=== PATIENT | male | born 1965 | race Caucasian/White ===

== ENCOUNTER 2020-08-09 15:18 | Emergency (ER) | payer MEDICAID, SELFPAY ==
[2020-08-09 15:40] VITALS: BP 134/74; PULSE 91; RESP 18; TEMP 37; O2SAT 98; BMI 30.7
--- NOTE | 2020-08-09 16:13 | XR_ITS ---
EXAMINATION: XR CHEST CLINICAL INFORMATION: Cough. COMPARISON: 02/14/2020 chest radiograph. TECHNIQUE: Frontal view of the chest was obtained. FINDINGS: The lungs are clear. The heart and mediastinal structures are unremarkable. XR/XR chest 1V IMPRESSION: No acute cardiopulmonary process. The appearance is improved compared to the previous study.
--- NOTE | 2020-08-09 17:21 | ED.URI ---
HPI - URI/Sore Throat General Chief Complaint: Upper Respiratory Symptoms Stated Complaint: Cough Time Seen by Provider: 08/09/20 16:13 History of Present Illness HPI Narrative: patient complains of cough which is productive of sputum for 1 week without improvement, no fever no chills no shortness of breath, he was tested for COVID yesterday but results are not back Related Data Previous Rx's Medication Instructions Recorded dulaglutide 0.75 mg/0.5 mL 0.75 mg SUBCUT QWEEK 28 Days #2 ml 07/26/20 subcutaneous pen injector doxycycline hyclate 100 mg PO BID 7 Days #14 cap 08/09/20 Allergies Allergy/AdvReac Type Severity Reaction Status Date / Time Penicillins [PENICILLINS] Allergy Intermediate RASH Verified 08/09/20 15:40 morphine Allergy Unknown Unknown Verified 08/09/20 15:40 penicillin V Allergy Unknown Unknown Verified 08/09/20 15:40 Review of Systems Review of Systems: positive for cough, and body aches Negative for fever chills, shortness of breath, chest pain, abdominal pain, nausea vomiting diarrhea, calf pain or leg swelling, skin rash, weakness or dizziness Yes all other systems are reviewed and are negative PMFSH Past Medical History Source: nursing notes reviewed Medical History (Updated 08/09/20 @ 17:23 by MARY Hook) Carpal tunnel syndrome Depression Essential hypertension Hyperlipidemia LDL goal <100 Kidney stones Type 2 diabetes mellitus with hyperglycemia, with long-term current use of insulin Social History Social History Advance Directives: No Advance Directives Information Provided: No Physical Exam Vital Signs: Vital Signs: Last Vital Signs Temp 98.6 F 08/09/20 15:40 Pulse 91 08/09/20 15:40 Resp 18 08/09/20 15:40 BP 134/74 08/09/20 15:40 Pulse Ox 98 08/09/20 15:40 Body Mass Index 30.7 patient is A&O x3, no acute distress, speaking full sentences comfortable appearing The pharynx is clear, the voice is normal The neck is supple, no lymphadenopathy The chest is clear to auscultation bilaterally with full symmetrical equal breath sounds The heart rate and rhythm regular no murmur The abdomen soft nontender The extremities no edema no calf swelling or tenderness Neuro no focal deficit Skin no rash Course Course Course Narrative: chest x-ray was negative for any acute findings, no infiltrates and patient was discharged Discharge Plan Discharge Clinical Impression: Bronchitis Patient Disposition: Home, Self-Care Additional Instructions: no pneumonia was seen on the x-ray but as cough has been going on for a week we are treating with antibiotic Return to ER any time any shortness of breath, any worse condition, any concerns A negative COVID test can miss some cases so if your coughing a lot, assume you have COVID even if the test is negative and be careful to wear a mask and keep a distance from other people Prescriptions: New doxycycline hyclate 100 mg capsule 100 mg PO BID 7 Days Qty: 14 RF: 0 No Action Trulicity 0.75 mg/0.5 mL pen injector 0.75 mg subcut QWEEK 28 Days Qty: 2 RF: 0
== END 2020-08-09 17:43 | disposition home or self-care (01) ==
PROVIDERS: Emergency Provider Emergency Medicine Emergency Medical Services; PCP Internal Medicine
DX: J40 Bronchitis, not specified as acute or chronic (principal); I10 Essential (primary) hypertension; E11.9 Type 2 diabetes mellitus without complications; Z79.4 Long term (current) use of insulin; Z86.19 Personal history of other infectious and parasitic diseases
CPT/HCPCS: 71045; 99283

== ENCOUNTER 2020-08-23 18:26 | Emergency (ER) | payer MEDICAID, SELFPAY ==
[2020-08-23 18:47] VITALS: BP 136/76; PULSE 83; RESP 20; TEMP 37.4; O2SAT 98; BMI 30.7
--- NOTE | 2020-08-23 18:53 | XR_ITS ---
EXAMINATION: CHEST 2 VIEWS CLINICAL INFORMATION: continuos coughing with wheezing. Pneumonia . COMPARISON: 08/09/2020. TECHNIQUE: PA and lateral views of the chest obtained. FINDINGS: The lungs are well expanded. No focal infiltrate, effusion, edema, or pneumothorax. Cardiac and mediastinal silhouettes are within normal limits for technique. No acute bony abnormality seen XR/XR chest 2V IMPRESSION: No evidence of acute disease compared to 08/09/2020
--- NOTE | 2020-08-23 18:54 | ED.URI ---
HPI - URI/Sore Throat General Chief Complaint: General Medical Stated Complaint: Cough/SOB -COVID 08/15 Time Seen by Provider: 08/23/20 18:38 Source: patient Mode of arrival: ambulatory Limitations: no limitations History of Present Illness HPI Narrative: Patient presents to ED for continuous cough for the past 2 weeks. Patient denies any chest pain or shortness of breath. Patient diagnosed with bronchitis. Patient states antibiotic did not resolve coughing. Patient states no swelling of lower extremities, calf pain, redness, coughing up blood, fever, or chills. Patient denies any chest pain or inspiration. Patient denies any recent long travel or recent surgery. Patient was recently tested this past Tuesday for COVID-19 a was negative as per patient. Patient's main complaint is a continuous cough. Related Data Previous Rx's Medication Instructions Recorded doxycycline hyclate 100 mg PO BID 7 Days #14 cap 08/09/20 insulin glargine 100 unit/mL (3 34 unit SUBCUT DAILY 30 Days #15 ml 08/17/20 mL) subcutaneous pen dulaglutide 0.75 mg/0.5 mL 0.75 mg SUBCUT QWEEK 28 Days #2 ml 08/20/20 subcutaneous pen injector benzonatate [Tessalon Perles] 100 mg PO TID PRN #15 cap 08/23/20 Allergies Allergy/AdvReac Type Severity Reaction Status Date / Time Penicillins [PENICILLINS] Allergy Intermediate RASH Verified 08/09/20 15:40 morphine Allergy Unknown Unknown Verified 08/09/20 15:40 penicillin V Allergy Unknown Unknown Verified 08/09/20 15:40 Review of Systems Review of Systems: Yes all other systems are reviewed and are negative Constitutional: Constitutional: Reports as per HPI and Reports no additional constitutional complaints Eyes: Eyes: Reports as per HPI and Reports no additional eye complaints ENT: Reports system reviewed and no additional complaints, except as documented and Reports as per HPI Cardiovascular: Cardiovascular: Reports as per HPI and Reports no additional cardiovascular complaints Respiratory: Respiratory: Reports as per HPI, Reports no additional respiratory complaints and Reports cough Gastrointestinal: Gastrointestinal: Reports as per HPI and Reports no additional gastrointestinal complaints Musculoskeletal: Musculoskeletal: Reports no additional musculoskeletal complaints and Reports as per HPI Neurologic: Reports system reviewed and no additional complaints, except as documented and Reports as per HPI Psychiatric: Psychiatric: Reports no additional psychiatric complaints and Reports as per HPI [facility] Past Medical History Medical History Carpal tunnel syndrome Depression Essential hypertension Hyperlipidemia LDL goal <100 Kidney stones Type 2 diabetes mellitus with hyperglycemia, with long-term current use of insulin Surgical History (Updated 08/21/20 @ 11:20 by Myriam Mccall LPN) Hx of colonoscopy Family History Family History (Updated 08/21/20 @ 11:21 by Myriam Mccall LPN) Mother Diabetes Social History Social History (Updated 08/21/20 @ 11:21 by Myriam Mccall LPN) Smoking Status: Former smoker Advance Directives: No Advance Directives Information Provided: No Physical Exam Vital Signs: Vital Signs: Last Vital Signs Temp 99.3 F 08/23/20 18:47 Pulse 83 08/23/20 18:47 Resp 20 08/23/20 18:47 BP 136/76 08/23/20 18:47 Pulse Ox 98 08/23/20 18:47 Body Mass Index 30.7 Const: General: cooperative, healthy appearing, comfortable, no acute distress, well developed, alert, awake, Physically active and acute distress Orientation/consciousness: patient oriented x3 HENMT: Head: Yes normal to inspection and Yes No palpable skull fracture present Eyes: General: appearance normal, both eyes and all related structures Neck: Neck: Yes normal visual inspection, Yes full ROM, Yes no lymphadenopathy, Yes no meningeal signs, Yes trachea midline, Yes supple and No tender Chest: Chest palpation & inspection: normal inspection of the chest and normal palpation of entire chest wall Resp: Effort & Inspection: normal respiratory effort and able to speak in complete sentences Auscultation: wheezes (Diffuse) expiratory wheezes Cardio: Jugular venous distension: no JVD Heart sounds: S1 normal heart sound present and S2 normal heart sound present GI: Inspection: Yes normal to inspection Palpation (GI): Soft to palpation, not firm, nontender, no guarding and not rigid : General: No CVA tenderness and Yes no CVA tenderness Back/Spine/Pelvis: Back: no CVA tenderness, No CVA tenderness and No back tenderness Skin: General skin exam: no rashes or lesions noted Neuro: General: patient oriented x3, gait normal, no meningeal signs and CN's II-XI intact bilaterally Cranial nerves: Yes CN's II-XII intact bilaterally Extrem: Other: Lower extremities negative for any swelling, pitting edema, or calf pain. General: Yes normal to inspection and Yes full ROM Psych: Appearance: grossly normal, well kempt and not disheveled Course Course Course Narrative: History and physical exam indicate bronchitis exacerbation. Wheezing with no history of asthma. Lower extremity negative for any swelling, pitting edema, or calf pain. not suspecting CHF exacerbation or PE. Will do repeat x-ray repeat& COVID. Reevaluation(s) Reevaluation #1: Chest x-ray negative for pneumonia. Will discharge patient with Tessalon Perles. Patient encourage to continue taking and using his albuterol pump. Diagnosis bronchitis. Time: 19:33 MDM - URI/Sore Throat MDM Narrative Medical decision making narrative: Bronchitis Discharge Plan Discharge Clinical Impression: Bronchitis, Upper respiratory infection Patient Disposition: Home, Self-Care Instructions: Upper Respiratory Infection (ED), Acute Bronchitis (ED) Additional Instructions: Return to ED immediately for any chest pain, shortness of breath, weakness, dizziness, calf pain, swelling of lower extremities, coughing up blood, fever, chills, or any other concerning symptoms. Please continue taking you albuterol inhaler at home as needed Prescriptions: New benzonatate [Tessalon Perles] 100 mg capsule 100 mg PO TID PRN (Reason: cough) Qty: 15 RF: 0 No Action insulin glargine [Lantus Solostar U-100 Insulin] 100 unit/mL (3 mL) insulin pen 34 unit subcut DAILY 30 Days Qty: 15 RF: 0 Trulicity 0.75 mg/0.5 mL pen injector 0.75 mg subcut QWEEK 28 Days Qty: 2 RF: 0 doxycycline hyclate 100 mg capsule 100 mg PO BID 7 Days Qty: 14 RF: 0 Referrals: Ramsey Turner MD [Primary Care Provider] - 2 days (Bronchitis. Chronic cough.) Interventions: ED Discharge Assessment Last Done: 08/23/20 19:50 Discharge Date/Time: 08/23/20 20:00 Print Language: Tajik
== END 2020-08-23 20:00 | disposition home or self-care (01) ==
PROVIDERS: Physician Assistant; Emergency Provider Emergency Medicine; PCP Internal Medicine
DX: J20.9 Acute bronchitis, unspecified (principal); Z20.828 Contact with and (suspected) exposure to other viral communicable diseases; E11.9 Type 2 diabetes mellitus without complications; I10 Essential (primary) hypertension; E78.5 Hyperlipidemia, unspecified
CPT/HCPCS: 71046; 99283; U0003

== ENCOUNTER → 2020-09-23 08:20 | Outpatient (BNVA) | payer MEDICAID, SELFPAY | PROVIDERS: PCP Internal Medicine; Visit Provider Nurse Practitioner Gerontology | DX: Z76.89 Persons encountering health services in other specified circumstances (principal) | CPT/HCPCS: 99212 ==

== ENCOUNTER 2020-09-25 11:51 | Emergency (ER) | payer MEDICAID, SELFPAY ==
[2020-09-25 12:21] VITALS: BP 112/66; PULSE 90; RESP 18; TEMP 37.2; O2SAT 96; BMI 31.1
--- NOTE | 2020-09-25 12:37 | ED.ASTHMA ---
HPI - Asthma General Chief Complaint: Asthma Stated Complaint: asthma Time Seen by Provider: 09/25/20 13:19 Source: patient Mode of arrival: ambulatory Limitations: no limitations History of Present Illness HPI Narrative: This is a 55-year-old primarily Yi-speaking male with past medical history that is significant for diabetes, hypertension, hyperlipidemia who presents feet via triage ambulatory with complaint of cough and body aches with wheezing for the past several days start see started with upper respiratory symptoms of nasal congestion that progressed to cough and now is having wheezing associated with a cough. States he has had several of these episodes in the past he has been here for this. States he was tested for COVID-23 August last year and was negative prior to that he was positive in January of last year. He denies any recent travel or sick contacts. He does report to me that he had a 10 year history of 2 pack a day but quit smoking about 20 years ago. He states he does not have any formal diagnosis of reactive airway disease. MD complaint: wheezing Severity: moderate Related Data Current Asthma Therapy: none Home Medications Medication Instructions Recorded Confirmed aspirin 81 mg tablet,delayed 81 mg PO DAILY 09/23/20 09/23/20 release atorvastatin 10 mg tablet 10 mg PO DAILY 09/23/20 09/23/20 lisinopril 10 mg tablet 10 mg PO DAILY 09/23/20 09/23/20 metformin 500 mg tablet 1,000 mg PO BID tab 09/23/20 09/23/20 Previous Rx's Medication Instructions Recorded doxycycline hyclate 100 mg PO BID 7 Days #14 cap 08/09/20 insulin glargine 100 unit/mL (3 34 unit SUBCUT DAILY 30 Days #15 ml 08/17/20 mL) subcutaneous pen benzonatate [Tessalon Perles] 100 mg PO TID PRN #15 cap 08/23/20 dulaglutide 1.5 mg/0.5 mL 1.5 mg SUBCUT QWEEK 28 Days #2 ml 09/23/20 subcutaneous pen injector albuterol sulfate 2 puff INHALATION Q4-6H PRN #8.5 g 09/25/20 azithromycin [Zithromax Z-Chano] 250 mg PO DAILY 5 Days #6 tab 09/25/20 prednisone 40 mg PO DAILY 5 Days #10 tab 09/25/20 Allergies Allergy/AdvReac Type Severity Reaction Status Date / Time Penicillins [PENICILLINS] Allergy Intermediate RASH Verified 09/23/20 08:38 penicillin V Allergy Unknown Unknown Verified 09/23/20 08:38 morphine AdvReac Unknown Unknown Verified 09/23/20 08:38 Review of Systems Review of Systems: Constitutional: No Weight loss, No Fever, No Chills, No Night Sweats, No Fatigue, No Malaise ENT/Mouth: No Hearing loss, No Ear Pain, No Nasal Congestion, No Sinus Pain, No Hoarseness, No sore throat, No Rhinorrhea, No Swallowing Difficulty Eyes: No Eye Pain, No Swelling, No Redness, No Foreign Body, No Discharge, No Vision Changes Cardiovascular: No Chest Pain, No SOB, No Dyspnea on Exertion, No Orthopnea, No Edema, No Palpitations Respiratory: + Cough, No Sputum, + Wheezing, No Smoke Exposure, No Dyspnea Gastrointestinal: No Nausea, No Vomiting, No Diarrhea, No Constipation, No abdominal Pain, No Hematochezia, No Melena Genitourinary: no irregular bleeding, No Dysuria, No Urinary Frequency, No Hematuria, No Urinary Incontinence, No Urgency Musculoskeletal: No joint pain, No Myalgias, No Joint Swelling Skin: No Skin Lesions, No rash Neuro: No Weakness, No Numbness, No Paresthesias, No Loss of Consciousness, No Dizziness, No Headache Psych: Negative Heme/Lymph: No Bruising, No Bleeding,No Lymphadenopathy Endocrine: No Polyuria, No Polydipsia, No Temperature Intolerance Yes all other systems are reviewed and are negative [facility] Past Medical History Medical History Carpal tunnel syndrome Depression Essential hypertension Hyperlipidemia LDL goal <100 Kidney stones Type 2 diabetes mellitus with hyperglycemia, with long-term current use of insulin Surgical History Hx of colonoscopy Family History Family History Mother Diabetes Social History Social History (Updated 09/23/20 @ 08:21 by José Miguel Marshall) Household Members: None Smoking Status: Former smoker Advance Directives: No Advance Directives Information Provided: No Physical Exam Vital Signs: Vital Signs: Last Vital Signs Temp 98.9 F 09/25/20 12:21 Pulse 100 09/25/20 14:29 Resp 18 09/25/20 14:29 BP 120/70 09/25/20 14:29 Pulse Ox 96 09/25/20 14:29 Body Mass Index 31.1 Reviewed Const: General: cooperative and healthy appearing; No acute distress or intoxicated appearing Nutritional Appearance: average body habitus Orientation/consciousness: patient oriented x3 HENMT: Head: Yes normal to inspection Ears: hearing grossly normal bilaterally Eyes: General: appearance normal, both eyes and all related structures Visual Henderson: normal visual henderson by confrontation Neck: Neck: Yes normal visual inspection, No positive Brudzinski's sign, No positive Kernig's sign and No tender Thyroid: Thyroid normal Chest: Chest palpation & inspection: normal inspection of the chest Resp: Effort & Inspection: normal respiratory effort Auscultation: wheezes (Audible wheezing diffuse) Cardio: Jugular venous distension: no JVD Rhythm: regular rhythm Heart sounds: S1 normal heart sound present and S2 normal heart sound present GI: Inspection: Yes normal to inspection Palpation (GI): Soft to palpation Percussion: Yes normal to percussion Auscultation: normal bowel sounds : General: Yes no CVA tenderness Back/Spine/Pelvis: Back: no CVA tenderness Skin: General skin exam: no rashes or lesions noted Neuro: General: patient oriented x3 Extrem: General: Yes normal to inspection Course Course Course Narrative: In review 55-year-old male with history of diabetes, hypertension, hyperlipidemia former smoker presenting with cough and wheezing in the setting of recent URI does have history of recurrent bronchitis no formal diagnosis of asthma/COPD though my suspicions are high. He feels much better after our long neb with 7.5 mg albuterol. Lungs clear to auscultation. Hemodynamically stable. Ambulatory steady straight gait without changes in his vitals. Will discharge home with short course inhaler, prednisone and azithromycin and advised for GP follow-up with possible referral to pulmonology for pulmonary function tests and further evaluation for underlying disease. He verbalized understanding. Feels comfortable plan. Stable for discharge. MDM - Asthma Lab Data Result diagrams: 09/25/20 12:59 09/25/20 12:59 Labs: Lab Results 09/25/20 09/25/20 09/25/20 Range/Units 12:59 12:59 12:59 WBC 10.2 (4.8-10.8) X10*3/uL RBC 5.39 (4.60-5.80) X10*6/uL Hgb 15.7 (14.0-18.0) g/dl Hct 46.5 (42-52) % MCV 86.3 (80-98) fL MCH 29.1 (27.0-33.0) pg MCHC 33.8 (31.0-36.0) g/dl RDW 12.7 (11.0-16.0) % Plt Count 220 (160-400) X10*3/uL MPV 11.1 (9.4-12.4) fL Immature Gran % (Auto) 0.5 H (0.0-0.4) % Neut % (Auto) 62.1 (45-73) % Lymph % (Auto) 23.6 (20-40) % Wheeler % (Auto) 4.6 (2-11) % Eos % (Auto) 8.6 H (0-4) % Baso % (Auto) 0.6 (0-2) % Lymph # (Auto) 2.4 (1.2-4.9) X10*3/uL Wheeler # (Auto) 0.5 (0.1-1.2) X10*3/uL Eos # (Auto) 0.9 H (0.0-0.4) X10*3/uL Baso # (Auto) 0.1 (0.0-0.2) X10*3/uL Abs Immat Gran (auto) 0.05 H (0.00-0.03) X10*3/uL Absolute Neuts (auto) 6.4 (2.0-8.3) X10*3/uL Absolute Nucleated RBC 0.000 (0.0-0.012) X10*3/uL Nucleated RBC % (auto) 0.0 (0.0-0.2) /100WBC Hold Blue Top SEE NOTE Sodium 139 (135-145) mmol/L Potassium 4.6 (3.3-5.1) mmol/l Chloride 105 (96-108) mmol/L Carbon Dioxide 24 (22-29) mmol/L Anion Gap 15 (12-20) BUN 22 H (9-16) mg/dL Creatinine 1.33 (0.5-1.4) mg/dL Estim Creat Clear Calc 62.9 Estimated GFR 56 Random Glucose 239 H (60-115) mg/dL Calcium 9.3 (8.4-10.2) mg/dL Total Bilirubin 0.9 (0.0-1.0) mg/dL AST 22 (5-37) U/L ALT 32 (0-40) U/L Alkaline Phosphatase 126 H (39-117) U/L Troponin I High Sens (<3.5-35.0) ng/L Total Protein 7.4 (6.5-8.0) g/dL Albumin 4.1 (3.5-5.0) g/dL Coronavirus (PCR) (Negative) Influenza Type A (PCR) (Negative) Influenza Type B (PCR) (Negative) RSV RNA Qual (PCR) (Negative) 09/25/20 09/25/20 Range/Units 12:59 13:01 WBC (4.8-10.8) X10*3/uL RBC (4.60-5.80) X10*6/uL Hgb (14.0-18.0) g/dl Hct (42-52) % MCV (80-98) fL MCH (27.0-33.0) pg MCHC (31.0-36.0) g/dl RDW (11.0-16.0) % Plt Count (160-400) X10*3/uL MPV (9.4-12.4) fL Immature Gran % (Auto) (0.0-0.4) % Neut % (Auto) (45-73) % Lymph % (Auto) (20-40) % Wheeler % (Auto) (2-11) % Eos % (Auto) (0-4) % Baso % (Auto) (0-2) % Lymph # (Auto) (1.2-4.9) X10*3/uL Wheeler # (Auto) (0.1-1.2) X10*3/uL Eos # (Auto) (0.0-0.4) X10*3/uL Baso # (Auto) (0.0-0.2) X10*3/uL Abs Immat Gran (auto) (0.00-0.03) X10*3/uL Absolute Neuts (auto) (2.0-8.3) X10*3/uL Absolute Nucleated RBC (0.0-0.012) X10*3/uL Nucleated RBC % (auto) (0.0-0.2) /100WBC Hold Blue Top Sodium (135-145) mmol/L Potassium (3.3-5.1) mmol/l Chloride (96-108) mmol/L Carbon Dioxide (22-29) mmol/L Anion Gap (12-20) BUN (9-16) mg/dL Creatinine (0.5-1.4) mg/dL Estim Creat Clear Calc Estimated GFR Random Glucose (60-115) mg/dL Calcium (8.4-10.2) mg/dL Total Bilirubin (0.0-1.0) mg/dL AST (5-37) U/L ALT (0-40) U/L Alkaline Phosphatase (39-117) U/L Troponin I High Sens < 3.5 (<3.5-35.0) ng/L Total Protein (6.5-8.0) g/dL Albumin (3.5-5.0) g/dL Coronavirus (PCR) NEGATIVE (Negative) Influenza Type A (PCR) NEGATIVE (Negative) Influenza Type B (PCR) NEGATIVE (Negative) RSV RNA Qual (PCR) NEGATIVE (Negative) Imaging Data Chest x-ray: Radiologist's impression: Armand Warren 55 M [address] [id number] ReportSigned Patient: Armand WarrenMR#: [id number]: [id number]:[id number]/Sex: 55 / MADM Date: 09/25/20Loc: EDAttending Dr: Ordering Physician: Feliciano Perry NP Date of Service: 09/25/20 Procedure(s): XR chest 1V Accession Number(s): [id number] cc: Feliciano Perry NP~ EXAMINATION: XR CHEST CLINICAL INFORMATION: Shortness of breath COMPARISON: Chest radiographs 08/23/2020, 08/09/2020 TECHNIQUE: Portable upright AP view of the chest was obtained. FINDINGS: There is no lobar or segmental airspace consolidation or definite groundglass opacities. The costophrenic sulci are clear. The heart is normal in size. The hilar and mediastinal contours and visualized bony structures are unremarkable. XR/XR chest 1V IMPRESSION: Unremarkable examination. 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 Drink plenty fluids Self-isolation/social distancing Take medication as prescribed Return if any concerns or worsening symptoms Thank you Prescriptions: New azithromycin [Zithromax Z-Chano] 250 mg tablet 250 mg PO DAILY 5 Days Qty: 6 RF: 0 albuterol sulfate 90 mcg/actuation HFA aerosol inhaler 2 puff inhalation Q4-6H PRN (Reason: shortness of breath or wheezing) Qty: 8.5 RF: 0 prednisone 20 mg tablet 40 mg PO DAILY 5 Days Qty: 10 RF: 0 No Action insulin glargine [Lantus Solostar U-100 Insulin] 100 unit/mL (3 mL) insulin pen 34 unit subcut DAILY 30 Days Qty: 15 RF: 0 doxycycline hyclate 100 mg capsule 100 mg PO BID 7 Days Qty: 14 RF: 0 benzonatate [Tessalon Perles] 100 mg capsule 100 mg PO TID PRN (Reason: cough) Qty: 15 RF: 0 aspirin [Adult Low Dose Aspirin] 81 mg tablet,delayed release (DR/EC) 81 mg PO DAILY RF: 0 atorvastatin 10 mg tablet 10 mg PO DAILY RF: 0 lisinopril 10 mg tablet 10 mg PO DAILY RF: 0 metformin 500 mg tablet 1,000 mg PO BID RF: 0 Trulicity 1.5 mg/0.5 mL pen injector 1.5 mg subcut QWEEK 28 Days Qty: 2 RF: 3 Referrals: Ramsey Turner MD [Primary Care Provider] - 1 week Interventions: ED Discharge Assessment Last Done: 09/25/20 15:16 Discharge Date/Time: 09/25/20 15:17
--- NOTE | 2020-09-25 12:43 | XR_ITS ---
EXAMINATION: XR CHEST CLINICAL INFORMATION: Shortness of breath COMPARISON: Chest radiographs 08/23/2020, 08/09/2020 TECHNIQUE: Portable upright AP view of the chest was obtained. FINDINGS: There is no lobar or segmental airspace consolidation or definite groundglass opacities. The costophrenic sulci are clear. The heart is normal in size. The hilar and mediastinal contours and visualized bony structures are unremarkable. XR/XR chest 1V IMPRESSION: Unremarkable examination.
--- NOTE | 2020-09-25 12:44 | PC.NURSE ---
SEEN BY PROVIDER AT THIS TIME
[2020-09-25 13:06] LABS: MANUAL DIFF FLAG NO
[2020-09-25 13:08] VITALS: PULSE 85; O2SAT 96
[2020-09-25] MEDS: Albuterol Sulfate (0.083%) 2.5 MG/3 ML VIAL.NEB 7.5 MG INHALE (13:08)
[2020-09-25 13:10] LABS: Basophils Absolute Auto 0.1 X10*3/uL (0.0-0.2); Basophils Percent Auto 0.6 % (0-2); Eosinophils Absolute Auto 0.9 X10*3/uL (0.0-0.4); Eosinophils Percent Auto 8.6 % (0-4); Hematocrit 46.5 % (42-52); Hemoglobin 15.7 g/dl (14.0-18.0); Imm Gran Abs Auto 0.05 X10*3/uL (0.00-0.03); Imm Gran Pct Auto 0.5 % (0.0-0.4); Lymphocytes Absolute Auto 2.4 X10*3/uL (1.2-4.9); Lymphocytes Percent Auto 23.6 % (20-40); Mean Corpuscular HGB Conc 33.8 g/dl (31.0-36.0); Mean Corpuscular Hemoglobin 29.1 pg (27.0-33.0); Mean Corpuscular Volume 86.3 fL (80-98); Mean Platelet Volume 11.1 fL (9.4-12.4); Monocytes Absolute Auto 0.5 X10*3/uL (0.1-1.2); Monocytes Percent Auto 4.6 % (2-11); Neutrophils Absolute Auto 6.4 X10*3/uL (2.0-8.3); Neutrophils Percent Auto 62.1 % (45-73); Platelet Count 220 X10*3/uL (160-400); Red Blood Count 5.39 X10*6/uL (4.60-5.80); Red Cell Distribution Width 12.7 % (11.0-16.0); White Blood Count 10.2 X10*3/uL (4.8-10.8)
[2020-09-25] MEDS: 0.9 % Sodium Chloride 500 ML IV (13:12)
[2020-09-25] MEDS: methylPREDNISolone Sod Succ/PF 125 MG/2 ML VIAL IVPUSH (13:12)
--- NOTE | 2020-09-25 13:16 | PC.NURSE ---
SEEN BY PROVIDER. LABS DRAWN. IV EST. MEDICATED PER ORDERS.
[2020-09-25 13:33] LABS: Alanine Aminotransferase 32 U/L (0-40); Albumin Level 4.1 g/dL (3.5-5.0); Alkaline Phosphatase 126 U/L (39-117); Anion Gap 15 (12-20); Aspartate Amino Transferase 22 U/L (5-37); Bilirubin Total 0.9 mg/dL (0.0-1.0); Blood Urea Nitrogen 22 mg/dL (9-16); Calcium 9.3 mg/dL (8.4-10.2); Carbon Dioxide 24 mmol/L (22-29); Chloride 105 mmol/L (96-108); Creatinine Clr Calc Pharmacy 62.9; Estimated Glomerular Filt Rate 56; Glucose Random 239 mg/dL (60-115); Potassium 4.6 mmol/l (3.3-5.1); Sodium 139 mmol/L (135-145); Total Protein 7.4 g/dL (6.5-8.0)
[2020-09-25 13:39] LABS: Troponin-I High Sensitivity < 3.5 ng/L (<3.5-35.0)
[2020-09-25 13:49] LABS: Influenza A PCR NEGATIVE (Negative); Influenza B PCR NEGATIVE (Negative); Resp Syncy Virus RNA Qual PCR NEGATIVE (Negative); SARS COV2 PCR INHOUSE NEGATIVE (Negative)
[2020-09-25 14:29] VITALS: BP 120/70; PULSE 100; RESP 18; O2SAT 96
--- NOTE | 2020-09-25 14:29 | PC.NURSE ---
HOUR LONG UD COMPLETE, CXR DONE. AWAITINIG REEVAL. COVID -
== END 2020-09-25 15:17 | disposition home or self-care (01) ==
PROVIDERS: Nurse Practitioner Primary Care; Emergency Provider Emergency Medicine Emergency Medical Services; PCP Internal Medicine
DX: J06.9 Acute upper respiratory infection, unspecified (principal); R05 Cough; M79.10 Myalgia, unspecified site; Z20.822 Contact with and (suspected) exposure to COVID-19; Z87.891 Personal history of nicotine dependence
CPT/HCPCS: 0241U; 36415; 71045; 80053; 84484; 85025; 96361; 96374; 99283; J2930

== ENCOUNTER → 2020-11-05 08:55 | Outpatient (BNVA) | payer MEDICAID, SELFPAY | PROVIDERS: PCP Internal Medicine; Visit Provider Nurse Practitioner Gerontology ==

== ENCOUNTER 2020-11-14 07:39 | Outpatient (REF) | payer MEDICAID, SELFPAY ==
[2020-11-14 09:29] LABS: Estimated Average Glucose 252 mg/dL; Hemoglobin A1c % 10.4 %
[2020-11-14 09:37] LABS: Alanine Aminotransferase 31 U/L (0-40); Albumin Level 4.1 g/dL (3.5-5.0); Alkaline Phosphatase 123 U/L (39-117); Anion Gap 14 (12-20); Aspartate Amino Transferase 23 U/L (5-37); Bilirubin Total 1.1 mg/dL (0.0-1.0); Blood Urea Nitrogen 22 mg/dL (9-16); Calcium 9.3 mg/dL (8.4-10.2); Carbon Dioxide 25 mmol/L (22-29); Chloride 105 mmol/L (96-108); Cholesterol 117 mg/dL; Estimated Glomerular Filt Rate > 60; Glucose Fasting 211 mg/dL (60-99); HDL Cholesterol 28 mg/dL; LDL Cholesterol Calculated 68 mg/dl; Potassium 5.4 mmol/L (3.3-5.1); Sodium 139 mmol/L (135-145); Total Protein 7.4 g/dL (6.5-8.0); Triglycerides 109 mg/dL
[2020-11-14 09:39] LABS: Creatinine Urine 118.94 mg/dL; Microalbum/Creatinine Ratio Ur 15.9 ug/mg cr
[2020-11-16 12:31] LABS: LDL Cholesterol Direct 75 mg/dL (<100)
== END 2020-11-14 07:40 | disposition home or self-care (01) ==
LOC: HO.LAB 07:39
PROVIDERS: PCP Internal Medicine; Visit Provider Nurse Practitioner Gerontology
DX: E11.65 Type 2 diabetes mellitus with hyperglycemia (principal); Z79.4 Long term (current) use of insulin
CPT/HCPCS: 36415; 80053; 80061; 82043; 83036; 83721

== ENCOUNTER 2020-11-19 09:57 | Outpatient (REF) | payer MEDICAID, SELFPAY ==
[2020-11-19 12:10] LABS: Alanine Aminotransferase 27 U/L (0-40); Albumin Level 4.2 g/dL (3.5-5.0); Alkaline Phosphatase 123 U/L (39-117); Anion Gap 14 (12-20); Aspartate Amino Transferase 21 U/L (5-37); Bilirubin Total 1.2 mg/dL (0.0-1.0); Blood Urea Nitrogen 18 mg/dL (9-16); Calcium 9.4 mg/dL (8.4-10.2); Carbon Dioxide 30 mmol/L (22-29); Chloride 100 mmol/L (96-108); Estimated Glomerular Filt Rate 53; Glucose Random 375 mg/dL (60-115); Potassium 4.7 mmol/L (3.3-5.1); Sodium 139 mmol/L (135-145); Total Protein 7.3 g/dL (6.5-8.0)
== END 2020-11-19 09:58 | disposition home or self-care (01) ==
LOC: HO.LAB 09:57
PROVIDERS: Nurse Practitioner Gerontology; PCP Internal Medicine; Visit Provider Internal Medicine Pulmonary Disease
DX: B94.8 Sequelae of other specified infectious and parasitic diseases (principal); J84.9 Interstitial pulmonary disease, unspecified; J44.9 Chronic obstructive pulmonary disease, unspecified; R06.00 Dyspnea, unspecified; E11.65 Type 2 diabetes mellitus with hyperglycemia; Z79.4 Long term (current) use of insulin
CPT/HCPCS: 36415; 80053; 99202

== ENCOUNTER 2020-12-02 08:52 | Outpatient (REF) | payer MEDICAID, SELFPAY ==
--- NOTE | ~2020-12-02 | CT_ITS ---
EXAMINATION: CT CHEST WITHOUT CONTRAST CLINICAL INFORMATION: Interstitial pulmonary disease. COMPARISON: None TECHNIQUE: Multidetector volumetric CT imaging of the chest was done. Axial MIP volume rendering provided. Sagittal and coronal reformatted images were obtained. This CT examination was performed using dose optimization techniques as appropriate, variously including the following: *Automated exposure control *Adjustment of mA and/or kV according to patient size (this includes techniques or standardized protocols for targeted exams where dose is matched to indication/reason for exam; i.e. extremities or head) *Use of iterative reconstruction technique DLP: 180 mGy-cm FINDINGS: WEATHER STRIP INSTALLER: Well-expanded lungs. LUNGS: The lungs are well-expanded and clear of acute pneumonic process. No pulmonary nodule, mass or ground-glass density seen. Thin section evaluation of lungs reveals no interstitial thickening, nodularity or bronchiectasis. MEDIASTINUM: The heart size and the great vessels are normal caliber. The thyroid lobes are symmetrical. The central trachea and bronchi are widely patent. No abnormal sized mediastinal lymph nodes or mass seen. There is no pericardial effusion. PLEURA: There is no pleural effusion. No pleural mass or thickening. AXILLA: No lymphadenopathy. UPPER ABDOMEN: Visualized liver, spleen, pancreas, and bilateral adrenal glands are unremarkable. OSSEOUS STRUCTURES: No lytic or sclerotic process seen. There is inferior endplate Schmorl's node T9 vertebra. CT/CT chest wo con IMPRESSION: Unremarkable CT chest exam.
== END 2020-12-02 08:53 | disposition home or self-care (01) ==
LOC: HO.CT 08:52
PROVIDERS: Visit Provider Internal Medicine Pulmonary Disease
DX: J84.9 Interstitial pulmonary disease, unspecified (principal)
CPT/HCPCS: 71250

== ENCOUNTER 2020-12-31 08:36 | Outpatient (REF) | payer MEDICAID, SELFPAY ==
--- NOTE | 2020-12-31 10:36 | PFT_ITS ---
Forced vital capacity is slightly decreased. FEV1, JEV70-79, and MVV are normal. Postbronchodilator therapy, there is no significant change. Total lung capacity and residual volume slightly decreased. Diffusion capacity normal. CONCLUSION: A very mild degree of restrictive pulmonary disorder. No obstructive airway disorder. Mike Braun MD MSB/MODL / [id number]
== END 2020-12-31 08:37 | disposition home or self-care (01) ==
LOC: HO.RESP 08:36
PROVIDERS: PCP Internal Medicine; Visit Provider Internal Medicine Pulmonary Disease
DX: J44.9 Chronic obstructive pulmonary disease, unspecified (principal)
CPT/HCPCS: 94060; 94727; 94729; 99212

== ENCOUNTER → 2021-02-06 12:20 | Outpatient (BNVA) | payer MEDICAID, SELFPAY | PROVIDERS: PCP Internal Medicine; Visit Provider Nurse Practitioner Gerontology | DX: E11.65 Type 2 diabetes mellitus with hyperglycemia (principal); E78.5 Hyperlipidemia, unspecified; B35.3 Tinea pedis; R74.8 Abnormal levels of other serum enzymes; I10 Essential (primary) hypertension; Z79.4 Long term (current) use of insulin | CPT/HCPCS: 82947; 99212 ==

== ENCOUNTER → 2021-06-24 10:55 | Outpatient (BNVA) | payer MEDICAID, SELFPAY | PROVIDERS: PCP Internal Medicine; Visit Provider Internal Medicine Pulmonary Disease | DX: J44.9 Chronic obstructive pulmonary disease, unspecified (principal); R91.8 Other nonspecific abnormal finding of lung field | CPT/HCPCS: 99212 ==

== ENCOUNTER → 2021-07-16 11:27 | Outpatient (BNVA) | payer MEDICAID, SELFPAY | PROVIDERS: PCP Internal Medicine; Visit Provider Nurse Practitioner Gerontology | DX: E11.65 Type 2 diabetes mellitus with hyperglycemia (principal); E78.5 Hyperlipidemia, unspecified; E66.09 Other obesity due to excess calories; I10 Essential (primary) hypertension; Z79.4 Long term (current) use of insulin; Z68.30 Body mass index [BMI] 30.0-30.9, adult | CPT/HCPCS: 82947; 83036; 99212 ==

== ENCOUNTER 2021-10-16 07:51 | Outpatient (REF) | payer MEDICAID, SELFPAY ==
--- NOTE | ~2021-10-16 | CT_ITS ---
EXAMINATION: CT CHEST WITHOUT CONTRAST CLINICAL INFORMATION: Follow-up pulmonary nodule COMPARISON: Previous chest CT November 2020 TECHNIQUE: Multidetector volumetric CT imaging of the chest was done. Axial MIP volume rendering provided. Sagittal and coronal reformatted images were obtained. This CT examination was performed using dose optimization techniques as appropriate, variously including the following: *Automated exposure control *Adjustment of mA and/or kV according to patient size (this includes techniques or standardized protocols for targeted exams where dose is matched to indication/reason for exam; i.e. extremities or head) *Use of iterative reconstruction technique DLP: 183 mGy-cm FINDINGS: SAP FUNCTIONAL ANALYST: LUNGS: There are small pulmonary nodules that are stable. Largest is a 4 mm peripheral or subpleural left upper lobe nodule axial image 92 series 7. There are several new pulmonary nodules. There is a new 2 mm anterior segment right upper lobe nodule axial image 187 series 7 and surrounding groundglass attenuation measuring 1 cm axial image 188 series 7. There is a similar-appearing areas seen in the medial right lower lobe for example axial image 3 40-3 90 medially near the spine, apical posterior segment of the left upper lobe near the fissure for example axial image 200 and 206 series 7, central left lower lobe for example axial image 327 series 7 and in the right middle lobe adjacent to the minor fissure for example axial image 380 series 7. These areas probably represent airways disease. There is a new 4 mm peripheral or subpleural right lower lobe nodule axial image 284 series 7 and 3 mm right lower lobe nodule axial image 370 series 7. There is a new 2 mm peripheral left lower lobe nodule axial image 414 series 7 and question axial image 436 series 7. MEDIASTINUM: The mediastinum is normal. PLEURA: There is no pleural effusion. No pleural mass or thickening. AXILLA: No lymphadenopathy. UPPER ABDOMEN: There is a partially visualized right renal cyst. Is a small calcification in the spleen. OSSEOUS STRUCTURES: There are mild degenerative changes of the spine. CT/CT chest wo con IMPRESSION: Several new small pulmonary nodules and areas of groundglass attenuation, the majority of which appear related to airways disease. Largest discrete nodule is a 4 mm peripheral or subpleural nodule in the right lower lobe. According to the UPDATED 2017 Fleischner Society recommendations, the advised follow-up imaging for less than 6 mm nodule: Low risk, no chest CT follow-up and high risk, optional chest CT follow-up in one year Fleischner guidelines were followed.
== END 2021-10-16 07:52 | disposition home or self-care (01) ==
LOC: HO.CT 07:51
PROVIDERS: PCP Internal Medicine; Visit Provider Internal Medicine Pulmonary Disease
DX: R91.8 Other nonspecific abnormal finding of lung field (principal)
CPT/HCPCS: 71250

== ENCOUNTER → 2021-10-19 07:35 | Outpatient (BNVA) | payer MEDICAID, SELFPAY | PROVIDERS: PCP Internal Medicine; Visit Provider Nurse Practitioner Gerontology | DX: E11.65 Type 2 diabetes mellitus with hyperglycemia (principal); E66.09 Other obesity due to excess calories; E78.5 Hyperlipidemia, unspecified; I10 Essential (primary) hypertension; Z79.4 Long term (current) use of insulin; Z68.31 Body mass index [BMI] 31.0-31.9, adult | CPT/HCPCS: 82947 ==

== ENCOUNTER → 2021-10-21 08:04 | Outpatient (BNVA) | payer MEDICAID, SELFPAY | PROVIDERS: PCP Internal Medicine; Visit Provider Internal Medicine Pulmonary Disease | DX: J44.9 Chronic obstructive pulmonary disease, unspecified (principal); R91.8 Other nonspecific abnormal finding of lung field | CPT/HCPCS: 99212 ==

== ENCOUNTER → 2022-02-10 08:33 | Outpatient (BNVA) | payer MEDICAID, SELFPAY | PROVIDERS: PCP Internal Medicine; Visit Provider Internal Medicine Pulmonary Disease | DX: J44.9 Chronic obstructive pulmonary disease, unspecified (principal); R91.8 Other nonspecific abnormal finding of lung field; Z79.899 Other long term (current) drug therapy; Z87.891 Personal history of nicotine dependence | CPT/HCPCS: 99212 ==

== ENCOUNTER 2022-10-14 07:39 | Outpatient (REF) | payer MEDICAID, SELFPAY ==
--- NOTE | ~2022-10-14 | CT_ITS ---
EXAMINATION: CT CHEST WITHOUT CONTRAST CLINICAL INFORMATION: Follow-up pulmonary nodules COMPARISON: 10/16/2021 TECHNIQUE: Multidetector volumetric CT imaging of the chest was done. Axial MIP volume rendering provided. Sagittal and coronal reformatted images were obtained. This CT examination was performed using dose optimization techniques as appropriate, variously including the following: *Automated exposure control *Adjustment of mA and/or kV according to patient size (this includes techniques or standardized protocols for targeted exams where dose is matched to indication/reason for exam; i.e. extremities or head) *Use of iterative reconstruction technique DLP: 179 FINDINGS: LUNGS: Redemonstration of small bilateral pulmonary nodules. Reference left upper lobe subpleural 3 mm nodule is unchanged (5:104). Right upper lobe 2 mm nodule and surrounding groundglass opacity has resolved from prior study. Left upper lobe 2 mm nodule is unchanged (5:150). No new or enlarging pulmonary nodule. MEDIASTINUM: No mediastinal adenopathy. No significant coronary artery atherosclerotic calcifications. PLEURA: There is no pleural effusion. No pleural mass or thickening. AXILLA: No lymphadenopathy. UPPER ABDOMEN: Benign-appearing right renal cyst is again noted. OSSEOUS STRUCTURES/SOFT TISSUES: Degenerative changes of the thoracic spine. CT/CT chest wo IV con IMPRESSION: Bilateral pulmonary nodules measuring up to 3 mm are unchanged. No new or enlarging pulmonary nodule. Fleischner guidelines were followed. According to Fleischner Society guidelines, these nodules are favored to be benign.
== END 2022-10-14 07:40 | disposition home or self-care (01) ==
LOC: HO.CT 07:39
PROVIDERS: Visit Provider Internal Medicine Pulmonary Disease
DX: R91.8 Other nonspecific abnormal finding of lung field (principal)
CPT/HCPCS: 71250

== ENCOUNTER → 2022-11-10 09:32 | Outpatient (BNVA) | payer MEDICAID, SELFPAY | PROVIDERS: PCP Internal Medicine; Visit Provider Internal Medicine Pulmonary Disease | DX: J44.9 Chronic obstructive pulmonary disease, unspecified (principal); R91.8 Other nonspecific abnormal finding of lung field | CPT/HCPCS: 99212 ==

== ENCOUNTER 2023-03-31 09:59 | Outpatient (REF) | payer MEDICAID, SELFPAY ==
[2023-03-31 12:12] LABS: Anion Gap 15 (12-20); Blood Urea Nitrogen 19 mg/dL (9-16); Calcium 9.3 mg/dL (8.4-10.2); Carbon Dioxide 22 mmol/L (22-29); Chloride 106 mmol/L (96-108); Estimated Glomerular Filt Rate 50; Glucose Random 227 mg/dL (60-115); Potassium 4.7 mmol/L (3.3-5.1); Sodium 138 mmol/L (135-145)
== END 2023-03-31 10:00 | disposition home or self-care (01) ==
LOC: HO.HHCL 09:59
PROVIDERS: Visit Provider Internal Medicine
DX: E11.9 Type 2 diabetes mellitus without complications (principal); Z79.4 Long term (current) use of insulin
CPT/HCPCS: 36415; 80048

== ENCOUNTER 2023-04-22 09:26 | Outpatient (AMB) | payer MEDICAID, SELFPAY ==
[2023-04-22 09:29] VITALS: BP 110/68; PULSE 77; BMI 31.2
--- NOTE | 2023-04-22 09:29 | MHC.OFFVIS ---
Intake Vital Signs 04/22/23 09:29 Height 5 ft 5 in Weight 187 lb 9.814 oz BMI 31.2 BP 110/68 Blood Pressure Location Lt brachial Position Sitting Pulse 77 Intake Visit Reasons: DM2 Intake Note: New patient present today for Type [address] Frost patient. Patient receives DME supplies through: Pharmacy Last Diabetic Eye exam: 01/2023 Last Podiatry Visit: Doesn't have one Random Glucose: 220 mg/dl HgA1C: 7.9% Envelope Sealing Machine Operator Required: Yes Envelope Sealing Machine Operator Language: Credit Advisor Name: [place] [id number] Information Interpreted: non-clinical & clinical Accompanied by: Self / Same As Patient Allergies Penicillins [PENICILLINS] Allergy (Intermediate, Verified 04/22/23 09:35) RASH penicillin V Allergy (Unknown, Verified 04/22/23 09:35) Unknown morphine Adverse Reaction (Unknown, Verified 04/22/23 09:35) Unknown Medication List - Last Reconciled 04/22/23 by Armando Busby MD albuterol sulfate 90 mcg/actuation 2 puffs inhalation Q4-6H PRN aspirin (Adult Low Dose Aspirin) 81 mg PO DAILY atorvastatin 10 mg PO DAILY blood sugar diagnostic (FreeStyle Lite Strips) As directed three times daily lancets (TRUEplus Lancets) As directed lisinopril 10 mg PO DAILY metformin 1,000 mg PO BID sertraline 50 mg PO QAM umeclidinium-vilanterol 62.5-25 mcg/actuation (Anoro Ellipta) 1 ea inhalation DAILY HPI HPI Comments History of Present Illness Details Patient is a 58 yo male with DM type 2 diagnosed over 10 years ago who presents for continue management of diabetes. Patient was last seen 10/19/21 by Marita Rogers NP Past medical history: Diabetes type 2, hypertension, depression, hyperlipidemia, Micro and macrovascular complications: None known Blood glucose monitoring: He also has a Lola download which he is using 37% of the time. Average glucose 202 variability 29% 40% range with 42% hyperglycemia and 18% very hyperglycemic and no hypoglycemia. The pattern shows declining blood sugars overnight with increases at breakfast Diabetes medications: Lantus 28 units once daily, metformin 1000 mg with meals twice daily, Trulicilty 0.75 mg/week (not using). Intolerant of Jardiance due to abdominal pain. Intolerant of Trulicity due diarrhea . Taking Jardiance 25 mg QD Took Ozempic and developed diarrhea Symptoms reported: Denies numbness, tingling, cramping in lower extremities (only in right hand) Hypoglycemia: no Hyperglycemia: no urinary frequency, denies nocturia r Exercise - Walks throughout the day, goes up and down stairs in the winter. Eye exam - 3 mos ago no retinopathy Laboratory Tests 02/06/21 07/16/21 12:42 11:46 Hgb A1c (Clinic) 9.4 H 8.4 H 11/14/20 11/14/20 11/14/20 08:15 08:15 08:15 Creatinine Estimated GFR Hemoglobin A1c % 10.4 Triglycerides 109 Cholesterol 117 LDL Cholesterol Di rect 75 LDL Cholesterol, C alc 68 HDL Cholesterol 28 Microalb/Creat Rat io 11/14/20 11/19/20 08:20 10:39 Creatinine 1.38 Estimated GFR 53 Hemoglobin A1c % Triglycerides Cholesterol LDL Cholesterol Di rect LDL Cholesterol, C alc HDL Cholesterol Microalb/Creat Rat io 15.9 PFSH Medical History Carpal tunnel syndrome Depression Essential hypertension Hyperlipidemia LDL goal <100 Kidney stones Obesity due to excess calories Type 2 diabetes mellitus with hyperglycemia, with long-term current use of insulin Surgical History Hx of colonoscopy Family History Mother Diabetes Arthritis Stroke Father Unknown family medical history Social History Household Members: None Alcohol intake: never Patient Tobacco Use Status: Former Tobacco user Quit Date: Over 15 years ago Physical Exam Vital Signs: Last Vital Signs Pulse 77 04/22/23 09:29 BP 110/68 04/22/23 09:29 BMI result Body Mass Index 31.2 Absence of Cushingoid features. Absence of acromegalic features. Neck exam reveals nl size thyroid about 15 gms. No thyroid nodules palpable. No carotid bruits present. Lungs CTA. Heart S1 S2, Reg R/R. No M/R/ G. Skin exam reveals absence of vitiligo or acanthosis nigricans. Abdominal exam reveals Soft NT/ND with NA BS. No organomegaly present. Neck Other: . Extrem Other: Visual exam of foot performed. No ulcerations or open lesions. No onchomycosis, no callouses.Pulses 2 + distally Sensation intact to monofilament exam. Vibratory sensation sensed is intact with 128 Hz tuning fork Results AMB Hemoglobin A1c AMB Hemoglobin A1c 7.9 % Last Edit by Leslie Cline on 04/22/23 09:57 Results Reviewed Results Reviewed: 04/22/23 09:42 Glucose, Whole Blood Routine Laboratory Last Values Glucose (Clinic) 220 mg/dL (60-115) H 04/22/23 09:42 Hgb A1c (Clinic) 7.9 % (4.0-6.0) H 04/22/23 09:56 Assessment & Plan Assessment & Plan (1) Type 2 diabetes mellitus with hyperglycemia, with long-term current use of insulin: Code(s): E11.65 - Type 2 diabetes mellitus with hyperglycemia; Z79.4 - emt intermediate (current) use of insulin Plan: This is a 58-year-old male with a history of type 2 diabetes being treated metformin and basal-bolus insulin with fair glycemic control and no known microvascular or macrovascular complication The plan is to have the patient scan more frequently with the Lola his point cares pre and post meals . We will start Mounjaro 2.5 mg and titrate as tolerated. Went over side effects of Mounjaro including but not limited to nausea, vomiting and rare risk of pancreatitis. Will send patient to italian teacher and parts sales representative. Will check lipid profile and microalbumin to creatinine ratio Mounjaro 2.5 mg samples given the patient lot number [id number] C expiration date 10/07/2024 Orders: Orders Lipid Panel Today E11.65 - Type 2 diabetes mellitus with hyperglycemia, Z79.4 - emt intermediate (current) use of insulin Microalbumin, Random (w Creat) Today E11.65 - Type 2 diabetes mellitus with hyperglycemia, Z79.4 - emt intermediate (current) use of insulin AMB Hemoglobin A1c Today E11.65 - Type 2 diabetes mellitus with hyperglycemia, Z79.4 - emt intermediate (current) use of insulin Referrals Diabetes Education Referral E11.65 - Type 2 diabetes mellitus with hyperglycemia, Z79.4 - correction (current) use of insulin Nutrition/Dietitian Referral E11.65 - Type 2 diabetes mellitus with hyperglycemia, Z79.4 - correction (current) use of insulin Medications: New tirzepatide (Mounjaro) 2.5 mg (0.5 mL) subcut QWEEK 4 weeks 2 mL 0RF Coding Level of Care Code Est Pt Level 4 (60903) Diagnoses Type 2 diabetes mellitus with hyperglycemia, with long-term current use of insulin E11.65; Z79.4
[2023-04-22 09:47] LABS: Glucose, Whole Blood 220 mg/dL (60-115)
== END 2023-04-22 10:23 | disposition home or self-care (01) ==
PROVIDERS: PCP Internal Medicine; Visit Provider Internal Medicine Endocrinology, Diabetes & Metabolism
DX: E11.65 Type 2 diabetes mellitus with hyperglycemia (principal); Z79.4 Long term (current) use of insulin
CPT/HCPCS: 99214

== ENCOUNTER → 2023-04-22 09:26 | Outpatient (BNVA) | payer MEDICAID, SELFPAY | PROVIDERS: PCP Internal Medicine; Visit Provider Internal Medicine Endocrinology, Diabetes & Metabolism | DX: E11.65 Type 2 diabetes mellitus with hyperglycemia (principal); Z79.4 Long term (current) use of insulin | CPT/HCPCS: 82947; 83036; 99211; 99212 ==

== ENCOUNTER 2023-04-22 10:29 | Outpatient (AMB) | payer MEDICAID, SELFPAY ==
--- NOTE | 2023-04-22 12:41 | A.OFFVIS_ITS ---
Intake Intake Visit Reasons: DM Manager Library Required: Yes Manager Library Language: Industrial Relations Commissioner Name: Tristin [id number] Information Interpreted: non-clinical & clinical Accompanied by: Self / Same As Patient Allergies Penicillins [PENICILLINS] Allergy (Intermediate, Verified 04/22/23 09:35) RASH penicillin V Allergy (Unknown, Verified 04/22/23 09:35) Unknown morphine Adverse Reaction (Unknown, Verified 04/22/23 09:35) Unknown HPI Comprehensive Diabetes Asmnt Most Recent Diabetes Results: Creatinine 1.46 mg/dL (0.5-1.4) H 03/31/23 Blood Urea Nitrogen 19 mg/dL (9-16) H 03/31/23 Sodium 138 mmol/L (135-145) 03/31/23 Potassium 4.7 mmol/L (3.3-5.1) 03/31/23 Chloride 106 mmol/L (96-108) 03/31/23 Carbon Dioxide 22 mmol/L (22-29) 03/31/23 Calcium 9.3 mg/dL (8.4-10.2) 03/31/23 PFSH Medical History Carpal tunnel syndrome Depression Essential hypertension Hyperlipidemia LDL goal <100 Kidney stones Obesity due to excess calories Type 2 diabetes mellitus with hyperglycemia, with long-term current use of insulin Surgical History Hx of colonoscopy Family History Mother Diabetes Arthritis Stroke Father Unknown family medical history Social History Household Members: None Alcohol intake: never Patient Tobacco Use Status: Former Tobacco user Quit Date: Over 15 years ago Assessment & Plan Assessment & Plan (1) Type 2 diabetes mellitus with hyperglycemia, with long-term current use of insulin: Code(s): E11.65 - Type 2 diabetes mellitus with hyperglycemia; Z79.4 - terminal makeup operator (current) use of insulin Plan: Mounjero Education visit Patient Education: Patient was instructed and provided with demonstration of the following: Mounjero action Mounjero storage how to set up Mounjero Handwashing insulin injection site rotation Site rotation recognizing hypertrophy Testing blood glucose Removing and disposing needle from insulin pen Safe disposal of sharps Target blood sugar Signs/ symptoms/treatment of hypoglycemia/hyperglycemia expiration pen Patient verbalized understanding of education provided and was able to demonstrate proper use of inject into injection pillow Reviewed rule of 15s to treat glucose under 70 mg/dL All questions were answered and patient was advised to contact the office with any questions or concerns. Instructed patient to scan Lola 2 sensor more frequently in order to avoid gap in glucose patterns Patient's last A1c was 7.9% Patient's average glucose for the last 2 weeks is 202 mg/dL 60% above target 40% at target 0% below target Patient Instructions: Patient will start Mounjaro 2.5 mg weekly Patient agreed to scan sensor pre and 2 hours post meal Patient will follow-up with telehealth nurse educator in 1 month Coding Level of Care Code Est Pt Level 1 (44619) Diagnoses Type 2 diabetes mellitus with hyperglycemia, with long-term current use of insulin E11.65; Z79.4 Results AMB Hemoglobin A1c AMB Hemoglobin A1c 7.9 % Last Edit by Leslie Cline on 04/22/23 09:57
== END 2023-04-22 11:59 | disposition home or self-care (01) ==
LOC: HO.ENCR 10:29
PROVIDERS: PCP Internal Medicine; Visit Provider Registered Nurse Diabetes Educator
DX: E11.65 Type 2 diabetes mellitus with hyperglycemia (principal); Z79.4 Long term (current) use of insulin

== ENCOUNTER 2023-05-20 08:25 | Outpatient (AMB) | payer MEDICAID, SELFPAY ==
--- NOTE | 2023-05-20 09:22 | MHC.AMDMED ---
Intake Intake Visit Reasons: DM Grants And Contracts Assistant Required: Yes Grants And Contracts Assistant Language: News Department Intern Name: Natalie [facility] Alumni Coordinator: Alumni Coordinator offered & declined Accompanied by: Self / Same As Patient Allergies Penicillins [PENICILLINS] Allergy (Intermediate, Verified 04/22/23 09:35) RASH penicillin V Allergy (Unknown, Verified 04/22/23 09:35) Unknown morphine Adverse Reaction (Unknown, Verified 04/22/23 09:35) Unknown HPI Comprehensive Diabetes Asmnt Most Recent Diabetes Results: Creatinine 1.46 mg/dL (0.5-1.4) H 03/31/23 Blood Urea Nitrogen 19 mg/dL (9-16) H 03/31/23 Sodium 138 mmol/L (135-145) 03/31/23 Potassium 4.7 mmol/L (3.3-5.1) 03/31/23 Chloride 106 mmol/L (96-108) 03/31/23 Carbon Dioxide 22 mmol/L (22-29) 03/31/23 Calcium 9.3 mg/dL (8.4-10.2) 03/31/23 PFSH Medical History Carpal tunnel syndrome Depression Essential hypertension Hyperlipidemia LDL goal <100 Kidney stones Obesity due to excess calories Type 2 diabetes mellitus with hyperglycemia, with long-term current use of insulin Surgical History Hx of colonoscopy Family History Mother Diabetes Arthritis Stroke Father Unknown family medical history Social History Household Members: None Alcohol intake: never Patient Tobacco Use Status: Former Tobacco user Quit Date: Over 15 years ago Assessment & Plan Assessment & Plan (1) Type 2 diabetes mellitus with hyperglycemia, with long-term current use of insulin: Code(s): E11.65 - Type 2 diabetes mellitus with hyperglycemia; Z79.4 - assisted (current) use of insulin Plan: Personal Continuous Glucose Monitor: Patients CGM information reviewed Reviewed patient's sensor data: Hypoglycemia: ? 19% Hyperglycemia:? 1% Time in Range:? 80% Average glucose for the last 2 weeks? 98 mg/dL Patient taking Lantus 28 units daily Metformin 1000 mg b.i.d. Mounjaro 2.5 mg weekly Patient experiencing high percentage of hypoglycemia, mainly overnight. Patient reports the only symptom he experiences is feeling very hungry. Explained to patient is important to confirm hypoglycemia on Lola 2 sensor with fingerstick. If it is a true low reviewed how to treat hypoglycemia with rule of 15s. Rule of 15s handout given in [place] Instructed patient to hold Lantus 28 units, and continue Mounjaro 2.5 mg. Called [facility] pharmacy to confirm that he patient can pick pulling machine tender medication Reviewed how to interpret trend arrows Reminded patient that to check finger sticks if symptoms do not match sensor reading. Discussed lag time between finger stick and sensor data.? Patient able to insert sensor independently at home without issue.? Patient instructed to follow-up with certified adaptive physical educator in 1 month Patient Instructions: Mantenga Lantus 28 unidades debido a alycia hiperglucemia del 20 % en el sensor del paciente. Si el sensor de glucosa indica que el paciente todav?a tiene hipoglucemia, se le indic? que pruebe la glucosa con mitchell gluc?metro para confirmar la hipoglucemia, use la patricia de 15s para tratar la hipoglucemia seg?n las instrucciones. Coding Level of Care Code Est Pt Level 1 (75986) Diagnoses Type 2 diabetes mellitus with hyperglycemia, with long-term current use of insulin E11.65; Z79.4
== END 2023-05-20 09:27 | disposition home or self-care (01) ==
PROVIDERS: PCP Internal Medicine; Visit Provider Registered Nurse Diabetes Educator
DX: E11.65 Type 2 diabetes mellitus with hyperglycemia (principal); Z79.4 Long term (current) use of insulin

== ENCOUNTER → 2023-05-20 08:25 | Outpatient (BNVA) | payer MEDICAID, SELFPAY | PROVIDERS: PCP Internal Medicine; Visit Provider Registered Nurse Diabetes Educator | DX: E11.65 Type 2 diabetes mellitus with hyperglycemia (principal); Z79.4 Long term (current) use of insulin | CPT/HCPCS: 99211 ==

== ENCOUNTER 2023-07-20 08:28 | Outpatient (AMB) | payer MEDICAID, SELFPAY ==
[2023-07-20 08:36] VITALS: BMI 28.3
--- NOTE | 2023-07-20 08:36 | A.OFFVIS_ITS ---
Intake VS Expanded 07/20/23 08:36 Height 5 ft 5 in Weight 170 lb 3.15 oz BMI 28.3 Intake Visit Reasons: DM Allergies Penicillins [PENICILLINS] Allergy (Intermediate, Verified 04/22/23 09:35) RASH penicillin V Allergy (Unknown, Verified 04/22/23 09:35) Unknown morphine Adverse Reaction (Unknown, Verified 04/22/23 09:35) Unknown HPI Nutrition Presentation Details Pt presents for MNT for T2DM. Pt was referred by Dr. Busby Pt brought BG record and 14 d bg averages within 100% target Typical meals consist of B: 2 slices wheat bread and ham/cheese coffee with cream and diet sugar L : rice/beans, chicken /porkchop, crystal light or water D:8 pm: corn check cereal with milk whole milk Fish /wk : once/wk fruits: 0-2/d vegetables: including non starchy veg majority of the time 2-3 serving/d dairy: 3 c/d starches: combination starchy veg and starches physical activity: walks daily + daily life activities alcohol- denies smoking denies HVK-Uturynn-Fx.Jeor Equation Height 5 ft 5 in Weight 170 lb Resting Metabolic Rate 1521.85 Calculated Activity Level Mild Activity Calories Needed to Maintain Weight 2092.54 Diagnosis Nutrition problem #1 food nutri know defi As related to (etiology) #1 diagnosis As evidenced by (sign/symptom) #1 knowledge deficit of diet (and role of fiber rich foods) Monitoring/Goals Nutrition problem monitoring level of knowledge/skill Nutrition goal/outcome list 3 high fiber foods Outcome progress verbalized understanding Learning/Education Readiness to learn good Stages of change action Educational materials provided Yes (fiber rich foods ) Most Recent Diabetes Results: Creatinine 1.46 mg/dL (0.5-1.4) H 03/31/23 Blood Urea Nitrogen 19 mg/dL (9-16) H 03/31/23 Sodium 138 mmol/L (135-145) 03/31/23 Potassium 4.7 mmol/L (3.3-5.1) 03/31/23 Chloride 106 mmol/L (96-108) 03/31/23 Carbon Dioxide 22 mmol/L (22-29) 03/31/23 Calcium 9.3 mg/dL (8.4-10.2) 03/31/23 [facility] Medical History Carpal tunnel syndrome Depression Essential hypertension Hyperlipidemia LDL goal <100 Kidney stones Obesity due to excess calories Type 2 diabetes mellitus with hyperglycemia, with long-term current use of insulin Surgical History Hx of colonoscopy Family History Mother Diabetes Arthritis Stroke Father Unknown family medical history Household Members: None Alcohol intake: never Patient Tobacco Use Status: Former Tobacco user Quit Date: Over 15 years ago Assessment & Plan Assessment & Plan (1) Type 2 diabetes mellitus with hyperglycemia, with long-term current use of insulin: Code(s): E11.65 - Type 2 diabetes mellitus with hyperglycemia; Z79.4 - detention (current) use of insulin Plan: wt: 77 kg Est kcal needs as per MSJ: 8533-2607 (40% carb, 30% protein/fat) Est fluid needs as per 30 ml/d: 2300 Est prot per day as per 1 g/kg bw: 77 Recommend fiber intake : 8-10 g per day and gradually increase to 25-28 g per day for women and 35-38 g for men or as tolerated Recommend sodium intake per day : less than 2000 mg Educated patient on: ( R = reviewed V = verbalizes understanding N/R = needs review N/A = not applicable * Food sources of carbohydrate, adequate serving sizes and its role in various health conditions: R * Differences between complex carbohydrates a simple carbohydrates, role of fiber in diet: R * Differences between types of fats and role in diet (mono on saturated fat fatty acids, saturated fatty acids, trans fats): R * Food sources of sodium in salt and healthy modifications for heart health in kidney health: R * Healthy plate method concept: R V * Physical activity: Benefits a precaution: R V * Hypoglycemia protocol (rule of 15): R * Dietary prevention of Hyperglycemia: R Patient Instructions: Include fish at least twice a week , baked broiled Incluya pescado 2 veces a la semana Choose fiber rich foods ( cheerios/oats, beans, spinach , lentils, brown rice ) Escoja comidas con fibra (cheerios, panchal integral, lenteja, arroz brown/integral, habichuelas, espinaca Coding Level of Care Code Nutr Indiv Intake (26991) Diagnoses Type 2 diabetes mellitus with hyperglycemia, with long-term current use of insulin E11.65; Z79.4 Time Spent (min) 30
[2023-07-26 09:55] VITALS: BMI 28.3
== END 2023-07-20 09:14 | disposition home or self-care (01) ==
PROVIDERS: PCP Internal Medicine; Visit Provider Dietitian, Registered
DX: E11.65 Type 2 diabetes mellitus with hyperglycemia (principal); Z79.4 Long term (current) use of insulin

== ENCOUNTER → 2023-07-20 08:28 | Outpatient (BNVA) | payer MEDICAID, SELFPAY | PROVIDERS: PCP Internal Medicine; Visit Provider Dietitian, Registered | DX: E11.65 Type 2 diabetes mellitus with hyperglycemia (principal); Z79.4 Long term (current) use of insulin; Z71.3 Dietary counseling and surveillance | CPT/HCPCS: 97802 ==

== ENCOUNTER 2023-08-18 08:40 | Outpatient (REF) | payer MEDICAID, SELFPAY ==
[2023-08-18 11:58] LABS: Cholesterol 111 mg/dL (<200); HDL Cholesterol 30 mg/dL (>40); LDL Cholesterol Calculated 62 mg/dL (<100); Triglycerides 95 mg/dL (<150)
[2023-08-18 12:09] LABS: Anion Gap 13 (12-20); Blood Urea Nitrogen 21 mg/dL (9-16); Calcium 10.2 mg/dL (8.4-10.2); Carbon Dioxide 26 mmol/L (22-29); Chloride 104 mmol/L (96-108); Estimated Glomerular Filt Rate 58; Glucose Random 134 mg/dL (60-115); Potassium 5.3 mmol/L (3.3-5.1); Sodium 138 mmol/L (135-145)
[2023-08-18 12:33] LABS: Reflex LDLD? No
== END 2023-08-18 08:41 | disposition home or self-care (01) ==
LOC: HO.HHCL 08:40
PROVIDERS: Visit Provider Internal Medicine
DX: E11.9 Type 2 diabetes mellitus without complications (principal); Z79.4 Long term (current) use of insulin
CPT/HCPCS: 36415; 80048; 80061

== ENCOUNTER 2023-08-27 09:28 | Emergency (ER) | payer MEDICAID, SELFPAY ==
--- NOTE | ~2023-08-27 | XR_ITS ---
EXAMINATION: XR HAND, RIGHT CLINICAL INFORMATION: Injury COMPARISON: None available. TECHNIQUE: PA, lateral, and oblique views of the right hand. FINDINGS: The bones and soft tissues are normal. No fracture. Alignment is anatomic. Joint spaces are maintained. No erosions or soft tissue calcifications. Radiolucency in the scaphoid bone possibly a bone cyst. Mild arthritic changes involving the first metacarpal phalangeal joint. XR/XR hand RT min 3V IMPRESSION: * No radiographic evidence of acute fracture. * Radiolucency in the scaphoid bone possibly a bone cyst.
[2023-08-27 09:30] VITALS: BP 126/69; PULSE 76; RESP 18; TEMP 36; O2SAT 99; BMI 27.7
--- NOTE | 2023-08-27 09:56 | ED.EXTPRO ---
HPI - Extremity Problem General Chief complaint: Extremity Injury, Upper Stated complaint: r hand inj at home Time Seen by Provider: 08/27/23 09:45 Source: patient and family Mode of arrival: ambulatory Limitations: no limitations History of Present Illness HPI Narrative: Patient is a 50-year-old male with history of DM presenting to the emergency department with complaint of right hand pain, redness after accidentally hitting hand on a tire at home yesterday. Denies any numbness or tingling. States that he cleaned area thoroughly after injury but is concerned about infection as he is diabetic. States Tdap is UTD within the past 5 years. MD Complaint: extremity pain Onset (ago): day(s) Pain Consistency: constant Location: right and upper extremity Severity scale (1-10): 4 Quality: aching Radiation: none Associated symptoms: denies other symptoms Related Data Home Medications Medication Instructions Recorded Confirmed aspirin 81 mg tablet,delayed 81 mg PO DAILY 09/23/20 10/19/21 release (Adult Low Dose Aspirin) atorvastatin 10 mg tablet 10 mg PO DAILY 09/23/20 10/19/21 lisinopril 10 mg tablet 10 mg PO DAILY 09/23/20 10/19/21 metformin 500 mg tablet 1,000 mg PO BID 09/23/20 10/19/21 lancets 33 gauge (TRUEplus Lancets) #100 ea 07/16/21 10/19/21 sertraline 50 mg tablet 50 mg PO QAM 07/16/21 10/19/21 Previous Rx's Medication Instructions Recorded albuterol sulfate 90 mcg/actuation 2 puff inhalation Q4-6H PRN 09/25/20 aerosol inhaler shortness of breath or wheezing #8.5 grams blood sugar diagnostic (FreeStyle #100 ea 08/18/22 Lite Strips) insulin glargine 100 unit/mL (3 28 unit (0.28 mL) subcut DAILY #30 04/22/23 mL) subcutaneous pen (Lantus mL Solostar U-100 Insulin) umeclidinium 62.5 mcg-vilanterol 1 ea inhalation DAILY #60 ea 05/02/23 25 mcg/actuation powdr for inhalation (Anoro Ellipta) tirzepatide 2.5 mg/0.5 mL 2.5 mg (0.5 mL) subcut QWEEK #2 mL 08/08/23 subcutaneous pen injector (Franki) doxycycline hyclate 100 mg capsule 100 mg PO BID #14 caps 08/27/23 Allergies Allergy/AdvReac Type Severity Reaction Status Date / Time Penicillins [PENICILLINS] Allergy Intermediate RASH Verified 08/27/23 09:34 penicillin V Allergy Unknown Rash Verified 08/27/23 09:34 morphine AdvReac Unknown Unknown Verified 08/27/23 09:34 Review of Systems Review of Systems: As per HPI Yes all other systems are reviewed and are negative Constitutional: Constitutional: Reports as per HPI [facility] Past Medical History Medical History Carpal tunnel syndrome Depression Essential hypertension Hyperlipidemia LDL goal <100 Kidney stones Obesity due to excess calories Type 2 diabetes mellitus with hyperglycemia, with long-term current use of insulin Surgical History Hx of colonoscopy Family History Family History Mother Diabetes Arthritis Stroke Father Unknown family medical history Social History Social History Household Members: None Alcohol intake: never Patient Tobacco Use Status: Former Tobacco user Quit Date: Over 15 years ago Advance Directives: No Advance Directives Information Provided: No Physical Exam Vital Signs: Vital Signs: Last Vital Signs Temp 96.8 F 08/27/23 09:30 Pulse 76 08/27/23 09:30 Resp 18 08/27/23 09:30 BP 126/69 08/27/23 09:30 Pulse Ox 99 08/27/23 09:30 O2 Del Method Room Air 08/27/23 09:30 BMI result Body Mass Index 27.7 Vital signs have been reviewed and appear to be correct. Blood pressure normal. Heart rate normal. Respiratory rate normal. Temperature normal. Oxygen saturation normal. Const: General: cooperative, healthy appearing and no acute distress Orientation/consciousness: oriented to person, oriented to place, oriented to time and patient oriented x3 Limitations: no limitations HEENT: Head: Yes normocephalic and Yes atraumatic Ears: external ears normal General nose exam: Normal external nose present Face and sinus: Yes face symmetric Mouth: oropharynx normal and moist mucous membranes Throat: Yes uvula midline Eyes: Pupils: Equal, round and reactive pupils present Neck: Neck: Yes normal visual inspection and Yes supple Resp: Effort & Inspection: normal respiratory effort and able to speak in complete sentences Auscultation: clear to auscultation bilaterally Cardio: Rate: regular rate Rhythm: regular rhythm Heart sounds: S1 normal heart sound present and S2 normal heart sound present GI: Palpation (GI): Soft to palpation and nontender Auscultation: normoactive bowel sounds : General: Yes no CVA tenderness Back/Spine/Pelvis: Back: no CVA tenderness Skin: General skin exam: elasticity normal and turgor normal Neuro: General: oriented to person, oriented to place, oriented to time, patient oriented x3, moves all extremities, no focal motor deficits and CN's II-XI intact bilaterally Cranial nerves: Yes Equal, round and reactive pupils present Cognition (Neuro): normal cognition Extrem: General: Yes full ROM, Yes no pedal edema and Yes no calf tenderness Right upper extremity: Extremity exam: right hand (5mm abrasion over 5th metacarpal with surrounding erythema, no dng) Details: normal capillary refill, neuromotor exam normal and neurosensory exam normal Psych: Mental Status: mental status grossly normal Affect: normal affect Thought process: Normal thought process present Medical Decision Making Medical Decision Making MDM Narrative: Patient is a 50-year-old male with history of DM presenting to the emergency department with complaint of right hand pain, redness after accidentally hitting hand on a tire at home yesterday. On exam patient is awake, A+Ox3, VS WNL, afebrile, normal neurological exam without focal deficits, physical exam findings as above. Given reported symptoms and physical exam findings, initial differential includes abrasion, fracture, cellulitis. X-ray notable for no acute fracture. My interpretation is in agreement with the radiologist's interpretation. Given erythema and history of DM, will treat with doxycycline at this time. Tdap is UTD. Advised patient to keep area clean and dry, assess daily for signs of worsening infection and to follow-up with PCP or return if this occurs. All return precautions discussed at bedside. Patient and verbalized understanding of and agreement with plan. Differential Diagnosis Differential Diagnoses: The differential diagnosis associated with the presentation includes As per MDM Independent Interpretation I performed an independent interpretation of an: Plain X-Ray Interpretation: No acute fracture right hand Radiology Impression Discussion of test interpretation with radiology: I have reviewed the radiologist's reading. Radiologist Impression: XR/XR hand RT min 3V IMPRESSION: * No radiographic evidence of acute fracture. * Radiolucency in the scaphoid bone possibly a bone cyst. External Record Review External record reviewed: Inpatient record, Office record and Outpatient record Prescription Management I considered prescription management with: Antibiotic Discharge Plan Discharge Clinical Impression: Cellulitis of hand, right, Abrasion of hand, right Patient Disposition: Home, Self-Care Instructions: Cellulitis (DC), Abrasion (ED) Additional Instructions: You have been evaluated in the emergency department today for skin infection, also known as cellulitis. Please take your prescribed antibiotics as directed for the full course of the medication. You can use Tylenol or ibuprofen per package instructions every 6 hours as needed for pain. If necessary, you can alternate these medications so that you can take one medication every 3 hours. For instance, at noon take ibuprofen, then at 3:00 p.m. take Tylenol, then at 6:00 p.m. take ibuprofen. Please schedule an appointment for follow-up with your primary care physician as soon as possible. Return to the emergency department if you experience recurrent vomiting, fevers greater than 100.4? F, increasing area of redness, warmth around the area, foul-smelling discharge from the area, increased tenderness around the area, or any other concerning symptoms. Prescriptions: New doxycycline hyclate 100 mg capsule 100 mg PO BID Qty: 14 0RF No Action (DME) FreeStyle Lite Strips Strip See Rx Instructions .Route Qty: 100 0RF Rx Instructions: As directed three times daily Anoro Ellipta 62.5-25 mcg/actuation blister with device 1 ea inhalation DAILY Qty: 60 0RF Mounjaro 2.5 mg/0.5 mL pen injector 2.5 mg subcut QWEEK Qty: 2 2RF albuterol sulfate 90 mcg/actuation HFA aerosol inhaler 2 puff inhalation Q4-6H PRN (Reason: shortness of breath or wheezing) Qty: 8.5 0RF aspirin [Adult Low Dose Aspirin] 81 mg tablet,delayed release (DR/EC) 81 mg PO DAILY atorvastatin 10 mg tablet 10 mg PO DAILY lisinopril 10 mg tablet 10 mg PO DAILY metformin 500 mg tablet 1,000 mg PO BID sertraline 50 mg tablet 50 mg PO QAM (DME) lancets [TRUEplus Lancets] 33 gauge misc See Rx Instructions Not Applicable BID Qty: 100 Rx Instructions: As directed insulin glargine [Lantus Solostar U-100 Insulin] 100 unit/mL (3 mL) insulin pen 28 unit subcut DAILY Qty: 30 5RF
== END 2023-08-27 11:05 | disposition home or self-care (01) ==
PROVIDERS: Emergency Provider Student in an Organized Health Care Education/Training Program; PCP Internal Medicine
DX: S60.511A Abrasion of right hand, initial encounter (principal); L03.113 Cellulitis of right upper limb; Y29.XXXA Contact with blunt object, undetermined intent, initial encounter; Y93.9 Activity, unspecified; Y92.9 Unspecified place or not applicable; Y99.9 Unspecified external cause status
CPT/HCPCS: 73130; 99283

== ENCOUNTER 2023-09-19 08:04 | Outpatient (AMB) | payer MEDICAID, SELFPAY ==
[2023-09-19 08:33] VITALS: BMI 27.6
--- NOTE | 2023-09-19 08:33 | A.OFFVIS_ITS ---
Intake VS Expanded 09/19/23 08:33 Height 5 ft 5 in Weight 165 lb 12.602 oz BMI 27.6 Intake Visit Reasons: T2DM/LVM Allergies Penicillins [PENICILLINS] Allergy (Intermediate, Verified 08/27/23 09:34) RASH penicillin V Allergy (Unknown, Verified 08/27/23 09:34) Rash morphine Adverse Reaction (Unknown, Verified 08/27/23 09:34) Unknown HPI Nutrition Presentation Details Pt presents for MNT f/u for T2DM Pt reports doing well, forgot to bring his glucometer to this appt. Pt reports his fasting blood range between 80-140s. Pt reports having good appetite , having 3 meals per day B: oatmeal made with water or 1 % milk L: sandwich (tuna or turkey D: rice /beans or root veg with chicken snack: fruit or crackers with cheese or cereal cheerios or cornflakes physical activity:walks daily ETOH: denies Smoking : denies fluids: water, coffee 2 x/d with milk, water with lemon or diluting juice with water Most Recent Diabetes Results: Cholesterol 111 mg/dL (<200) 08/18/23 HDL Cholesterol 30 mg/dL (>40) L 08/18/23 Triglycerides 95 mg/dL (<150) 08/18/23 Creatinine 1.27 mg/dL (0.5-1.4) 08/18/23 Blood Urea Nitrogen 21 mg/dL (9-16) H 08/18/23 Sodium 138 mmol/L (135-145) 08/18/23 Potassium 5.3 mmol/L (3.3-5.1) H 08/18/23 Chloride 104 mmol/L (96-108) 08/18/23 Carbon Dioxide 26 mmol/L (22-29) 08/18/23 Calcium 10.2 mg/dL (8.4-10.2) 08/18/23 [facility] Medical History Carpal tunnel syndrome Depression Essential hypertension Hyperlipidemia LDL goal <100 Kidney stones Obesity due to excess calories Type 2 diabetes mellitus with hyperglycemia, with long-term current use of insulin Surgical History Hx of colonoscopy Family History Mother Diabetes Arthritis Stroke Father Unknown family medical history Social History Household Members: None Alcohol intake: never Patient Tobacco Use Status: Former Tobacco user Quit Date: Over 15 years ago Assessment & Plan Assessment & Plan (1) Type 2 diabetes mellitus with hyperglycemia, with long-term current use of insulin: Code(s): E11.65 - Type 2 diabetes mellitus with hyperglycemia; Z79.4 - long term (current) use of insulin Plan: wt: 77 kg, 75 kg (09/19/23) Est kcal needs as per MSJ: 0886-1650 (40% carb, 30% protein/fat) Est fluid needs as per 30 ml/d: 2300 Est prot per day as per 1 g/kg bw: 77 Recommend fiber intake : 8-10 g per day and gradually increase to 25-28 g per day for women and 35-38 g for men or as tolerated Recommend sodium intake per day : less than 2000 mg Educated patient on: ( R = reviewed V = verbalizes understanding N/R = needs review N/A = not applicable * Food sources of carbohydrate, adequate serving sizes and its role in various health conditions: R, V * Differences between complex carbohydrates a simple carbohydrates, role of fiber in diet: R * Differences between types of fats and role in diet (mono on saturated fat fatty acids, saturated fatty acids, trans fats): R , V * Food sources of sodium in salt and healthy modifications for heart health in kidney health: R * Healthy plate method concept: R V * Physical activity: Benefits a precaution: R V * Hypoglycemia protocol (rule of 15): R * Dietary prevention of Hyperglycemia: R Patient Instructions: Work on reducing on fried foods, processed foods choose home made chicken baked instead of fried. Drink water with meals and snacks Coding Level of Care Code Nutr Indiv Subseq (22579) Diagnoses Type 2 diabetes mellitus with hyperglycemia, with long-term current use of insulin E11.65; Z79.4 Time Spent (min) 30
== END 2023-09-19 09:15 | disposition home or self-care (01) ==
PROVIDERS: PCP Internal Medicine; Visit Provider Dietitian, Registered
DX: E11.65 Type 2 diabetes mellitus with hyperglycemia (principal); Z79.4 Long term (current) use of insulin

== ENCOUNTER → 2023-09-19 08:04 | Outpatient (BNVA) | payer MEDICAID, SELFPAY | PROVIDERS: PCP Internal Medicine; Visit Provider Dietitian, Registered | DX: E11.65 Type 2 diabetes mellitus with hyperglycemia (principal); Z79.4 Long term (current) use of insulin | CPT/HCPCS: 97803 ==

== ENCOUNTER 2023-11-16 08:08 | Outpatient (REF) | payer MEDICAID, SELFPAY ==
--- NOTE | ~2023-11-16 | CT_ITS ---
EXAMINATION: CT CHEST WITHOUT CONTRAST CLINICAL INFORMATION: Pulmonary nodules COMPARISON: 10/14/2022, 10/16/2021 TECHNIQUE: Multidetector volumetric CT imaging of the chest was done. Axial MIP volume rendering provided. Sagittal and coronal reformatted images were obtained. This CT examination was performed using dose optimization techniques as appropriate, variously including the following: *Automated exposure control *Adjustment of mA and/or kV according to patient size (this includes techniques or standardized protocols for targeted exams where dose is matched to indication/reason for exam; i.e. extremities or head) *Use of iterative reconstruction technique DLP: 166 mGy-cm FINDINGS: LUNGS: Right upper lobe subpleural 3 mm nodule is unchanged (7:106). Right upper lobe 3 mm nodule is unchanged (7:140). No new or enlarging pulmonary nodule. Central airways are patent. PLEURA: No pleural effusion. MEDIASTINUM: No cardiomegaly. Aorta and pulmonary artery are normal in caliber. No mediastinal adenopathy. Lack of IV contrast limits evaluation for hilar adenopathy. CORONARY ARTERY CALCIFICATION: No coronary artery calcification appreciated. CHEST WALL/AXILLA: No axillary or internal mammary lymphadenopathy. UPPER ABDOMEN: Partially visualized benign-appearing right renal cysts. OSSEOUS STRUCTURES: Degenerative changes of the spine. CT/CT chest wo IV con IMPRESSION: Right upper lobe 3 mm nodules are unchanged. No new or enlarging pulmonary nodule. According to Fleischner Society guidelines, these nodules are benign. According to the UPDATED 2017 Fleischner Society recommendations, the advised followup imaging for solid nodules < 6 mm is: LOW RISK PATIENT: No routine follow up. HIGH RISK PATIENT: Optional CT at 12 months.
== END 2023-11-16 08:09 | disposition home or self-care (01) ==
LOC: HO.CT 08:08
PROVIDERS: PCP Internal Medicine; Visit Provider Internal Medicine Pulmonary Disease
DX: R91.8 Other nonspecific abnormal finding of lung field (principal)
CPT/HCPCS: 71250

== ENCOUNTER 2024-01-06 08:47 | Outpatient (REF) | payer MEDICAID, SELFPAY ==
[2024-01-06 12:29] LABS: Alanine Aminotransferase 23 U/L (0-40); Alkaline Phosphatase 107 U/L (39-117); Anion Gap 13 (12-20); Aspartate Amino Transferase 23 U/L (5-37); Bilirubin Total 0.8 mg/dL (0.0-1.0); Blood Urea Nitrogen 25 mg/dL (9-16); Calcium 9.5 mg/dL (8.4-10.2); Carbon Dioxide 21 mmol/L (22-29); Chloride 108 mmol/L (96-108); Cholesterol 107 mg/dL (<200); Estimated Glomerular Filt Rate 52; Glucose Random 123 mg/dL (60-115); HDL Cholesterol 32 mg/dL (>40); LDL Cholesterol Calculated 58 mg/dL (<100); Potassium 4.8 mmol/L (3.3-5.1); Sodium 137 mmol/L (135-145); Total Protein 7.6 g/dL (6.5-8.0); Triglycerides 85 mg/dL (<150)
[2024-01-06 12:33] LABS: Prostate Specific Antigen Scr 0.16 ng/mL (<0.05-4.0)
== END 2024-01-06 08:48 | disposition home or self-care (01) ==
LOC: HO.HHCL 08:47
PROVIDERS: Visit Provider Internal Medicine
DX: Z00.00 Encounter for general adult medical examination without abnormal findings (principal); E11.9 Type 2 diabetes mellitus without complications; Z79.4 Long term (current) use of insulin; N52.9 Male erectile dysfunction, unspecified; Z12.5 Encounter for screening for malignant neoplasm of prostate
CPT/HCPCS: 36415; 80053; 80061; 84153

== ENCOUNTER 2024-01-20 08:23 | Outpatient (REF) | payer MEDICAID, SELFPAY ==
[2024-01-20 10:30] LABS: Creatinine Urine 100.61 mg/dL; Microalbum/Creatinine Ratio Ur 6.9 ug/mg cr (<30)
== END 2024-01-20 08:24 | disposition home or self-care (01) ==
LOC: HO.LAB 08:23
PROVIDERS: PCP Internal Medicine; Visit Provider Internal Medicine Endocrinology, Diabetes & Metabolism
DX: E11.65 Type 2 diabetes mellitus with hyperglycemia (principal); Z79.4 Long term (current) use of insulin
CPT/HCPCS: 82043; 82570

== ENCOUNTER 2024-01-21 07:54 | Outpatient (REF) | payer MEDICAID, SELFPAY ==
[2024-01-21 09:32] LABS: Cholesterol 107 mg/dL (<200); HDL Cholesterol 32 mg/dL (>40); LDL Cholesterol Calculated 59 mg/dL (<100); Triglycerides 81 mg/dL (<150)
== END 2024-01-21 07:55 | disposition home or self-care (01) ==
LOC: HO.LAB 07:54
PROVIDERS: PCP Internal Medicine; Visit Provider Internal Medicine Endocrinology, Diabetes & Metabolism
DX: E11.65 Type 2 diabetes mellitus with hyperglycemia (principal); Z79.4 Long term (current) use of insulin
CPT/HCPCS: 36415; 80061

== ENCOUNTER 2024-01-23 08:07 | Outpatient (AMB) | payer MEDICAID, SELFPAY ==
[2024-01-23 08:08] VITALS: BP 94/60; PULSE 73; BMI 27.8
--- NOTE | 2024-01-23 08:08 | A.OFFVIS_ITS ---
Vital Signs 01/23/24 08:08 Height 5 ft 5 in Weight 167 lb 1.766 oz BMI 27.8 BP 94/60 Blood Pressure Location Lt brachial Position Sitting Pulse 73 Pulse Source Pulse Oximeter Intake Visit Reasons: DM/CONFIRMED Intake Note: Patient present today to follow up on Type 2 Diabetes Mellitus. Last Diabetic Eye exam: 12/2023 Last Podiatry Visit: Doesn't have one Random Glucose: 231 llmg/dl HgA1C: 6.6% Educational Aide Required: Yes Educational Aide Language: Turkmen Information Interpreted: non-clinical & clinical Accompanied by: Self / Same As Patient Allergies Penicillins [PENICILLINS] Allergy (Intermediate, Verified 01/23/24 08:13) RASH penicillin V Allergy (Unknown, Verified 01/23/24 08:13) Rash morphine Adverse Reaction (Unknown, Verified 01/23/24 08:13) Unknown Medication List - Last Reconciled 01/23/24 by Armando Busby MD albuterol sulfate 90 mcg/actuation 2 puffs inhalation Q4-6H PRN aspirin (Adult Low Dose Aspirin) 81 mg PO DAILY atorvastatin 10 mg PO DAILY blood sugar diagnostic (FreeStyle Lite Strips) As directed three times daily doxycycline hyclate 100 mg PO BID insulin glargine (Lantus Solostar U-100 Insulin) 28 units (0.28 mL) subcut DAILY lancets (TRUEplus Lancets) As directed lisinopril 10 mg PO DAILY metformin 1,000 mg PO BID sertraline 50 mg PO QAM tirzepatide (Mounjaro) 2.5 mg (0.5 mL) subcut QWEEK umeclidinium-vilanterol 62.5-25 mcg/actuation (Anoro Ellipta) 1 ea inhalation DAILY HPI Comments Details: Patient is a 59 yo male with DM type 2 diagnosed over 10 years ago who presents for continue management of diabetes. Past medical history: Diabetes type 2, hypertension, depression, hyperlipidemia, Micro and macrovascular complications: None known Blood glucose monitoring: Lola download shows he is using the sensor 28% of the time. Average glucose is 117 with variability 26.1%. 94% in target range with 5% hyperglycemia and 1% hypoglycemia Diabetes medications: Lantus 28 units once daily not taking , metformin 1000 mg with meals twice daily, . Currently on Mounjaro 2.5 mg Qwkly Symptoms reported: Denies numbness, tingling, cramping in lower extremities (only in right hand) Hypoglycemia: no Hyperglycemia: no urinary frequency, denies nocturia r Exercise - Walks throughout the day, goes up and down stairs in the winter. Eye exam last exam last mo - no retinopathy Laboratory Tests 02/06/21 07/16/21 12:42 11:46 Hgb A1c (Clinic) 9.4 H 8.4 H 11/14/20 11/14/20 11/14/20 08:15 08:15 08:15 Creatinine Estimated GFR Hemoglobin A1c % 10.4 Triglycerides 109 Cholesterol 117 LDL Cholesterol Direct 75 LDL Cholesterol, Calc 68 HDL Cholesterol 28 Microalb/Creat Ratio 11/14/20 11/19/20 08:20 10:39 Creatinine 1.38 Estimated GFR 53 Hemoglobin A1c % Triglycerides Cholesterol LDL Cholesterol Direct LDL Cholesterol, Calc HDL Cholesterol Microalb/Creat Ratio 15.9 PFSH Medical History Carpal tunnel syndrome Depression Essential hypertension Hyperlipidemia LDL goal <100 Kidney stones Obesity due to excess calories Type 2 diabetes mellitus with hyperglycemia, with long-term current use of insulin Surgical History Hx of colonoscopy Family History Mother Diabetes Arthritis Stroke Father Unknown family medical history Social History Household Members: None Alcohol intake: never Patient Tobacco Use Status: Former Tobacco user Quit Date: Over 15 years ago Physical Exam Vital Signs: Last Vital Signs Pulse 73 01/23/24 08:08 BP 94/60 01/23/24 08:08 BMI result Body Mass Index 27.8 Absence of Cushingoid features. Absence of acromegalic features. Neck exam reveals nl size thyroid about 15 gms. No thyroid nodules palpable. No carotid bruits present. Lungs CTA. Heart S1 S2, Reg R/R. No M/R/ G. Skin exam reveals absence of vitiligo or acanthosis nigricans. Abdominal exam reveals Soft NT/ND with NA BS. No organomegaly present. Neck Other: . Extrem Other: Visual exam of foot performed. No ulcerations or open lesions. No onchomycosis, no callouses.Pulses 2 + distally Sensation intact to monofilament exam. Vibratory sensation sensed is intact with 128 Hz tuning fork Results AMB Hemoglobin A1c AMB Hemoglobin A1c 6.6 % Last Edit by WHIT Terrell on 01/23/24 08:35 Results Reviewed Results Reviewed: Laboratory Last Values Glucose (Clinic) 231 mg/dL (60-115) H 01/23/24 08:15 Hgb A1c (Clinic) 6.6 % (4.0-6.0) H 01/23/24 08:23 Assessment & Plan Assessment & Plan (1) Type 2 diabetes mellitus with hyperglycemia, with long-term current use of insulin: Code(s): E11.65 - Type 2 diabetes mellitus with hyperglycemia; Z79.4 - custodial (current) use of insulin Category: Medical Plan: This is a 59-year-old male with a history of type 2 diabetes being treated metformin , Mounjaro and metformin with excellent improved glycemic control and no known microvascular or macrovascular complication At this point, patient can follow up with his primary care provider. Should his HbA1c deteriorate, returned back to endocrinology Orders: Orders AMB Hemoglobin A1c Today E11.65 - Type 2 diabetes mellitus with hyperglycemia, Z13.9 - Encounter for screening, unspecified, Z79.4 - intermediate designer (current) use of insulin Coding Level of Care Code Est Pt Level 4 (43965) Diagnoses Type 2 diabetes mellitus with hyperglycemia, with long-term current use of insulin E11.65; Z79.4
[2024-01-23 08:19] LABS: Glucose, Whole Blood 231 mg/dL (60-115)
== END 2024-01-23 08:34 | disposition home or self-care (01) ==
PROVIDERS: PCP Internal Medicine; Referring Provider Internal Medicine; Visit Provider Internal Medicine Endocrinology, Diabetes & Metabolism
DX: Z13.9 Encounter for screening, unspecified (principal); E11.65 Type 2 diabetes mellitus with hyperglycemia; Z79.4 Long term (current) use of insulin
CPT/HCPCS: 99214

== ENCOUNTER → 2024-01-23 08:07 | Outpatient (BNVA) | payer MEDICAID, SELFPAY | PROVIDERS: PCP Internal Medicine; Visit Provider Internal Medicine Endocrinology, Diabetes & Metabolism | DX: E11.65 Type 2 diabetes mellitus with hyperglycemia (principal); Z79.4 Long term (current) use of insulin | CPT/HCPCS: 82947; 83036; 99212 ==

== ENCOUNTER 2024-03-19 07:45 | Outpatient (AMB) | payer MEDICAID, SELFPAY ==
[2024-03-19 08:30] VITALS: BMI 27.0
--- NOTE | 2024-03-19 08:30 | A.OFFVIS_ITS ---
VS Expanded 03/19/24 08:30 Height 5 ft 5 in Weight 162 lb 7.691 oz BMI 27.0 Intake Visit Reasons: T2DM/CONFIRMED Allergies Penicillins [PENICILLINS] Allergy (Intermediate, Verified 01/23/24 08:13) RASH penicillin V Allergy (Unknown, Verified 01/23/24 08:13) Rash morphine Adverse Reaction (Unknown, Verified 01/23/24 08:13) Unknown Nutrition Presentation Details: Pt presents for MNT for Type 2 DM. Pt reports doing well Has 3 meals/day B: sand (ham/cheese on white bread or bagel with cream cheese and coffee with diet sugar) L: chips, cracker with peanut butter, cheese dinner: rice/chicken, beans or root veg and codfish, water or diluted juice iwth water, salad iwth olive oil and vinegar, avocado snack: low sugar cereal with 2 % milk reports higher BG post bedtime snack physical activity : walking ETOH/SMoking - denies BS Monitoring Most Recent Diabetes Results: Microalb/Creat Ratio 6.9 ug/mg cr (<30) 01/20/24 Cholesterol 107 mg/dL (<200) 01/21/24 HDL Cholesterol 32 mg/dL (>40) L 01/21/24 Triglycerides 81 mg/dL (<150) 01/21/24 Creatinine 1.40 mg/dL (0.5-1.4) 01/06/24 Blood Urea Nitrogen 25 mg/dL (9-16) H 01/06/24 Sodium 137 mmol/L (135-145) 01/06/24 Potassium 4.8 mmol/L (3.3-5.1) 01/06/24 Chloride 108 mmol/L (96-108) 01/06/24 Carbon Dioxide 21 mmol/L (22-29) L 01/06/24 Calcium 9.5 mg/dL (8.4-10.2) 01/06/24 AST 23 U/L (5-37) 01/06/24 ALT 23 U/L (0-40) 01/06/24 Total Protein 7.6 g/dL (6.5-8.0) 01/06/24 Albumin 4.0 g/dL (3.5-5.0) 01/06/24 [facility].Jeor Equation Height: 5 ft 5 in Weight: 162 lb Resting Metabolic Rate: 1480.68 Calculated Activity Level: Mild Activity Calories Needed to Maintain Weight: 5.94 PFSH Medical History Carpal tunnel syndrome Depression Essential hypertension Hyperlipidemia LDL goal <100 Kidney stones Obesity due to excess calories Type 2 diabetes mellitus with hyperglycemia, with long-term current use of insulin Surgical History Hx of colonoscopy Family History Mother Diabetes Arthritis Stroke Father Unknown family medical history Social History Household Members: None Alcohol intake: never Patient Tobacco Use Status: Former Tobacco user Assessment & Plan Assessment & Plan (1) Type 2 diabetes mellitus with hyperglycemia, with long-term current use of insulin: Code(s): E11.65 - Type 2 diabetes mellitus with hyperglycemia; Z79.4 - ad terminal makeup operator (current) use of insulin Category: Medical Plan: wt: 77 kg, 75 kg (09/19/23), 74 (03/2024) Est kcal needs as per MSJ: 2899-5411 (40% carb, 30% protein/fat) Est fluid needs as per 30 ml/d: 2300 Est prot per day as per 1 g/kg bw: 77 Recommend fiber intake : 8-10 g per day and gradually increase to 25-28 g per day for women and 35-38 g for men or as tolerated Recommend sodium intake per day : less than 2000 mg Educated patient on: ( R = reviewed V = verbalizes understanding N/R = needs review N/A = not applicable * Food sources of carbohydrate, adequate serving sizes and its role in various health conditions: R, V * Differences between complex carbohydrates a simple carbohydrates, role of fiber in diet: R * Differences between types of fats and role in diet (mono on saturated fat fatty acids, saturated fatty acids, trans fats): R , V * Food sources of sodium in salt and healthy modifications for heart health in kidney health: R , V * Healthy plate method concept: R V * Physical activity: Benefits a precaution: R V * Hypoglycemia protocol (rule of 15): R * Dietary prevention of Hyperglycemia: R Patient Instructions: Aim at including at least 2 serving of dairy per day and 2 fruits per day as lower salt food options See list of low sodium food options Coding Level of Care Code Nutr Indiv Subseq (35919) Diagnoses Type 2 diabetes mellitus with hyperglycemia, with long-term current use of insulin E11.65; Z79.4 Time Spent (min) 25
[2024-03-19 08:58] VITALS: BMI 27.0
== END 2024-03-19 08:52 | disposition home or self-care (01) ==
PROVIDERS: PCP Internal Medicine; Visit Provider Dietitian, Registered
DX: E11.65 Type 2 diabetes mellitus with hyperglycemia (principal); Z79.4 Long term (current) use of insulin

== ENCOUNTER → 2024-03-19 07:45 | Outpatient (BNVA) | payer MEDICAID, SELFPAY | PROVIDERS: PCP Internal Medicine; Visit Provider Dietitian, Registered | DX: E11.65 Type 2 diabetes mellitus with hyperglycemia (principal); Z79.4 Long term (current) use of insulin | CPT/HCPCS: 97803 ==

== ENCOUNTER 2024-04-27 07:18 | Outpatient (AMB) | payer MEDICAID, SELFPAY ==
--- NOTE | 2024-04-27 07:22 | MHC.OFFVIS ---
Vital Signs 04/27/24 07:23 Height 5 ft 5 in Weight 166 lb 7.184 oz BMI 27.7 BP 98/58 L Blood Pressure Location Lt brachial Position Sitting Pulse 62 Pulse Source Pulse Oximeter Intake Visit Reasons: Type 2 DM Intake Note: New patient presents today for D2TX office visit. Last Diabetic Eye exam: Patient thinks it was 2023. Last Podiatry Visit: Doesn't have one. Random Glucose:146 mg/dl HgA1c: 7.3% Kiln Operator Helper Required: Yes Kiln Operator Helper Language: Power Plant Operations Manager Services: Kiln Operator Helper Present Kiln Operator Helper Name: Astrid Information Interpreted: non-clinical & clinical Accompanied by: Self / Same As Patient Allergies Penicillins [PENICILLINS] Allergy (Intermediate, Verified 04/27/24 07:26) RASH penicillin V Allergy (Unknown, Verified 04/27/24 07:26) Rash morphine Adverse Reaction (Unknown, Verified 04/27/24 07:26) Unknown Medication List - Last Reconciled 04/27/24 by Cari Ferguson PA-C albuterol sulfate 90 mcg/actuation 2 puffs inhalation Q4-6H PRN aspirin (Adult Low Dose Aspirin) 81 mg PO DAILY atorvastatin 10 mg PO DAILY blood sugar diagnostic (FreeStyle Lite Strips) As directed three times daily lancets (TRUEplus Lancets) As directed lisinopril 10 mg PO DAILY metformin 1,000 mg PO BID sertraline 50 mg PO QAM tirzepatide (Mounjaro) 2.5 mg (0.5 mL) subcut QWEEK umeclidinium-vilanterol 62.5-25 mcg/actuation (Anoro Ellipta) 1 ea inhalation DAILY HPI HPI Type 2 DM: Details: Patient is a 59-year-old male with a significant past medical history hypertension, hyperlipidemia, type 2 diabetes, COPD and chronic kidney disease Presenting today for a diabetic follow-up. Endo: Last saw Dr. Busby in January with an A1c of 6.6. Today his A1c is 7.3. he is currently on metformin 1000 mg twice a day and Mounjaro 2.5 mg Q weekly. He denies having elevated blood sugars when he checks. He denies any symptoms of hyperglycemia. He does endorse that his diet has been a little worse over the summer. Denies any hypoglycemic events. - He states he has been off of insulin for over 6 months. Scholaroo Lola to download- usage 31%, average glucose 125. Hyperglycemic 6%, in range 94% no hypoglycemia. He does have CKD dating back to 2020. Does not use NSAIDs. Has a history of kidney stones but states that he only had 1 Small 1 and this was years ago.States that he does not take anything of her pain. Does not follow with Nephrology. he is on an JAVIER-inhibitor and statin. CV: Blood pressure today in the office is 98/58. He is asymptomatic. Denies any dizziness, chest pain or palpitations. Did not drink much water this morning. He states he has not really eaten anything either. He is on lisinopril 10 mg. He does follow regularly with his PCP and states his blood pressures have been fine. He is compliant with Lipitor 10 mg. Last LFTs and lipids WNL. [facility] Medical History Carpal tunnel syndrome Depression Essential hypertension Hyperlipidemia LDL goal <100 Kidney stones Obesity due to excess calories Type 2 diabetes mellitus with hyperglycemia, with long-term current use of insulin Surgical History Hx of colonoscopy Family History Mother Diabetes Arthritis Stroke Father Unknown family medical history Social History Household Members: None Alcohol intake: never Patient Tobacco Use Status: Former Tobacco user Physical Exam Vital Signs: Last Vital Signs Pulse 62 04/27/24 07:23 BP 98/58 L 04/27/24 07:23 BMI result Body Mass Index 27.7 Const Orientation/consciousness: patient oriented x3 Neck Neck: Yes no lymphadenopathy Thyroid: Thyroid normal Carotids: no bruits Resp Auscultation: clear to auscultation bilaterally Cardio Rate: regular rate Rhythm: regular rhythm Heart sounds: S1 normal heart sound present and S2 normal heart sound present Peripheral pulses: dorsalis pedis present Neuro General: patient oriented x3, gait normal and no focal motor deficits Extrem Other: Monofilament sensation intact bilaterally. Vibratory sensation intact bilaterally. Skin intact. General: Yes normal to inspection Results AMB Hemoglobin A1c AMB Hemoglobin A1c 7.3 % Last Edit by WHIT Terrell on 04/27/24 07:39 Results Reviewed Results Reviewed: Laboratory Last Values Glucose (Clinic) 146 mg/dL (60-115) H 04/27/24 07:30 Hgb A1c (Clinic) 7.3 % (4.0-6.0) H 04/27/24 07:33 Laboratory Tests 01/06/24 01/21/24 01/23/24 08:51 08:01 08:23 Sodium 137 Potassium 4.8 Chloride 108 Carbon Dioxide 21 L Anion Gap 13 BUN 25 H Creatinine 1.40 Estimated GFR 52 Glucose (Clinic) Hgb A1c (Clinic) 6.6 H AST 23 ALT 23 Triglycerides 81 Cholesterol 107 LDL Cholesterol, Calc 59 HDL Cholesterol 32 L 04/27/24 04/27/24 07:30 07:33 Sodium Potassium Chloride Carbon Dioxide Anion Gap BUN Creatinine Estimated GFR Glucose (Clinic) 146 H Hgb A1c (Clinic) 7.3 H AST ALT Triglycerides Cholesterol LDL Cholesterol, Calc HDL Cholesterol Assessment & Plan Assessment & Plan (1) Type 2 diabetes with nephropathy: Code(s): E11.21 - Type 2 diabetes mellitus with diabetic nephropathy Category: Medical Plan: Increased mounjaro to 5 mg q weekly as A1c is not at goal. continue metformin. will monitor kidney function. labs ordered and urine ordered. complete this prior to next appointment in 3 months. He is following up with a summer sessions director and states that he is going to do better with his diet. (2) CKD stage 3a, GFR 45-59 ml/min: Code(s): N18.31 - Chronic kidney disease, stage 3a Category: Medical Plan: We reviewed this today. Advised to avoid NSAIDs. (3) Hyperlipidemia LDL goal <100: Code(s): E78.5 - Hyperlipidemia, unspecified Category: Medical Plan: Continue Lipitor 10 mg (4) Essential hypertension: Code(s): I10 - Essential (primary) hypertension Category: Medical Plan: BP a little low today. Patient is asymptomatic. Advised to monitor at home and to follow up with PCP to have his blood pressure checked. Patient understands and agrees with the plan. Orders: Orders Hemoglobin A1c Today E11.21 - Type 2 diabetes mellitus with diabetic nephropathy, E78.5 - Hyperlipidemia, unspecified, I10 - Essential (primary) hypertension, N18.31 - Chronic kidney disease, stage 3a Comprehensive [place]. Panel Fast Today E11.21 - Type 2 diabetes mellitus with diabetic nephropathy, E78.5 - Hyperlipidemia, unspecified, I10 - Essential (primary) hypertension, N18.31 - Chronic kidney disease, stage 3a Microalbumin, Random (w Creat) Today E11.21 - Type 2 diabetes mellitus with diabetic nephropathy, E78.5 - Hyperlipidemia, unspecified, I10 - Essential (primary) hypertension, N18.31 - Chronic kidney disease, stage 3a AMB Hemoglobin A1c Today E11.65 - Type 2 diabetes mellitus with hyperglycemia, Z13.9 - Encounter for screening, unspecified, Z79.4 - intermediate designer (current) use of insulin Medications: New tirzepatide (Mounjaro) 5 mg (0.5 mL) subcut QWEEK 2 mL 3RF Discontinued tirzepatide (Mounjaro) Discontinued Reason: Doctor's Order 2.5 mg (0.5 mL) subcut QWEEK 2 mL 2RF Coding Level of Care Code Est Pt Level 4 (41276) Complex EM visit Add On G2211 Diagnoses Type 2 diabetes with nephropathy E11.21 CKD stage 3a, GFR 45-59 ml/min N18.31 Hyperlipidemia LDL goal <100 E78.5 Essential hypertension I10
[2024-04-27 07:23] VITALS: BP 98/58; PULSE 62; BMI 27.7
[2024-04-27 07:34] LABS: Glucose, Whole Blood 146 mg/dL (60-115)
== END 2024-04-27 08:28 | disposition home or self-care (01) ==
PROVIDERS: PCP Internal Medicine; Visit Provider Physician Assistant
DX: E11.21 Type 2 diabetes mellitus with diabetic nephropathy (principal); N18.31 Chronic kidney disease, stage 3a; E78.5 Hyperlipidemia, unspecified; I10 Essential (primary) hypertension; Z13.9 Encounter for screening, unspecified; E11.65 Type 2 diabetes mellitus with hyperglycemia; Z79.4 Long term (current) use of insulin
CPT/HCPCS: 99214

== ENCOUNTER → 2024-04-27 07:18 | Outpatient (BNVA) | payer MEDICAID, SELFPAY | PROVIDERS: PCP Internal Medicine; Visit Provider Physician Assistant | DX: I12.9 Hypertensive chronic kidney disease with stage 1 through stage 4 chronic kidney disease, or unspecified chronic kidney disease (principal); E11.22 Type 2 diabetes mellitus with diabetic chronic kidney disease; N18.31 Chronic kidney disease, stage 3a; E11.21 Type 2 diabetes mellitus with diabetic nephropathy; E78.5 Hyperlipidemia, unspecified | CPT/HCPCS: 82947; 83036; 99212 ==

== ENCOUNTER 2024-05-16 10:55 | Outpatient (AMB) | payer MEDICAID, SELFPAY ==
[2024-05-16 11:12] VITALS: BP 100/62; PULSE 88; O2SAT 98; BMI 26.6
--- NOTE | 2024-05-16 11:12 | MHC.OFFVIS ---
Vital Signs 05/16/24 11:12 Height 5 ft 5 in Weight 159 lb 13.362 oz BMI 26.6 BP 100/62 Blood Pressure Location Rt brachial Position Sitting Pulse 88 Pulse Source Doppler Pulse Oximetry (%) 98 Oxygen Delivery Method Room Air Intake Visit Reasons: pulmonary nodules Allergies Penicillins [PENICILLINS] Allergy (Intermediate, Verified 05/16/24 11:18) RASH penicillin V Allergy (Unknown, Verified 05/16/24 11:18) Rash morphine Adverse Reaction (Unknown, Verified 05/16/24 11:18) Unknown HPI HPI pulmonary nodules: Details: 59-year-old gentleman, recent 40+ pack-year smoker, followed for underlying moderate COPD.? Patient continues to use Anoro and albuterol MDI with good control of his underlying symptoms.? He denies any recent exacerbations.? His follow-up CT chest showed stable pulmonary nodules. [facility] Medical History Carpal tunnel syndrome Depression Essential hypertension Hyperlipidemia LDL goal <100 Kidney stones Obesity due to excess calories Type 2 diabetes mellitus with hyperglycemia, with long-term current use of insulin Surgical History Hx of colonoscopy Family History Mother Diabetes Arthritis Stroke Father Unknown family medical history Social History Household Members: None Alcohol intake: never Patient Tobacco Use Status: Former Tobacco user Review of Systems Const Denies daytime sleepiness, Denies excessive sweating, Denies fatigue, Denies fever(s), Denies lethargy, Denies malaise, Denies night sweats, Denies snoring and Denies weight loss Eyes Denies blurry vision and Denies itchy eyes ENT Denies nasal congestion, Denies post nasal drip, Denies sinus pain, Denies sinus pressure and Denies other ( Thrush) Card Denies chest pain, Denies pedal edema, Denies dyspnea, Denies orthopnea and Denies paroxysmal nocturnal dyspnea Resp Denies cough, Denies hemoptysis, Denies excessive phlegm production, Denies dyspnea, Denies snoring and Denies wheezing GI Denies abdominal pain and Denies heartburn Musc Denies myalgias, Denies arthralgias and Denies joint swelling Skin/Breast Denies rash Neuro Denies memory loss and Denies seizure-like activity Psych Denies abnormal sleep pattern, Denies anxiety and Denies memory loss Endo Denies excessive sweating, Denies fatigue and Denies heat intolerance Ian/Lymph Denies easy bruising Aller/Immun Denies itchy eyes, Denies seasonal rhinorrhea and Denies wheezing Physical Exam Vital Signs: Last Vital Signs Pulse 88 05/16/24 11:12 BP 100/62 05/16/24 11:12 Pulse Ox 98 05/16/24 11:12 Oxygen Delivery Method Room Air 05/16/24 11:12 BMI result Body Mass Index 26.6 Const General: no acute distress and alert Nutritional Appearance: not obese Orientation/consciousness: Other orientation findings ( oriented) HEENT Head: Yes atraumatic Eyes General: appearance normal, both eyes and all related structures Sclerae: sclerae normal EOM: EOMs intact bilaterally Neck Neck: Yes supple Lymphatic: no lymphadenopathy noted Resp Effort & Inspection: normal respiratory effort and no use of accessory muscles Auscultation: clear to auscultation bilaterally Cardio Rate: regular rate Rhythm: regular rhythm Heart sounds: no gallops, no murmurs and no rubs Skin General skin exam: other ( warm) Extrem General: No clubbing, No cyanosis and No edema Assessment & Plan Assessment & Plan (1) COPD (chronic obstructive pulmonary disease): Code(s): J44.9 - Chronic obstructive pulmonary disease, unspecified Category: Medical Plan: Well controlled on current regimen of Anoro and albuterol MDI. Continue current regimen. (2) Personal history of nicotine dependence: Code(s): Z87.891 - Personal history of nicotine dependence Category: Medical Plan: Results of follow-up CT chest from November of 2023 reviewed stable 3 mm and under pulmonary nodules. Continue with yearly screening, next in November of 2024, ordered. Orders: Orders CT lung screening 11/13/24 Z87.891 - Personal history of nicotine dependence Coding Level of Care Code Est Pt Level 4 (19235) Diagnoses COPD (chronic obstructive pulmonary disease) J44.9 Personal history of nicotine dependence Z87.891
== END 2024-05-16 11:28 | disposition home or self-care (01) ==
PROVIDERS: PCP Internal Medicine; Visit Provider Internal Medicine Pulmonary Disease
DX: J44.9 Chronic obstructive pulmonary disease, unspecified (principal); Z87.891 Personal history of nicotine dependence
CPT/HCPCS: 99214

== ENCOUNTER → 2024-05-16 10:55 | Outpatient (BNVA) | payer MEDICAID, SELFPAY | PROVIDERS: PCP Internal Medicine; Visit Provider Internal Medicine Pulmonary Disease | DX: J44.9 Chronic obstructive pulmonary disease, unspecified (principal); Z87.891 Personal history of nicotine dependence | CPT/HCPCS: 99212 ==

== ENCOUNTER 2024-06-07 09:51 | Outpatient (REF) | payer MEDICAID, SELFPAY ==
--- NOTE | ~2024-06-07 | XR_ITS ---
EXAMINATION: XR FOOT, RIGHT CLINICAL INFORMATION: Pain in the right foot COMPARISON: June 20, 2019 TECHNIQUE: AP, lateral, and oblique views of the right foot. FINDINGS: There is avulsion fracture at the tip of the fifth metatarsal bone without displacement of fragments, new since previous study. Soft tissues unremarkable. XR/XR foot RT min 3V IMPRESSION: Fracture of the tip of the fifth metatarsal bone Electronically signed by: Vesta Damian MD 06/07/2024 12:15 PM EDT
== END 2024-06-07 09:52 | disposition home or self-care (01) ==
LOC: HO.HHCX 09:51
PROVIDERS: Visit Provider Internal Medicine
DX: M79.671 Pain in right foot (principal); I10 Essential (primary) hypertension
CPT/HCPCS: 73630

== ENCOUNTER 2024-06-21 09:58 | Outpatient (AMB) | payer MEDICAID, SELFPAY ==
--- NOTE | 2024-06-21 10:34 | MHC.OFFVIS ---
Vital Signs 06/21/24 11:04 Height 5 ft 5 in Weight 159 lb BMI 26.5 Intake Visit Reasons: FC- Right 5th metatarsal fracture Intake Note: Armand a 59 year old male who presents today for an ER follow up of right 5th MT fracture. Patient reports pain located at the lateral aspect of foot for a couple of weeks. He is unaware of any injury. His pain comes with applying any pressure to his foot. No previous tx. Denies numbness or tinging Allergies Penicillins [PENICILLINS] Allergy (Intermediate, Verified 06/21/24 11:35) RASH penicillin V Allergy (Unknown, Verified 06/21/24 11:35) Rash morphine Adverse Reaction (Unknown, Verified 06/21/24 11:35) Unknown Medication List - Last Reconciled 06/21/24 by Azra Nolasco PA-C albuterol sulfate 90 mcg/actuation 2 puffs inhalation Q4-6H PRN aspirin (Adult Low Dose Aspirin) 81 mg PO DAILY atorvastatin 10 mg PO DAILY blood sugar diagnostic (FreeStyle Lite Strips) As directed three times daily lancets (TRUEplus Lancets) As directed lisinopril 10 mg PO DAILY metformin 1,000 mg PO BID sertraline 50 mg PO QAM tirzepatide (Mounjaro) 5 mg (0.5 mL) subcut QWEEK umeclidinium-vilanterol 62.5-25 mcg/actuation (Anoro Ellipta) 1 ea inhalation DAILY HPI HPI FC- Right 5th metatarsal fracture: Details: 59-year-old male who presents to the office today for an ER follow-up of right 5th metatarsal injury about 2 weeks ago. He states he has pain in his small toe that comes with applying pressure. He denies any numbness or tingling. He has not had any treatment in the past. [facility] Medical History Carpal tunnel syndrome Depression Essential hypertension Hyperlipidemia LDL goal <100 Kidney stones Obesity due to excess calories Type 2 diabetes mellitus with hyperglycemia, with long-term current use of insulin Surgical History Hx of colonoscopy Family History Mother Diabetes Arthritis Stroke Father Unknown family medical history Social History Household Members: None Alcohol intake: never Patient Tobacco Use Status: Former Tobacco user Review of Systems Const All systems reviewed & are unremarkable except as noted in HPI and below Physical Exam Vital Signs: BMI result Body Mass Index 26.5 Const General: cooperative, healthy appearing, comfortable, no acute distress, well developed and alert Orientation/consciousness: patient oriented x3 HEENT Head: Yes normal to inspection, Yes normocephalic and Yes atraumatic Eyes General: appearance normal, both eyes and all related structures Resp Effort & Inspection: normal respiratory effort and able to speak in complete sentences Cardio Rate: regular rate Peripheral pulses: Peripheral pulses 2+ throughout GI Palpation (GI): Soft to palpation Skin Lesions: no lesions Rashes: no rashes Neuro General: patient oriented x3 Extrem Other: Right foot: Skin intact.? There is no bruising of the lateral edge of the left foot.? There is tenderness at the base of the 5th metatarsal. Sensation intact.? EHL intact.? No pain along the mediolateral malleolus.? Neurovascularly intact. Office Procedures AMB Fracture Care Fracture Billing Code: Fracture Billing Code Results Reviewed Results Reviewed: XR foot RT min 3V IMPRESSION: Fracture of the tip of the fifth metatarsal bone Assessment & Plan Assessment & Plan (1) Foot fracture, right: Code(s): S92.901A - Unspecified fracture of right foot, initial encounter for closed fracture Qualifiers: Encounter type: initial encounter Fracture type: closed Qualified Code(s): S92.901A - Unspecified fracture of right foot, initial encounter for closed fracture Plan He was fit for a short boot. He can weight bear as tolerated. He will increase activities as tolerated and transition to a regular street shoe as symptoms allow. Patient Instructions: Scribed for Azra Nolasco PA-C, by Fausto Katz medical logistics specialist, on 06/21/2024 at 10:45 AM EST.? I, Azra Nolasco PA-C, have personally reviewed and agree with the information entered by the scribe. Coding Level of Care Code New Pt Level 3 (67986) Complex EM visit Add On G2211 Diagnoses Closed fracture of right foot, initial encounter S92.901A Encounter type: initial encounter Fracture type: closed CPT Codes Fracture Care - Fracture Billing Code: Fracture Billing Code ([id number])
[2024-06-21 11:04] VITALS: BMI 26.5
== END 2024-06-21 12:47 | disposition home or self-care (01) ==
PROVIDERS: PCP Internal Medicine; Visit Provider Physician Assistant
DX: S92.351A Displaced fracture of fifth metatarsal bone, right foot, initial encounter for closed fracture (principal)
CPT/HCPCS: 99203

== ENCOUNTER → 2024-06-21 09:58 | Outpatient (BNVA) | payer MEDICAID, SELFPAY | PROVIDERS: PCP Internal Medicine; Visit Provider Physician Assistant | DX: S92.901A Unspecified fracture of right foot, initial encounter for closed fracture (principal); X58.XXXA Exposure to other specified factors, initial encounter; Y93.9 Activity, unspecified; Y92.9 Unspecified place or not applicable; Y99.9 Unspecified external cause status | CPT/HCPCS: 99212 ==

== ENCOUNTER 2024-07-30 08:09 | Outpatient (AMB) | payer MEDICAID, SELFPAY ==
[2024-07-30 08:26] VITALS: BP 90/58; PULSE 83; BMI 25.8
--- NOTE | 2024-07-30 08:26 | A.OFFVIS_ITS ---
Vital Signs 07/30/24 08:26 Height 5 ft 5 in Weight 154 lb 12.232 oz BMI 25.8 BP 90/58 L Blood Pressure Location Lt brachial Position Sitting Pulse 83 Pulse Source Pulse Oximeter Intake Visit Reasons: T2DM/CONFIRMED Intake Note: Patient presents today for D2FL follow up visit. Last Diabetic Eye exam: Over 1 year ago Last Podiatry Visit: Doesn't have one Random Glucose: 159 mg/dl HgA1c: 5.9% Science Specialist Required: Yes Science Specialist Language: Boning Room Worker Services: Science Specialist Present Science Specialist Name: Rodo [id number] Information Interpreted: non-clinical & clinical Accompanied by: Self / Same As Patient Allergies Penicillins [PENICILLINS] Allergy (Intermediate, Verified 07/30/24 08:31) RASH penicillin V Allergy (Unknown, Verified 07/30/24 08:31) Rash morphine Adverse Reaction (Unknown, Verified 07/30/24 08:31) Unknown Medication List - Last Reconciled 07/30/24 by Cari Ferguson PA-C albuterol sulfate 90 mcg/actuation 2 puffs inhalation Q4-6H PRN aspirin (Adult Low Dose Aspirin) 81 mg PO DAILY atorvastatin 10 mg PO DAILY blood sugar diagnostic (FreeStyle Lite Strips) As directed three times daily lancets (TRUEplus Lancets) As directed sertraline 50 mg PO QAM tirzepatide (Mounjaro) 5 mg (0.5 mL) subcut QWEEK umeclidinium-vilanterol 62.5-25 mcg/actuation (Anoro Ellipta) 1 ea inhalation DAILY HPI HPI T2DM/CONFIRMED: Details: Patient is a 59-year-old male with a significant past medical history hypertension, hyperlipidemia, type 2 diabetes, COPD and chronic kidney disease Presenting today for a diabetic follow-up. Endo: his last A1c was 7.3. His current A1c is 5.9. he is currently on metformin 1000 mg twice a day and Mounjaro 5 mg Q weekly. He denies having elevated blood sugars when he checks. He denies any symptoms of hyperglycemia. He does endorse that his diet has been a little worse over the summer. Denies any hypoglycemic events. - He states he has been off of insulin for over 9 months. Freestyle Lola to download- usage 40%, average glucose 85. Hyperglycemic 0%, in range 73% 27% hypoglycemia.No very hypoglycemic events -he states the week that it was low was when he was not really eating anything but still taking his medications. He states that he had a stomach bug. He has since been eating in the last few days there have been no hypoglycemic events. -He goes low overnight/early hours of the morning and he states he corrects it with juice. Nephro: He does have CKD dating back to 2020. Does not use NSAIDs. Has a history of kidney stones but states that he only had 1 Small 1 and this was years ago.States that he does not take anything of his pain. Does not follow with Nephrology. he is on an JAVIER-inhibitor and statin. CV: Blood pressure today in the office is 90/58. When he was last here was 98/58. He is asymptomatic. Denies any dizziness, chest pain or palpitations. Did not drink much water this morning. He states he has not really eaten anything either. He is on lisinopril 10 mg. He does follow regularly with his PCP and states his blood pressures have been fine. He is compliant with Lipitor 10 mg. Last LFTs and lipids WNL. Since starting Mounjaro however he has lost about 12 lb. He is also eating healthier. [facility] Medical History Carpal tunnel syndrome Depression Essential hypertension Hyperlipidemia LDL goal <100 Kidney stones Obesity due to excess calories Type 2 diabetes mellitus with hyperglycemia, with long-term current use of insulin Surgical History Hx of colonoscopy Family History Mother Diabetes Arthritis Stroke Father Unknown family medical history Social History Household Members: None Alcohol intake: never Patient Tobacco Use Status: Former Tobacco user Physical Exam Vital Signs: Last Vital Signs Pulse 83 07/30/24 08:26 BP 90/58 L 07/30/24 08:26 BMI result Body Mass Index 25.8 Const Orientation/consciousness: patient oriented x3 HEENT Ears: hearing grossly normal bilaterally Neck Thyroid: Thyroid normal Lymphatic: no lymphadenopathy noted Resp Auscultation: clear to auscultation bilaterally Cardio Rate: regular rate Rhythm: regular rhythm Heart sounds: S1 normal heart sound present and S2 normal heart sound present Skin General skin exam: no rashes or lesions noted Neuro General: patient oriented x3, gait normal and no focal motor deficits Results AMB Hemoglobin A1c AMB Hemoglobin A1c 5.9 % Last Edit by WHIT Terrell on 07/30/24 08:43 Results Reviewed Results Reviewed: Laboratory Last Values Glucose (Clinic) 159 mg/dL (60-115) H 07/30/24 08:33 Laboratory Tests 01/06/24 01/21/24 01/23/24 08:51 08:01 08:23 Creatinine 1.40 Estimated GFR 52 Hgb A1c (Clinic) 6.6 H AST 23 ALT 23 Triglycerides 81 Cholesterol 107 LDL Cholesterol, Calc 59 HDL Cholesterol 32 L 04/27/24 07:33 Creatinine Estimated GFR Hgb A1c (Clinic) 7.3 H AST ALT Triglycerides Cholesterol LDL Cholesterol, Calc HDL Cholesterol Assessment & Plan Assessment & Plan (1) Essential hypertension: Code(s): I10 - Essential (primary) hypertension Category: Medical Plan: Blood pressure on the lower side today. We will reduce lisinopril. I will have him follow up in a few weeks to have the blood pressure rechecked. Denies any upcoming appointment with PCP and was last seen he states about 3 or 4 months ago. Advised him to also contact his PCP to let them know. (2) Hyperlipidemia LDL goal <100: Code(s): E78.5 - Hyperlipidemia, unspecified Category: Medical Plan: Continue atorvastatin. We will check labs prior to her next appointment. (3) Type 2 diabetes with nephropathy: Code(s): E11.21 - Type 2 diabetes mellitus with diabetic nephropathy Category: Medical Plan: I will reduce metformin to 500 mg once a day and continue with the Mounjaro 5 mg. Short term follow up arranged. We did discuss referral to nephrology but he wants to wait until his labs return. Orders: Orders AMB Hemoglobin A1c Today E11.21 - Type 2 diabetes mellitus with diabetic nephropathy, Z13.9 - Encounter for screening, unspecified Medications: New metformin ER 500 mg PO DAILY 90 tabs 2RF lisinopril 5 mg PO DAILY 90 tabs 1RF Patient Instructions: reduce metformin to 500 mg ONCE a day reduce lisinopril to 5 mg daily continue mounjaro 5 mg once a week Coding Level of Care Code Est Pt Level 4 (61362) Complex EM visit Add On G2211 Diagnoses Essential hypertension I10 Hyperlipidemia LDL goal <100 E78.5 Type 2 diabetes with nephropathy E11.21
[2024-07-30 08:37] LABS: Glucose, Whole Blood 159 mg/dL (60-115)
== END 2024-07-30 08:57 | disposition home or self-care (01) ==
PROVIDERS: PCP Internal Medicine; Visit Provider Physician Assistant
DX: I10 Essential (primary) hypertension (principal); E78.5 Hyperlipidemia, unspecified; E11.21 Type 2 diabetes mellitus with diabetic nephropathy; Z13.9 Encounter for screening, unspecified

== ENCOUNTER → 2024-07-30 08:09 | Outpatient (BNVA) | payer MEDICAID, SELFPAY | PROVIDERS: PCP Internal Medicine; Visit Provider Physician Assistant | DX: I10 Essential (primary) hypertension (principal); E78.5 Hyperlipidemia, unspecified; E11.21 Type 2 diabetes mellitus with diabetic nephropathy | CPT/HCPCS: 82947; 83036; 99212 ==

== ENCOUNTER 2024-09-10 08:17 | Outpatient (AMB) | payer MEDICAID, SELFPAY ==
--- NOTE | 2024-09-10 08:25 | A.OFFVIS_ITS ---
Vital Signs 09/10/24 08:29 Height 5 ft 5 in Weight 154 lb 5.177 oz BMI 25.7 BP 106/72 Blood Pressure Location Rt brachial Position Sitting Pulse 62 Pulse Source Pulse Oximeter Intake Visit Reasons: bp and dm Intake Note: Patient presents today for D2CO follow up visit. Last Diabetic Eye exam: Over 1 year ago Last Podiatry Visit: Doesn't have one Most Recent HgA1c: 5.9%, 07/30/2024 Random Glucose: 165 mg/dL, Today Credit Support Specialist Required: Yes Credit Support Specialist Language: Medicaid Biller Services: Credit Support Specialist Offered & Declined Information Interpreted: non-clinical & clinical Accompanied by: Self / Same As Patient Allergies Penicillins [PENICILLINS] Allergy (Intermediate, Verified 09/10/24 08:33) RASH penicillin V Allergy (Unknown, Verified 09/10/24 08:33) Rash morphine Adverse Reaction (Unknown, Verified 09/10/24 08:33) Unknown Medication List - Last Reconciled 09/10/24 by Cari Ferguson PA-C albuterol sulfate 90 mcg/actuation 2 puffs inhalation Q4-6H PRN aspirin (Adult Low Dose Aspirin) 81 mg PO DAILY atorvastatin 10 mg PO DAILY blood sugar diagnostic (FreeStyle Lite Strips) As directed three times daily lancets (TRUEplus Lancets) As directed lisinopril 5 mg PO DAILY metformin ER 500 mg PO DAILY sertraline 50 mg PO QAM tirzepatide (Mounjaro) 5 mg (0.5 mL) subcut QWEEK umeclidinium-vilanterol 62.5-25 mcg/actuation (Anoro Ellipta) 1 ea inhalation DAILY HPI HPI bp and dm: Details: Patient is a 59-year-old male with a significant past medical history hypertension, hyperlipidemia, type 2 diabetes, COPD and chronic kidney disease Presenting today for a diabetic follow-up. Credit Support Specialist: Otilio #[id number] I had ordered labs for him to complete prior to our appointment but he forgot. Endo: his previous A1c is 5.9. At our last visit in July I did reduce the metformin to 500 mg once a day and advised him to continue with the Mounjaro 5 mg weekly and jardiance 10 mg (he thinks he was given this by pcp and did not realize he was taking it but brought in his pill packs today). He denies having elevated blood sugars when he checks. He denies any symptoms of hyperglycemia. Denies any hypoglycemic events. -blood sugars are around 120 waking up - He states he has been off of insulin for about a year. 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 Nephro: He does have CKD dating back to 2020. Does not use NSAIDs. Has a history of kidney stones but states that he only had 1 Small 1 and this was years ago.States that he does not take anything of his pain. Does not follow with Nephrology. he is on an JAVIER-inhibitor and statin. CV: His last blood pressure in our office in July was low. He had a couple readings of it being low in the office on different encounters and has lost about 12 lb with the Mounjaro. I reduced his lisinopril to 5 mg and today his blood pressure is 106/72. He is compliant with Lipitor 10 mg. Last LFTs and lipids WNL. [facility] Medical History (Updated 09/10/24 @ 08:42 by Cari Ferguson PA-C) Obesity due to excess calories Carpal tunnel syndrome Kidney stones Depression Type 2 diabetes mellitus with hyperglycemia, with long-term current use of insulin Essential hypertension Hyperlipidemia LDL goal <100 Surgical History Hx of colonoscopy Family History Mother Diabetes Arthritis Stroke Father Unknown family medical history Social History Household Members: None Alcohol intake: never Patient Tobacco Use Status: Former Tobacco user Physical Exam Vital Signs: Last Vital Signs Pulse 62 09/10/24 08:29 BP 106/72 09/10/24 08:29 BMI result Body Mass Index 25.7 Const Orientation/consciousness: patient oriented x3 Neck Neck: Yes no lymphadenopathy Thyroid: Thyroid normal Carotids: no bruits Resp Auscultation: clear to auscultation bilaterally Cardio Rate: regular rate Rhythm: regular rhythm Heart sounds: S1 normal heart sound present and S2 normal heart sound present Peripheral pulses: dorsalis pedis present Neuro General: patient oriented x3, gait normal and no focal motor deficits Extrem Other: Monofilament sensation intact bilaterally. Vibratory sensation intact bilaterally. Skin intact. General: Yes normal to inspection Results Reviewed Results Reviewed: Laboratory Last Values Glucose (Clinic) 165 mg/dL (60-115) H 09/10/24 08:37 Laboratory Tests 01/21/24 07/30/24 08:01 08:37 Hgb A1c (Clinic) 5.9 Triglycerides 81 Cholesterol 107 LDL Cholesterol, Calc 59 HDL Cholesterol 32 L Assessment & Plan Assessment & Plan (1) Type 2 diabetes with nephropathy: Code(s): E11.21 - Type 2 diabetes mellitus with diabetic nephropathy Category: Medical Plan: Continue metformin 500 mg continue mounjaro 5 mg q weekly labs ordered and reminded to get these done return in 3 months or sooner prn (2) CKD stage 3a, GFR 45-59 ml/min: Code(s): N18.31 - Chronic kidney disease, stage 3a Category: Medical Plan: We will monitor. Reminded him to avoid NSAIDs. (3) Essential hypertension: Code(s): I10 - Essential (primary) hypertension Category: Medical Plan: Better today with the reduced dose of lisinopril. Continue current regimen. (4) Hyperlipidemia LDL goal <100: Code(s): E78.5 - Hyperlipidemia, unspecified Category: Medical Plan: Continue with the atorvastatin. Reminded patient that LFTs and lipids are ordered and to be completed prior to our next appointment. Medications: New empagliflozin (Jardiance) 10 mg PO DAILY 90 tabs 1RF empagliflozin (Jardiance) 10 mg PO DAILY 90 tabs 1RF Refilled metformin ER 500 mg PO DAILY 90 tabs 2RF tirzepatide (Mounjaro) 5 mg (0.5 mL) subcut QWEEK 2 mL 11RF Patient Instructions: continue jardiance 10 mg daily continue metformin 500 mg ONCE a day continue mounjaro 5 mg weekly Coding Level of Care Code Est Pt Level 4 (60641) Complex EM visit Add On G2211 Diagnoses Type 2 diabetes with nephropathy E11.21 CKD stage 3a, GFR 45-59 ml/min N18.31 Essential hypertension I10 Hyperlipidemia LDL goal <100 E78.5
[2024-09-10 08:29] VITALS: BP 106/72; PULSE 62; BMI 25.7
[2024-09-10 08:41] LABS: Glucose, Whole Blood 165 mg/dL (60-115)
== END 2024-09-10 09:04 | disposition home or self-care (01) ==
PROVIDERS: PCP Internal Medicine; Visit Provider Physician Assistant
DX: E11.21 Type 2 diabetes mellitus with diabetic nephropathy (principal); N18.31 Chronic kidney disease, stage 3a; I10 Essential (primary) hypertension; E78.5 Hyperlipidemia, unspecified

== ENCOUNTER → 2024-09-10 08:17 | Outpatient (BNVA) | payer MEDICAID, SELFPAY | PROVIDERS: PCP Internal Medicine; Visit Provider Physician Assistant | DX: E11.21 Type 2 diabetes mellitus with diabetic nephropathy (principal); E11.22 Type 2 diabetes mellitus with diabetic chronic kidney disease; I12.9 Hypertensive chronic kidney disease with stage 1 through stage 4 chronic kidney disease, or unspecified chronic kidney disease; N18.31 Chronic kidney disease, stage 3a; E78.5 Hyperlipidemia, unspecified | CPT/HCPCS: 82947; 99212 ==

== ENCOUNTER 2024-10-19 08:11 | Outpatient (REF) | payer MEDICAID, SELFPAY ==
--- OUTSIDE RECORDS SUMMARY | 2024-10-19 08:17 | XMS_ITS | Encounter Summary ---
Author Organization [employer] Address [address] [place] [address] Care Team Providers Care Senior Solutions Architect Name Role Phone Ramsey Gray MD Primary Care Provide r Encounter Details Date Type Department Care Team (Latest Contact Info) Description 06/07/2022 Abstract [facility] CONVERSIONS Dental, Provider, DDS Social History Tobacco Use Types Packs/Day Years Used Date Smoking Tobacco: Never Assessed Sex and Gender Information Value Date Recorded Sex Assigned at Male 07/05/2022 10:15 AM EDT Legal Sex Male 10:15 AM EDT Gender Identity Male 07/05/2022 10:15 AM EDT Sexual Orientation Straight 07/05/2022 10 :15 AM EDT documented as of this encounter Plan of Treatment Not on file documented as of this encounter Visit Diagnoses Not on filedocumented in this encounter Care Teams Senior Solutions Architect Relationship Specialty Start Date End Date Ramsey Gray MD [address] [place] [address] PCP - General Internal Medicine 06/25/14 documented as of this encounter
--- OUTSIDE RECORDS SUMMARY | 2024-10-19 08:17 | XMS_ITS | Encounter Summary ---
Author Organization [employer] Address [address] [place] [address] Care Team Providers Care Repeater Operator Name Role Phone Ramsey Gray MD Primary Care Provide r Encounter Details Date Type Department Care Team (Latest Contact Info) Description 11/13/2020 Abstract [facility] CONVERSIONS Dental, Provider, DDS Social History Tobacco [...] on filedocumented in this encounter Care Teams Repeater Operator Relationship Specialty Start Date End Date Ramsey Gray MD [address] [place] [address] PCP - General Internal Medicine 06/25/14 documented as of this encounter
--- OUTSIDE RECORDS SUMMARY | 2024-10-19 08:18 | XMS_ITS | Clinical Summary ---
Author Organization [employer] Address [address] [place] [address] [address] [place] [address] Care Team Providers Care Evaluator Transfer Students Name Role Phone Ramsey Gray MD Primary Care Provide r Allergies Active Allergy Reactions Criticality Noted Date Comments Penicillin G 12/07/2022 Penicillins Unknown 08/20/2014 Medications Anoro Ellipta 62.5-25 MCG/ACT aerosol powder INHALE 1 PUFF EVERY DAY AT THE SAME TIME 023 Active Lantus SoloStar 100 UNIT/ML pen INJECT 28 UNITS SUBCUTANEOUSLY AT BEDTIME 023 Active Continuous Blood Gluc [facility] Re[facility] (FreeStyle Lola 2 [place]) deviceIndicatio ns:Type 2 diabetes mellitus without complication, with long-term current use of insulin ([facility]) Use daily 1 each 023 Active Continuous Glucose Sensor (FreeStyle Lola 2 Sensor) miscIndications :Type 2 diabetes mellitus without complication, with long-term current use of insulin ([facility]) Use daily 4 each 024 Active glucose blood (FreeStyle Precision [place] Test) test strip Test blood sugar q 8 hours 100 each 12 024 Active Lancet Devices (Lancing Device) misc Use to check blood sugar up to 3 times daily 1 each 024 Active FreeStyle lancets 1 each by Other route 3 times daily. Use bid, dx type 2 diabetes 60 each 11 024 Active insulin pen needle (Easy Touch Pen [place]) 31G X 8 mm misc USE 1 DAILY 100 each 3 024 Active meloxicam (Mobic) 15 MG tabletIndicatio ns:Right foot pain Take 1 tablet (15 mg) by mouth Once per day. 30 tablet 11 024 2024 Active atorvastatin (Lipitor) 10 MG tablet TAKE 1 TABLET BY MOUTH EVERY MORNING 90 tablet 1 024 Active Aspirin Low Dose 81 MG EC tablet TAKE 1 TABLET BY MOUTH EVERY MORNING 90 tablet 1 024 Active sertraline (Zoloft) 50 MG tablet TAKE 1 TABLET BY MOUTH EVERY MORNING 30 tablet 2 025 Active metFORMIN XR (Glucophage-XR) 500 MG 24 hr tabletIndicatio ns:Type 2 diabetes mellitus without complication, without long-term current use of insulin (CMS/HCC) Take 1 tablet (500 mg) by mouth 2 times daily. Do not crush, chew, or split. 360 tablet 1 025 Active lisinopril 5 MG tabletIndicatio ns:Primary hypertension Take 1 tablet (5 mg) by mouth in the morning. 30 tablet 3 025 Active metFORMIN XR (Glucophage-XR) 500 MG 24 hr tabletIndicatio ns:Type 2 diabetes mellitus without complication, without long-term current use of insulin (CMS/HCC) TAKE 2 TABLETS BY MOUTH TWICE DAILY IN THE MORNING AND EVENING WITH MEALS 360 tablet 1 023 2024 Discontinued lisinopril 10 MG tablet TAKE 1 TABLET BY MOUTH EVERY MORNING 90 tablet 3 024 2024 Discontinued Active Problems Problem Noted Date Diagnosed Date Closed fracture of right foot with routine heali ng 06/07/2024 Assessment & Plan (10/18/2024 9:36 AM EST): Patient with c/o right foot pain x 1 week On exam, no redness, no swelling Tenderness to palpation lateral aspect right foot Plain films showed: Fracture of the tip of the fifth metatarsal bone Seen by Ortho back in June given a short boot Assessment & Plan (06/07/2024 9:34 AM EDT): Patient with c/o right foot pain x 1 week On exam, no redness, no swelling Tenderness to palpation lateral aspect right foot Plan: Plain films, NSAIDS prn Overweight (BMI 25.0-29.9) 08/16/2023 Assessment & Plan (10/18/2024 9:45 AM EST): Patient has been counseled and educated about diet and exercise. Personal goal of weight loss discussed Assessment & Plan (08/16/2023 10:06 AM EST): Patient has been counseled and educated about diet and exercise. 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 He recommended CTS release surgery. pt Not convinced Last visit referred to Dr lagos. 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 He recommended CTS release surgery. pt Not convinced Would like a second opinion will refer to Dr lagos. 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 He recommended CTS release surgery. 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 He recommended CTS release surgery. pt is still considering it Hyperlipidemia 07/01/2016 Assessment & Plan (10/18/2024 9:37 AM EST): Patient with elevated lipids. Most recent lipid profile from: Lab Results Component Value Date TRIG 81 01/21/2024 TRIG 85 01/06/2024 CHOL 107 01/21/2024 CHOL 107 01/06/2024 LDLCHOLCAL 59 01/21/2024 LDLCHOLCAL 58 01/06/2024 HDL 32 (L) 01/21/2024 HDL 32 (L) 01/06/2024 Currently on a regimen of Atorvastatin 10 mg po qhs to bring LDL < 100 , repeat Lipid profile advised to try to adhere to a low cholesterol diet, counseled and educated about diet and exercise, Patient encouraged to come up with a personal goal for weight loss. Repeat Lipid profile prior to next visit Assessment & Plan (06/07/2024 9:12 AM EDT): Patient with elevated lipids. Most recent lipid profile from: Lab Results Component Value Date TRIG 81 01/21/2024 TRIG 85 01/06/2024 CHOL 107 01/21/2024 CHOL 107 01/06/2024 LDLCHOLCAL 59 01/21/2024 LDLCHOLCAL 58 01/06/2024 HDL 32 (L) 01/21/2024 HDL 32 (L) 01/06/2024 Currently on a regimen of Atorvastatin 10 mg po qhs to bring LDL < 100 advised to try to adhere to a low cholesterol diet, counseled and educated about diet and exercise, Patient encouraged to come up with a personal goal for weight loss. Repeat Lipid profile prior to next visit Assessment & Plan (03/31/2023 9:24 AM EDT): Patient with elevated lipids. Most recent lipid profile from: 02/01/2023 shows a total cholesterol of: 105 triglycerides of:104 HDL of: 32 and LDL of: 54 Currently on a regimen of Atorvastatin 10 mg po qhs to bring LDL < 100 advised to try to adhere to a low cholesterol diet, counseled and educated about diet and exercise, Patient encouraged to come up with a personal goal for weight loss. Repeat Lipid profile prior to next visit Assessment & Plan (01/27/2023 8:26 AM EDT): Patient with elevated lipids. Most recent lipid profile from: 08/26/2021 shows a total cholesterol of: 129 triglycerides of:100 HDL of: 31 and LDL of: 79 Currently on a regimen of Atorvastatin 10 mg po qhs to bring LDL < 100 advised to try to adhere to a low cholesterol diet, counseled and educated about diet and exercise, Patient encouraged to come up with a personal goal for weight loss. Repeat Lipid profile prior to next visit Kidney stone 12/16/2015 Assessment & Plan (01/27/2023 8:29 AM EDT): Pt previously seen at [facility] with c/o right flank pain, CT of his abdomen showed a 2 mm partially obstructing calculus. Seen by [facility] December 24 2015 Increase fluid intake recommended Depressive disorder 01/24/2013 Assessment & Plan (01/27/2023 8:29 AM EDT): Pt claims he is doing well on Zoloft . Does not think he needs to see a therapist. denies any SI Diabetes mellitus, type II 01/24/2013 Assessment & Plan (10/18/2024 9:36 AM EST): Pt is here for a f/u regarding his DM Today DM is controlled He is on a regimen of: Metformin XR 500 mg dosed lowered to 1 tabs po BID by endo, Jardiance 10 mg po daily, Lantus 28 units sc q pm, (started by Endocrinology). And Mounjaro 5 mg once a week pt reports he is tolerating the medication well.per Endocrinology notes pt intolerant to Tulicity (Diarrhea) , did not tolerate Ozempic due to diarrhea as well. Hgb A1c 10/18/2024: 7.1 Pt Eye exam was last done [facility] 12/22/2022 Microalbumin checked on: 11/14/2020 was: 19 Pt on an JAVIER inhibitor. Foot check risk of zero Pt reports compliance with Asa 81 mg po daily Plan: Continue current regimen Pt advised to: adhere to diabetic diet check your blood sugars regularly check your feet on a daily basis Assessment & Plan (06/07/2024 9:35 AM EDT): Pt is here for a f/u regarding his DM Today DM is controlled He is on a regimen of: Metformin XR 500 mg 2 tabs po BID Jardiance 10 mg po daily, Lantus 28 units sc q pm, (started by Endocrinology). And Mounjaro 5 mg once a week pt reports he is tolerating the medication well.per Endocrinology notes pt intolerant to Tulicity (Diarrhea) , did not tolerate Ozempic due to diarrhea as well. Hgb A1c 06/07/2024 : 6.5 from 6.8 Pt Eye exam was last done by [facility] 12/22/2022 Microalbumin checked on: 11/14/2020 was: 19 Pt on an JAVIER inhibitor. Foot check risk of zero Pt reports compliance with Asa 81 mg po daily Plan: Continue current regimen Pt advised to: adhere to diabetic diet check your blood sugars regularly check your feet on a daily basis Assessment & Plan (01/05/2024 11:29 AM EDT): Pt is here for a f/u regarding his DM Today DM is controlled He is on a regimen of: Metformin XR 500 mg 2 tabs po BID Jardiance 10 mg po daily, Lantus 28 units sc q pm, (started by Endocrinology). per Endocrinology notes pt intolerant to Tulicity (Diarrhea) , did not tolerate Ozempic due to diarrhea as well. Pt was started on Mounjaro 2.5 mg once a week pt reports he is tolerating the medication well. Hgb A1c 01/05/2024 : 6.8 Pt Eye exam was last done by [facility] 12/22/2022 Microalbumin checked on: 11/14/2020 was: 19 Pt on an JAVIER inhibitor. Foot check risk of zero Pt reports compliance with Asa 81 mg po daily Plan: Continue current regimen Pt advised to: adhere to diabetic diet check your blood sugars regularly check your feet on a daily basis Assessment & Plan (08/16/2023 10:06 AM EST): Pt is here for a f/u regarding his DM Today DM is controlled He is on a regimen of: Metformin XR 500 mg 2 tabs po BID Jardiance 10 mg po daily, Lantus 28 units sc q pm, (started by Endocrinology). per Endocrinology notes pt intolerant to Tulicity (Diarrhea) , did not tolerate Ozempic due to diarrhea as well. Pt was started on Mounjaro 2.5 mg once a week pt reports he is tolerating the medication well. Hgb A1c 08/16/2023: 6.3 from8.1 Pt Eye exam was last done by [facility] 12/22/2022 Microalbumin checked on: 11/14/2020 was: 19 Pt on an JAVIER inhibitor. Foot check risk of zero Pt reports compliance with Asa 81 mg po daily Plan: Continue current regimen Pt advised to: adhere to diabetic diet check your blood sugars regularly check your feet on a daily basis Assessment & Plan (03/31/2023 9:33 AM EDT): Pt is here for a f/u regarding his DM He is on a regimen of: Metformin XR 500 mg 2 tabs po BID and Lantus 28 units sc q pm, (started by Endocrinology). per Endocrinology notes pt intolerant to Jardiance or Tulicity (Diarrhea) Last visit we started him on Ozempic once a week. He stopped it due to diarrhea as well Glucometer shows readings with average 99 Hgb A1c 03/31/2023: 8.1 Pt was restarted on Jardiance 10 mg by Endocrinology , pt reports he is tolerating the medication well. Pt Eye exam was last done by [facility] 12/22/2022 Microalbumin checked on: 11/14/2020 was: 19 Pt on an JAVIER inhibitor. Foot check risk of zero Pt reports compliance with Asa 81 mg po daily Plan: Continue current regimen Pt advised to: adhere to diabetic diet check your blood sugars regularly check your feet on a daily basis Assessment & Plan (01/27/2023 9:35 AM EDT): Pt is here for a f/u regarding his DM He is on a regimen of: Metformin XR 500 mg 2 tabs po BID and Lantus 28 units sc q pm, (started by Endocrinology). per Endocrinology notes pt intolerant to Jardiance or Tulicity (Diarrhea) He is no longer following with Endocrinology Last visit we started him on Ozempic once a week. He stopped it due to diarrhea as well Glucometer shows readings with average 155, lowest 65 Hgb A1c 01/27/2023: 9.1 Pt Eye exam was last done by [facility] 12/22/2022 Microalbumin checked on: 11/14/2020 was: 19 Pt on an JAVIER inhibitor. Foot check risk of zero Pt reports compliance with Asa 81 mg po daily Plan: Refer back to Endocrinology, We recommended a Freestyle Lola senso given that his BG fluctuates from 65 to >200 Pt advised to: adhere to diabetic diet check your blood sugars regularly check your feet on a daily basis Erectile dysfunction 01/24/2013 Hypertension 01/24/2013 Assessment & Plan (10/18/2024 9:34 AM EST): Pt here for a f/u He is on a regimen of: Lisinopril lowered to 5 mg po daily I have recommended: to continue current regimen. Pt's most recent electrolytes, Bun and Creatinine done on: Lab Results Component Value Date NA 137 01/06/2024 NA 138 08/18/2023 K 4.8 01/06/2024 K 5.3 (H) 08/18/2023 CL 108 01/06/2024 CL 104 08/18/2023 BUN 25 (H) 01/06/2024 BUN 21 (H) 08/18/2023 CREATININE 1.40 01/06/2024 CREATININE 1.27 08/18/2023 Wnl, will repeat patient has advised to adhere to a low sodium diet, encouraged about medication compliance, counseled about weight loss. Assessment & Plan (06/07/2024 9:10 AM EDT): Pt here for a f/u He is on a regimen of: Lisinopril 10 mg po daily I have recommended: to continue current regimen. Pt's most recent electrolytes, Bun and Creatinine done on: 01/06/2024 wnl patient has advised to adhere to a low sodium diet, encouraged about medication compliance, counseled about weight loss. Assessment & Plan (03/31/2023 9:42 AM EDT): Pt here for a f/u He is on a regimen of: Lisinopril 10 mg po daily I have recommended: to continue current regimen. Pt's most recent electrolytes, Bun and Creatinine done on: 02/01/2023 showed mild elevation of SCr Today will repeat. If elevated will refer to Renal patient has advised to adhere to a low sodium diet, encouraged about medication compliance, counseled about weight loss. Assessment & Plan (01/27/2023 8:26 AM EDT): Pt here for a f/u He is on a regimen of: Lisinopril 10 mg po daily I have recommended: to continue current regimen. Pt's most recent electrolytes, Bun and Creatinine done on: 08/26/2021 were wnl. Today will repeat patient has advised to adhere to a low sodium diet, encouraged about medication compliance, counseled about weight loss. Resolved Problems Problem Noted Date Diagnosed Date Resolved Date COVID-19 virus infection 06/14/2023 Assessment & Plan (06/14/2023 3:16 PM EDT): Drink plenty of fluids, rest Quarantine as per CDC guidelines If worsening dyspnea, confusion, please go to ED for evaluation Medication list reviewed Encounters Date Type Department Care Team Description 10/18/2024 9:15 AM EST Office Visit [facility] [address] [place] [address] Ramsey Gray MD Primary hypertension (Primary Dx); Type 2 diabetes mellitus without complication, with long-term current use of insulin ([facility]); Closed fracture of right foot with routine healing; Mixed hyperlipidemia; Type 2 diabetes mellitus without complication, without long-term current use of insulin ([facility]); Overweight (BMI 25.0-29.9); Dietary counseling; Exercise counseling; Encounter for immunization 10/18/2024 Travel 10/10/2024 Telephone [facility] [address] [place] [address] Ramsey Gray MD Chart Prep 09/13/2024 Refill [facility] [address] [place] [address] Ramsey Gray MD 09/10/2024 Orders Only GENERIC EXTERNAL DATA DEPARTMENT Provider, Generic External Data 08/21/2024 Refill [facility] [address] [place] [address] Rosey Cesar MD 07/30/2024 Orders Only GENERIC EXTERNAL DATA DEPARTMENT Provider, Generic External Data from Last 3 Months Immunizations Name Administration Dates Next Due Hep B, adult 11/02/2016,08/02/2016,07/01/2016 Influenza injectable quadriv alent IIV4 with preservative 07/01/2016 Influenza injectable quadriv alent preservative free 08/08/2018,06/09/2017,06/05/2015 Influenza, IIV3, injectable 08/20/2014, 1 Influenza, Split (incl. alfie fied surface antigen) 05/05/2012 Influenza, seasonal, injecta ble, preservative free 06/07/2024 MMR 06/07/2003 Pfizer Covid-19 Vaccine 12+ 06/07/2024 Pneumococcal Conjugate PCV 20 10/18/2024 Pneumococcal Polysaccharide PPSV23 07/15/2004 TD (adult), 2 Lf tetanus tox oid, preservative free, adsorbed 05/16/2019,06/22/2002 Td (adult), 5 Lf tetanus tox oid, preservative free, adsorbed 01/26/2013 Tdap 08/20/2014 Social History Tobacco Use Types Packs/Day Years Used Date Smoking Tobacco: Former Passive Smoke Exposure: Past Smokeless Tobacco: Never Tobacco Cessation:Counseling Given: Not Answered Alcohol Use Standard Drinks/Week Comments Never 0 (1 standard drink = 0.6 oz pur e alcohol) Depression Answer Date Recorded Patient Health Questionnaire-9 Score 1 10/18/2024 Patient Health Questionnaire-9 Score 1 10/18/2024 Last PHQ-9: Questionnaire Data Not on file 0 10/18/2024 Housing Stability Answer Date Recorded What is your housing situation today? I have lea abdi 06/27/[address] you li ve. Do you have problems with any of the following? None of the above 06/27/2023 Food Insecurity Answer Date Recorded Within the past 12 months, y ou worried that your food would run out before you got money to buy more: Never True 06/27/2023 Within the past 12 months,th e food you bought just didn't last and you didn't have enough money to get more: Never True Transportation Answer Date Recorded In the past 12 months, has l ack of transportation kept you from medical appts, meetings, work or from getting things needed for daily living? No 06/27/2023 Utilities Answer Date Recorded In the past 12 months, has t he electric, gas, oil or water company threatened to shut off services in your home? No 06/27/2023 Depression Answer Date Recorded Patient Health Questionnaire-2 Score 1 10/18/2024 Internet Access Answer Date Recorded Internet Access Q1 No 10/18/2024 Internet Access Q2 I do not want or need it 10/06 Sex and Gender Information Value Date Recorded Sex Assigned at Male 07/05/2022 10:15 AM EDT Legal Sex Male 10:15 AM EDT Gender Identity Male 07/05/2022 10:15 AM EDT Sexual Orientation Straight 07/05/2022 10 :15 AM EDT Last Filed Vital Signs Vital Sign Reading Time Taken Comments Blood Pressure 123/71 06/07/2024 9:27 AM EDT Pulse 75 10/18/2024 9:12 AM EST Temperature 36.1 ??C (96.9 ??F) 10/18/2024 9:12 AM ES T Respiratory Rate 20 10/18/2024 9:12 AM EST Oxygen Saturation 98% 10/18/2024 9:12 AM EST Inhaled Oxygen Concentration - - Weight 72.8 kg (160 lb 9.6 oz) 10/18/2024 9:12 A M EST Height 165.1 cm (5' 5 ) 10/18/2024 9:12 AM EST Body Mass Index 26.73 10/18/2024 9:12 AM EST Plan of Treatment Health Maintenance Due Date Last Done Comments CT Colonography 1965 Dental Oral Exam 1965 Dental X-Ray: Bitewings 1965 Dental X-Ray: Full Mouth 1965 FIT DNA/Cologuard 1965 FIT 1965 FOBT 1965 Sigmoidoscopy 1965 Diabetes: Foot Exam 1975 Eye Exam 1975 Zoster Vaccines (1 of 2) 2015 Dental Prophylaxis 04/13/2023 10/13/2022 Diabetes: Hemoglobin A1C 01/15/2025 025, 06/07/2024, 01/05/2024, Additional history exists Diabetes: Urine Protein Screening 01/19/2025 01/20/2024, 02/01/2023, 06/23/2022, Additional history exists Lipid Panel 01/20/2025 01/21/2024, 05/0 11/2023, 08/18/2023, Additional history exists Colonoscopy 04/30/2025 04/30/2015 Colorectal Cancer Screening 04/30/2025 Alcohol/Substance Use Screening 10/18/2025 10/18/2024 Depression Screening 10/18/2025 10/18/2024, 10/18/19 25 SDOH Screening 10/18/2025 10/18/2024 Tobacco Screening 10/18/2025 10/18/2024 DTaP/Tdap/Td Vaccines (3 - Td or Tdap) 05/16/2029 05/16/2019, 08/20/2014, 01/26/2013, Additional history exists RSV Patients and Patients Aged 60 years or older (1 - 1-dose 75+ series) 01/15/2040 Hepatitis B Vaccines Completed 11/02/2016, 08/02/2016, 07/01/2016 HIV Screening Completed 02/01/2023 Hepatitis C Screening Completed 02/01/2023 COVID-19 Vaccine Completed 06/07/2024, , 11/21/2020 Influenza Vaccine Completed 06/07/2024, , 06/09/2017, Additional history exists Pneumococcal Vaccine: 50+ Years Completed 10/18/2024, 07/15/2004 HIB Vaccines Aged Out No longer eligi ble based on patient's age to complete this topic HPV Vaccines Aged Out No longer eligi ble based on patient's age to complete this topic Hepatitis A Vaccines Aged Out No long er eligible based on patient's age to complete this topic IPV Vaccines Aged Out No longer eligi ble based on patient's age to complete this topic Meningococcal Vaccine Aged Out No tanvir liss eligible based on patient's age to complete this topic RSV under 20 months Aged Out No longe r eligible based on patient's age to complete this topic Rotavirus Vaccines Aged Out No longer eligible based on patient's age to complete this topic Procedures Procedure Name Priority Date/Time Associated Diagnosis Comments POCT GLYCATED HEMOGLOBIN, TOTAL Routine 10/18/2024 9:31 AM EST Type 2 diabetes mellitus without complication, with long-term current use of insulin (CMS/[facility]) POCT GLUCOSE Routine 10/18/2024 9:28 AM EST Type 2 diabetes mellitus without complication, with long-term current use of insulin (CMS/[facility]) GLUCOSE, WHOLE BLOOD Routine 09/10/2024 8:37 AM EST GLUCOSE, WHOLE BLOOD Routine 07/30/2024 8:33 AM EST LIPID PANEL, STANDARD Routine 01/21/2024 8:01 AM EDT ALBUMIN, RANDOM URINE W/CREATININE Routine 01/20/2024 8:33 AM EDT HEPATITIS C AB W/REFL TO HCV RNA, QN, PCR Routine 02/01/2023 8:12 AM EDT Type 2 diabetes mellitus without complication, with long-term current use of insulin (CMS/[facility]) HIV 1/2 ANTIGEN/ANTIBODY, FOURTH GENERATION W/RFL Routine 02/01/2023 8:12 AM EDT Type 2 diabetes mellitus without complication, with long-term current use of insulin (CMS/[facility]) PROPHYLAXIS - ADULT Routine 10/13/2022 9 :00 AM EST HM COLONOSCOPY Routine 04/30/2015 from Last 3 Months or Most Recently Relevant to Health Maintenance Results * (ABNORMAL) POCT HGB A1C (10/18/2024 9:31 AM EST) Hemoglobin A1C 7.1(A) 4.0 - 6.0 % QC Media Lot # [id number] Lot# Expiration Date ,005 Blood 10/18/2024 9:31 AM EST Ramsey Cline MD POINT OF CARE TEST EN TER/EDIT ORDERABLES Final Result * (ABNORMAL) POCT Glucose (10/18/2024 9:28 AM EST) Glucose Blood, POC 262(A) 60 - 200 mg/dL QC Media Lot # [id number] Lot# Expiration Date Blood Capillary blood specimen / Unknown 10/18/2024 9:28 AM EST Ramsey Cline MD POINT OF CARE TEST EN TER/EDIT ORDERABLES Final Result * (ABNORMAL) Glucose, Whole Blood (09/10/2024 8:37 AM EST) Only the most recent of2 resultswithin the time period is included. Glucose, Whole Blood 165(H) 60 - 115 mg/dL [facility] Comment:METER #: [id number] 5Testing performed in the Endocrinology Department [address] , [address], [facility]. 09/10/2024 8:37 AM EST 09/10/2024 8:41 AM EST Generic External Data Provider LAB BLOOD ORDERAB LES Final Result [facility] [address] [place] [address] [phone] * (ABNORMAL) Lipid Panel, Standard (01/21/2024 8:01 AM EDT) Triglycerides 81 <150 mg/dL [facility] Comment:Desirable Triglyceri de: less than 150 mg/dLBorderline High Triglyceride 150-199 mg/dLHigh Triglyceride: 200-499 mg/dLVery High Triglyceride: greater than or equal to 5OO mg/dL Cholesterol 107 <200 mg/dL [facility] Comment:Desirable Cholestero l: less than 200 mg/dLBorderline High Cholesterol: 200-239 mg/dLHigh Cholesterol: greater than 239 mg/dL LDL Cholesterol Calculated 59 <100 mg/dL [facility] Comment:Desirable LDL: less than 100 mg/dLNear Optimal/Above Optimal LDL: 110- 129 mg/dLBorderline High LDL: 130-159 mg/dLHigh LDL: 160-189 mg/dLVery High LDL: greater than or equal to 190 mg/dL HDL Cholesterol 32(L) >40 mg/dL [facility] Comment:Desirable HDL: great er than 40 mg/dL Note: This HDL assay may give artificially low results in patients with liver disease. 01/21/2024 8:01 AM EDT 01/21/2024 8:01 AM EDT us Generic External Data Provider LAB BLOOD ORDERAB LES Final Result [facility] [address] [place] [phone] * Albumin, Random Urine W/Creatinine (01/20/2024 8:33 AM EDT) Creatinine, Urine 100.61 mg/dL [facility] Microalbumin Urine 7.0 mg/L [facility] Microalbum Creatinine Ratio Ur 6.9 <30 ug/mg cr [facility] Comment:Albumin/Creatinine R atio Reference Ranges: Normal: < 30 ug/mg creatinine Microalbuminuria: 30 - 300 ug/mg creatinineClinical Albuminuria: > 300 ug/mg creatinine 01/20/2024 8:33 AM EDT 01/20/2024 9:10 AM EDT us Generic External Data Provider LAB URINE ORDERAB LES Final Result Performing Organization Address City/[facility]/ZIP Co de Phone Number [facility] [address] [place] [phone] * Hepatitis C Antibody with Reflex to HCV, RNA, Quantitative, Real-Time PCR (02/01/2023 8:12 AM EDT) Hepatitis C Antibody NON-REACT KELLI NON-REACT KELLI [facility] [place] [facility] Index 0.25 <1.00 [facility] [place] [facility] Comment: HCV antibody was non-reactive. There is no laboratory evidence of HCV infection. In most cases, no further action is required. However, if recent HCV exposure is suspected, a test for HCV RNA (test code 43738) is suggested. For additional information please refer to http://education.Pose.com/faq/UHN27n7 (This link is being provided for informational/ educational purposes only.) Blood Venous blood specimen / Unknown 02/01/2023 8:12 AM EDT 02/01/2023 8:13 AM EDT Narrative [facility] - 02/01/2023 11:34 PM EDT FASTING:YES FASTING: YES Ramsey Cline MD LAB BLOOD ORDERABLES Final Result Performing Organization Address City/[facility]/ZIP Co de Phone Number [facility] [address], [place] [address] [facility] [place] [facility] [address] [place] [address] * HIV-1/2 Antigen and Antibodies, Fourth Generation, with Reflexes (02/01/2023 8:12 AM EDT) Pathologist [facility] HIV Antigen/Antibody, 4th Generation NON-REAC TIVE NON-REAC TIVE [facility] [place] [facility] Comment: HIV-1 antigen and HIV-1/HIV-2 antibodies were not detected. There is no laboratory evidence of HIV infection. PLEASE NOTE: This information has been disclosed to you from records whose confidentiality may be protected by state law. ??If your state requires such protection, then the state law prohibits you from making any further disclosure of the information without the specific written consent of the person to whom it pertains, or as otherwise permitted by law. A general authorization for the release of medical or other information is NOT sufficient for this purpose. ?? For additional information please refer to http://education.Pose.com/faq/IJY074 (This link is being provided for informational/ educational purposes only.) The performance of this assay has not been clinically validated in patients less than 2 years old. Blood Venous blood specimen / Unknown 02/01/2023 8:12 AM EDT 02/01/2023 8:13 AM EDT Narrative [facility] - 02/01/2023 11:34 PM EDT FASTING:YES FASTING: YES Ramsey Cline MD LAB BLOOD ORDERABLES Final Result [facility] [address], [place] [address] [facility] [address] [place] [address] * Colonoscopy (04/30/2015) Colonoscopy Normal Normal 04/30/2015 Estelle Malone - 04/30/2015 11:58 AM EDT Recommended 10 year follow up Historical Provider HEALTH MAINTENANCE Edited Result - Final from Last 3 Months or Most Recently Relevant to Health Maintenance [facility] Care Teams Evaluator Transfer Students Relationship Specialty Start Date End Date Ramsey Gray MD [address] [place] [phone] PCP - General Internal Medicine 06/25/14
--- OUTSIDE RECORDS SUMMARY | 2024-10-19 08:18 | XMS_ITS | Encounter Summary ---
Author Organization [employer] Address [address] [facility] 7t [place] [address] Care Team Providers Care Backfiller Name Role Phone Ramsey Gray MD Primary Care Provide r Reason for Visit * Reason Onset Date Comments Chart Prep 10/10/2024 Encounter Details Date Type Department Care Team ([facility] Contact Info) Description 10/10/2024 Telephone [facility] [address] [place] [phone] Ramsey Gray MD [address] [place] [address] Chart Prep Social History Tobacco Use Types Packs/Day Years Used Date Smoking Tobacco: Former Passive Smoke Exposure: Past Smokeless Tobacco: Never Alcohol Use Standard Drinks/Week Comments Never 0 (1 standard drink = 0.6 oz pur e alcohol) Depression Answer Date Recorded Patient Health Questionnaire-9 Score 0 01/05/2024 Patient Health Questionnaire-9 Score 0 01/05/2024 Last PHQ-9: Questionnaire Data Not on file 0 01/05/2024 Housing Stability Answer Date Recorded What is [...] Answer Date Recorded Patient Health Questionnaire-2 Score 0 01/05/2024 Sex and Gender Information Value Date Recorded Sex Assigned at Male 07/05/2022 10:15 AM EDT Legal Sex Male 10:15 AM EDT Gender Identity Male 07/05/2022 10:15 AM EDT Sexual Orientation Straight 07/05/2022 10 :15 AM EDT documented as of this encounter Miscellaneous Notes * Telephone Encounter - Priyanka Easley [place] - 10/10/2024 11:18 AM EST Chart Prep Labs: not applicable Images: done Vaccines due: PCV20 Due and Shingles in pharmacy Due Referrals: Orthopedics Completed Screenings: Colonoscopy , Eye Exam, and Foot Exam Overdue care gaps: A1C, Glucose, Sbirt, SDOH, PHQ-9, and Oral Health Chart prep for upcoming appt with Dr.Esparza jackson. LB documented in this encounter Plan of Treatment Not on file documented as of this encounter Visit Diagnoses Not on filedocumented in this encounter Additional Health Concerns Assessment Noted Time PHQ-9 Depression Total Score: 0 01/05/20 24 11:09 AM EDT documented as of this encounter Care Teams Backfiller Relationship Specialty Start Date End Date Ramsey Gray MD [address] [place] [address] PCP - General Internal Medicine 06/25/14 documented as of this encounter
--- OUTSIDE RECORDS SUMMARY | 2024-10-19 08:18 | XMS_ITS | Encounter Summary ---
Author Organization [employer] Address [address] [facility] 7t [place] [address] Care Team Providers Care Body Design Checker Name Role Phone Ramsey Gray MD Primary Care Provide r Encounter Details Date Type Department Care Team (Late st Contact Info) Description 09/08/[address] [facility] [address] [place] [address] Patricia Adamson LPN Social History Tobacco Use Types Packs/Day Years [...] on filedocumented in this encounter Care Teams Body Design Checker Relationship Specialty Start Date End Date Ramsey Gray MD [address] [place] [address] PCP - General Internal Medicine 06/25/14 documented as of this encounter
--- OUTSIDE RECORDS SUMMARY | 2024-10-19 08:19 | XMS_ITS | Encounter Summary ---
Author Organization [employer] Address [address] [facility] 7t [place] [address] Care Team Providers Care Animal Pathologist Name Role Phone Ramsey Gray MD Primary Care Provide r Encounter Details Date Type Department Care Team (Latest Contact Info) Description 10/18/2024 Travel Social History Tobacco Use Types Packs/Day Years [...] Assessment Noted Time PHQ-9 Depression Total Score: 1 10/18/19 25 9:22 AM EST documented as of this encounter Care Teams Animal Pathologist Relationship Specialty Start Date End Date Ramsey Gray MD [address] [place] [address] PCP - General Internal Medicine 06/25/14 documented as of this encounter
--- OUTSIDE RECORDS SUMMARY | 2024-10-19 08:19 | XMS_ITS | Encounter Summary ---
Author Organization [employer] Address [address] [facility] 7t [place] [address] Care Team Providers Care Home Care Assistant Name Role Phone Ramsey Gray MD Primary Care Provide r Reason for Visit * Reason Comments Med Refill Encounter Details Date Type Department Care Team ([facility] st Contact Info) Description 02/23/2024 Refill [facility] [address] [place], [place] [phone] Ramsey Gray MD [address] [place], [place] [phone] Social History Tobacco Use Types Packs/Day Years [...] is your housing situation today? I have leanel abdi 06/27/[address] you [...] documented as of this encounter Care Teams Home Care Assistant Relationship Specialty Start Date End Date Ramsey Gray MD [address] [place] [phone] PCP - General Internal Medicine 06/25/14 documented as of this encounter
--- OUTSIDE RECORDS SUMMARY | 2024-10-19 08:19 | XMS_ITS | Encounter Summary ---
Author Organization [employer] Address [address] [facility] 7t [place] [address] Care Team Providers Care Cycling Instructor Name Role Phone Ramsey Gray MD Primary Care Provide r Reason for Visit * Reason Comments Diabetes Encounter Details Date Type Department Care Team ([facility] st Contact Info) Description 10/18/2024 9:15 AM EST Office Visit [facility] MED[facility]INE [address] [place] [address] Ramsey Gray MD [address] [place] [address] Primary hypertension (Primary Dx); Type 2 diabetes mellitus without complication, with long-term current use of insulin (CMS/HCC); Closed fracture of right foot with routine healing; Mixed hyperlipidemia; Type 2 diabetes mellitus without complication, without long-term current use of insulin (CMS/HCC); Overweight (BMI 25.0-29.9); Dietary counseling; Exercise counseling; Encounter for immunization Social History Tobacco Use Types Packs/Day Years [...] AM EDT documented as of this encounter Last Filed Vital Signs Vital Sign Reading Time Taken Comments Blood Pressure - - Pulse 75 10/18/2024 9:12 AM EST Temperature [...] Mass Index 26.73 10/18/2024 9:12 AM EST documented in this encounter Progress Notes * Ramsey Cline MD - 10/18/2024 9:15 AM EST JOSE ARMANDO Warren is a 59 y.o. male who presents for Diabetes. Diabetes He presents for his follow-up diabetic visit. He has type 2 diabetes mellitus. Pertinent negatives for hypoglycemia include no headaches. Pertinent negatives for diabetes include no chest pain. Review of Systems Constitutional: Negative for fever. HENT: Negative for sore throat. Respiratory: Negative for cough and shortness of breath. Cardiovascular: Negative for chest pain. Gastrointestinal: Negative for abdominal pain. Neurological: Negative for headaches. Allergies Allergen Reactions Penicillin G Penicillins Unknown OBJECTIVE Vitals: 10/18/24 0912 Pulse: 75 Resp: 20 Temp: 96.9 ??F (36.1 ??C) TempSrc: Temporal SpO2: 98% Weight: 160 lb 9.6 oz (72.8 kg) Height: 5' 5 (1.651 m) Physical Exam Vitals reviewed. Constitutional: Appearance: Normal appearance. HENT: Head: Normocephalic and atraumatic. Right Ear: External ear normal. Left Ear: External ear normal. Nose: Nose normal. Mouth/Throat: Mouth: Mucous membranes are moist. Eyes: Conjunctiva/sclera: Conjunctivae normal. Cardiovascular: Rate and Rhythm: Normal rate and regular rhythm. Pulmonary: Effort: Pulmonary effort is normal. Breath sounds: Normal breath sounds. Skin: General: Skin is warm. Neurological: Mental Status: He is alert. Mental status is at baseline. Assessment/Plan Problem List Items Addressed This Visit Diabetes mellitus, type II (CMS/[facility]) Pt is here for a f/u regarding [...] check your feet on a daily basis Relevant Medications metFORMIN XR (Glucophage-XR) 500 MG 24 hr tablet Other Relevant Orders POCT Glucose (Completed) POCT HGB A1C (Completed) Hypertension - Primary Pt here for a f/u He is [...] about medication compliance, counseled about weight loss. Relevant Medications lisinopril 5 MG tablet Other Relevant Orders Basic Metabolic Panel Closed fracture of right foot with routine healing Patient with c/o right foot pain x 1 week On exam, no redness, no swelling Tenderness to palpation lateral aspect right foot Plain films showed: Fracture of the tip of the fifth metatarsal bone Seen by Ortho back in June given a short boot Hyperlipidemia Patient with elevated lipids. Most recent lipid [...] diet, counseled and educated about diet and exercise,Patient encouraged to come up with a personal goal for weight loss. Repeat Lipid profile prior to next visit Relevant Orders Lipid Panel, Standard Overweight (BMI 25.0-29.9) Patient has been counseled and educated about diet and exercise. Personal goal of weight loss discussed Other Visit Diagnoses Dietary counseling Exercise counseling documented in this encounter Miscellaneous Notes * Assessment & Plan Note - Ramsey Cline MD - 10/18/2024 9:45 AM EST Associated Problem(s): Overweight (BMI 25.0-29.9) Patient has been counseled and educated about diet and exercise. Personal goal of weight loss discussed * Assessment & Plan Note - Ramsey Cline MD - 10/18/2024 9:37 AM EST Associated Problem(s): Hyperlipidemia Patient with elevated lipids. Most recent lipid [...] diet, counseled and educated about diet and exercise,Patient encouraged to come up with a personal goal for weight loss. Repeat Lipid profile prior to next visit * Assessment & Plan Note - Ramsey Cline MD - 10/18/2024 9:36 AM EST Associated Problem(s): Diabetes mellitus, type II (CMS/[facility]) Pt is here for a f/u regarding [...] check your feet on a daily basis * Assessment & Plan Note - Ramsey Cline MD - 10/18/2024 9:36 AM EST Associated Problem(s): Closed fracture of right foot with routine healing Patient with c/o right foot pain x 1 week On exam, no redness, no swelling Tenderness to palpation lateral aspect right foot Plain films showed: Fracture of the tip of the fifth metatarsal bone Seen by Ortho back in June given a short boot * Assessment & Plan Note - Ramsey Cline MD - 10/18/2024 9:34 AM EST Associated Problem(s): Hypertension Pt here for a f/u He is [...] about medication compliance, counseled about weight loss. * Addendum Note - Lyn Hernandez RN - 10/18/2024 9:15 AM ESTAddended by: LYN HERNANDEZ on: 10/18/2024 09:55 AM Modules accepted: Orders documented in this encounter Plan of Treatment Scheduled Orders Name Type Priority Associated Diagnoses Orde r Schedule Basic Metabolic Panel Lab Routine Primary hypertension Ordered: 10/18/2024 Lipid Panel, Standard Lab Routine Mixed hyperlipidemia Ordered: 10/18/2024 documented as of this encounter Procedures Procedure Name Priority Date/Time Associated Diagnosis Comments POCT GLYCATED HEMOGLOBIN, TOTAL Routine 10/18/2024 9:31 AM EST Type 2 diabetes mellitus without complication, with long-term current use of insulin ([facility]) POCT GLUCOSE Routine 10/18/2024 9:28 AM EST Type 2 diabetes mellitus without complication, with long-term current use of insulin ([facility]) documented in this encounter Results * (ABNORMAL) POCT HGB A1C (10/18/2024 9:31 AM EST) Pathologist [facility] Hemoglobin A1C 7.1(A) 4.0 - 6.0 % QC Media Lot # [id number] Lot# Expiration Date ,026 Blood 10/18/2024 9:31 AM EST us Ramsey Cline MD POINT OF CARE TEST EN TER/EDIT ORDERABLES Final Result * (ABNORMAL) POCT Glucose (10/18/2024 9:28 AM EST) Pathologist [facility] Glucose Blood, POC 262(A) 60 - 200 mg/dL QC Media Lot # [id number] Lot# Expiration Date ,025 Blood Capillary blood specimen / Unknown 10/18/2024 9:28 AM EST us Ramsey Cline MD POINT OF CARE TEST EN TER/EDIT ORDERABLES Final Result documented in this encounter Visit Diagnoses Diagnosis Primary hypertension- Primary Unspecified essential hypertension Type 2 diabetes mellitus without complication, with long-term current use of insulin (CMS/HCC) Closed fracture of right foot with routine healing Mixed hyperlipidemia Type 2 diabetes mellitus without complication, without long-term current use of insulin (CMS/[facility]) Overweight (BMI 25.0-29.9) Overweight Dietary counseling Dietary surveillance and counseling Exercise counseling Encounter for immunization documented in this encounter Additional Health Concerns Assessment Noted Time PHQ-9 Depression Total Score: 1 10/18/19 25 9:22 AM EST documented as of this encounter Care Teams Cycling Instructor Relationship Specialty Start Date End Date Ramsey Gray MD [address] [place] [phone] PCP - General Internal Medicine 06/25/14 documented as of this encounter
--- OUTSIDE RECORDS SUMMARY | 2024-10-19 08:19 | XMS_ITS | Encounter Summary ---
Author Organization [employer] Address 75 [facility] 7t [place] [address] Care Team Providers Care Cushion Former Name Role Phone Ramsey Gray MD Primary Care Provide r Reason for Visit * Reason Comments Med Refill Encounter Details Date Type Department Care Team ([facility] st Contact Info) Description 02/23/2024 Refill [facility] MED[facility]INE [address] [place], [place] [phone] Ramsey Gray MD [address] [place], [place] [phone] Social History Tobacco Use Types Packs/Day Years [...] documented as of this encounter Care Teams Cushion Former Relationship Specialty Start Date End Date Ramsey Gray MD [address] [place] [phone] PCP - General Internal Medicine 06/25/14 documented as of this encounter
--- OUTSIDE RECORDS SUMMARY | 2024-10-19 08:20 | XMS_ITS | Encounter Summary ---
Author Organization [employer] Address [address] [facility] 7t [place] [address] Care Team Providers Care Electrical Systems Designer Name Role Phone Ramsey Gray MD Primary Care Provide r Reason for Visit * Reason Comments Med Refill Encounter Details Date Type Department Care Team ([facility] st Contact Info) Description 01/19/[address] [facility] MEDICINE [address] [place], [place] [phone] Luciana Edler MD [address] [place] [address] Social History Tobacco Use Types Packs/Day Years [...] documented as of this encounter Care Teams Electrical Systems Designer Relationship Specialty Start Date End Date Ramsey Gray MD [address] [place] [phone] PCP - General Internal Medicine 06/25/14 documented as of this encounter
--- OUTSIDE RECORDS SUMMARY | 2024-10-19 08:20 | XMS_ITS | Encounter Summary ---
Author Organization [employer] Address 75 [facility] 7t [place] [address] Care Team Providers Care Blind Aide Name Role Phone Ramsey Gray MD Primary Care Provide r Encounter Details Date Type Department Care Team ([facility] st Contact Info) Description 01/12/2023 Abstract [facility] MEDICINE [address] [place] [address] Ramsey Gray MD [address] [place] [address] Social History Tobacco Use Types Packs/Day Years Used Date Smoking Tobacco: Former Cigarettes Passive Smoke Exposure: Never Smokeless Tobacco: Never Alcohol Use Standard Drinks/Week Comments Never 0 (1 standard drink = 0.6 oz pur e alcohol) Sex and Gender Information Value Date Recorded Sex Assigned at Male 07/05/2022 10:15 AM EDT Legal Sex Male 10:15 AM EDT Gender Identity Male 07/05/2022 10:15 AM EDT Sexual Orientation Straight 07/05/2022 10 :15 AM EDT COVID-19 Exposure Response Date Recorded In the last 10 days, have yo u been in contact with someone who was confirmed or suspected to have Coronavirus/COVID-19? No / Unsure 01/12/2023 7:51 AM EDT documented as of this encounter Plan of Treatment Not on file documented as of this encounter Procedures Procedure Name Priority Date/Time Associated Diagnosis Comments COLONOSCOPY Routine 04/30/2015 documented in this encounter Results * Colonoscopy (04/30/2015) Colonoscopy Normal Normal 04/30/2015 Estelle Malone - 04/30/2015 11:58 AM EDT Recommended 10 year follow up us Historical Provider HEALTH MAINTENANCE Edited Result - Final documented in this encounter Visit Diagnoses Not on filedocumented in this encounter Care Teams Blind Aide Relationship Specialty Start Date End Date Ramsey Gray MD [address] [place] [phone] PCP - General Internal Medicine 06/25/14 documented as of this encounter
--- OUTSIDE RECORDS SUMMARY | 2024-10-19 08:20 | XMS_ITS | Encounter Summary ---
Author Organization [employer] Address [address] [facility] 7t [place] [address] Care Team Providers Care Manager Surgical Name Role Phone Ramsey Gray MD Primary Care Provide r Encounter Details Date Type Department Care Team (Late st Contact Info) Description 11/24/2022 Orders Only [facility] PEDS [address] [place], [place] [phone] Patricia Adamson LPN Social History Tobacco Use [...] suspected to have Coronavirus/COVID-19? No / Unsure 11/19/2022 8:33 AM EDT documented as of this encounter Plan of Treatment Not on file documented as of this encounter Visit Diagnoses Not on filedocumented in this encounter Care Teams Manager Surgical Relationship Specialty Start Date End Date Ramsey Gray MD [address] [place] [address] PCP - General Internal Medicine 06/25/14 documented as of this encounter
--- OUTSIDE RECORDS SUMMARY | 2024-10-19 08:20 | XMS_ITS | Encounter Summary ---
Author Organization [employer] Address 75 [facility] 7t [place] [address] Care Team Providers Care Assistant Hall Director Name Role Phone Ramsey Gray MD Primary Care Provide r Reason for Visit * Reason Comments Med Refill Encounter Details Date Type Department Care Team ([facility] st Contact Info) Description 01/20/2024 Refill [facility] MEDICINE [address] [place], [place] [phone] Luciana Elder MD [address] [place] [address] Social History Tobacco Use Types Packs/Day Years [...] documented as of this encounter Care Teams Assistant Hall Director Relationship Specialty Start Date End Date Ramsey Gray MD [address] [place] [phone] PCP - General Internal Medicine 06/25/14 documented as of this encounter
[2024-10-19 11:21] LABS: Estimated Average Glucose 134 mg/dL; Hemoglobin A1C 194.2854 umol/L; Hemoglobin A1c % 6.3 % (<6.0); Total Hemoglobin (HGBA1C) 4239.4773 umol/L
[2024-10-19 11:56] LABS: Creatinine Urine 85.25 mg/dL; Microalbumin Urine < 5.0 mg/L
[2024-10-19 11:57] LABS: Alanine Aminotransferase 32 U/L (0-40); Alkaline Phosphatase 117 U/L (39-117); Anion Gap 8 (12-20); Aspartate Amino Transferase 40 U/L (5-37); Blood Urea Nitrogen 22 mg/dL (9-16); Calcium 9.5 mg/dL (8.4-10.2); Carbon Dioxide 26 mmol/L (22-29); Chloride 107 mmol/L (96-108); Cholesterol 114 mg/dL (<200); Estimated Glomerular Filt Rate 59; Glucose Fasting 134 mg/dL (60-99); Glucose Random 134 mg/dL (60-115); HDL Cholesterol 38 mg/dL (>40); LDL Cholesterol Calculated 65 mg/dL (<100); Potassium 4.4 mmol/L (3.3-5.1); Sodium 137 mmol/L (135-145); Total Protein 7.7 g/dL (6.5-8.0); Triglycerides 56 mg/dL (<150)
== END 2024-10-19 08:12 | disposition home or self-care (01) ==
LOC: HO.HHCL 08:11
PROVIDERS: Physician Assistant; Visit Provider Internal Medicine
DX: I12.9 Hypertensive chronic kidney disease with stage 1 through stage 4 chronic kidney disease, or unspecified chronic kidney disease (principal); E11.22 Type 2 diabetes mellitus with diabetic chronic kidney disease; N18.31 Chronic kidney disease, stage 3a; E11.21 Type 2 diabetes mellitus with diabetic nephropathy; E78.5 Hyperlipidemia, unspecified
CPT/HCPCS: 36415; 80048; 80053; 80061; 82570; 83036

== ENCOUNTER 2024-12-17 09:32 | Outpatient (AMB) | payer MEDICAID, SELFPAY ==
[2024-12-17 09:42] VITALS: BP 98/60; PULSE 71; O2SAT 97; BMI 27.5
--- NOTE | 2024-12-17 09:42 | MHC.OFFVIS ---
Vital Signs 12/17/24 09:42 Height 5 ft 5 in Weight 165 lb 5.547 oz BMI 27.5 BP 98/60 Blood Pressure Location Rt brachial Position Sitting Pulse 71 Pulse Source Pulse Oximeter Pulse Oximetry (%) 97 Oxygen Delivery Method Room Air Intake Visit Reasons: DM Intake Note: Patient present today for Type 2 Diabetes Mellitus Last Diabetic eye exam: February 2024 Last Podiatry Visit: Doesn't have one Random Glucose: 308 mg/dl HgA1C: 6.3% 10/19/24 Java Developer Architect Required: Yes Java Developer Architect Language: Thread Winder [employer]: Java Developer Architect Present Java Developer Architect Name: Loli [id number] Information Interpreted: non-clinical & clinical Accompanied by: Self / Same As Patient Allergies Penicillins [PENICILLINS] Allergy (Intermediate, Verified 12/17/24 09:47) RASH penicillin V Allergy (Unknown, Verified 12/17/24 09:47) Rash morphine Adverse Reaction (Unknown, Verified 12/17/24 09:47) Unknown Medication List - Last Reconciled 12/17/24 by Cari Ferguson PA-C albuterol sulfate 90 mcg/actuation 2 puffs inhalation Q4-6H PRN aspirin (Adult Low Dose Aspirin) 81 mg PO DAILY atorvastatin 10 mg PO DAILY blood sugar diagnostic (FreeStyle Lite Strips) As directed three times daily empagliflozin (Jardiance) 10 mg PO DAILY lancets (TRUEplus Lancets) As directed lisinopril 5 mg PO DAILY sertraline 50 mg PO QAM umeclidinium-vilanterol 62.5-25 mcg/actuation (Anoro Ellipta) 1 ea PO DAILY HPI HPI DM: Details: Patient is a 59-year-old male with a significant past medical history hypertension, hyperlipidemia, type 2 diabetes, COPD and chronic kidney disease Presenting today for a diabetic follow-up. Java Developer Architect: Loli #[id number] I had ordered labs for him to complete prior to our appointment but he forgot. Endo: his previous A1c is 6.3. He is currently on Jardiance 10 mg daily, metformin 500 mg daily and Mounjaro 5 mg weekly. - He states he has been off of insulin for about a year. -he has been intolerant of Trulicity due to diarrhea. Ozempic caused similar symptoms with diarrhea. CGM-very hyperglycemic 4%, hyperglycemic 20%, in range 76%. 0% hypoglycemia. Average glucose 158. Usage 31%. He states he will make his own appointment for an eye doc He states he does have a heel slugger in [place] but does not want to go back. Nephro: He does have CKD dating back to 2020. Does not use NSAIDs. Has a history of kidney stones but states that he only had 1 years ago. Does not follow with Nephrology. he is on an JAVIER-inhibitor and statin. CV: His blood pressure today in the office is 98/60. He is on lisinopril 5 mg. He is compliant with Lipitor 10 mg. Last LDL was 65. [facility] Medical History (Updated 12/17/24 @ 10:12 by Cari Ferguson PA-C) Obesity due to excess calories Carpal tunnel syndrome Kidney stones Depression Type 2 diabetes mellitus with hyperglycemia, with long-term current use of insulin Essential hypertension Hyperlipidemia LDL goal <100 Surgical History Hx of colonoscopy Family History Mother Diabetes Arthritis Stroke Father Unknown family medical history Social History Household Members: None Alcohol intake: never Patient Tobacco Use Status: Former Tobacco user Physical Exam Vital Signs: Last Vital Signs Pulse 71 12/17/24 09:42 BP 98/60 12/17/24 09:42 Pulse Ox 97 12/17/24 09:42 Oxygen Delivery Method Room Air 12/17/24 09:42 BMI result Body Mass Index 27.5 Const Orientation/consciousness: patient oriented x3 Neck Neck: Yes no lymphadenopathy Thyroid: Thyroid normal Carotids: no bruits Resp Auscultation: clear to auscultation bilaterally Cardio Rate: regular rate Rhythm: regular rhythm Heart sounds: S1 normal heart sound present and S2 normal heart sound present Peripheral pulses: dorsalis pedis present Neuro General: patient oriented x3, gait normal and no focal motor deficits Extrem Other: Monofilament sensation intact bilaterally. Vibratory sensation intact bilaterally. Skin intact. Toenails thickened and yellow. General: Yes normal to inspection Results Reviewed Results Reviewed: Laboratory Tests 10/19/24 10/19/24 08:14 08:15 Sodium 137 Potassium 4.4 Chloride 107 Carbon Dioxide 26 Anion Gap 8 L BUN 22 H Creatinine 1.26 Estimated GFR 59 Random Glucose 134 H Hemoglobin A1c % 6.3 H AST 40 H ALT 32 Triglycerides 56 Cholesterol 114 LDL Cholesterol, Calc 65 HDL Cholesterol 38 L Urine Creatinine 85.25 Urine Microalbumin < 5.0 Microalb/Creat Ratio TNP Assessment & Plan Assessment & Plan (1) Type 2 diabetes with nephropathy: Code(s): E11.21 - Type 2 diabetes mellitus with diabetic nephropathy Category: Medical Plan: continue jardiance 10 mg increase mounjaro 7.5 mg stop metformin -if bs increase he will call me f/u in 3 months or sooner prn (2) CKD stage 3a, GFR 45-59 ml/min: Code(s): N18.31 - Chronic kidney disease, stage 3a Category: Medical Plan: improved avoids nsaids (3) Essential hypertension: Code(s): I10 - Essential (primary) hypertension Category: Medical Plan: a little low today will recheck in 3 months if still low will dc (4) Hyperlipidemia LDL goal <100: Code(s): E78.5 - Hyperlipidemia, unspecified Category: Medical Plan: continue atorvastatin (5) Onychomycosis: Code(s): B35.1 - Tinea unguium Category: Medical Plan: penlac solution ordered Orders: Orders Liver Panel Today E11.21 - Type 2 diabetes mellitus with diabetic nephropathy, E78.5 - Hyperlipidemia, unspecified, I10 - Essential (primary) hypertension, N18.31 - Chronic kidney disease, stage 3a Hemoglobin A1c Today R73.01 - Impaired fasting glucose B Type Natriuretic Peptide Today E11.21 - Type 2 diabetes mellitus with diabetic nephropathy, E78.5 - Hyperlipidemia, unspecified, I10 - Essential (primary) hypertension, N18.31 - Chronic kidney disease, stage 3a Basic Metabolic Panel Today E11.21 - Type 2 diabetes mellitus with diabetic nephropathy, E78.5 - Hyperlipidemia, unspecified, I10 - Essential (primary) hypertension, N18.31 - Chronic kidney disease, stage 3a Medications: New tirzepatide (Mounjaro) 7.5 mg (0.5 mL) subcut QWEEK 2 mL 5RF ciclopirox 8% 1 appl topical DAILY 4 weeks 6.6 mL 5RF tirzepatide (Mounjaro) 7.5 mg (0.5 mL) subcut QWEEK 2 mL 5RF Patient Instructions: stop metformin increase mounjaro to 7.5 mg continue jardiance 10 mg daily we will monitor bp and if low at home or other office visits, will discontinue lisinopril penlac solution for treatment of your nails labs prior to next appointment Coding Level of Care Code Est Pt Level 4 (76576) Complex EM visit Add On G2211 Diagnoses Type 2 diabetes with nephropathy E11.21 CKD stage 3a, GFR 45-59 ml/min N18.31 Essential hypertension I10 Hyperlipidemia LDL goal <100 E78.5 Onychomycosis B35.1
[2024-12-17 09:56] LABS: Glucose, Whole Blood 308 mg/dL (60-115)
--- OUTSIDE RECORDS SUMMARY | 2024-12-17 10:35 | XMS_ITS | Encounter Summary ---
Author Organization [email or web address] Address [address] [place] [address] Care Team Providers Care Medical Assistant Prn Name Role Phone Ramsey Gray MD Primary Care Provide r Encounter Details Date Type Department Care Team (Late Contact Info) Description 01/12/2023 Abstract [facility] MED[facility]INE [address] [place], [place] [phone] Ramsey Gray MD [address] [place], [place] [phone] Social History Tobacco Use Types Packs/Day Years [...] as of this encounter Plan of Treatment Upcoming Encounters Date Type Department Care Team (Late Contact Info) Description 02/14/2025 10:00 AM EDT Office Visit [facility] [address] [place] [address] Ramsey Gray MD [address] [place] [address] documented as of this encounter Procedures Procedure Name Priority Date/Time Associated Diagnosis Comments COLONOSCOPY Routine 04/30/2015 documented in this encounter Results * Colonoscopy (04/30/2015) Colonoscopy Normal Normal 04/30/2015 Narrative Estelle Alvarado - 04/30/2015 11:58 AM EDT Recommended 10 year follow up us Historical Provider [employer] MAINTENANCE Edited Result - Final documented in this encounter Visit Diagnoses Not on filedocumented in this encounter Care Teams Medical Assistant Prn Relationship Specialty Start Date End Date Ramsey Gray MD [address] [place] [id number] PCP - General Internal Medicine 06/25/14 documented as of this encounter
--- OUTSIDE RECORDS SUMMARY | 2024-12-17 10:35 | XMS_ITS | Encounter Summary ---
Author Organization [employer] Address [address] [facility] [address] [place] [address] Care Team Providers Care Sheep Rancher Name Role Phone Ramsey Gray MD Primary Care Provide r Reason for Visit * Reason Comments Med Refill Encounter Details Date Type Department Care Team ([facility] st Contact Info) Description 01/19/2024 Refill [facility] MEDICINE [address] [place], [place] [phone] Luciana Elder MD [address] [place] [address] Social History Tobacco Use Types Packs/Day Years [...] Encounters Date Type Department Care Team (Late st Contact Info) Description 02/14/2025 10:00 AM EDT Office Visit [facility]INE [address] [place] [address] Ramsey Gray MD [address] [place] [address] documented as of this encounter Visit Diagnoses Not on filedocumented in this encounter Additional Health Concerns Assessment Noted Time PHQ-9 Depression Total Score: 0 01/05/20 24 11:09 AM EDT documented as of this encounter Care Teams Sheep Rancher Relationship Specialty Start Date End Date Ramsey Gray MD [address] [place] [address] PCP - General Internal Medicine 06/25/14 documented as of this encounter
--- OUTSIDE RECORDS SUMMARY | 2024-12-17 10:35 | XMS_ITS | Encounter Summary ---
Author Organization [employer] Address [address] [address] [place] [address] Care Team Providers Care Manager Lean Name Role Phone Ramsey Gray MD Primary Care Provide r Reason for Visit * Reason Comments Med Refill Encounter Details Date Type Department Care Team ([facility] st Contact Info) Description 02/23/2024 Refill [facility] MEDICINE [address] [place], [place] [phone] Ramsey Gray MD [address] [place], [place] [phone] Social History Tobacco Use Types Packs/Day Years [...] your housing situation today? I have leanel adbi 06/27/[address] you li [...] Description 02/14/2025 10:00 AM EDT Office Visit [facility] MED[facility]INE [address] [place] [address] Ramsey Gray MD [address] [place] [address] documented as of this encounter Visit Diagnoses Not on filedocumented in this encounter Additional Health Concerns Assessment Noted Time PHQ-9 Depression Total Score: 0 01/05/20 24 11:09 AM EDT documented as of this encounter Care Teams Manager Lean Relationship Specialty Start Date End Date Ramsey Gray MD [address] [place] [id number] PCP - General Internal Medicine 06/25/14 documented as of this encounter
--- OUTSIDE RECORDS SUMMARY | 2024-12-17 10:35 | XMS_ITS | Encounter Summary ---
Author Organization [email or web address] Address [address] [facility] [address] [place] [address] Care Team Providers Care Electrotype Servicer Name Role Phone Ramsey Gray MD Primary Care Provide r Encounter Details Date Type Department Care Team (Late st Contact Info) Description 09/08/2022 Orders Only [facility] [address] [place] [address] Patricia Adamson LPN Social History Tobacco Use [...] Description 02/14/2025 10:00 AM EDT Office Visit [facility] MEDICINE [address] [place] [address] Ramsey Gray MD [address] [place] [address] documented as of this encounter Visit Diagnoses Not on filedocumented in this encounter Care Teams Electrotype Servicer Relationship Specialty Start Date End Date Ramsey Gray MD [address] [place] [address] PCP - General Internal Medicine 06/25/14 documented as of this encounter
--- OUTSIDE RECORDS SUMMARY | 2024-12-17 10:35 | XMS_ITS | Clinical Summary ---
Author Organization [facility] [employer] Address [address] [place] [address] 7t [place] [address] Care Team Providers Care Donor Services Technician Name Role Phone Ramsey Gray MD Primary Care Provide r Allergies Active Allergy Reactions Criticality Noted Date Comments Penicillin G 12/07/2022 Penicillins Unknown 08/20/2014 Medications Anoro Ellipta 62.5-25 MCG/ACT aerosol powder INHALE 1 PUFF EVERY DAY AT THE SAME TIME 023 Active Lantus SoloStar 100 UNIT/ML pen INJECT 28 UNITS SUBCUTANEOUSLY AT BEDTIME 023 Active Continuous Blood Gluc Eviscerator (FreeStyle Lola 2 [place]) deviceIndicatio ns:Type 2 diabetes mellitus without complication, with long-term current use of insulin ([facility]) Use daily 1 each 023 Active Continuous Glucose Sensor (FreeStyle Lola 2 Sensor) miscIndications :Type 2 diabetes mellitus without complication, with long-term current use of insulin ([facility]) Use daily 4 each 024 Active glucose [...] Active insulin pen needle (Easy Touch Pen Mead) 31G X 8 mm misc USE 1 [...] EVERY MORNING 90 tablet 1 024 Active metFORMIN XR (Glucophage-XR) 500 MG 24 [...] the morning. 30 tablet 3 025 Active sertraline (Zoloft) 50 MG tablet TAKE 1 TABLET BY MOUTH EVERY MORNING 30 tablet 2 025 Active sertraline (Zoloft) 50 MG tablet TAKE 1 TABLET BY MOUTH EVERY MORNING 30 tablet 2 025 2024 Discontinued Active Problems Problem Noted Date [...] 8:29 AM EDT): Pt previously seen at [facility] with c/o right flank pain, CT of his abdomen showed a 2 mm partially obstructing calculus. Seen by [facility] December 24 2015 Increase fluid [...] Encounters Date Type Department Care Team Description 12/17/2024 Orders Only GENERIC EXTERNAL DATA DEPARTMENT Provider, Generic External Data 11/30/2024 Refill [facility] MEDICINE [address] [place] [address] Ramsey Gray MD 11/16/2024 Population Health Risk Score [facility] Department [address] [phone] Provider, Population Health Generic 10/19/2024 Orders Only GENERIC EXTERNAL DATA DEPARTMENT Provider, Generic External Data 10/18/2024 9:15 AM EST Office Visit [facility] MEDICINE [address] [place] [address] Ramsey Gray MD Primary hypertension (Primary Dx); Type 2 diabetes mellitus without complication, with long-term current use of insulin (CMS/HCC); Closed fracture of right foot with routine healing; Mixed hyperlipidemia; Type 2 diabetes mellitus without complication, without long-term current use of insulin (CMS/HCC); Overweight (BMI 25.0-29.9); Dietary counseling; Exercise counseling; Encounter for immunization 10/18/2024 Travel 10/10/2024 Telephone [facility] MEDICINE [address] [place] [address] Ramsey Gray MD Chart Prep from Last 3 Months Immunizations Name Administration [...] your housing situation today? I have lea jin 06/27/[address] you li [...] 10/18/2024 9:12 AM EST Plan of Treatment Upcoming Encounters Date Type Department Care Team (Late st Contact Info) Description 02/14/2025 10:00 AM EDT Office Visit [facility] MEDICINE [address] [place] [address] Ramsey Gray MD [address] [place] [address] Health Maintenance Due Date Last Done Comments CT Colonography 1965 Dental Oral Exam 1965 Dental X-Ray: Bitewings 1965 Dental X-Ray: Full Mouth 1965 FIT DNA/Cologuard 1965 FIT 1965 FOBT 1965 Sigmoidoscopy 1965 Diabetes: Foot Exam 1975 Eye Exam 1975 Zoster Vaccines (1 of 2) 2015 Dental Prophylaxis 04/13/2023 10/13/2022 Diabetes: Hemoglobin A1C 04/18/2025 025, 10/18/2024, 06/07/2024, Additional history exists Colonoscopy 04/30/2025 04/30/2015 Colorectal Cancer Screening 04/30/2025 Alcohol/Substance Use Screening 10/18/2025 10/18/2024 Depression Screening 10/18/2025 10/18/2024, 10/18/19 25 SDOH Screening 10/18/2025 10/18/2024 Tobacco Screening 10/18/2025 10/18/2024 Diabetes: Urine Protein Screening 10/19/2025 10/19/2024, 01/20/2024, 02/01/2023, Additional history exists Lipid Panel 10/19/2025 10/19/2024, 01/03, 01/06/2024, Additional history exists DTaP/Tdap/Td Vaccines (3 - Td or Tdap) [...] Procedure Name Priority Date/Time Associated Diagnosis Comments GLUCOSE, WHOLE BLOOD Routine 12/17/2024 9:50 AM EDT COMPREHENSIVE METABOLIC PANEL, FASTING Routine 10/19/2024 8:15 AM EST HEMOGLOBIN A1C Routine 10/19/2024 8:15 AM EST LIPID PANEL, STANDARD Routine 10/19/2024 8:15 AM EST Mixed hyperlipidemia BASIC METABOLIC PANEL Routine 10/19/2024 8:15 AM EST Primary hypertension ALBUMIN, RANDOM URINE W/CREATININE Routine 10/19/2024 8:14 AM EST POCT GLYCATED HEMOGLOBIN, TOTAL Routine 10/18/2024 9:31 AM EST Type 2 diabetes mellitus without complication, with long-term current use of insulin (CMS/HCC) POCT GLUCOSE Routine 10/18/2024 9:28 AM EST Type 2 diabetes mellitus without complication, with long-term current use of insulin (CMS/HCC) HEPATITIS C AB W/REFL TO HCV RNA, QN, PCR Routine 02/01/2023 8:12 AM EDT Type 2 diabetes mellitus without complication, with long-term current use of insulin ([facility]) HIV 1/2 ANTIGEN/ANTIBODY, FOURTH GENERATION W/RFL Routine 02/01/2023 8:12 AM EDT Type 2 diabetes mellitus without complication, with long-term current use of insulin ([facility]) PROPHYLAXIS - ADULT Routine 10/13/2022 9 :00 AM EST HM COLONOSCOPY Routine 04/30/2015 from Last 3 Months or Most Recently Relevant to Health Maintenance Results * (ABNORMAL) Glucose, Whole Blood (12/17/2024 9:50 AM EDT) Glucose, Whole Blood 308(H) 60 - 115 mg/dL [facility] Comment:METER #: [id number] 5Testing performed in the Endocrinology Department [address] , [address], [facility]. 12/17/2024 9:50 AM EDT 12/17/2024 9:56 AM EDT us Generic External Data Provider LAB BLOOD ORDERAB LES Final Result [facility] [address] [place] [phone] * (ABNORMAL) Comprehensive Metabolic Panel, Fasting (10/19/2024 8:15 AM EST) Sodium 137 135 - 145 mmol/L [facility] Potassium 4.4 3.3 - 5.1 mmol/L [facility] Chloride 107 96 - 108 mmol/L [facility] Carbon Dioxide 26 22 - 29 mmol/L [facility] Anion Gap 8(L) 12 - 20 [facility] Urea Nitrogen (BUN) 22(H) 9 - 16 mg/dL [facility] Creatinine, Serum 1.26 0.5 - 1.4 mg/dL [facility] Estimated Glomerular Filt Rate 59 [facility] Comment:Chronic Kidney Disea se: Estimated GFR < 60 mL/min/1.08c3Sfjpsn Kidney Disease: Estimated GFR < 15 mL/min/1.73m2 Glucose Fasting 134(H) 60 - 99 mg/dL [facility] Comment:A fasting glucose of 126 mg/dl or greater on more than oneoccasion is considered diagnostic of diabetes. Calcium 9.5 8.4 - 10.2 mg/dL [facility] Bilirubin, Total 1.0 0.0 - 1.0 mg/dL [facility] Aspartate Amino Transferase 40(H) 5 - 37 U/L [facility] Alanine Aminotransferase 32 0 - 40 U/L [facility] Total Protein 7.7 6.5 - 8.0 g/dL [facility] Albumin Level 4.0 3.5 - 5.0 g/dL [facility] Alkaline Phosphatase 117 39 - 117 U/L [facility] 10/19/2024 8:15 AM EST 10/19/2024 11:02 AM EST us Generic External Data Provider LAB BLOOD ORDERAB LES Final Result [facility] [address] [place] [address] [phone] * (ABNORMAL) Hemoglobin A1c (10/19/2024 8:15 AM EST) Hemoglobin A1c 6.3(H) <6.0 % [facility] Comment:Hemoglobin A1C Refer ence Range Adults: 4.8 - 6.0 % Non diabetic: < 6.0 % Goal: < 7.0 %Additional Action Suggested: > 8.0 %Note: Hemoglobin A1c results are invalid for patients with abnormal amounts of HbF. Blood transfusions may impact the HbA1c concentration in the patient sample. Estimated Average Glucose 134 mg/dL [facility] Comment:eAG = Estimated ave rage glucose which is %A1C expressed asaverage glucose, using the formula of the [id number] Glucose study (ADAG), Diabetes Care, Vol.31,#8,2007 10/19/2024 8:15 AM EST 10/19/2024 11:02 AM EST us Generic External Data Provider LAB BLOOD ORDERAB LES Final Result Performing Organization Address [facility]/ZIP Co de Phone Number [facility] [address] [place] [phone] * (ABNORMAL) Lipid Panel, Standard (10/19/2024 8:15 AM EST) Triglycerides 56 <150 mg/dL [facility] Comment:Desirable Triglyceri de: less than 150 mg/dLBorderline High Triglyceride 150-199 mg/dLHigh Triglyceride: 200-499 mg/dLVery High Triglyceride: greater than or equal to 5OO mg/dL Cholesterol 114 <200 mg/dL [facility] Comment:Desirable Cholestero l: less than 200 mg/dLBorderline High Cholesterol: 200-239 mg/dLHigh Cholesterol: greater than 239 mg/dL LDL Cholesterol Calculated 65 <100 mg/dL [facility] Comment:Desirable LDL: less than 100 mg/dLNear Optimal/Above Optimal LDL: 110- 129 mg/dLBorderline High LDL: 130-159 mg/dLHigh LDL: 160-189 mg/dLVery High LDL: greater than or equal to 190 mg/dL HDL Cholesterol 38(L) >40 mg/dL [facility] Comment:Desirable HDL: great er than 40 mg/dL Note: This HDL assay may give artificially low results in patients with liver disease. Blood Venous blood specimen / Unknown 10/19/2024 8:15 AM EST 10/19/2024 11:02 AM EST us Ramsey Cline MD LAB BLOOD ORDERABLES Final Result Performing Organization Address City/[facility]/ZIP Co de Phone Number [facility] [address] [place] [phone] * (ABNORMAL) Basic Metabolic Panel (10/19/2024 8:15 AM EST) Glucose 134(H) 60 - 115 mg/dL [facility] Blood Venous blood specimen / Unknown 10/19/2024 8:15 AM EST 10/19/2024 11:02 AM EST Ramsey Cline MD LAB BLOOD ORDERABLES Final Result Performing Organization Address [facility]/State/ZIP Co de Phone Number [facility] [address] [place] [phone] * Albumin, Random Urine W/Creatinine (10/19/2024 8:14 AM EST) Creatinine, Urine 85.25 mg/dL [facility] Microalbumin Urine <5.0 mg/L [facility] Microalbum Creatinine Ratio Ur TNP <30 ug/mg cr [facility] Comment:Unable to calculate albumin/creatinine ratio due to lowmicroalbumin or creatinine result. 10/19/2024 8:14 AM EST 10/19/2024 11:17 AM EST Generic External Data Provider LAB URINE ORDERAB LES Final Result Performing Organization Address [facility]/ZIP Co de Phone Number [facility] [address] [place] [phone] * (ABNORMAL) POCT HGB A1C (10/18/2024 9:31 AM EST) Hemoglobin A1C 7.1(A) 4.0 - 6.0 % QC Media Lot # [id number] Lot# Expiration Date Blood 10/18/2024 9:31 AM EST Ramsey Cline MD POINT OF CARE TEST EN TER/EDIT ORDERABLES Final Result * (ABNORMAL) POCT Glucose (10/18/2024 9:28 AM EST) Glucose Blood, POC 262(A) 60 - 200 mg/dL [employer] Media Lot # [id number] Lot# Expiration Date ,025 Blood Capillary blood specimen / Unknown 10/18/2024 9:28 AM EST Result [facility] Ramsey Cline MD POINT OF CARE TEST EN TER/EDIT ORDERABLES Final Result * Hepatitis C Antibody with Reflex to HCV, RNA, Quantitative, Real-Time PCR (02/01/2023 8:12 AM EDT) Hepatitis C Antibody NON-REACT KELLI NON-REACT KELLI [facility] Index 0.25 <1.00 [facility] Comment: HCV antibody was non-reactive. There is no laboratory evidence of HCV infection. In most cases, no further action is required. However, if recent HCV exposure is suspected, a test for HCV RNA (test code 58782) is suggested. For additional information please refer to http://[employer].Echelon/faq/SXN06h5 (This link is being provided for informational/ educational purposes only.) Blood Venous blood specimen / Unknown 02/01/2023 8:12 AM EDT 02/01/2023 8:13 AM EDT Narrative [facility] - 02/01/2023 11:34 PM EDT FASTING:YES FASTING: YES Result [facility] Ramsey Cline MD LAB BLOOD ORDERABLES Final Result [facility] [address], [place] [address] [facility] [address] [place] [phone] * HIV-1/2 Antigen and Antibodies, Fourth Generation, with Reflexes (02/01/2023 8:12 AM EDT) HIV Antigen/Antibody, 4th Generation NON-REAC TIVE NON-REAC TIVE [facility] Comment: HIV-1 antigen and HIV-1/HIV-2 antibodies were [...] ?? For additional information please refer to http://education.Echelon/faq/BWQ346 (This link is being provided for informational/ educational purposes only.) The performance of this assay has not been clinically validated in patients less than 2 years old. Blood Venous blood specimen / Unknown 02/01/2023 8:12 AM EDT 02/01/2023 8:13 AM EDT Narrative [facility] - 02/01/2023 11:34 PM EDT FASTING:YES FASTING: YES Ramsey Cline MD LAB BLOOD ORDERABLES Final Result [facility] [address], [place] [phone] [facility] [address] [place] [phone] * Colonoscopy (04/30/2015) Colonoscopy Normal Normal 04/30/2015 Yordy Estelle Alvarado - 04/30/2015 11:58 AM EDT Recommended 10 year follow up Historical Provider HEALTH MAINTENANCE Edited Result - Final from Last 3 Months or Most Recently Relevant to Health Maintenance Insurance [employer] Care Teams Donor Services Technician Relationship Specialty Start Date End Date Ramsey Gray MD [address] [place] [phone] PCP - General Internal Medicine 06/25/14
--- OUTSIDE RECORDS SUMMARY | 2024-12-17 10:35 | XMS_ITS | Encounter Summary ---
Author Organization [employer] Address [address] [facility] 7t [place] [address] Care Team Providers Care Manager Performance Improvement Name Role Phone Ramsey Gray MD Primary Care Provide r Encounter Details Date Type Department Care Team (Latest Contact Info) Description 06/07/2022 Abstract [facility] CONVERSIONS Dental, Provider, DDS Social History Tobacco [...] Description 02/14/2025 10:00 AM EDT Office Visit [facility] MEDICINE [address] [place] [address] Ramsey Gray MD [address] [place] [address] documented as of this encounter Visit Diagnoses Not on filedocumented in this encounter Care Teams Manager Performance Improvement Relationship Specialty Start Date End Date Ramsey Gray MD [address] [place] [address] PCP - General Internal Medicine 06/25/14 documented as of this encounter
--- OUTSIDE RECORDS SUMMARY | 2024-12-17 10:35 | XMS_ITS | Encounter Summary ---
Author Organization [employer] Address [address] [facility] 7t [place] [address] Care Team Providers Care Exercise Equipment Specialist Name Role Phone Ramsey Gray MD Primary Care Provide r Encounter Details Date Type Department Care Team ([facility] Contact Info) Description 12/17/2024 Orders Only GENERIC EXTERNAL DATA DEPARTMENT Provider, Generic External Data Social History Tobacco Use Types Packs/Day Years [...] Description 02/14/2025 10:00 AM EDT Office Visit [facility] MEDICINE [address] [place] [address] Ramsey Gray MD [address] [place] [address] documented as of this encounter Procedures Procedure Name Priority Date/Time Associated Diagnosis Comments GLUCOSE, WHOLE BLOOD Routine 12/17/2024 9:50 AM EDT documented in this encounter Results * (ABNORMAL) Glucose, Whole Blood (12/17/2024 9:50 AM EDT) Glucose, Whole Blood 308(H) 60 - 115 mg/dL [facility] Comment:METER #: [id number] 5Testing performed in the Endocrinology Department [address] , [address], [facility]. 12/17/2024 9:50 AM EDT 12/17/2024 9:56 AM EDT us Generic External Data Provider LAB BLOOD ORDERAB LES Final Result [facility] [address] [place] [phone] documented in this encounter Visit Diagnoses Not on filedocumented in this encounter Additional Health Concerns Assessment Noted Time PHQ-9 Depression Total Score: 1 10/18/19 25 9:22 AM EST documented as of this encounter Care Teams Exercise Equipment Specialist Relationship Specialty Start Date End Date Ramsey Gray MD [address] [place] [address] PCP - General Internal Medicine 06/25/14 documented as of this encounter
--- OUTSIDE RECORDS SUMMARY | 2024-12-17 10:35 | XMS_ITS | Encounter Summary ---
Author Organization [employer] Address [address] [facility] 7t [place] [address] Care Team Providers Care Coding Auditor Name Role Phone Ramsey Gray MD Primary Care Provide r Encounter Details Date Type Department Care Team (Latest Contact Info) Description 11/13/2020 Abstract [facility] CONVERSION[facility] Dental, Provider, DDS Social History Tobacco [...] 10:00 AM EDT Office Visit [facility] MEDICINE [address] [place] [address] Ramsey Gray MD [address] [place] [address] documented as of this encounter Visit Diagnoses Not on filedocumented in this encounter Care Teams Coding Auditor Relationship Specialty Start Date End Date Ramsey Gray MD [address] [place] [address] PCP - General Internal Medicine 06/25/14 documented as of this encounter
--- OUTSIDE RECORDS SUMMARY | 2024-12-17 10:35 | XMS_ITS | Encounter Summary ---
Author Organization [employer] Address [address] [facility] 7t [place] [address] Care Team Providers Care Pug Mill Operator Helper Name Role Phone Ramsey Gray MD Primary Care Provide r Reason for Visit * Reason Comments Med Refill Encounter Details Date Type Department Care Team ([facility] st Contact Info) Description 02/23/[address] [facility] MEDICINE [address] [place], [place] [phone] Ramsey Gray MD [address] [place], [place] [phone] Social History Tobacco Use Types Packs/Day Years [...] Description 02/14/2025 10:00 AM EDT Office Visit [facility] MEDICINE [address] [place] [address] Ramsey Gray MD [address] [place] [address] documented as of this encounter Visit Diagnoses Not on filedocumented in this encounter Additional Health Concerns Assessment Noted Time PHQ-9 Depression Total Score: 0 01/05/20 24 11:09 AM EDT documented as of this encounter Care Teams Pug Mill Operator Helper Relationship Specialty Start Date End Date Ramsey Gray MD [address] [place] [phone] PCP - General Internal Medicine 06/25/14 documented as of this encounter
--- OUTSIDE RECORDS SUMMARY | 2024-12-17 10:35 | XMS_ITS | Encounter Summary ---
Author Organization [employer] Address [address] [facility] 7t [place] [address] Care Team Providers Care Toll Repairer Central Office Name Role Phone Ramsey Gray MD Primary Care Provide r Reason for Visit * Reason Comments Med Refill Encounter Details Date Type Department Care Team ([facility] st Contact Info) Description 01/20/2024 Refill [facility] MEDICINE [address] [place], [place] [phone] Luciana Elder MD [address] [place] [address] Social History Tobacco Use Types Packs/Day Years [...] Description 02/14/2025 10:00 AM EDT Office Visit [facility] MEDICINE [address] [place] [address] Ramsey Gray MD [address] [place] [address] documented as of this encounter Visit Diagnoses Not on filedocumented in this encounter Additional Health Concerns Assessment Noted Time PHQ-9 Depression Total Score: 0 01/05/20 24 11:09 AM EDT documented as of this encounter Care Teams Toll Repairer Central Office Relationship Specialty Start Date End Date Ramsey Gray MD [address] [place] [address] PCP - General Internal Medicine 06/25/14 documented as of this encounter
--- OUTSIDE RECORDS SUMMARY | 2024-12-17 10:36 | XMS_ITS | Encounter Summary ---
Author Organization [employer] Address [address] [facility] 7t [place] [address] Care Team Providers Care Relocation Commissioner Name Role Phone Ramsey Gray MD Primary Care Provide r Encounter Details Date Type Department Care Team (Late Contact Info) Description 11/24/2022 Orders Only [facility] MED & PEDS [address] [place] [address] Patricia Adamson LPN Social History Tobacco Use [...] Description 02/14/2025 10:00 AM EDT Office Visit [facility] MEDICINE [address] [place] [address] Ramsey Gray MD [address] [place], [place] [phone] documented as of this encounter Visit Diagnoses Not on filedocumented in this encounter Care Teams Relocation Commissioner Relationship Specialty Start Date End Date Ramsey Gray MD [address] [place] [phone] PCP - General Internal Medicine 06/25/14 documented as of this encounter
== END 2024-12-17 10:15 | disposition home or self-care (01) ==
LOC: HO.ENCR 09:33
PROVIDERS: PCP Internal Medicine; Visit Provider Physician Assistant
DX: E11.21 Type 2 diabetes mellitus with diabetic nephropathy (principal); N18.31 Chronic kidney disease, stage 3a; I10 Essential (primary) hypertension; E78.5 Hyperlipidemia, unspecified; B35.1 Tinea unguium

== ENCOUNTER → 2024-12-17 09:32 | Outpatient (BNVA) | payer MEDICAID, SELFPAY | PROVIDERS: PCP Internal Medicine; Visit Provider Physician Assistant | DX: I12.9 Hypertensive chronic kidney disease with stage 1 through stage 4 chronic kidney disease, or unspecified chronic kidney disease (principal); E11.21 Type 2 diabetes mellitus with diabetic nephropathy; E11.22 Type 2 diabetes mellitus with diabetic chronic kidney disease; N18.31 Chronic kidney disease, stage 3a; E78.5 Hyperlipidemia, unspecified; B35.1 Tinea unguium; J44.9 Chronic obstructive pulmonary disease, unspecified; Z79.84 Long term (current) use of oral hypoglycemic drugs; Z79.4 Long term (current) use of insulin | CPT/HCPCS: 82947; 99212 ==

== ENCOUNTER 2024-12-27 08:23 | Outpatient (REF) | payer MEDICAID, SELFPAY ==
--- NOTE | ~2024-12-27 | CT_ITS ---
CLINICAL HISTORY: Z87.891 - Personal history of nicotine dependence CT lung cancer screening (LDCT) Comparison: CT/REG/GA/SR - CT CHEST WO IV CON - 11/16/23 08:25 EDT Technique: Axial CT images of the chest using low-dose technique. Referring provider counseled the patient on shared decision-making for LDCT screening. Additional counseling was provided on smoking cessation. Effective radiation dose total: DLP 33.9 mGycm, CTDIvol 1.1 mGy. Findings: Lung: Mild emphysema. Stable 2 mm nodule of the right upper lobe series 4, image 47. Stable 2 mm nodule of the left upper lobe series 6, image 24. Stable 2 mm nodule of the left upper lobe image 21. Stable additional micro nodules. Coronary artery calcifications: Mild Limited upper abdomen: Possible right renal cyst with limited evaluation. Other: None Impression: LungRADS 2 - Benign Appearance: Continue annual screening with low dose Chest CT in 12 months. ##L2# Category 1: Normal; continue annual screening Category 2: Benign appearance or behavior, continue annual screening Category 3: Probably benign, [address] recommended Category 4A: Suspicious, [address] recommended; may consider PET/CT Category 4B: Suspicious, Additional diagnostics and/or tissue sampling recommended Category 4X: Suspicious, Additional diagnostics and/or tissue sampling recommended Category 0: Recalls (incomplete screen due to Incomplete coverage, Noise, Respiratory motion, Expiration, Obscured by acute abnormality) This document has been electronically signed by: Luther Vicente MD on 12/27/2024 14:22:56
--- OUTSIDE RECORDS SUMMARY | 2024-12-27 08:40 | XMS_ITS | Encounter Summary ---
Author Organization [employer] Address [address] [facility] 7t [place] [address] Care Team Providers Care Ent Surgeon Name Role Phone Ramsey Gray MD Primary Care Provide r Reason for Visit * Reason Comments Med Refill Encounter Details Date Type Department Care Team ([facility] st Contact Info) Description 01/20/2024 Refill [facility] MEDICINE [address] [place], [place] [phone] Luciana Elder MD [address] [place] [address] Social History Tobacco Use Types Packs/Day Years [...] Description 02/14/2025 10:00 AM EDT Office Visit [facility] MEDICINE [address] [place] [address] Ramsey Gray MD [address] [place] [address] documented as of this encounter Visit Diagnoses Not on filedocumented in this encounter Additional Health Concerns Assessment Noted Time PHQ-9 Depression Total Score: 0 01/05/20 24 11:09 AM EDT documented as of this encounter Care Teams Ent Surgeon Relationship Specialty Start Date End Date Ramsey Gray MD [address] [place] [address] PCP - General Internal Medicine 06/25/14 documented as of this encounter
--- OUTSIDE RECORDS SUMMARY | 2024-12-27 08:40 | XMS_ITS | Encounter Summary ---
Author Organization [employer] Address [address] [facility] 7t [place] [address] Care Team Providers Care Ditcher Operator Name Role Phone Ramsey Gray MD Primary Care Provide r Reason for Visit * Reason Comments Med Refill Encounter Details Date Type Department Care Team ([facility] st Contact Info) Description 02/23/2024 Refill [facility] MEDICINE [address] [place], [place] [phone] Ramsey Gray MD [address] [place], [place] [phone] Social History Tobacco Use Types Packs/Day Years [...] is your housing situation today? I have leanle abdi 06/27/[address] you [...] Description 02/14/2025 10:00 AM EDT Office Visit [facility] MEDICINE [address] [place] [address] Ramsey Gray MD [address] [place] [address] documented as of this encounter Visit Diagnoses Not on filedocumented in this encounter Additional Health Concerns Assessment Noted Time PHQ-9 Depression Total Score: 0 01/05/20 24 11:09 AM EDT documented as of this encounter Care Teams Ditcher Operator Relationship Specialty Start Date End Date Ramsey Gray MD [address] [place] [phone] PCP - General Internal Medicine 06/25/14 documented as of this encounter
--- OUTSIDE RECORDS SUMMARY | 2024-12-27 08:40 | XMS_ITS | Encounter Summary ---
Author Organization [employer] Address 75 [facility] 7t [place] [address] Care Team Providers Care Aix Architect Name Role Phone Ramsey Gray MD Primary Care Provide r Encounter Details Date Type Department Care Team (Latest Contact Info) Description 11/13/2020 Abstract [facility] CONVERSIONS Dental, Provider, DDS Social History Tobacco [...] Description 02/14/2025 10:00 AM EDT Office Visit [facility] MEDICINE [address] [place] [address] Ramsey Gray MD [address] [place] [address] documented as of this encounter Visit Diagnoses Not on filedocumented in this encounter Care Teams Aix Architect Relationship Specialty Start Date End Date Ramsey Gray MD [address] [place] [address] PCP - General Internal Medicine 06/25/14 documented as of this encounter
--- OUTSIDE RECORDS SUMMARY | 2024-12-27 08:40 | XMS_ITS | Clinical Summary ---
Author Organization [employer] Address [address] [place] [address] 7t [place] [address] Care Team Providers Care Concrete Pump Operator Helper Name Role Phone Ramsey Gray MD Primary Care Provide r Allergies Active Allergy Reactions Criticality Noted Date Comments Penicillin G 12/07/2022 Penicillins Unknown 08/20/2014 Medications Anoro Ellipta 62.5-25 MCG/ACT aerosol powder INHALE 1 PUFF EVERY DAY AT THE SAME TIME 023 Active Lantus SoloStar 100 UNIT/ML pen INJECT 28 UNITS SUBCUTANEOUSLY AT BEDTIME 023 Active Continuous Blood Gluc Outbound Sales Professional (FreeStyle Lola 2 Sundown) deviceIndicatio ns:Type 2 diabetes mellitus without complication, with long-term current use of insulin ([facility]) Use daily 1 each 023 Active Continuous Glucose Sensor (FreeStyle Lola 2 Sensor) miscIndications :Type 2 diabetes mellitus without complication, with long-term current use of insulin ([facility]) Use daily 4 each 024 Active glucose [...] Active insulin pen needle (Easy Touch Pen Reeds) 31G X 8 mm misc USE 1 [...] 8:29 AM EDT): Pt previously [place] [facility] [place] c/o right flank pain, CT of his abdomen showed a 2 mm partially obstructing calculus. Seen by [facility] December 24 2015 Increase fluid intake [...] DEPARTMENT Provider, Generic External Data 11/30/2024 Refill [facility] [address] [place] [address] Ramsey Gray MD 11/16/2024 Population Health Risk Score [facility] Department [address] [phone] Provider, Population Health Generic 10/19/2024 Orders Only GENERIC EXTERNAL DATA DEPARTMENT Provider, Generic External Data 10/18/2024 9:15 AM EST Office Visit [facility] [address] [place] [address] Ramsey Gray MD Primary hypertension (Primary Dx); Type 2 diabetes mellitus without complication, with long-term current use of insulin (CMS/HCC); Closed fracture of right foot with routine healing; Mixed hyperlipidemia; Type 2 diabetes mellitus without complication, without long-term current use of insulin (CMS/HCC); Overweight (BMI 25.0-29.9); Dietary counseling; Exercise counseling; Encounter for immunization 10/18/2024 Travel 10/10/2024 Telephone [facility] [address] [place] [address] Ramsey Gray MD Chart Prep from Last [...] Description 02/14/2025 10:00 AM EDT Office Visit [facility] [address] [place] [address] Ramsey Gray MD [address] [place] [address] Health Maintenance Due Date Last Done Comments [...] long-term current use of insulin ([facility]) HIV 1/2 ANTIGEN/ANTIBODY, FOURTH GENERATION W/RFL Routine 02/01/2023 8:12 AM EDT Type 2 diabetes mellitus without complication, with long-term current use of insulin ([facility]) PROPHYLAXIS - ADULT Routine 10/13/2022 9 :00 AM EST HM COLONOSCOPY Routine 04/30/2015 from Last 3 Months or Most Recently Relevant to Health Maintenance Results * (ABNORMAL) Glucose, Whole Blood (12/17/2024 9:50 AM EDT) Glucose, Whole Blood 308(H) 60 - 115 mg/dL [facility] Comment:METER #: [id number] 5Testing performed in the Endocrinology Department [address] , [address], [facility]. 12/17/2024 9:50 AM EDT 12/17/2024 9:56 AM EDT us Generic External Data Provider LAB BLOOD ORDERAB LES Final Result [facility] [address] [place] [phone] * (ABNORMAL) Comprehensive Metabolic Panel, Fasting (10/19/2024 8:15 AM EST) Sodium 137 135 - 145 mmol/L [facility] Potassium 4.4 3.3 - 5.1 mmol/L [facility] Chloride 107 96 - 108 mmol/L [facility] Carbon Dioxide 26 22 - 29 mmol/L [facility] Anion Gap 8(L) 12 - 20 [facility] Urea Nitrogen (BUN) 22(H) 9 - 16 mg/dL [facility] Creatinine, Serum 1.26 0.5 - 1.4 mg/dL [facility] Estimated Glomerular Filt Rate 59 [facility] Comment:Chronic Kidney Disea se: Estimated GFR < 60 mL/min/1.13z9Rlbybs Kidney Disease: Estimated GFR < 15 mL/min/1.73m2 Glucose Fasting 134(H) 60 - 99 mg/dL [facility] Comment:A fasting glucose of 126 mg/dl or greater on more than oneoccasion is considered diagnostic of diabetes. Calcium 9.5 8.4 - 10.2 mg/dL [facility] Bilirubin, Total 1.0 0.0 - 1.0 mg/dL [facility] Aspartate Amino Transferase 40(H) 5 - 37 U/L [facility] Alanine Aminotransferase 32 0 - 40 U/L [facility] Total Protein 7.7 6.5 - 8.0 g/dL [facility] Albumin Level 4.0 3.5 - 5.0 g/dL [facility] Alkaline Phosphatase 117 39 - 117 U/L [facility] 10/19/2024 8:15 AM EST 10/19/2024 11:02 AM EST us Generic External Data Provider LAB BLOOD ORDERAB LES Final Result [facility] [address] [place] [phone] * (ABNORMAL) Hemoglobin A1c (10/19/2024 8:15 AM EST) Hemoglobin A1c 6.3(H) <6.0 % [facility] Comment:Hemoglobin A1C Refer ence Range Adults: 4.8 - 6.0 % Non diabetic: < 6.0 % Goal: < 7.0 %Additional Action Suggested: > 8.0 %Note: Hemoglobin A1c results are invalid for patients with abnormal amounts of HbF. Blood transfusions may impact the HbA1c concentration in the patient sample. Estimated Average Glucose 134 mg/dL [facility] Comment:eAG = Estimated ave rage glucose which is %A1C expressed asaverage glucose, using the formula of the [id number]-[id number] Glucose study (ADAG), Diabetes Care, Vol.31,#8,2007 10/19/2024 8:15 AM EST 10/19/2024 11:02 AM EST us Generic External Data Provider LAB BLOOD ORDERAB LES Final Result Performing Organization Address [facility]/ZIP Co de Phone Number [facility] [address] [place] [phone] * (ABNORMAL) Lipid Panel, Standard (10/19/2024 8:15 AM EST) Triglycerides 56 <150 mg/dL [facility] Comment:Desirable Triglyceri de: less than 150 mg/dLBorderline High Triglyceride 150-199 mg/dLHigh Triglyceride: 200-499 mg/dLVery High Triglyceride: greater than or equal to 5OO mg/dL Cholesterol 114 <200 mg/dL [facility] Comment:Desirable Cholestero l: less than 200 mg/dLBorderline High Cholesterol: 200-239 mg/dLHigh Cholesterol: greater than 239 mg/dL LDL Cholesterol Calculated 65 <100 mg/dL [facility] Comment:Desirable LDL: less than 100 mg/dLNear Optimal/Above Optimal LDL: 110- 129 mg/dLBorderline High LDL: 130-159 mg/dLHigh LDL: 160-189 mg/dLVery High LDL: greater than or equal to 190 mg/dL HDL Cholesterol 38(L) >40 mg/dL [facility] Comment:Desirable HDL: great er than 40 mg/dL Note: This HDL assay may give artificially low results in patients with liver disease. Blood Venous blood specimen / Unknown 10/19/2024 8:15 AM EST 10/19/2024 11:02 AM EST us Ramsey Cline MD LAB BLOOD ORDERABLES Final Result Performing Organization Address City/[facility]/ZIP Co de Phone Number [facility] [address] [place] [phone] * (ABNORMAL) Basic Metabolic Panel (10/19/2024 8:15 AM EST) Glucose 134(H) 60 - 115 mg/dL [facility] Blood Venous blood specimen / Unknown 10/19/2024 8:15 AM EST 10/19/2024 11:02 AM EST Ramsey Cline MD LAB BLOOD ORDERABLES Final Result Performing Organization Address [facility]/State/ZIP Co de Phone Number [facility] [address] [place] [phone] * Albumin, Random Urine W/Creatinine (10/19/2024 8:14 AM EST) Creatinine, Urine 85.25 mg/dL [facility] Microalbumin Urine <5.0 mg/L [facility] Microalbum Creatinine Ratio Ur TNP <30 ug/mg cr [facility] Comment:Unable to calculate albumin/creatinine ratio due to lowmicroalbumin or creatinine result. 10/19/2024 8:14 AM EST 10/19/2024 11:17 AM EST Generic External Data Provider LAB URINE ORDERAB LES Final Result Performing Organization Address [facility]/ZIP Co de Phone Number [facility] [address] [place] [phone] * (ABNORMAL) POCT HGB A1C (10/18/2024 [...] / Unknown 10/18/2024 9:28 AM EST Result [facility] Ramsey Cline MD POINT OF CARE TEST EN TER/EDIT ORDERABLES Final Result * Hepatitis C Antibody with Reflex to HCV, RNA, Quantitative, Real-Time PCR (02/01/2023 8:12 AM EDT) Hepatitis C Antibody NON-REACT KELLI NON-REACT KELLI [employer] [place] [facility] Index 0.25 <1.00 [employer] [place] [facility] Comment: HCV antibody was non-reactive. There is no laboratory evidence of HCV infection. In most cases, no further action is required. However, if recent HCV exposure is suspected, a test for HCV RNA (test code 91474) is suggested. For additional information please refer to http://TourPal.DTT/faq/ZRF28c5 (This link is being provided for informational/ educational purposes only.) Blood Venous blood specimen / Unknown 02/01/2023 8:12 AM EDT 02/01/2023 8:13 AM EDT Narrative [facility] - 02/01/2023 11:34 PM EDT FASTING:YES FASTING: YES Result [facility] Ramsey Cline MD LAB BLOOD ORDERABLES Final Result [facility] [address], [place] [phone] [employer] [place] [facility] [address] [place] [phone] * HIV-1/2 Antigen and Antibodies, Fourth Generation, with Reflexes (02/01/2023 8:12 AM EDT) HIV Antigen/Antibody, 4th Generation NON-REAC TIVE NON-REAC TIVE [employer] [place] [facility] Comment: HIV-1 antigen and HIV-1/HIV-2 antibodies were [...] ?? For additional information please refer to http://education.DTT/faq/HFM516 (This link is being provided for informational/ educational purposes only.) The performance of this assay has not been clinically validated in patients less than 2 years old. Blood Venous blood specimen / Unknown 02/01/2023 8:12 AM EDT 02/01/2023 8:13 AM EDT Narrative [facility] - 02/01/2023 11:34 PM EDT FASTING:YES FASTING: YES Ramsey Cline MD LAB BLOOD ORDERABLES Final Result [facility] [address], [place] [address] [facility] [address] [place] [phone] * Colonoscopy (04/30/2015) Colonoscopy Normal Normal 04/30/2015 Yordy Estelle Alvarado - 04/30/2015 11:58 AM EDT Recommended 10 year follow up Historical Provider HEALTH MAINTENANCE Edited Result - Final from Last 3 Months or Most Recently Relevant to Health Maintenance Insurance [employer] Care Teams Concrete Pump Operator Helper Relationship Specialty Start Date End Date Ramsey Gray MD [address] [place] [phone] PCP - General Internal Medicine 06/25/14
--- OUTSIDE RECORDS SUMMARY | 2024-12-27 08:40 | XMS_ITS | Encounter Summary ---
Author Organization [employer] Address 75 [facility] 7t [place] [address] Care Team Providers Care Sales Correspondence Clerk Name Role Phone Ramsey Gray MD Primary Care Provide r Encounter Details Date Type Department Care Team (Late Contact Info) Description 01/12/2023 Abstract [facility] [address] [place], [place] [phone] Ramsey Gray MD [address] [place], [place] [phone] Social History Tobacco Use Types Packs/Day Years [...] Description 02/14/2025 10:00 AM EDT Office Visit [facility] [address] [place], [place] [phone] Ramsey Gray MD [address] [place] [address] documented as of this encounter Procedures Procedure Name Priority Date/Time Associated Diagnosis Comments COLONOSCOPY Routine 04/30/2015 documented in this encounter Results * Colonoscopy (04/30/2015) Colonoscopy Normal Normal 04/30/2015 Narrative Estelle Alvarado - 04/30/2015 11:58 AM EDT Recommended 10 year follow up us Historical Provider [employer] MAINTENANCE Edited Result - Final documented in this encounter Visit Diagnoses Not on filedocumented in this encounter Care Teams Sales Correspondence Clerk Relationship Specialty Start Date End Date Ramsey Gray MD [address] [place] [phone] PCP - General Internal Medicine 06/25/14 documented as of this encounter
--- OUTSIDE RECORDS SUMMARY | 2024-12-27 08:40 | XMS_ITS | Encounter Summary ---
Author Organization [employer] Address 75 [facility] 7t [place] [address] Care Team Providers Care Inside Polisher Name Role Phone Ramsey Gray MD Primary Care Provide r Encounter Details Date Type Department Care Team (Late st Contact Info) Description 09/08/2022 Orders Only [facility] [address] [place] [address] Patricia Adamson LPN Social History Tobacco Use [...] EDT Office Visit [facility] [address] [place] [address] Ramsey Gray MD [address] [place] [address] documented as of this encounter Visit Diagnoses Not on filedocumented in this encounter Care Teams Inside Polisher Relationship Specialty Start Date End Date Ramsey Gray MD [address] [place] [address] PCP - General Internal Medicine 06/25/14 documented as of this encounter
--- OUTSIDE RECORDS SUMMARY | 2024-12-27 08:40 | XMS_ITS | Encounter Summary ---
Author Organization [email or web address] Address [address] [facility] 7t [place] [address] Care Team Providers Care Manager Of Corporate Name Role Phone Ramsey Gray MD Primary Care Provide r Reason for Visit * Reason Comments Med Refill Encounter Details Date Type Department Care Team ([facility] st Contact Info) Description 02/23/2024 Refill [facility] [address] [place], [place] [phone] Ramsey Gray MD [address] [place], [place] [phone] Social History Tobacco Use Types Packs/Day Years [...] Description 02/14/2025 10:00 AM EDT Office Visit [facility] [address] [place] [address] Ramsey Gray MD [address] [place] [address] documented as of this encounter Visit Diagnoses Not on filedocumented in this encounter Additional Health Concerns Assessment Noted Time PHQ-9 Depression Total Score: 0 01/05/20 24 11:09 AM EDT documented as of this encounter Care Teams Manager Of Corporate Relationship Specialty Start Date End Date Ramsey Gray MD [address] [place] [address] PCP - General Internal Medicine 06/25/14 documented as of this encounter
--- OUTSIDE RECORDS SUMMARY | 2024-12-27 08:40 | XMS_ITS | Encounter Summary ---
Author Organization [employer] Address 75 [facility] 7t [place] [address] Care Team Providers Care Oenologist Name Role Phone Ramsey rGay MD Primary Care Provide r Encounter Details Date Type Department Care Team (Latest Contact Info) Description 06/07/2022 Abstract [facility] CONVERSIONS Dental, Provider, DDS Social History Tobacco [...] Description 02/14/2025 10:00 AM EDT Office Visit [facility] [address] [place] [address] Ramsey Gray MD [address] [place] [address] documented as of this encounter Visit Diagnoses Not on filedocumented in this encounter Care Teams Oenologist Relationship Specialty Start Date End Date Ramsey Gray MD [address] [place] [address] PCP - General Internal Medicine 06/25/14 documented as of this encounter
--- OUTSIDE RECORDS SUMMARY | 2024-12-27 08:40 | XMS_ITS | Encounter Summary ---
Author Organization [employer] Address [address] [facility] 7t [place] [address] Care Team Providers Care Global Climate Change Analyst Name Role Phone Ramsey Gray MD Primary Care Provide r Encounter Details Date Type Department Care Team (Late Contact Info) Description 11/24/2022 Orders Only [facility] [address] [place] [address] Patricia Adamson LPN Social History Tobacco Use [...] Description 02/14/2025 10:00 AM EDT Office Visit [facility] [address] [place] [address] Ramsey Gray MD [address] [place], [place] [phone] documented as of this encounter Visit Diagnoses Not on filedocumented in this encounter Care Teams Global Climate Change Analyst Relationship Specialty Start Date End Date Ramsey Gray MD [address] [place] [phone] PCP - General Internal Medicine 06/25/14 documented as of this encounter
--- OUTSIDE RECORDS SUMMARY | 2024-12-27 08:40 | XMS_ITS | Encounter Summary ---
Author Organization [employer] Address 75 [facility] 7t [place] [address] Care Team Providers Care Tumbler Operator Name Role Phone Ramsey Gray MD Primary Care Provide r Reason for Visit * Reason Comments Med Refill Encounter Details Date Type Department Care Team ([facility] st Contact Info) Description 01/19/2024 Refill [facility] [address] [place], [place] [phone] Luciana Elder MD [address] [place] [address] Social History Tobacco Use Types Packs/Day Years [...] 10:00 AM EDT Office Visit [facility] [address] [place] [address] Ramsey Gray MD [address] [place] [address] documented as of this encounter Visit Diagnoses Not on filedocumented in this encounter Additional Health Concerns Assessment Noted Time PHQ-9 Depression Total Score: 0 01/05/20 24 11:09 AM EDT documented as of this encounter Care Teams Tumbler Operator Relationship Specialty Start Date End Date Ramsey Gray MD [address] [place] [address] PCP - General Internal Medicine 06/25/14 documented as of this encounter
== END 2024-12-27 08:24 | disposition home or self-care (01) ==
LOC: HO.CT 08:23
PROVIDERS: PCP Internal Medicine; Visit Provider Internal Medicine Pulmonary Disease
DX: Z12.2 Encounter for screening for malignant neoplasm of respiratory organs (principal); Z87.891 Personal history of nicotine dependence
CPT/HCPCS: 71271

== ENCOUNTER → 2024-12-27 08:25 | Outpatient (BNV) | payer MEDICAID, SELFPAY | PROVIDERS: PCP Internal Medicine; Visit Provider Nuclear Medicine | DX: Z87.891 Personal history of nicotine dependence (principal) | CPT/HCPCS: 71271 ==

== ENCOUNTER 2025-03-18 07:33 | Outpatient (AMB) | payer MEDICAID, SELFPAY ==
--- NOTE | 2025-03-18 07:45 | MHC.OFFVIS ---
Vital Signs 03/18/25 07:46 Height 5 ft 5 in Weight 160 lb 0.889 oz BMI 26.6 BP 102/58 L Blood Pressure Location Lt brachial Position Sitting Pulse 70 Pulse Source Pulse Oximeter Pulse Oximetry (%) 94 Oxygen Delivery Method Room Air Intake Visit Reasons: T2DM Intake Note: Patient present today for Type 2 Diabetes Mellitus Last Diabetic eye exam: Patient is not sure when last eye exam was Last Podiatry Visit: Doesn't have one Random Glucose: 299 mg/dl HgA1C: 7.3% License And Permit Specialist Required: Yes License And Permit Specialist Language: Gas Well Pumper Services: License And Permit Specialist Present Information Interpreted: non-clinical & clinical Accompanied by: Self / Same As Patient Allergies Penicillins (PENICILLINS) Allergy (Intermediate, Verified 03/18/25 08:02) RASH penicillin V Allergy (Unknown, Verified 03/18/25 08:02) Rash morphine Adverse Reaction (Unknown, Verified 03/18/25 08:02) Unknown Medication List - Last Reconciled 03/18/25 by Cari Ferguson PA-C albuterol sulfate 90 mcg/actuation 2 puffs inhalation Q4-6H PRN aspirin (Adult Low Dose Aspirin) 81 mg PO DAILY atorvastatin 10 mg PO DAILY blood sugar diagnostic (FreeStyle Lite Strips) As directed three times daily ciclopirox 8% 1 appl topical DAILY 4 weeks empagliflozin (Jardiance) 10 mg PO DAILY lancets (TRUEplus Lancets) As directed lisinopril 5 mg PO DAILY sertraline 50 mg PO QAM tirzepatide (Mounjaro) 7.5 mg (0.5 mL) subcut QWEEK umeclidinium-vilanterol 62.5-25 mcg/actuation (Anoro Ellipta) 1 ea PO DAILY HPI HPI T2DM: Details: Patient is a 60-year-old male with a significant past medical history hypertension, hyperlipidemia, type 2 diabetes, COPD and chronic kidney disease Presenting today for a diabetic follow-up. License And Permit Specialist: Marci #[id number] I had ordered labs for him to complete prior to our appointment but he forgot again. Endo: his A1c is 7.3. He is currently on Jardiance 10 mg daily and Mounjaro 7.5 mg weekly. - He states he has been off of insulin for about a year. -he has been intolerant of Trulicity due to diarrhea. Ozempic caused similar symptoms with diarrhea. CGM-very hyperglycemic 0%, hyperglycemic 22%, in range 78%. 0% hypoglycemia. Average glucose 161. Usage 21%. He states he will make his own appointment for an eye doc He states he does have a animal geneticist in [place] but does not want to go back. Nephro: He does have CKD dating back to 2020. Does not use NSAIDs. Has a history of kidney stones but states that he only had this once years ago. Does not follow with Nephrology. he is on an JAVIER-inhibitor and statin. CV: His blood pressure today in the office is 102/58. He is on lisinopril 5 mg. He is compliant with Lipitor 10 mg. Last LDL was 65. [facility] Medical History (Updated 12/17/24 @ 10:12 by Cari Ferguson PA-C) Obesity due to excess calories Carpal tunnel syndrome Kidney stones Depression Type 2 diabetes mellitus with hyperglycemia, with long-term current use of insulin Essential hypertension Hyperlipidemia LDL goal <100 Surgical History Hx of colonoscopy Family History Mother Diabetes Arthritis Stroke Father Unknown family medical history Social History Household Members: None Alcohol intake: never Patient Tobacco Use Status: Former Tobacco user Physical Exam Vital Signs: Last Vital Signs Pulse 70 03/18/25 07:46 BP 102/58 L 03/18/25 07:46 Pulse Ox 94 03/18/25 07:46 Oxygen Delivery Method Room Air 03/18/25 07:46 BMI result Body Mass Index 26.6 Const Orientation/consciousness: patient oriented x3 HEENT Ears: hearing grossly normal bilaterally Neck Thyroid: Thyroid normal Lymphatic: no lymphadenopathy noted Resp Auscultation: clear to auscultation bilaterally Cardio Rate: regular rate Rhythm: regular rhythm Heart sounds: S1 normal heart sound present and S2 normal heart sound present Skin General skin exam: no rashes or lesions noted Neuro General: patient oriented x3, gait normal and no focal motor deficits Results AMB Hemoglobin A1c AMB Hemoglobin A1c 7.3 % Last Edit by WHIT Terrell on 03/18/25 08:13 Results Reviewed Results Reviewed: Laboratory Last Values Glucose (Clinic) 299 mg/dL (60-115) H 03/18/25 08:04 Laboratory Tests 10/19/24 03/18/25 08:15 08:04 Creatinine 1.26 Estimated GFR 59 Glucose (Clinic) 299 H Hemoglobin A1c % 6.3 H Assessment & Plan Assessment & Plan (1) Type 2 diabetes with nephropathy: Code(s): E11.21 - Type 2 diabetes mellitus with diabetic nephropathy Category: Medical Plan: increase mounjaro to 10 mg weekly continue jardiance 10 mg daily get labs tomorrow f/u short time 6 weeks (2) CKD stage 3a, GFR 45-59 ml/min: Code(s): N18.31 - Chronic kidney disease, stage 3a Category: Medical Plan: stable will monitor (3) Essential hypertension: Code(s): I10 - Essential (primary) hypertension Category: Medical Plan: wnl continue current plan (4) Hyperlipidemia LDL goal <100: Code(s): E78.5 - Hyperlipidemia, unspecified Category: Medical Plan: will monitor continue lipitor Orders: Orders AMB Hemoglobin A1c Today E11.21 - Type 2 diabetes mellitus with diabetic nephropathy, Z13.9 - Encounter for screening, unspecified Medications: New tirzepatide (Mounjaro) 10 mg (0.5 mL) subcut QWEEK 6 mL 3RF Discontinued tirzepatide (Mounjaro) Discontinued Reason: Duplicate 7.5 mg (0.5 mL) subcut QWEEK 2 mL 5RF Coding Level of Care Code Est Pt Level 4 (47400) Complex EM visit Add On G2211 Diagnoses Type 2 diabetes with nephropathy E11.21 CKD stage 3a, GFR 45-59 ml/min N18.31 Essential hypertension I10 Hyperlipidemia LDL goal <100 E78.5
[2025-03-18 07:46] VITALS: BP 102/58; PULSE 70; O2SAT 94; BMI 26.6
[2025-03-18 08:08] LABS: Glucose, Whole Blood 299 mg/dL (60-115)
== END 2025-03-18 08:41 | disposition home or self-care (01) ==
LOC: HO.ENCR 07:34
PROVIDERS: PCP Internal Medicine; Visit Provider Physician Assistant
DX: E11.21 Type 2 diabetes mellitus with diabetic nephropathy (principal); N18.31 Chronic kidney disease, stage 3a; I10 Essential (primary) hypertension; E78.5 Hyperlipidemia, unspecified; Z13.9 Encounter for screening, unspecified

== ENCOUNTER → 2025-03-18 07:33 | Outpatient (BNVA) | payer MEDICAID, SELFPAY | PROVIDERS: PCP Internal Medicine; Visit Provider Physician Assistant | DX: E11.21 Type 2 diabetes mellitus with diabetic nephropathy (principal); I12.9 Hypertensive chronic kidney disease with stage 1 through stage 4 chronic kidney disease, or unspecified chronic kidney disease; N18.31 Chronic kidney disease, stage 3a; E78.5 Hyperlipidemia, unspecified; Z79.84 Long term (current) use of oral hypoglycemic drugs; Z79.85 Long-term (current) use of injectable non-insulin antidiabetic drugs | CPT/HCPCS: 82947; 83036; 99212 ==

== ENCOUNTER 2025-03-19 06:28 | Outpatient (REF) | payer MEDICAID, SELFPAY ==
--- OUTSIDE RECORDS SUMMARY | 2025-03-19 06:31 | XMS_ITS | Encounter Summary ---
Author Organization [employer] Address [address] [place] [address] Care Team Providers Care Supervisor Ditching Name Role Phone Ramsey Gray MD Primary Care Provide r Encounter Details Date Type Department Care Team (Latest Contact Info) Description 11/13/2020 Abstract [facility] CONVERSIONS Dental, Provider, DDS Social History [...] Care Team (Late st Contact Info) Description 05/09/2025 9:15 AM EDT Office Visit [facility] [address] [place] [address] Ramsey Gray MD [address] [place] [address] documented as of this encounter Visit Diagnoses Not on filedocumented in this encounter Care Teams Supervisor Ditching Relationship Specialty Start Date End Date Ramsey Gray MD [address] [place], [place] [phone] PCP - General Internal Medicine 06/25/14 documented as of this encounter
[2025-03-19 07:58] LABS: Hemoglobin A1C 272.4182 umol/L; Total Hemoglobin (HGBA1C) 4517.6520 umol/L
[2025-03-19 08:31] LABS: B Type Natriuretic Peptide 11 pg/mL (<100)
[2025-03-19 08:41] LABS: Alanine Aminotransferase 44 U/L (0-40); Albumin Level 4.2 g/dL (3.5-5.0); Alkaline Phosphatase 119 U/L (39-117); Anion Gap 10 (12-20); Aspartate Amino Transferase 32 U/L (5-37); Blood Urea Nitrogen 23 mg/dL (9-16); Calcium 9.3 mg/dL (8.4-10.2); Carbon Dioxide 25 mmol/L (22-29); Chloride 110 mmol/L (96-108); Estimated Glomerular Filt Rate 48; Potassium 4.3 mmol/L (3.3-5.1); Sodium 141 mmol/L (135-145); Total Protein 7.5 g/dL (6.5-8.0)
== END 2025-03-19 06:29 | disposition home or self-care (01) ==
LOC: HO.LAB 06:28
PROVIDERS: PCP Internal Medicine; Visit Provider Physician Assistant
DX: E11.22 Type 2 diabetes mellitus with diabetic chronic kidney disease (principal); I12.9 Hypertensive chronic kidney disease with stage 1 through stage 4 chronic kidney disease, or unspecified chronic kidney disease; N18.4 Chronic kidney disease, stage 4 (severe); E11.21 Type 2 diabetes mellitus with diabetic nephropathy; E78.5 Hyperlipidemia, unspecified
CPT/HCPCS: 36415; 80048; 80076; 83036; 83880

== ENCOUNTER 2025-04-18 13:24 | Outpatient (AMB) | payer MEDICAID, SELFPAY ==
[2025-04-18 13:33] VITALS: BP 98/62; PULSE 74; O2SAT 98; BMI 26.6
--- NOTE | 2025-04-18 13:33 | HO.NEPHOV ---
Vital Signs 04/18/25 13:33 Height 5 ft 5 in Weight 160 lb BMI 26.6 BP 98/62 Blood Pressure Location Lt brachial Position Sitting Pulse 74 Pulse Source Pulse Oximeter Pulse Oximetry (%) 98 Oxygen Delivery Method Room Air Intake Visit Reasons: INP: CKD-Conf Equipment Maintenance Tech Required: No Equipment Maintenance Tech Services: Equipment Maintenance Tech Offered & Declined ( and himself will translate ) Accompanied by: Spouse Allergies Penicillins (PENICILLINS) Allergy (Intermediate, Verified 04/18/25 13:35) RASH penicillin V Allergy (Unknown, Verified 04/18/25 13:35) Rash morphine Adverse Reaction (Unknown, Verified 04/18/25 13:35) Unknown Medication List - Last Reconciled 04/18/25 by Bandar Ribeiro MD albuterol sulfate 90 mcg/actuation 2 puffs inhalation Q4-6H PRN aspirin (Adult Low Dose Aspirin) 81 mg PO DAILY atorvastatin 10 mg PO DAILY blood sugar diagnostic (FreeStyle Lite Strips) As directed three times daily empagliflozin (Jardiance) 10 mg PO DAILY lancets (TRUEplus Lancets) As directed lisinopril 5 mg PO DAILY sertraline 50 mg PO QAM tirzepatide (Mounjaro) 10 mg (0.5 mL) subcut QWEEK umeclidinium-vilanterol 62.5-25 mcg/actuation (Anoro Ellipta) 1 ea PO DAILY HPI Comments Details: The patient is a 60-year-old male presenting with decreased kidney function. The kidney function was noted to be at 48%, which is below the expected range of 70-80% for his age. The patient has a long-standing history of diabetes mellitus, which is a contributing factor to the renal impairment. The patient denies any history of hypertension, which is often associated with renal issues. He reports adherence to his medication regimen, which includes albuterol inhaler, aspirin, Jardiance, lisinopril, and sertraline. The patient maintains adequate hydration and denies any recent surgeries or urinary difficulties. He has no family history of kidney problems and does not smoke or consume alcohol currently. The patient's blood pressure was recorded at 98/62 mmHg, which is lower than normal, but he denies any symptoms of dizziness or lightheadedness. His diabetes management shows an A1c of 7.7, with a goal to reduce it below 7. [facility] Medical History (Updated 03/22/25 @ 12:50 by Cari Ferguson PA-C) Obesity due to excess calories Carpal tunnel syndrome Kidney stones Depression Type 2 diabetes mellitus with hyperglycemia, with long-term current use of insulin Essential hypertension Hyperlipidemia LDL goal <100 Surgical History Hx of colonoscopy Family History Mother Diabetes Arthritis Stroke Father Unknown family medical history Social History Household Members: None Alcohol intake: never Patient Tobacco Use Status: Former Tobacco user Review of Systems Const Denies anorexia, Denies fever(s) and Denies weakness Eyes Denies blurry vision Card Denies no additional complaints and Denies dyspnea Resp Reports no additional complaints, Reports cough and Denies dyspnea GI Denies melena and Denies diarrhea Denies hematuria Musc Denies tingling Skin/Breast Denies rash Neuro Denies focal weakness, Denies tingling, Denies tremor(s) and Denies weakness Physical Exam Vital Signs: Last Vital Signs Pulse 74 04/18/25 13:33 BP 98/62 04/18/25 13:33 Pulse Ox 98 04/18/25 13:33 Oxygen Delivery Method Room Air 04/18/25 13:33 BMI result Body Mass Index 26.6 Const General: comfortable Nutritional Appearance: well nourished Orientation/consciousness: patient oriented x3 HEENT Head: No normal to inspection Mouth: moist mucous membranes Neck Neck: Yes supple and Yes no JVD Resp Auscultation: clear to auscultation bilaterally and no rales Cardio Jugular venous distension: no JVD Palpation: no palpable S3 and no palpable S4 Heart sounds: no rubs GI Palpation (GI): Soft to palpation and nontender Percussion: No Fluid wave present General: Yes no CVA tenderness Back/Spine/Pelvis Back: no CVA tenderness Skin General skin exam: no rashes or lesions noted Neuro General: patient oriented x3 Extrem General: Yes no pedal edema and No clubbing Results Reviewed Nephrology Results: Sodium, (135-145) 141 mmol/L 03/19/25 Potassium, (3.3-5.1) 4.3 mmol/L 03/19/25 Chloride, (96-108) 110 mmol/L H 03/19/25 Carbon Dioxide, (22-29) 25 mmol/L 03/19/25 BUN, (9-16) 23 mg/dL H 03/19/25 Creatinine, (0.5-1.4) 1.48 mg/dL H 03/19/25 Calcium, (8.4-10.2) 9.3 mg/dL 03/19/25 Assessment & Plan Assessment & Plan (1) Type 2 diabetes with nephropathy: Code(s): E11.21 - Type 2 diabetes mellitus with diabetic nephropathy Category: Medical (2) CKD stage 3a, GFR 45-59 ml/min: Code(s): N18.31 - Chronic kidney disease, stage 3a Category: Medical Plan 60-year-old man with stage III A CKD in the setting of longstanding diabetes mellitus. He probably has underlying diabetic kidney disease. Obstructive uropathy should be ruled out. Recent urine studies were unremarkable therefore glomerular nephritis or interstitial disease seem unlikely. He has no significant proteinuria. He is able to tolerate low-dose of lisinopril. Blood pressure rather low but he is asymptomatic. Recommendations Discussed the importance of tight control of blood sugar and blood pressure to slow the portion of renal disease. Recent A1c was 7.7%. For now I would continue low-dose JAVIER inhibitor for cardiorenal protection. Encouraged him to increase p.o. fluid intake. Avoid hypotension. If the systolic blood pressure drops less than 90 mm Hg I would discontinue the lisinopril. Continue to avoid nephrotoxic agents including NSAIDs. All his questions were answered. Returned to the office in the next few weeks after baseline workup is completed. Orders: Orders Creatinine Urine 3 Weeks E11.21 - Type 2 diabetes mellitus with diabetic nephropathy, N18.31 - Chronic kidney disease, stage 3a Basic Metabolic Panel 3 Weeks E11.21 - Type 2 diabetes mellitus with diabetic nephropathy, N18.31 - Chronic kidney disease, stage 3a Total Protein Urine Random 3 Weeks E11.21 - Type 2 diabetes mellitus with diabetic nephropathy, N18.31 - Chronic kidney disease, stage 3a UA and rflx microscopic 3 Weeks E11.21 - Type 2 diabetes mellitus with diabetic nephropathy, N18.31 - Chronic kidney disease, stage 3a US renal BI Today E11.21 - Type 2 diabetes mellitus with diabetic nephropathy, N18.31 - Chronic kidney disease, stage 3a Coding Level of Care Code New Pt Level 4 (37675) Diagnoses Type 2 diabetes with nephropathy E11.21 CKD stage 3a, GFR 45-59 ml/min N18.31
--- OUTSIDE RECORDS SUMMARY | 2025-04-18 14:17 | XMS_ITS | Encounter Summary ---
Author Organization [employer] Address [address] [place] [address] Care Team Providers Care Wealth Management Consultant Name Role Phone Ramsey Gray MD Primary Care Provide r Encounter Details Date Type Department Care Team (Latest Contact Info) Description 11/13/2020 Abstract [facility] CONVERSIONS Dental, Provider, DDS Social History [...] Description 05/09/2025 9:15 AM EDT Office Visit [facility] [address] [place] [address] Ramsey Gray MD [address] [place] [address] documented as of this encounter Visit Diagnoses Not on filedocumented in this encounter Care Teams Wealth Management Consultant Relationship Specialty Start Date End Date Ramsey Gray MD [address] [place], [place] [phone] PCP - General Internal Medicine 06/25/14 documented as of this encounter
== END 2025-04-18 13:47 | disposition home or self-care (01) ==
LOC: HO.HKA 13:25
PROVIDERS: PCP Internal Medicine; Referring Provider Physician Assistant; Visit Provider Internal Medicine Hypertension Specialist
DX: E11.21 Type 2 diabetes mellitus with diabetic nephropathy (principal); N18.31 Chronic kidney disease, stage 3a
CPT/HCPCS: 99204

== ENCOUNTER → 2025-04-18 13:24 | Outpatient (BNVA) | payer MEDICAID, SELFPAY | PROVIDERS: PCP Internal Medicine; Referring Provider Physician Assistant; Visit Provider Internal Medicine Hypertension Specialist | DX: E11.21 Type 2 diabetes mellitus with diabetic nephropathy (principal); N18.31 Chronic kidney disease, stage 3a | CPT/HCPCS: 99202 ==

== ENCOUNTER 2025-04-26 06:29 | Outpatient (REF) | payer MEDICAID, SELFPAY ==
--- OUTSIDE RECORDS SUMMARY | 2025-04-26 06:32 | XMS_ITS | Encounter Summary ---
Author Organization [employer] Address [address] [place] [address] Care Team Providers Care Sed High School Teacher Name Role Phone Ramsey Gray MD Primary Care Provide r Encounter Details Date Type Department Care Team (Latest Contact Info) Description 11/13/2020 Abstract [facility] CONVERSIONS Dental, Provider, DDS Social History [...] Description 05/09/2025 9:15 AM EDT Office Visit [facility] [address] [place] [address] Ramsey Gray MD [address] [place] [address] documented as of this encounter Visit Diagnoses Not on filedocumented in this encounter Care Teams Sed High School Teacher Relationship Specialty Start Date End Date Ramsey Gary MD [address] [place], [place] [phone] PCP - General Internal Medicine 06/25/14 documented as of this encounter
[2025-04-26 07:16] LABS: Appearance Urine Clear; Glucose Urine UA >=1000 mg/dL (Negative); PH 5.0 (5.0-9.0); Specific Gravity - Urine >= 1.030 (1.005-1.025); UMIC TRIGGER UA YES
[2025-04-26 07:39] LABS: Anion Gap 14 (12-20); Blood Urea Nitrogen 25 mg/dL (9-16); Calcium 9.6 mg/dL (8.4-10.2); Carbon Dioxide 24 mmol/L (22-29); Chloride 108 mmol/L (96-108); Estimated Glomerular Filt Rate 53; Potassium 4.5 mmol/L (3.3-5.1); Sodium 141 mmol/L (135-145)
[2025-04-26 07:43] LABS: Total Protein Urine Random < 7 mg/dL (<12)
== END 2025-04-26 06:30 | disposition home or self-care (01) ==
LOC: HO.LAB 06:29
PROVIDERS: PCP Internal Medicine; Visit Provider Internal Medicine Hypertension Specialist
DX: E11.22 Type 2 diabetes mellitus with diabetic chronic kidney disease (principal); N18.31 Chronic kidney disease, stage 3a
CPT/HCPCS: 36415; 80048; 81001; 82570; 84156

== ENCOUNTER 2025-04-29 07:41 | Outpatient (AMB) | payer MEDICAID, SELFPAY ==
--- NOTE | 2025-04-29 07:42 | A.OFFVIS_ITS ---
Vital Signs 04/29/25 07:43 Height 5 ft 5 in Weight 160 lb BMI 26.6 BP 102/64 Blood Pressure Location Lt brachial Position Sitting Pulse 75 Pulse Source Pulse Oximeter Pulse Oximetry (%) 99 Oxygen Delivery Method Room Air Intake Visit Reasons: DM Intake Note: Patient present today for Type 2 Diabetes Mellitus Last Diabetic eye exam: Patient has upcoming appt in May 2025 Last Podiatry Visit: Doesn't have one Random Glucose: 249 mg/dl HgA1C: 7.7% 03/19/25 Roll Tube Setter Required: Yes Roll Tube Setter Language: Nut Dehydrator Operator Services: Roll Tube Setter Present Roll Tube Setter Name: Nolan [id number] Information Interpreted: non-clinical & clinical Accompanied by: Self / Same As Patient Allergies Penicillins (PENICILLINS) Allergy (Intermediate, Verified 04/29/25 07:48) RASH penicillin V Allergy (Unknown, Verified 04/29/25 07:48) Rash morphine Adverse Reaction (Unknown, Verified 04/29/25 07:48) Unknown Medication List - Last Reconciled 04/29/25 by Cari Ferguson PA-C albuterol sulfate 90 mcg/actuation 2 puffs inhalation Q4-6H PRN aspirin (Adult Low Dose Aspirin) 81 mg PO DAILY atorvastatin 10 mg PO DAILY blood sugar diagnostic (FreeStyle Lite Strips) As directed three times daily empagliflozin (Jardiance) 10 mg PO DAILY lancets (TRUEplus Lancets) As directed lisinopril 5 mg PO DAILY sertraline 50 mg PO QAM umeclidinium-vilanterol 62.5-25 mcg/actuation (Anoro Ellipta) 1 ea PO DAILY HPI HPI DM: Details: Patient is a 60-year-old male with a significant past medical history hypertension, hyperlipidemia, type 2 diabetes, COPD and chronic kidney disease Presenting today for a diabetic follow-up. Roll Tube Setter: Nolan Randle: his A1c was 7/7. He is currently on Jardiance 10 mg daily and Mounjaro 10 mg weekly. - He states he has been off of insulin for about a year. -he has been intolerant of Trulicity due to diarrhea. Ozempic caused similar symptoms with diarrhea. 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 Nephro: He does have CKD dating back to 2020. Does not use NSAIDs. Has a history of kidney stones but states that he only had this once years ago. Does not follow with Nephrology. he is on an JAVIER-inhibitor and statin. CV: His blood pressure today in the office is 102/64. He is on lisinopril 5 mg. He is compliant with Lipitor 10 mg. Last LDL was 65 PFSH Medical History (Updated 03/22/25 @ 12:50 by Cari Ferguson PA-C) Obesity due to excess calories Carpal tunnel syndrome Kidney stones Depression Type 2 diabetes mellitus with hyperglycemia, with long-term current use of insulin Essential hypertension Hyperlipidemia LDL goal <100 Surgical History Hx of colonoscopy Family History Mother Diabetes Arthritis Stroke Father Unknown family medical history Social History Household Members: None Alcohol intake: never Patient Tobacco Use Status: Former Tobacco user Physical Exam Vital Signs: Last Vital Signs Pulse 75 04/29/25 07:43 BP 102/64 04/29/25 07:43 Pulse Ox 99 04/29/25 07:43 Oxygen Delivery Method Room Air 04/29/25 07:43 BMI result Body Mass Index 26.6 Const Orientation/consciousness: patient oriented x3 HEENT Ears: hearing grossly normal bilaterally Neck Thyroid: Thyroid normal Lymphatic: no lymphadenopathy noted Resp Auscultation: clear to auscultation bilaterally Cardio Rate: regular rate Rhythm: regular rhythm Heart sounds: S1 normal heart sound present and S2 normal heart sound present Skin General skin exam: no rashes or lesions noted Neuro General: patient oriented x3, gait normal and no focal motor deficits Results Reviewed Results Reviewed: Laboratory Last Values Glucose (Clinic) 249 mg/dL (60-115) H 04/29/25 07:50 Laboratory Tests 03/19/25 04/26/25 04/26/25 06:49 06:40 06:42 Sodium 141 Potassium 4.5 Chloride 108 Carbon Dioxide 24 Anion Gap 14 BUN 25 H Creatinine 1.38 Estimated GFR 53 Random Glucose 139 H Hemoglobin A1c % 7.7 H U Random Total Protein < 7 Urine Creatinine 94.36 Laboratory Tests 07/15/25 06:49 AST 32 ALT 44 H Assessment & Plan Assessment & Plan (1) Type 2 diabetes with nephropathy: Code(s): E11.21 - Type 2 diabetes mellitus with diabetic nephropathy Category: Medical Plan: continue jardiance 10 mg daily increase mounjaro to 12.5 mg weekly continue to work on healthier choices (2) Hyperlipidemia LDL goal <100: Code(s): E78.5 - Hyperlipidemia, unspecified Category: Medical Plan: continue current plan will monitor labs (3) Essential hypertension: Code(s): I10 - Essential (primary) hypertension Category: Medical Plan: wnl continue lisinopril (4) Elevated LFTs: Code(s): R79.89 - Other specified abnormal findings of blood chemistry Category: Medical Plan: liver u/s was ordered discussed importance of diet and bs control Orders: Orders Comprehensive [place]. Panel Fast Today E11.21 - Type 2 diabetes mellitus with diabetic nephropathy, E78.5 - Hyperlipidemia, unspecified, I10 - Essential (primary) hypertension, R79.89 - Other specified abnormal findings of blood chemistry Hemoglobin A1c Today E11.21 - Type 2 diabetes mellitus with diabetic nephropathy, E78.5 - Hyperlipidemia, unspecified, I10 - Essential (primary) hypertension, R73.01 - Impaired fasting glucose, R79.89 - Other specified abnormal findings of blood chemistry Lipid Panel Today E11.21 - Type 2 diabetes mellitus with diabetic nephropathy, E78.5 - Hyperlipidemia, unspecified, I10 - Essential (primary) hypertension, R79.89 - Other specified abnormal findings of blood chemistry Microalbumin, Random (w Creat) Today E11.21 - Type 2 diabetes mellitus with diabetic nephropathy, E78.5 - Hyperlipidemia, unspecified, I10 - Essential (primary) hypertension, R79.89 - Other specified abnormal findings of blood chemistry Medications: New tirzepatide (Mounjaro) 12.5 mg (0.5 mL) subcut QWEEK 2 mL 5RF Discontinued tirzepatide (Mounjaro) Discontinued Reason: Doctor's Order 10 mg (0.5 mL) subcut QWEEK 6 mL 3RF Coding Level of Care Code Est Pt Level 4 (04792) Complex EM visit Add On G2211 Diagnoses Type 2 diabetes with nephropathy E11.21 Hyperlipidemia LDL goal <100 E78.5 Essential hypertension I10 Elevated LFTs R79.89
[2025-04-29 07:43] VITALS: BP 102/64; PULSE 75; O2SAT 99; BMI 26.6
--- OUTSIDE RECORDS SUMMARY | 2025-04-29 07:43 | XMS_ITS | Encounter Summary ---
Author Organization [employer] Address [address] [facility] [address] [place] [address] Care Team Providers Care Contract Administrator Name Role Phone Ramsey Gray MD Primary Care Provide r Encounter Details Date Type Department Care Team (Latest Contact Info) Description 11/13/2020 Abstract [facility] CONVERSIONS Dental, Provider, DDS Social History [...] Description 05/09/2025 9:15 AM EDT Office Visit [facility] [address] [place] [address] Ramsey Gray MD [address] [place] [address] documented as of this encounter Visit Diagnoses Not on filedocumented in this encounter Care Teams Contract Administrator Relationship Specialty Start Date End Date Ramsey Gray MD [address] [place], [place] [phone] PCP - General Internal Medicine 06/25/14 documented as of this encounter
[2025-04-29 07:54] LABS: Glucose, Whole Blood 249 mg/dL (60-115)
== END 2025-04-29 08:17 | disposition home or self-care (01) ==
LOC: HO.ENCR 07:41
PROVIDERS: PCP Internal Medicine; Visit Provider Physician Assistant
DX: E11.21 Type 2 diabetes mellitus with diabetic nephropathy (principal); E78.5 Hyperlipidemia, unspecified; I10 Essential (primary) hypertension; R79.89 Other specified abnormal findings of blood chemistry

== ENCOUNTER → 2025-04-29 07:41 | Outpatient (BNVA) | payer MEDICAID, SELFPAY | PROVIDERS: PCP Internal Medicine; Visit Provider Physician Assistant | DX: E11.21 Type 2 diabetes mellitus with diabetic nephropathy (principal); E11.22 Type 2 diabetes mellitus with diabetic chronic kidney disease; E78.5 Hyperlipidemia, unspecified; I12.9 Hypertensive chronic kidney disease with stage 1 through stage 4 chronic kidney disease, or unspecified chronic kidney disease; N18.9 Chronic kidney disease, unspecified; R79.89 Other specified abnormal findings of blood chemistry | CPT/HCPCS: 82947; 99212 ==

== ENCOUNTER 2025-05-08 08:48 | Outpatient (REF) | payer MEDICAID, SELFPAY ==
--- NOTE | ~2025-05-08 | US_ITS ---
EXAMINATION: US RETROPERITONEAL LIMITED (RENAL ONLY) CLINICAL INFORMATION: CKD, stage III.. COMPARISON: None available. TECHNIQUE: Real-time ultrasound of the kidneys using grayscale technique. FINDINGS: RIGHT KIDNEY: 11 x 5 x 5 cm (SAG x AP x TRV). Increased echotexture. Normal renal cortical thickness. No hydronephrosis. There is a 4.3 cm, exophytic, well-defined, thin septated, anechoic lesion centered in the upper pole without flow on color Doppler interrogation. There is a 0.4 cm anechoic lesion in the midportion without flow on color Doppler interrogation. There is an 18 mm anechoic abnormality without flow on color Doppler interrogation at the parapelvic/medullary midportion.. LEFT KIDNEY: 10 x 6 x 5 cm (SAG x AP x TRV). Increased echotexture. Normal renal cortical thickness. No hydronephrosis. There is a 0.7 cm anechoic lesion at the corticomedullary junction upper pole without flow on color Doppler interrogation. US/US renal BI IMPRESSION: Complex septated 4.3 cm exophytic cystic lesion, right kidney. Bilateral renal cysts. No hydronephrosis.. Electronically signed by: Blair Hoffmann MD 05/08/2025 09:23 AM EDT
--- OUTSIDE RECORDS SUMMARY | 2025-05-08 09:16 | XMS_ITS | Encounter Summary ---
Author Organization [employer] Address [address] [facility] [address] [place] [address] Care Team Providers Care Head Neck Surgeon Name Role Phone Ramsey Gray MD Primary Care Provide r Encounter Details Date Type Department Care Team (Latest Contact Info) Description 06/07/2022 Abstract [facility] CONVERSIONS Dental, Provider, DDS Social History [...] Description 05/09/2025 9:15 AM EDT Office Visit [facility] [address] [place] [address] Ramsey Gray MD [address] [place] [address] documented as of this encounter Visit Diagnoses Not on filedocumented in this encounter Care Teams Head Neck Surgeon Relationship Specialty Start Date End Date Ramsey Gray MD [address] [place], [place] [phone] PCP - General Internal Medicine 06/25/14 documented as of this encounter
--- OUTSIDE RECORDS SUMMARY | 2025-05-08 09:16 | XMS_ITS | Encounter Summary ---
Author Organization [employer] Address 75 [facility] 7t [place] [address] Care Team Providers Care Pressing Machine Operator Name Role Phone Ramsey Gray MD Primary Care Provide r Encounter Details Date Type Department Care Team (Late Contact Info) Description 01/12/2023 Abstract [facility] [address] [place], [place] [phone] Ramsey Gray MD 230 [place], [place] [phone] Social History Tobacco Use Types Packs/Day Years [...] Department Care Team (Late Contact Info) Description 05/09/2025 9:15 AM EDT Office Visit [facility] [address] [place] [address] Ramsey Gray MD [address] [place], [place] [phone] documented as of this encounter Procedures Procedure Name Priority Date/Time Associated Diagnosis Comments COLONOSCOPY Routine 04/30/2015 documented in this encounter Results * Colonoscopy (04/30/2015) Colonoscopy Normal Normal 04/30/2015 Narrative Estelle Alvarado - 04/30/2015 11:58 AM EDT Recommended 10 year follow up us Historical Provider [employer] MAINTENANCE Edited Result - Final documented in this encounter Visit Diagnoses Not on filedocumented in this encounter Care Teams Pressing Machine Operator Relationship Specialty Start Date End Date Ramsey Gray MD [address] [place] [phone] PCP - General Internal Medicine 06/25/14 documented as of this encounter
--- OUTSIDE RECORDS SUMMARY | 2025-05-08 09:16 | XMS_ITS | Encounter Summary ---
Author Organization [employer] Address 75 [facility] 7t [place] [address] Care Team Providers Care Anesthesiologist Physician Name Role Phone Ramsey Gray MD Primary Care Provide r Reason for Visit * Reason Comments Med Refill Encounter Details Date Type Department Care Team (Late st Contact Info) Description 01/19/2024 Refill [facility] 230 [place], [place] [phone] Luciana Elder MD 230 [place] [address] Social History Tobacco Use Types Packs/Day Years [...] Description 05/09/2025 9:15 AM EDT Office Visit [facility] 230 [place] [address] Ramsey Gray MD [address] [place] [address] documented as of this encounter Visit Diagnoses Not on filedocumented in this encounter Additional Health Concerns Assessment Noted Time PHQ-9 Depression Total Score: 0 01/05/20 24 11:09 AM EDT documented as of this encounter Care Teams Anesthesiologist Physician Relationship Specialty Start Date End Date Ramsey Gray MD [address] [place] [phone] PCP - General Internal Medicine 06/25/14 documented as of this encounter
--- OUTSIDE RECORDS SUMMARY | 2025-05-08 09:16 | XMS_ITS | Clinical Summary ---
Author Organization [employer] Address [address] [place] [address] 7t [place] [address] Care Team Providers Care Vaccine Specialist Name Role Phone Ramsey Gray MD Primary Care Provide r Allergies Active Allergy Reactions Criticality Noted Date Comments Penicillin G 12/07/2022 Penicillins Unknown 08/20/2014 Medications Anoro Ellipta 62.5-25 MCG/ACT aerosol powder INHALE 1 PUFF EVERY DAY AT THE SAME TIME 09/13/19 23 Active Lantus SoloStar 100 UNIT/ML pen INJECT 28 UNITS SUBCUTANEOUSLY AT BEDTIME 09/14/19 23 Active Continuous Blood Gluc Sports Statistician (FreeStyle Lola 2 [place]) deviceIndication s:Type 2 diabetes mellitus without complication, with long-term current use of insulin ([facility]) Use daily 1 each 01/28/20 23 Active Continuous Glucose Sensor (FreeStyle Lola 2 Sensor) miscIndications: Type 2 diabetes mellitus without complication, with long-term current use of insulin (CMS/[facility]) Use daily 4 each 11 02/27/20 24 Active Lancet Devices (Lancing Device) misc Use to check blood sugar up to 3 times daily 1 each 02/27/20 24 Active insulin pen needle (Easy Touch Pen [place]) 31G X 8 mm misc USE 1 DAILY 100 each 3 05/21/20 24 Active meloxicam (Mobic) 15 MG tabletIndication s:Right foot pain Take 1 tablet (15 mg) by mouth Once per day. 30 tablet 11 06/07/20 24 025 Active metFORMIN XR (Glucophage-XR) 500 MG 24 hr tabletIndication s:Type 2 diabetes mellitus without complication, without long-term current use of insulin (CMS/HCC) Take 1 tablet (500 mg) by mouth 2 times daily. Do not crush, chew, or split. 360 tablet 1 10/18/19 25 Active atorvastatin (Lipitor) 10 MG tablet TAKE 1 TABLET BY MOUTH EVERY MORNING 90 tablet 1 02/01/20 25 Active Aspirin Low Dose 81 MG EC tablet TAKE 1 TABLET BY MOUTH EVERY MORNING 90 tablet 3 02/07/20 25 Active lisinopril 5 MG tabletIndication s:Primary hypertension TAKE 1 TABLET BY MOUTH EVERY MORNING 90 tablet 1 02/27/20 25 Active sertraline (Zoloft) 50 MG tablet TAKE 1 TABLET BY MOUTH EVERY MORNING 30 tablet 2 02/29/20 25 Active glucose blood (FreeStyle Precision Jean Paul Test) test strip TEST BLOOD SUGAR EVERY 8 HOURS DIRECTED 100 strip 03/05/20 Active TRUEplus Lancets 33G misc TEST BLOOD SUGAR THREE TIMES DAILY DIRECTED 100 each 03/05/20 Active Continuous Glucose Sports Statistician (FreeStyle Lola 3 [place]) device 1 each Once per day. Use as directed for CGM 1 each 03/14/20 Active Continuous Glucose Sensor (FreeStyle Lola 3 Plus Sensor) misc 1 each every 15 days. Apply 1 every 15 days as directed for CGM 2 each 03/14/20 Active Active Problems Problem Noted Date Diagnosed Date [...] 8:29 AM EDT): Pt previously seen at [facility] with c/o right flank pain, CT of his abdomen showed a 2 mm partially obstructing calculus. Seen by [facility] December 24 2015 Increase fluid intake [...] Encounters Date Type Department Care Team Description 05/02/2025 Patient Outreach [facility] [address] [place], [place] [phone] Ramsey Gray MD Pre-visit Planning ([facility] was already completed) 04/29/2025 Orders Only GENERIC EXTERNAL DATA DEPARTMENT Provider, Generic External Data 04/26/2025 Orders Only GENERIC EXTERNAL DATA DEPARTMENT Provider, Generic External Data 03/19/2025 Orders Only GENERIC EXTERNAL DATA DEPARTMENT Provider, Generic External Data 03/18/2025 Orders Only GENERIC EXTERNAL DATA DEPARTMENT Provider, Generic External Data 03/12/2025 Telephone [facility] 230 [facility] [place] [address] Ramsey Gray MD Prior Authorization 03/05/2025 Refill [facility] 230 [facility] [place] [address] Ramsey Gray MD 02/27/2025 Refill [facility] 230 [facility], [facility] [place] [address] Ramsey Gray MD 02/26/2025 Refill [facility] 230 [facility] [place] [address] Ramsey Gray MD Primary hypertension 02/14/2025 Telephone [facility] 230 [facility] [place] [address] Ramsey Gray MD No Show 02/13/2025 Telephone [facility] 230 [place] [address] Ramsey Gray MD chart prep 02/07/2025 Patient Outreach [facility] 505 [facility], [place] [phone] Ramsey Gray MD Pre-visit Planning ([facility] unable to reach LVM ) 02/05/2025 Refill [facility] 230 [facility] [place] [address] Ramsey Gray MD from Last 3 Months Immunizations Immunization Administration Dates Next Due Hep B, adult [...] 75 10/18/2024 9:12 AM EST Temperature 36.1 C (96.9 F) 10/18/2024 9:12 AM EST Respiratory Rate 20 10/18/2024 9:12 AM EST [...] Office Visit [facility] 230 [place] [address] Ramsey Gray MD 230 [place] [address] Health Maintenance Due Date Last Done Comments CT Colonography 1965 Dental Oral Exam 1965 Dental X-Ray: Bitewings 1965 Dental X-Ray: Full Mouth 1965 FIT DNA/Cologuard 1965 FIT 1965 FOBT 1965 Sigmoidoscopy 1965 Disability Screening 1965 Diabetes: Foot Exam 1975 Eye Exam 1975 Zoster Vaccines (1 of 2) 2015 Dental Prophylaxis 04/13/2023 10/13/2022 RSV Patients and Patients Aged 60 years or older (1 - Risk 60-74 years 1-dose series) 2025 Colonoscopy 04/30/2025 04/30/2015 Colorectal Cancer Screening 04/30/2025 Influenza Vaccine (#1) 2025 4, 08/08/2018, 06/09/2017, Additional history exists Diabetes: Hemoglobin A1C 06/19/2025 025, 10/19/2024, 10/18/2024, Additional history exists Alcohol/Substance Use Screening 10/18/2025 10/18/2024 Depression Screening 10/18/2025 10/18/2024, 10/18/19 SDOH Screening 10/18/2025 10/18/2024 Tobacco Screening 10/18/2025 10/18/2024 Lipid Panel 10/19/2025 10/19/2024, 01/03, 01/06/2024, Additional history exists Diabetes: Urine Protein Screening 04/26/2026 04/26/2025, 10/19/2024, 01/20/2024, Additional history exists DTaP/Tdap/Td Vaccines (3 - Td or Tdap) 05/16/2029 05/16/2019, 08/20/2014, 01/26/2013, Additional history exists Hepatitis B Vaccines Completed 11/02/2016, 08/02/2016, 07/01/2016 HIV Screening Completed 02/01/2023 Hepatitis C Screening Completed 02/01/2023 COVID-19 Vaccine Completed 06/07/2024, , 11/21/2020 Pneumococcal Vaccine: 50+ Years Completed 10/18/2024, 07/15/2004 [...] patient's age to complete this topic Meningococcal B Vaccine Aged Out No l onger eligible based on patient's age to complete [...] Associated Diagnosis Comments GLUCOSE, WHOLE BLOOD Routine 04/29/2025 7:50 AM EDT URINE PROTEIN, TOTAL, RANDOM (W/O CREATININE) Routine 04/26/2025 6:42 AM EDT CREATININE, RANDOM URINE Routine 04/26/2025 6:42 AM EDT URINALYSIS, COMPLETE Routine 04/26/2025 6:42 AM EDT BASIC METABOLIC PANEL Routine 04/26/2025 6:40 AM EDT BASIC METABOLIC PANEL Routine 03/19/2025 6:49 AM EDT HEPATIC FUNCTION PANEL Routine 03/19/2025 6:49 AM EDT B TYPE NATRIURETIC PEPTIDE (BNP) Routine 03/19/2025 6:49 AM EDT HEMOGLOBIN A1C Routine 03/19/2025 6:49 AM EDT GLUCOSE, WHOLE BLOOD Routine 03/18/2025 8:04 AM EDT LIPID PANEL, STANDARD Routine 10/19/2024 8:15 AM EST Mixed hyperlipidemia HEPATITIS C AB W/REFL TO HCV RNA, QN, PCR Routine 02/01/2023 8:12 AM EDT Type 2 diabetes mellitus without complication, with long-term current use of insulin (CMS/HCC) HIV 1/2 ANTIGEN/ANTIBODY, FOURTH GENERATION W/RFL Routine 02/01/2023 8:12 AM EDT Type 2 diabetes mellitus without complication, with long-term current use of insulin (CMS/HCC) PROPHYLAXIS - ADULT Routine 10/13/2022 9 :00 AM EST HM COLONOSCOPY Routine 04/30/2015 from Last 3 Months or Most Recently Relevant to Health Maintenance Results * (ABNORMAL) Glucose, Whole Blood (04/29/2025 7:50 AM EDT) Only the most recent of2 resultswithin the time period is included. Pathologist [facility] Glucose, Whole Blood 249(H) 60 - 115 mg/dL [facility] Comment:METER #: [id number] Testing performed in the Endocrinology Department [address] , [address], [facility]. 04/29/2025 7:50 AM EDT 04/29/2025 7:54 AM EDT Generic External Data Provider LAB BLOOD ORDERAB LES Final Result Performing Organization Address [facility] Co de Phone Number [facility] [address] [place] [phone] * Urine Protein, Total, Random without Creatinine (04/26/2025 6:42 AM EDT) Protein, Total, Random Urine <7 <12 mg/dL [facility] 04/26/2025 6:42 AM EDT 04/26/2025 7:06 AM EDT Generic External Data Provider LAB URINE ORDERAB LES Final Result Performing Organization Address [facility] Co de Phone Number [facility] [address] [place] [phone] * Creatinine, Random Urine (04/26/2025 6:42 AM EDT) Creatinine, Urine 94.36 mg/dL [facility] 04/26/2025 6:42 AM EDT 04/26/2025 7:06 AM EDT Generic External Data Provider LAB URINE ORDERAB LES Final Result Performing Organization Address [facility] de Phone Number [facility] [address] [place] [phone] * (ABNORMAL) Urinalysis Complete (04/26/2025 6:42 AM EDT) Color Urine Yellow [facility] Appearance Urine Clear [facility] PH 5.0 5.0 - 9.0 [facility] Glucose Urine UA >=1000(A) Negative mg/dL [facility] Urine Blood Negative Negative [facility] Specific [place] - Urine >=1.030(H) 1.005 - 1.025 [facility] Urine Protein Negative Neg-Trace mg/dL [facility] Urine Ketones Negative Negative mg/dL [facility] Nitrite Urine Negative Negative [facility] Leukocyte Esterase Urine Negative Negative [facility] RBC Urine 0-2 0 - 2 /HPF [facility] Urine WBC 0-5 0 - 5 /HPF [facility] Urine Squamous Epithelial Cell 0-2 0 - 2 /HPF [facility] Urine Bacteria None Seen None Seen [facility] Hyaline Casts, Urine 0-2 0 - 2 /LPF [facility] 04/26/2025 6:42 AM EDT 04/26/2025 7:06 AM EDT us Generic External Data Provider LAB URINE ORDERAB LES Final Result [facility] [address] [place] [phone] * (ABNORMAL) Basic Metabolic Panel (04/26/2025 6:40 AM EDT) Only the most recent of2 resultswithin the time period is included. Sodium 141 135 - 145 mmol/L [facility] Potassium 4.5 3.3 - 5.1 mmol/L [facility] Chloride 108 96 - 108 mmol/L [facility] Carbon Dioxide 24 22 - 29 mmol/L [facility] Anion Gap 14 12 - 20 [facility] Urea Nitrogen (BUN) 25(H) 9 - 16 mg/dL [facility] Creatinine, Serum 1.38 0.5 - 1.4 mg/dL [facility] Estimated Glomerular Filt Rate 53 [facility] Comment:Chronic Kidney Disea se: Estimated GFR < 60 mL/min/[id number] Kidney Disease: Estimated GFR < 15 mL/min/1.73m2 Glucose 139(H) 60 - 115 mg/dL [facility] Calcium 9.6 8.4 - 10.2 mg/dL [facility] 04/26/2025 6:40 AM EDT 04/26/2025 6:40 AM EDT us Generic External Data Provider LAB BLOOD ORDERAB LES Final Result Performing Organization Address City/[facility]/ZIP Co de Phone Number [facility] [address] [place] [address] [phone] * B Type Natriuretic Peptide (BNP) (03/19/2025 6:49 AM EDT) B Type Natriuretic Peptide 11 <100 pg/mL [facility] 03/19/2025 6:49 AM EDT 03/19/2025 6:49 AM EDT Generic External Data Provider LAB BLOOD ORDERAB LES Final Result Performing Organization Address [facility] Co de Phone Number [facility] [address] [place] [phone] * (ABNORMAL) Hemoglobin A1c (03/19/2025 6:49 AM EDT) Hemoglobin A1c 7.7(H) <6.0 % [facility] Comment:Hemoglobin A1C Refer ence Range Adults: 4.8 - 6.0 % Non diabetic: < 6.0 % Goal: < 7.0 %Additional Action Suggested: > 8.0 %Note: Hemoglobin A1c results are invalid for patients with abnormal amounts of HbF. Blood transfusions may impact the HbA1c concentration in the patient sample. Estimated Average Glucose 174 mg/dL [facility] Comment:eAG = Estimated ave rage glucose which is %A1C expressed asaverage glucose, using the formula of the M2X-FapfhjmYfmcabh Glucose study (ADAG), Diabetes Care, Vol.31,#8,Apr. 2007 03/19/2025 6:49 AM EDT 03/19/2025 6:49 AM EDT us Generic External Data Provider LAB BLOOD ORDERAB LES Final Result Performing Organization Address [facility]/ZIP Co de Phone Number [facility] [address] [place] [address] [phone] * (ABNORMAL) Hepatic Function Panel (03/19/2025 6:49 AM EDT) Pathologist [facility] Bilirubin, Total 0.9 0.0 - 1.0 mg/dL [facility] Bilirubin, Direct 0.3 0.0 - 0.5 mg/dL [facility] Aspartate Amino Transferase 32 5 - 37 U/L [facility] Alanine Aminotransferase 44(H) 0 - 40 U/L [facility] Total Protein 7.5 6.5 - 8.0 g/dL [facility] Albumin Level 4.2 3.5 - 5.0 g/dL [facility] Alkaline Phosphatase 119(H) 39 - 117 U/L [facility] 03/19/2025 6:49 AM EDT 03/19/2025 6:49 AM EDT Generic External Data Provider LAB BLOOD ORDERAB LES Final Result Performing Organization Address [facility] Co de Phone Number [facility] [address] [place] [phone] * (ABNORMAL) Lipid Panel, Standard (10/19/2024 8:15 AM EST) Triglycerides 56 <150 mg/dL [facility] Comment:Desirable Triglyceri de: less than 150 mg/dLBorderline High Triglyceride 150-199 mg/dLHigh Triglyceride: 200-499 mg/dLVery High Triglyceride: greater than or equal to 5OO mg/dL Cholesterol 114 <200 mg/dL [facility] Comment:Desirable Cholestero l: less than 200 mg/dLBorderline High Cholesterol: 200-239 mg/dLHigh Cholesterol: greater than 239 mg/dL LDL Cholesterol Calculated 65 <100 mg/dL [facility] Comment:Desirable LDL: less than 100 mg/dLNear Optimal/Above Optimal LDL: 110- 129 mg/dLBorderline High LDL: 130-159 mg/dLHigh LDL: 160-189 mg/dLVery High LDL: greater than or equal to 190 mg/dL HDL Cholesterol 38(L) >40 mg/dL [facility] Comment:Desirable HDL: great er than 40 mg/dL Note: This HDL assay may give artificially low results in patients with liver disease. Blood Venous blood specimen / Unknown 10/19/2024 8:15 AM EST 10/19/2024 11:02 AM EST Ramsey Cline MD LAB BLOOD ORDERABLES Final Result Performing Organization Address City/[facility]/ZIP Co de Phone Number [facility] [address] [place] [phone] * Hepatitis C Antibody with Reflex to HCV, RNA, Quantitative, Real-Time PCR (02/01/2023 8:12 AM EDT) Hepatitis C Antibody NON-REACT KELLI NON-REACT KELLI [employer] [place] [employer] Index 0.25 <1.00 [employer] [place] [employer] Comment: HCV antibody was non-reactive. There is no laboratory evidence of HCV infection. In most cases, no further action is required. However, if recent HCV exposure is suspected, a test for HCV RNA (test code 56991) is suggested. For additional information please refer to http://education.Stackops.BrieFix/faq/TCM37x5 (This link is being provided for informational/ educational purposes only.) Blood Venous blood specimen / Unknown 02/01/2023 8:12 AM EDT 02/01/2023 8:13 AM EDT Narrative [facility] - 02/01/2023 11:34 PM EDT FASTING:YES FASTING: YES Ramsey Cline MD LAB BLOOD ORDERABLES Final Result Performing Organization Address City/[facility]/ZIP Co de Phone Number [employer] [address] [place] [address], [place] [phone] [employer] [place] [employer] [address] [place] [phone] * HIV-1/2 Antigen and Antibodies, Fourth Generation, with Reflexes (02/01/2023 8:12 AM EDT) HIV Antigen/Antibody, 4th Generation NON-REAC TIVE NON-REAC TIVE [employer] [place] [employer] Comment: HIV-1 antigen and HIV-1/HIV-2 antibodies were not detected. There is no laboratory evidence of HIV infection. PLEASE NOTE: This information has been disclosed to you from records whose confidentiality may be protected by state law. If your state requires such protection, then the state law prohibits you from making any further disclosure of the information without the specific written consent of the person to whom it pertains, or as otherwise permitted by law. A general authorization for the release of medical or other information is NOT sufficient for this purpose. For additional information please refer to http://education.SaltStack/faq/FME907 (This link is being provided for informational/ educational purposes only.) The performance of this assay has not been clinically validated in patients less than 2 years old. Blood Venous blood specimen / Unknown 02/01/2023 8:12 AM EDT 02/01/2023 8:13 AM EDT Narrative [facility] - 02/01/2023 11:34 PM EDT FASTING:YES FASTING: YES Ramsey Cline MD LAB BLOOD ORDERABLES Final Result [facility] [address], [place] [address] [employer] [place] [employer] [address] [place] [address] * Hm Colonoscopy (04/30/2015) Colonoscopy Normal Normal 04/30/2015 Estelle Malone - 04/30/2015 11:58 AM EDT Recommended 10 year follow up us Historical Provider HEALTH MAINTENANCE Edited Result - Final from Last 3 Months or Most Recently Relevant to Health Maintenance Insurance [facility] C3 Care Teams Vaccine Specialist Relationship Specialty Start Date End Date Ramsey Gray MD [address] [place] [phone] PCP - General Internal Medicine 06/25/14
--- OUTSIDE RECORDS SUMMARY | 2025-05-08 09:16 | XMS_ITS | Encounter Summary ---
Author Organization [employer] Address [address] [facility] 7t [place] [address] Care Team Providers Care Teacher Physically Impaired Name Role Phone Ramsey Gray MD Primary Care Provide r Reason for Visit * Reason Comments Med Refill Encounter Details Date Type Department Care Team (Late st Contact Info) Description 02/23/2024 Refill [facility] [address] [place], [place] [phone] Ramsey Gray MD [address] [place], [place] [phone] Social History Tobacco Use Types Packs/Day Years [...] Description 05/09/2025 9:15 AM EDT Office Visit [facility] [address] [place] [address] Ramsey Gray MD [address] [place] [address] documented as of this encounter Visit Diagnoses Not on filedocumented in this encounter Additional Health Concerns Assessment Noted Time PHQ-9 Depression Total Score: 0 01/05/20 24 11:09 AM EDT documented as of this encounter Care Teams Teacher Physically Impaired Relationship Specialty Start Date End Date Ramsey Gray MD [address] [place] [phone] PCP - General Internal Medicine 06/25/14 documented as of this encounter
--- OUTSIDE RECORDS SUMMARY | 2025-05-08 09:16 | XMS_ITS | Encounter Summary ---
Author Organization [employer] Address 75 [facility] 7t [place] [address] Care Team Providers Care Road Design Draftsperson Name Role Phone Ramsey Gray MD Primary Care Provide r Reason for Visit * Reason Comments Med Refill Encounter Details Date Type Department Care Team (Late st Contact Info) Description 02/23/2024 Refill [facility] [address] [place], [place] [phone] Ramsey Gray MD [address] [place], [place] [phone] Social History Tobacco Use Types Packs/Day Years [...] Description 05/09/2025 9:15 AM EDT Office Visit [facility] [address] [place] [address] Ramsey Gray MD [address] [place] [address] documented as of this encounter Visit Diagnoses Not on filedocumented in this encounter Additional Health Concerns Assessment Noted Time PHQ-9 Depression Total Score: 0 01/05/20 24 11:09 AM EDT documented as of this encounter Care Teams Road Design Draftsperson Relationship Specialty Start Date End Date Ramsey Gray MD [address] [place] [address] PCP - General Internal Medicine 06/25/14 documented as of this encounter
--- OUTSIDE RECORDS SUMMARY | 2025-05-08 09:16 | XMS_ITS | Encounter Summary ---
Author Organization [employer] Address [address] [facility] 7t [place] [address] Care Team Providers Care Intelligence Research Specialist Name Role Phone Ramsey Gray MD Primary Care Provide r Reason for Visit * Reason Comments Med Refill Encounter Details Date Type Department Care Team (Late st Contact Info) Description 01/20/2024 Refill [facility] [address] [place], [place] [phone] Luciana Elder MD [address] [place] [address] Social History Tobacco Use Types Packs/Day Years [...] Description 05/09/2025 9:15 AM EDT Office Visit [facility] [address] [place] [address] Ramsey Gray MD [address] [place] [address] documented as of this encounter Visit Diagnoses Not on filedocumented in this encounter Additional Health Concerns Assessment Noted Time PHQ-9 Depression Total Score: 0 01/05/20 24 11:09 AM EDT documented as of this encounter Care Teams Intelligence Research Specialist Relationship Specialty Start Date End Date Ramsey Gray MD [address] [place] [id number] PCP - General Internal Medicine 06/25/14 documented as of this encounter
--- OUTSIDE RECORDS SUMMARY | 2025-05-08 09:16 | XMS_ITS | Encounter Summary ---
Author Organization [employer] Address [address] [facility] 7t [place] [address] Care Team Providers Care Systems Architect Name Role Phone Ramsey Gray MD Primary Care Provide r Encounter Details Date Type Department Care Team (Late Contact Info) Description 11/24/2022 Orders Only [facility] MED & PEDS [address] [place], [place] [phone] Patricia Adamson LPN Social History Tobacco Use [...] Description 05/09/2025 9:15 AM EDT Office Visit [facility] MEDICINE [address] [place], [place] [phone] Ramsey Gray MD [address] [place], [place] [phone] documented as of this encounter Visit Diagnoses Not on filedocumented in this encounter Care Teams Systems Architect Relationship Specialty Start Date End Date Ramsey Gray MD [address] [place] [id number] PCP - General Internal Medicine 06/25/14 documented as of this encounter
--- OUTSIDE RECORDS SUMMARY | 2025-05-08 09:16 | XMS_ITS | Encounter Summary ---
Author Organization [employer] Address [address] [facility] 7t [place] [address] Care Team Providers Care Contact Officer Name Role Phone Ramsey Gray MD Primary Care Provide r Encounter Details Date Type Department Care Team (Latest Contact Info) Description 11/13/[address] [facility] CONVERSIONS Dental, Provider, DDS Social History [...] Description 05/09/2025 9:15 AM EDT Office Visit [facility] MEDICINE [address] [place] [address] Ramsey Gray MD [address] [place] [address] documented as of this encounter Visit Diagnoses Not on filedocumented in this encounter Care Teams Contact Officer Relationship Specialty Start Date End Date Ramsey Gray MD [address] [place], [place] [phone] PCP - General Internal Medicine 06/25/14 documented as of this encounter
--- OUTSIDE RECORDS SUMMARY | 2025-05-08 09:16 | XMS_ITS | Encounter Summary ---
Author Organization [employer] Address [address] [facility] 7t [place] [address] Care Team Providers Care Dispatcher Automobile Rental Name Role Phone Ramsey Gray MD Primary Care Provide r Encounter Details Date Type Department Care Team (Late st Contact Info) Description 09/08/2022 Orders Only [facility] CHC MED & PEDS [address] [place] [address] Patricia Adamson LPN Social History Tobacco Use [...] Description 05/09/2025 9:15 AM EDT Office Visit [facility] MEDICINE [address] [place] [address] Ramsey Gray MD [address] [place] [address] documented as of this encounter Visit Diagnoses Not on filedocumented in this encounter Care Teams Dispatcher Automobile Rental Relationship Specialty Start Date End Date Ramsey Gray MD [address] [place] [address] PCP - General Internal Medicine 06/25/14 documented as of this encounter
== END 2025-05-08 08:49 | disposition home or self-care (01) ==
LOC: HO.US 08:48
PROVIDERS: PCP Internal Medicine; Visit Provider Internal Medicine Hypertension Specialist
DX: E11.21 Type 2 diabetes mellitus with diabetic nephropathy (principal); N18.31 Chronic kidney disease, stage 3a
CPT/HCPCS: 76775

== ENCOUNTER → 2025-05-08 08:52 | Outpatient (BNV) | payer MEDICAID, SELFPAY | PROVIDERS: PCP Internal Medicine; Visit Provider Radiology Diagnostic Radiology | DX: N28.1 Cyst of kidney, acquired (principal) | CPT/HCPCS: 76775 ==

== ENCOUNTER 2025-05-09 09:43 | Outpatient (REF) | payer MEDICAID, SELFPAY ==
--- OUTSIDE RECORDS SUMMARY | 2025-05-09 09:15 | XMS_ITS | Encounter Summary ---
Author Organization [employer] Address 75 [facility] 7t [place] [address] Care Team Providers Care Career Development Consultant Name Role Phone Ramsey Gray MD Primary Care Provide r Reason for Referral * Consultation (Urgent) - Pending Review Specialty Diagnoses / Procedures Referred By Rosy mendez Referred To Contact Urology Diagnoses Renal lesion Ramsey Gray MD [address] [place] [address] Phone: tel: fax: Jose Eduardo Weinberg MD [address] [place] [address] [address] [place] [phone] Phone: tel: fax: Referral ID Status Reason Start Date Expiration Date Visits Requested Visits Authorized [id number] Pending Review Specialty Services Required 05/09/2025 05/09/2026 1 1 * Consultation (Routine) - Pending Review Specialty Diagnoses / Procedures Referred By Rosy mendez Referred To Contact Gastroenterology Diagnoses Colon cancer screening Ramsey Gray MD [address] [place] [address] Phone: tel: fax: Referral ID Status Reason Start Date Expiration Date Visits Requested Visits Authorized [id number] Pending Review Specialty Services Required 05/09/2025 05/09/2026 1 1 Reason for Visit * Reason Comments Follow-up Encounter Details Date Type Department Care Team (Late st Contact Info) Description 05/09/2025 9:15 AM EDT Office Visit [facility] MEDICINE [address] [place] [id number] Ramsey Gray MD [address] [place] [id number] Type 2 diabetes mellitus with stage 3a chronic kidney disease, with long-term current use of insulin (CMS/HCC) (Primary Dx); Primary hypertension; Mixed hyperlipidemia; Stage 3a chronic kidney disease (CMS/HCC); Other emphysema (CMS/HCC); Preventative health care; Colon cancer screening; Renal lesion Social History Tobacco Use Types Packs/Day Years [...] Sign Reading Time Taken Comments Blood Pressure 110/78 05/09/2025 9:29 AM EDT Pulse 80 05/09/2025 9:29 AM EDT Temperature 36.3 C (97.4 F) 05/09/2025 9:29 AM EDT Respiratory Rate 20 05/09/2025 9:29 AM EDT Oxygen Saturation 99% 05/09/2025 9:29 AM EDT Inhaled Oxygen Concentration - - Weight 72.8 kg (160 lb 9.6 oz) 05/09/2025 9:29 A M EDT Height 165.1 cm (5' 5 ) 05/09/2025 9:29 AM EDT Body Mass Index 26.73 05/09/2025 9:29 AM EDT documented in this encounter Progress Notes * Ramsey Cline MD - 05/09/2025 9:15 AM EDT SUBJECTIVE Armand Warren is a 60 y.o. male who presents for Follow-up. Armand Warren, 60 years Renal Cyst - Right kidney cyst identified on ultrasound performed on May 08, 2025 - No contact yet from metalsmith regarding results Diabetes Mellitus - Stopped taking metformin 500 mg once daily approximately 3 months ago per assembly line leader's instructions - Dose of diabetes medication increased recently by assembly line leader - No current use of insulin Colorectal Cancer Screening - Last colon cancer screening performed on April 30, 2015 [facility] [place] - Reports feeling well - No missing medications Diabetes He presents for his follow-up diabetic visit. He has type 2 diabetes mellitus. Pertinent negatives for hypoglycemia include no headaches. Pertinent negatives for diabetes include no chest pain. Hypertension This is a chronic problem. Pertinent negatives include no chest pain, headaches or shortness of breath. Hyperlipidemia This is a chronic problem. Pertinent negatives include no chest pain or shortness of breath. Review of Systems Constitutional: Negative for fever. HENT: Negative for sore throat. Respiratory: Negative for cough and shortness of breath. Cardiovascular: Negative for chest pain. Gastrointestinal: Negative for abdominal pain. Neurological: Negative for headaches. Allergies[1] OBJECTIVE Vitals: 05/09/25 0929 BP: 110/78 BP Location: Left arm Patient Position: Sitting BP Cuff Size: Adult Pulse: 80 Resp: 20 Temp: 97.4 ??F (36.3 ??C) TempSrc: Oral SpO2: 99% Weight: 160 lb 9.6 oz (72.8 kg) [...] alert. Mental status is at baseline. Assessment/Plan Type 2 diabetes mellitus with stage 3a chronic kidney disease, with long-term current use of insulin: - Diabetes management under endocrinology supervision. Current regimen adjusted by assembly line leader. - Continue instructions from endocrinology. Follow-up with assembly line leader next month. Primary hypertension: - Blood pressure currently well controlled. - Monitor blood pressure. No changes to current management. Mixed hyperlipidemia: - Lipid panel previously within normal limits as of October 2024. - Continue current management. No changes recommended. Stage 3a chronic kidney disease: - Chronic kidney disease under nephrology care. - Continue follow-up with metalsmith. No changes to current management. Preventative health care: - Annual prostate cancer screening due. - Ordered PSA blood test for prostate cancer screening. Patient may present to laboratory at convenience. Colon cancer screening: - Last colonoscopy performed April 30, 2015. Screening interval of 10 years met. - Referred to gastroenterology for repeat colonoscopy. Renal lesion: - Renal ultrasound revealed a 4.3 cm cyst in right kidney. - Referred to urology for evaluation of renal cyst and review of ultrasound. Urologist to determineneed for further studies or repeat imaging. Problem List Items Addressed This Visit Diabetes mellitus, type II (CMS/HCC) - Primary Pt is here for a f/u regarding his DM Today DM is uncontrolled He is on a regimen of: Jardiance 10 mg po daily and Mounjaro increased to 10 mg once a week pt reports he is tolerating the medication well.per Endocrinology notes pt intolerant to Tulicity (Diarrhea) , did not tolerate Ozempic due to diarrhea as well. He is OFF Metformin and Off Insulin now Hgb A1c 05/09/2025: 7.7 from 7.1. Pt tells me that is the reason why they increased his Munjaro Pt Eye exam was last done [facility] 12/22/2022 Microalbumin checked on: 10/09/2024 was: <5 Pt on an JAVIER inhibitor. Foot check risk of zero Pt reports compliance with Asa 81 mg po daily Plan: Continue current regimen, continue to follow with endocrinology, last seen 04/29/2025 Pt advised to: adhere to diabetic diet check your blood sugars regularly check your feet on a daily basis Relevant Orders POCT Hgb A1c (Completed) POCT Glucose (Completed) Hypertension Pt here for a f/u He is on a regimen of: Lisinopril 5 mg po daily Pt's most recent electrolytes, Bun and Creatinine done on: Lab Results Component Value Date NA 141 04/26/2025 NA 141 03/19/2025 K 4.5 04/26/2025 K 4.3 03/19/2025 CL 108 04/26/2025 CL 110 (H) 03/19/2025 BUN 25 (H) 04/26/2025 BUN 23 (H) 03/19/2025 CREATININE 1.38 04/26/2025 CREATININE 1.48 (H) 03/19/2025 Wnl, I have recommended: to continue current regimen. patient has advised to adhere to a low sodium diet, encouraged about medication compliance, counseled about weight loss. Hyperlipidemia Patient with elevated lipids. Most recent lipid profile from: Lab Results Component Value Date TRIG 56 10/19/2024 TRIG 81 01/21/2024 CHOL 114 10/19/2024 CHOL 107 01/21/2024 LDLCHOLCAL 65 10/19/2024 LDLCHOLCAL 59 01/21/2024 HDL 38 (L) 10/19/2024 HDL 32 (L) 01/21/2024 Currently on a regimen of Atorvastatin 10 mg po qhs to bring LDL < 100 advised to try to adhere to a low cholesterol diet, counseled and educated about diet and exercise,Patient encouraged to come up with a personal goal for weight loss. Stage 3a chronic kidney disease ([facility]/HCC) Under the care of Nephrology, last seen 04/18/2025 Dr. Ribeiro Other emphysema ([facility]) Under the care of Dr. Juarez, last seen 11/14/[address] 12/2024 showed: Findings: Lung: Mild emphysema. Stable 2 mm nodule of the right upper lobe series 4, image 47. Stable 2 mm nodule of the left upper lobe series 6, image 24. Stable 2 mm nodule of the left upper lobe image 21. Stable additional micro nodules. Yearly follow up recommended Preventative health care PSA 01/06/2024 0.16 Normal, will repeat Colonoscopy: 04/30/2015 10 yr f/u recommended, will refer to GI today Relevant Orders PSA, Screen Renal lesion Patient had a renal US ordered by Nephrology 05/08/2025 that showed: Complex septated 4.3 cm exophytic cystic lesion, right kidney. Bilateral renal cysts. No hydronephrosis.. Plan: Refer to Urology for evaluation of renal cystic lesion Relevant Orders Referral to Urology Other Visit Diagnoses Colon cancer screening Relevant Orders Referral to Gastroenterology This note was drafted using Ambient (AI) technology. The patient/patient's guardian has been informed and has consented to the use of this technology: Yes No future appointments. [1] Allergies Allergen Reactions Penicillin G Penicillins Unknown documented in this encounter Miscellaneous Notes * Assessment & Plan Note - Ramsey Cline MD - 05/09/2025 9:00 AM EDT Associated Problem(s): Renal lesion Patient had a renal US ordered by Nephrology 05/08/2025 that showed: Complex septated 4.3 cm exophytic cystic lesion, right kidney. Bilateral renal cysts. No hydronephrosis.. Plan: Refer to Urology for evaluation of renal cystic lesion * Assessment & Plan Note - Ramsey Cline MD - 05/09/2025 8:57 AM EDT Associated Problem(s): Preventative health care PSA 01/06/2024 0.16 Normal, will repeat Colonoscopy: 04/30/2015 10 yr f/u recommended, will refer to GI today * Assessment & Plan Note - Ramsey Cline MD - 05/09/2025 8:55 AM EDT Associated Problem(s): Hyperlipidemia Patient with elevated lipids. Most recent lipid profile from: Lab Results Component Value Date TRIG 56 10/19/2024 TRIG 81 01/21/2024 CHOL 114 10/19/2024 CHOL 107 01/21/2024 LDLCHOLCAL 65 10/19/2024 LDLCHOLCAL 59 01/21/2024 HDL 38 (L) 10/19/2024 HDL 32 (L) 01/21/2024 Currently on a regimen of Atorvastatin 10 mg po qhs to bring LDL < 100 advised to try to adhere to a low cholesterol diet, counseled and educated about diet and exercise,Patient encouraged to come up with a personal goal for weight loss. * Assessment & Plan Note - Ramsey Cline MD - 05/09/2025 8:55 AM EDT Associated Problem(s): Hypertension Pt here for a f/u He is on a regimen of: Lisinopril 5 mg po daily Pt's most recent electrolytes, Bun and Creatinine done on: Lab Results Component Value Date NA 141 04/26/2025 NA 141 03/19/2025 K 4.5 04/26/2025 K 4.3 03/19/2025 CL 108 04/26/2025 CL 110 (H) 03/19/2025 BUN 25 (H) 04/26/2025 BUN 23 (H) 03/19/2025 CREATININE 1.38 04/26/2025 CREATININE 1.48 (H) 03/19/2025 Wnl, I have recommended: to continue current regimen. patient has advised to adhere to a low sodium diet, encouraged about medication compliance, counseled about weight loss. * Assessment & Plan Note - Ramsey Cline MD - 05/09/2025 8:54 AM EDT Associated Problem(s): Other emphysema (CMS/HCC) Under the care of Dr. Juarez, last seen 11/14/[address] 12/2024 showed: Findings: Lung: Mild emphysema. Stable 2 mm nodule of the right upper lobe series 4, image 47. Stable 2 mm nodule of the left upper lobe series 6, image 24. Stable 2 mm nodule of the left upper lobe image 21. Stable additional micro nodules. Yearly follow up recommended * Assessment & Plan Note - Ramsey Cline MD - 05/09/2025 8:50 AM EDT Associated Problem(s): Diabetes mellitus, type II (CMS/HCC) Pt is here for a f/u regarding his DM Today DM is uncontrolled He is on a regimen of: Jardiance 10 mg po daily and Mounjaro increased to 10 mg once a week pt reports he is tolerating the medication well.per Endocrinology notes pt intolerant to Tulicity (Diarrhea) , did not tolerate Ozempic due to diarrhea as well. He is OFF Metformin and Off Insulin now Hgb A1c 05/09/2025: 7.7 from 7.1. Pt tells me that is the reason why they increased his Munjaro Pt Eye exam was last done [facility] 12/22/2022 Microalbumin checked on: 10/09/2024 was: <5 Pt on an JAVIER inhibitor. Foot check risk of zero Pt reports compliance with Asa 81 mg po daily Plan: Continue current regimen, continue to follow with endocrinology, last seen 04/29/2025 Pt advised to: adhere to diabetic diet check your blood sugars regularly check your feet on a daily basis * Assessment & Plan Note - Ramsey Cline MD - 05/09/2025 8:49 AM EDT Associated Problem(s): Stage 3a chronic kidney disease (CMS/HCC) Under the care of Nephrology, last seen 04/18/2025 Dr. Ribeiro documented in this encounter Plan of Treatment Scheduled Orders Name Type Priority Associated Diagnoses Orde r Schedule PSA, Screen Lab Routine Preventative health care Ordered: 05/09/2025 Scheduled Referrals Name Type Priority Associated Diagnoses Order Schedule Referral to Gastroenterology Outpatient Referral Routine Colon cancer screening Expected: 05/09/2025 (Approximate), Expires: 05/09/2026 Referral to Urology Outpatient Referral Urgent Renal lesion Expected: 05/09/2025 (Approximate), Expires: 05/09/2026 documented as of this encounter Procedures Procedure Name Priority Date/Time Associated Diagnosis Comments POCT GLYCATED HEMOGLOBIN, TOTAL Routine 05/09/2025 9:36 AM EDT Type 2 diabetes mellitus with stage 3a chronic kidney disease, with long-term current use of insulin ([facility]) POCT GLUCOSE Routine 05/09/2025 9:33 AM EDT Type 2 diabetes mellitus with stage 3a chronic kidney disease, with long-term current use of insulin ([facility]) documented in this encounter Results * (ABNORMAL) POCT Hgb A1c (05/09/2025 9:36 AM EDT) Hemoglobin A1C 7.7(A) 4.0 - 5.7 % QC Media Lot # [id number] Lot# Expiration Date [id number] Blood 05/09/2025 9:36 AM EDT us Ramsey Cline MD POINT OF CARE TEST EN TER/EDIT ORDERABLES Final Result * (ABNORMAL) POCT Glucose (05/09/2025 9:33 AM EDT) Glucose Blood, POC 247(A) 60 - 200 mg/dL QC Media Lot # [id number] Lot# Expiration Date [id number] Blood Capillary blood specimen / Unknown 05/09/2025 9:33 AM EDT Ramsey Cline MD POINT OF CARE TEST EN TER/EDIT ORDERABLES Final Result documented in this encounter Visit Diagnoses Diagnosis Type 2 diabetes mellitus with stage 3a chronic kidney disease, with long-term current use of insulin ([facility])- Primary Primary hypertension Unspecified essential hypertension Mixed hyperlipidemia Stage 3a chronic kidney disease (CMS/HCC) Other emphysema (CMS/HCC) Other emphysema Preventative health care Routine general medical examination at a health care facility Colon cancer screening Special screening for malignant neoplasms, colon Renal lesion documented in this encounter Additional Health Concerns Assessment Noted Time PHQ-9 Depression Total Score: 1 10/18/19 25 9:22 AM EST documented as of this encounter Care Teams Career Development Consultant Relationship Specialty Start Date End Date Ramsey Gray MD [address] [place] [phone] PCP - General Internal Medicine 06/25/14 documented as of this encounter
--- OUTSIDE RECORDS SUMMARY | 2025-05-09 10:37 | XMS_ITS | Clinical Summary ---
Author Organization [employer] Address [address] [place] [address] [address] [place] [address] Care Team Providers Care Enterprise Software Developer Name Role Phone Ramsey Gray MD Primary Care Provide r Allergies Active Allergy Reactions Criticality Noted Date Comments Penicillin G 12/07/2022 Penicillins Unknown 08/20/2014 Medications Anoro Ellipta 62.5-25 MCG/ACT aerosol powder INHALE 1 PUFF EVERY DAY AT THE SAME TIME 09/13/19 23 Active Lantus SoloStar 100 UNIT/ML pen INJECT 28 UNITS SUBCUTANEOUSLY AT BEDTIME 09/14/19 23 Active Continuous Blood Gluc Maintenance Painter (FreeStyle Lola 2 [place]) deviceIndication s:Type 2 diabetes mellitus without complication, with long-term current use of insulin ([facility]) Use daily 1 each 01/28/20 23 Active Continuous Glucose Sensor (FreeStyle Lola 2 Sensor) miscIndications: Type 2 diabetes mellitus without complication, with long-term current use of insulin ([facility]) Use daily 4 each 11 02/27/20 24 Active Lancet Devices (Lancing Device) misc Use to check blood sugar up to 3 times daily 1 each 02/27/20 24 Active insulin pen needle (Easy Touch Pen [place]) 31G X 8 mm misc USE 1 DAILY 100 each 3 05/21/20 24 Active meloxicam (Mobic) 15 MG tabletIndication s:Right foot pain Take 1 tablet (15 mg) by mouth Once per day. 30 tablet 11 06/07/20 24 025 Active atorvastatin (Lipitor) 10 MG tablet TAKE [...] DIRECTED 100 each 03/05/20 Active Continuous Glucose Maintenance Painter (FreeStyle Lola 3 [place]) device 1 each Once per day. Use as directed for CGM 1 each 03/14/20 Active Continuous Glucose Sensor (FreeStyle Lola 3 Plus Sensor) misc 1 each every 15 days. Apply 1 every 15 days as directed for CGM 2 each 03/14/20 Active metFORMIN XR (Glucophage-XR) 500 MG 24 hr tabletIndication s:Type 2 diabetes mellitus without complication, without long-term current use of insulin ([facility]) Take 1 tablet (500 mg) by mouth 2 times daily. Do not crush, chew, or split. 360 tablet 1 10/18/19 025 Discontin ued(Thera py completed ) Active Problems Problem Noted Date Diagnosed Date Stage 3a chronic kidney disease 05/09/2025 Assessment & Plan (05/09/2025 8:49 AM EDT): Under the care of Nephrology, last seen 04/18/2025 Dr. Ribeiro Renal lesion 05/09/2025 Assessment & Plan (05/09/2025 9:00 AM EDT): Patient had a renal US ordered by Nephrology 05/08/2025 that showed: Complex septated 4.3 cm exophytic cystic lesion, right kidney. Bilateral renal cysts. No hydronephrosis.. Plan: Refer to Urology for evaluation of renal cystic lesion Closed fracture of right foot with routine [...] Preventative health care 01/27/2023 Assessment & Plan (05/09/2025 8:57 AM EDT): PSA 01/06/2024 0.16 Normal, will repeat Colonoscopy: 04/30/2015 10 yr f/u recommended, will refer to GI today Assessment & Plan (06/07/2024 9:13 AM EDT): PSA 01/06/2024 0.16 Normal Colonoscopy: 04/30/2015 10 yr f/u recommended Assessment & Plan (01/27/2023 8:30 AM EDT): PSA 08/26/2021 Normal Colonoscopy: 04/30/2015 10 yr f/u recommended Other emphysema 01/21/2023 Assessment & Plan (05/09/2025 8:54 AM EDT): Under the care of Dr. Juarez, last seen 11/14/[address] 12/2024 showed: Findings: Lung: Mild emphysema. Stable 2 mm nodule of the right upper lobe series 4, image 47. Stable 2 mm nodule of the left upper lobe series 6, image 24. Stable 2 mm nodule of the left upper lobe image 21. Stable additional micro nodules. Yearly follow up recommended Missing teeth, acquired 10/13/2022 Dental plaque on [...] considering it Hyperlipidemia 07/01/2016 Assessment & Plan (05/09/2025 8:55 AM EDT): Patient with elevated lipids. Most [...] with a personal goal for weight loss. Assessment & Plan (10/18/2024 9:37 AM EST): [...] 8:29 AM EDT): Pt previously seen at [facility] with c/o right flank pain, CT of his abdomen showed a 2 mm partially obstructing calculus. Seen by [facility] Urology December 24 2015 Increase fluid intake recommended Depressive disorder 01/24/2013 Assessment & Plan (01/27/2023 8:29 AM EDT): Pt claims he is doing well on Zoloft . Does not think he needs to see a therapist. denies any SI Diabetes mellitus, type II 01/24/2013 Assessment & Plan (05/09/2025 9:37 AM EDT): Pt is here for a [...] on a daily basis Assessment & Plan (10/18/2024 9:36 AM EST): [...] dysfunction 01/24/2013 Hypertension 01/24/2013 Assessment & Plan (05/09/2025 8:55 AM EDT): Pt here for a f/u [...] counseled about weight loss. Assessment & Plan (10/18/2024 9:34 AM EST): [...] Encounters Date Type Department Care Team Description 05/09/2025 9:15 AM EDT Office Visit [facility] [address] [place] [address] Ramsey Gray MD Type 2 diabetes mellitus with stage 3a chronic kidney disease, with long-term current use of insulin (CMS/HCC) (Primary Dx); Primary hypertension; Mixed hyperlipidemia; Stage 3a chronic kidney disease (CMS/HCC); Other emphysema (CMS/HCC); Preventative health care; Colon cancer screening; Renal lesion 05/09/2025 Travel 05/08/2025 Orders Only [facility] External Provider, [facility] 05/02/2025 Patient Outreach [facility] [address] [place] [address] Ramsey Gray MD Pre-visit Planning (SDOH was already completed) 04/29/2025 Orders Only GENERIC EXTERNAL DATA DEPARTMENT Provider, Generic External Data 04/26/2025 Orders Only GENERIC EXTERNAL DATA DEPARTMENT Provider, Generic External Data 03/19/2025 Orders Only GENERIC EXTERNAL DATA DEPARTMENT Provider, Generic External Data 03/18/2025 Orders Only GENERIC EXTERNAL DATA DEPARTMENT Provider, Generic External Data 03/12/2025 Telephone [facility] [address] [place] [address] Ramsey Gray MD Prior Authorization 03/05/2025 Refill [facility] [address] [place] [address] Ramsey Gray MD 02/27/2025 Refill [facility] [address] [place] [address] Ramsey Gray MD 02/26/2025 Refill [facility] [address] [place] [address] Ramsey Gray MD Primary hypertension 02/14/2025 Telephone [facility] [address] [place] [address] Ramsey Gray MD No Show 02/13/2025 Telephone [facility] [address] [place] [address] Ramsey Gray MD chart prep 02/07/2025 Patient Outreach [facility] [address] [place] [address] Ramsey Gray MD Pre-visit Planning (SDOH unable to reach LVM ) from Last 3 Months Immunizations Immunization Administration [...] Mass Index 26.73 05/09/2025 9:29 AM EDT Plan of Treatment Health Maintenance Due Date [...] Cancer Screening 04/30/2025 Influenza Vaccine (#1) 2025 , 08/08/2018, 06/09/2017, Additional history exists Diabetes: Hemoglobin A1C 08/08/2025 025, 03/19/2025, 10/19/2024, Additional history exists Alcohol/Substance Use Screening 10/18/2025 [...] disease, with long-term current use of insulin ([facility]) POCT GLUCOSE Routine 05/09/2025 9:33 AM EDT Type 2 diabetes mellitus with stage 3a chronic kidney disease, with long-term current use of insulin ([facility]) US RENAL COMPLETE Routine 05/08/2025 9:0 0 AM EDT GLUCOSE, WHOLE BLOOD Routine 04/29/2025 7:50 AM [...] to Health Maintenance Results * (ABNORMAL) POCT Hgb A1c (05/09/2025 9:36 AM EDT) Hemoglobin A1C 7.7(A) 4.0 - 5.7 % QC Media Lot # [id number] Lot# Expiration Date 4162, Blood 05/09/2025 9:36 AM EDT Ramsey Cline MD POINT OF CARE TEST EN TER/EDIT ORDERABLES Final Result * (ABNORMAL) POCT Glucose (05/09/2025 9:33 AM EDT) Glucose Blood, POC 247(A) 60 - 200 mg/dL QC Media Lot # [id number] Lot# Expiration Date 2950, Blood Capillary blood specimen / Unknown 05/09/2025 9:33 AM EDT Ramsey Cline MD POINT OF CARE TEST EN TER/EDIT ORDERABLES Final Result * US Renal Complete (05/08/2025 9:00 AM EDT) Anatomical Region Laterality Modality Kidney Ultrasound 05/08/2025 9:00 AM EDT Narrative 05/08/2025 9:27 AM EDT [place] [address] Ultrasound Report Signed Patient: Armand Warren MR#: [id number] : 1965 Acct:[id number] Age/Sex: 60 / M ADM Date: 05/08/25 Loc: . Attending Dr: Bandar Ribeiro MD Ordering Physician: Bandar Ribeiro MD Date of Service: 05/08/25 Procedure(s): US renal BI Accession Number(s): [id number] cc: Bandar Ribeiro MD; Ramsey Turner MD Reason for Exam: E11.21 - Type 2 diabetes mellitus with diabetic nephropathy EXAMINATION: US RETROPERITONEAL LIMITED (RENAL ONLY) CLINICAL INFORMATION: CKD, stage III.. COMPARISON: None available. TECHNIQUE: Real-time ultrasound of the kidneys using grayscale technique. FINDINGS: RIGHT KIDNEY: 11 x 5 x 5 cm (SAG x AP x TRV). Increased echotexture. Normal renal cortical thickness. No hydronephrosis. There is a 4.3 cm, exophytic, well-defined, thin septated, anechoic lesion centered in the upper pole without flow on color Doppler interrogation. There is a 0.4 cm anechoic lesion in the midportion without flow on color Doppler interrogation. There is an 18 mm anechoic abnormality without flow on color Doppler interrogation at the parapelvic/medullary midportion.. LEFT KIDNEY: 10 x 6 x 5 cm (SAG x AP x TRV). Increased echotexture. Normal renal cortical thickness. No hydronephrosis. There is a 0.7 cm anechoic lesion at the corticomedullary junction upper pole without flow on color Doppler interrogation. US/US renal BI IMPRESSION: Complex septated 4.3 cm exophytic cystic lesion, right kidney. Bilateral renal cysts. No hydronephrosis.. Electronically signed by: Blair Hoffmann MD 05/08/2025 09:23 AM EDT Dictated By: Blair Alanis MD Signed By: <Electronically signed by Blair Lemus MD in OV> 05/08/25 09 DD/ 09 TD/TT: 05/08/25 0907 Veterinary Virologist: Procedure Note Donotuseinterpreter, Image - 05/08/[address] [address] Ultrasound Report Signed Patient: Sebas Warren#: [id number] : 1965Acct:[id number] Age/Sex: 60 / MADM Date: 05/08/25 Loc: HO.US Attending Dr: Bandar Ribeiro MD Ordering Physician: Bandar Ribeiro MD Date of Service: 05/08/25 Procedure(s): US renal BI Accession Number(s): [id number] cc: Bandar Ribeiro MD; Ramsey Turner MD Reason for Exam: E11.21 - Type 2 diabetes mellitus with diabeticnephropathy EXAMINATION: US RETROPERITONEAL LIMITED (RENAL ONLY) CLINICAL INFORMATION: CKD, stage III.. COMPARISON: None available. TECHNIQUE: Real-time ultrasound of the kidneys using grayscale technique. FINDINGS: RIGHT KIDNEY: 11 x 5 x 5 cm (SAG x AP x TRV). Increased echotexture. Normal renal cortical thickness. No hydronephrosis. There is a 4.3 cm, exophytic, well-defined, thin septated, anechoic lesion centered in the upper pole without flow on color Doppler interrogation. There is a 0.4 cm anechoic lesion in the midportion without flow on color Doppler interrogation. There is an 18 mm anechoic abnormality without flow on color Doppler interrogation at the parapelvic/medullary midportion.. LEFT KIDNEY: 10 x 6 x 5 cm (SAG x AP x TRV). Increased echotexture. Normal renal cortical thickness. No hydronephrosis. There is a 0.7 cm anechoic lesion at the corticomedullary junction upper pole without flow on color Doppler interrogation. US/US renal BI IMPRESSION: Complex septated 4.3 cm exophytic cystic lesion, right kidney. Bilateral renal cysts. No hydronephrosis.. Electronically signed by: Blair Hoffmann MD 05/08/2025 09:23 AM EDT Dictated By: Blair Alanis MD Signed By: <Electronically signed by Blair Lemus MDin OV> 05/08/25922 DD/ 9 TD/TT: 05/08/25906 Veterinary Virologist: [facility] External Provider IMG US PROCEDURES Final Result * (ABNORMAL) Glucose, Whole Blood (04/29/2025 7:50 AM EDT) Only the most recent of2 resultswithin the time period is included. Glucose, Whole Blood 249(H) 60 - 115 mg/dL [facility] Comment:METER #: [id number] Testing performed in the Endocrinology Department [address] , [address], [facility]. 04/29/2025 7:50 AM EDT 04/29/2025 7:54 AM EDT us Generic External Data Provider LAB BLOOD ORDERAB LES Final Result Performing Organization Address [facility] Co de Phone Number [facility] [address] [place] [phone] * Urine Protein, Total, Random without Creatinine (04/26/2025 6:42 AM EDT) Protein, Total, Random Urine <7 <12 mg/dL [facility] 04/26/2025 6:42 AM EDT 04/26/2025 7:06 AM EDT Generic External Data Provider LAB URINE ORDERAB LES Final Result Performing Organization Address [facility] de Phone Number [facility] [address] [place] [address] [phone] * Creatinine, Random Urine (04/26/2025 6:42 AM EDT) Creatinine, Urine 94.36 mg/dL [facility] 04/26/2025 6:42 AM EDT 04/26/2025 7:06 AM EDT Generic External Data Provider LAB URINE ORDERAB LES Final Result Performing Organization Address [facility] de Phone Number [facility] [address] [place] [phone] * (ABNORMAL) Urinalysis Complete (04/26/2025 6:42 AM EDT) Color Urine Yellow [facility] Appearance Urine Clear [facility] PH 5.0 5.0 - 9.0 [facility] Glucose Urine UA >=1000(A) Negative mg/dL [facility] Urine Blood Negative Negative [facility] Specific [place] - Urine >=1.030(H) 1.005 - 1.025 [facility] Urine Protein Negative Neg-Trace mg/dL [facility] Urine Ketones Negative Negative mg/dL [facility] Nitrite Urine Negative Negative [facility] Leukocyte Esterase Urine Negative Negative [facility] RBC Urine 0-2 0 - 2 /HPF [facility] Urine WBC 0-5 0 - 5 /HPF [facility] Urine Squamous Epithelial Cell 0-2 0 - 2 /HPF [facility] Urine Bacteria None Seen None Seen [facility] Hyaline Casts, Urine 0-2 0 - 2 /LPF [facility] 04/26/2025 6:42 AM EDT 04/26/2025 7:06 AM EDT us Generic External Data Provider LAB URINE ORDERAB LES Final Result Performing Organization Address City/State/[facility] Co de Phone Number [facility] [address] [place] [address] [phone] * (ABNORMAL) Basic Metabolic Panel (04/26/2025 6:40 AM EDT) Only the most recent of2 resultswithin the time period is included. Sodium 141 135 - 145 mmol/L [facility] Potassium 4.5 3.3 - 5.1 mmol/L [facility] Chloride 108 96 - 108 mmol/L [facility] Carbon Dioxide 24 22 - 29 mmol/L [facility] Anion Gap 14 12 - 20 [facility] Urea Nitrogen (BUN) 25(H) 9 - 16 mg/dL [facility] Creatinine, Serum 1.38 0.5 - 1.4 mg/dL [facility] Estimated Glomerular Filt Rate 53 [facility] Comment:Chronic Kidney Disea se: Estimated GFR < 60 mL/min/1.68p1Apnlaj Kidney Disease: Estimated GFR < 15 mL/min/1.73m2 Glucose 139(H) 60 - 115 mg/dL [facility] Calcium 9.6 8.4 - 10.2 mg/dL [facility] 04/26/2025 6:40 AM EDT 04/26/2025 6:40 AM EDT Generic External Data Provider LAB BLOOD ORDERAB LES Final Result Performing Organization Address [facility]/ZIP Co de Phone Number [facility] [address] [place] [address] [phone] * B Type Natriuretic Peptide (BNP) (03/19/2025 6:49 AM EDT) B Type Natriuretic Peptide 11 <100 pg/mL [facility] 03/19/2025 6:49 AM EDT 03/19/2025 6:49 AM EDT [employer] External Data Provider LAB BLOOD ORDERAB LES Final Result Performing Organization Address [facility] de Phone Number [facility] [address] [place] [address] [phone] * (ABNORMAL) Hemoglobin A1c (03/19/2025 6:49 AM EDT) Hemoglobin A1c 7.7(H) <6.0 % [facility] Comment:Hemoglobin A1C Refer ence Range Adults: 4.8 - 6.0 % Non diabetic: < 6.0 % Goal: < 7.0 %Additional Action Suggested: > 8.0 %Note: Hemoglobin A1c results are invalid for patients with abnormal amounts of HbF. Blood transfusions may impact the HbA1c concentration in the patient sample. Estimated Average Glucose 174 mg/dL [facility] Comment:eAG = Estimated ave rage glucose which is %A1C expressed asaverage glucose, using the formula of the S0G-YxzczdiQswejlh Glucose study (ADAG), Diabetes Care, Vol.31,#8,2007 03/19/2025 6:49 AM EDT 03/19/2025 6:49 AM EDT us Generic External Data Provider LAB BLOOD ORDERAB LES Final Result Performing Organization Address [facility] Co de Phone Number [facility] [address] [place] [address] [phone] * (ABNORMAL) Hepatic Function Panel (03/19/2025 6:49 AM EDT) Bilirubin, Total 0.9 0.0 - 1.0 mg/dL [facility] Bilirubin, Direct 0.3 0.0 - 0.5 mg/dL [facility] Aspartate Amino Transferase 32 5 - 37 U/L [facility] Alanine Aminotransferase 44(H) 0 - 40 U/L [facility] Total Protein 7.5 6.5 - 8.0 g/dL [facility] Albumin Level 4.2 3.5 - 5.0 g/dL [facility] Alkaline Phosphatase 119(H) 39 - 117 U/L [facility] 03/19/2025 6:49 AM EDT 03/19/2025 6:49 AM EDT us Generic External Data Provider LAB BLOOD ORDERAB LES Final Result Performing Organization Address [facility] Co de Phone Number [facility] [address] [place] [address] [phone] * (ABNORMAL) Lipid Panel, Standard (10/19/2024 8:15 AM EST) Triglycerides 56 <150 mg/dL [facility] Comment:Desirable Triglyceri de: less than 150 mg/dLBorderline High Triglyceride 150-199 mg/dLHigh Triglyceride: 200-499 mg/dLVery High Triglyceride: greater than or equal to 5OO mg/dL Cholesterol 114 <200 mg/dL [facility] Comment:Desirable Cholestero l: less than 200 mg/dLBorderline High Cholesterol: 200-239 mg/dLHigh Cholesterol: greater than 239 mg/dL LDL Cholesterol Calculated 65 <100 mg/dL [facility] Comment:Desirable LDL: less than 100 mg/dLNear Optimal/Above Optimal LDL: 110- 129 mg/dLBorderline High LDL: 130-159 mg/dLHigh LDL: 160-189 mg/dLVery High LDL: greater than or equal to 190 mg/dL HDL Cholesterol 38(L) >40 mg/dL [facility] Comment:Desirable HDL: great er than 40 mg/dL Note: This HDL assay may give artificially low results in patients with liver disease. Blood Venous blood specimen / Unknown 10/19/2024 8:15 AM EST 10/19/2024 11:02 AM EST us Ramsey Cline MD LAB BLOOD ORDERABLES Final Result Performing Organization Address City/[facility]/ZIP Co de Phone Number [facility] [address] [place] [address] [phone] * Hepatitis C Antibody with Reflex to HCV, RNA, Quantitative, Real-Time PCR (02/01/2023 8:12 AM EDT) Hepatitis C Antibody NON-REACT KELLI NON-REACT KELLI [employer] [place] [facility] Index 0.25 <1.00 [employer] [place] [facility] Comment: HCV antibody was non-reactive. There is no laboratory evidence of HCV infection. In most cases, no further action is required. However, if recent HCV exposure is suspected, a test for HCV RNA (test code 78038) is suggested. For additional information please refer to http://education.Trivie.InnoPad/faq/SDT85f7 (This link is being provided for informational/ educational purposes only.) Blood Venous blood specimen / Unknown 02/01/2023 8:12 AM EDT 02/01/2023 8:13 AM EDT Narrative [facility] - 02/01/2023 11:34 PM EDT FASTING:YES FASTING: YES us Ramsey Cline MD LAB BLOOD ORDERABLES Final Result [facility] [address], [place] [phone] [employer] [place] [employer] [address] [place] [address] * HIV-1/2 Antigen and Antibodies, Fourth Generation, with Reflexes (02/01/2023 8:12 AM EDT) HIV Antigen/Antibody, 4th Generation NON-REAC TIVE NON-REAC TIVE [employer] [place] [employer] Comment: HIV-1 antigen and HIV-1/HIV-2 antibodies [...] purpose. For additional information please refer to http://education.Enbase/faq/THB274 (This link is being provided for informational/ educational purposes only.) The performance of this assay has not been clinically validated in patients less than 2 years old. Blood Venous blood specimen / Unknown 02/01/2023 8:12 AM EDT 02/01/2023 8:13 AM EDT Narrative [facility] - 02/01/2023 11:34 PM EDT FASTING:YES FASTING: YES Ramsey Cline MD LAB BLOOD ORDERABLES Final Result [facility] [address], [place] [phone] [employer] [place] [employer] [address] [place] [address] * Hm Colonoscopy (04/30/2015) Colonoscopy Normal Normal 04/30/2015 Estelle Malone - 04/30/2015 11:58 AM EDT Recommended 10 year follow up us Historical Provider HEALTH MAINTENANCE Edited Result - Final from Last 3 Months or Most Recently Relevant to Health Maintenance Insurance [facility] C3 Care Teams Enterprise Software Developer Relationship Specialty Start Date End Date Ramsey Gray MD [address] [place] [address] PCP - General Internal Medicine 06/25/14
--- OUTSIDE RECORDS SUMMARY | 2025-05-09 10:37 | XMS_ITS | Encounter Summary ---
Author Organization [employer] Address [address] [facility] [address] [place] [address] Care Team Providers Care Systems Program Manager Name Role Phone Ramsey Gray MD Primary Care Provide r Encounter Details Date Type Department Care Team (Latest Contact Info) Description 11/13/2020 Abstract [facility] CONVERSIONS Dental, Provider, DDS Social History Tobacco [...] filedocumented in this encounter Care Teams Systems Program Manager Relationship Specialty Start Date End Date Ramsey Gray MD [address] [place] [address] PCP - General Internal Medicine 06/25/14 documented as of this encounter
--- OUTSIDE RECORDS SUMMARY | 2025-05-09 10:37 | XMS_ITS | Encounter Summary ---
Author Organization [employer] Address [address] [facility] [address] [place] [address] Care Team Providers Care Conservator Artifacts Name Role Phone Ramsey Gary MD Primary Care Provide r Encounter Details Date Type Department Care Team (Latest Contact Info) Description 06/07/2022 Abstract [facility] CONVERSIONS Dental, Provider, DDS Social History [...] on filedocumented in this encounter Care Teams Conservator Artifacts Relationship Specialty Start Date End Date Ramsey Gray MD [address] [place] [address] PCP - General Internal Medicine 06/25/14 documented as of this encounter
--- OUTSIDE RECORDS SUMMARY | 2025-05-09 10:37 | XMS_ITS | Encounter Summary ---
Author Organization [employer] Address [address] [facility] [address]t [place] [address] Care Team Providers Care Motor Coach Driver Name Role Phone Ramsey Gray MD Primary Care Provide r Reason for Visit * Reason Comments Med Refill Encounter Details Date Type Department Care Team (Late st Contact Info) Description 02/23/2024 Refill [facility] [address] [place], [place] [phone] Ramsey Gray MD [address] [place], [place] [phone] Social History Tobacco Use Types Packs/Day Years [...] documented as of this encounter Care Teams Motor Coach Driver Relationship Specialty Start Date End Date Ramsey Gray MD [address] [place] [phone] PCP - General Internal Medicine 06/25/14 documented as of this encounter
--- OUTSIDE RECORDS SUMMARY | 2025-05-09 10:37 | XMS_ITS | Encounter Summary ---
Author Organization [employer] Address 75 [facility] 7t [place] [address] Care Team Providers Care Manager Monitoring Name Role Phone Ramsey Gray MD Primary Care Provide r Encounter Details Date Type Department Care Team (Latest Contact Info) Description 05/09/2025 Travel Social History Tobacco Use Types Packs/Day [...] as of this encounter Care Teams Manager Monitoring Relationship Specialty Start Date End Date Ramsey Gray MD [address] [place] [address] PCP - General Internal Medicine 06/25/14 documented as of this encounter
--- OUTSIDE RECORDS SUMMARY | 2025-05-09 10:37 | XMS_ITS | Encounter Summary ---
Author Organization [employer] Address 75 [facility] 7t [place] [address] Care Team Providers Care Driver Lifter Of Sanitation Truck Name Role Phone Ramsey Gray MD Primary Care Provide r Encounter Details Date Type Department Care Team (Late st Contact Info) Description 11/24/2022 Orders Only [facility] CHC MED & PEDS [address] [place], [place] [phone] Patricia Adamson LPN Social History Tobacco Use [...] on filedocumented in this encounter Care Teams Driver Lifter Of Sanitation Truck Relationship Specialty Start Date End Date Ramsey Gray MD [address] [place] [address] PCP - General Internal Medicine 06/25/14 documented as of this encounter
--- OUTSIDE RECORDS SUMMARY | 2025-05-09 10:37 | XMS_ITS | Encounter Summary ---
Author Organization [employer] Address 75 [facility] 7t [place] [address] Care Team Providers Care Bit Tripoler Name Role Phone Ramsey Gray MD Primary Care Provide r Encounter Details Date Type Department Care Team (Late st Contact Info) Description 09/08/2022 Orders Only [facility] CHC MED & PEDS [address] [place] [address] Patricia Adamson LPN Social History Tobacco Use [...] on filedocumented in this encounter Care Teams Bit Tripoler Relationship Specialty Start Date End Date Ramsey Gray MD [address] [place] [phone] PCP - General Internal Medicine 06/25/14 documented as of this encounter
--- OUTSIDE RECORDS SUMMARY | 2025-05-09 10:37 | XMS_ITS | Encounter Summary ---
Author Organization [employer] Address 75 [facility] 7t [place] [address] Care Team Providers Care Laundry Equipment Operator Name Role Phone Ramsey Gray MD Primary Care Provide r Encounter Details Date Type Department Care Team ([facility] Contact Info) Description 05/08/2025 Orders Only [facility] External Provider, [facility] Social History Tobacco Use Types Packs/Day Years [...] Procedure Name Priority Date/Time Associated Diagnosis Comments US RENAL COMPLETE Routine 05/08/2025 9:0 0 AM EDT documented in this encounter Results * US Renal Complete (05/08/2025 9:00 AM EDT) Anatomical Region Laterality Modality Kidney Ultrasound 05/08/2025 9:00 AM EDT Narrative 05/08/2025 9:27 AM EDT [place] [address] Ultrasound Report Signed Patient: Armand Warren MR#: [id number] : 1965 Acct:[id number] Age/Sex: 60 / M ADM Date: 05/08/25 Loc: .US Attending Dr: Bandar Ribeiro MD Ordering Physician: Bandar Ribeiro MD Date of Service: 05/08/25 Procedure(s): US renal BI Accession Number(s): [id number] cc: Bandar Ribeiro MD; Ramsey Turner MD [...] Blair Hoffmann MD 05/08/2025 09:23 AM EDT RP Dictated By: Blair Alanis MD Signed By: <Electronically signed by Blair Lemus MD in OV> 05/08/25922 DD/ 09 TD/TT: 05/08/25 0907 Sales And Leasing Agent: Procedure Note Donotuseinterpreter, Image - 05/08/2025 [place] [address] Ultrasound Report Signed Patient: Armand WarrenMR#: [id number] : 1965Acct:[id number] Age/Sex: 60 / MADM Date: 05/08/25 Loc: HO.US Attending Dr: Bandar Ribeiro MD Ordering Physician: Bandar Ribeiro MD Date of Service: 05/08/25 Procedure(s): US renal BI Accession Number(s): [id number] cc: Bandar Ribeiro MD; Ramsey Turner MD [...] Blair Hoffmann MD 05/08/2025 09:23 AM EDT RP Dictated By: Blair Alanis MD Signed By: <Electronically signed by Blair Lemus MDin OV> 05/08/25922 DD/ 09 TD/TT: 05/08/25 0907 Sales And Leasing Agent: [facility] External Provider IMG US PROCEDURES Final Result documented in this encounter Visit Diagnoses Not on filedocumented in this encounter Additional Health Concerns Assessment Noted Time PHQ-9 Depression Total Score: 1 10/18/19 25 9:22 AM EST documented as of this encounter Care Teams Laundry Equipment Operator Relationship Specialty Start Date End Date Ramsey Gray MD [address] [place] [address] PCP - General Internal Medicine 06/25/14 documented as of this encounter
--- OUTSIDE RECORDS SUMMARY | 2025-05-09 10:37 | XMS_ITS | Encounter Summary ---
Author Organization [employer] Address 75 [facility] 7t [place] [address] Care Team Providers Care Farm Field Manager Name Role Phone Ramsey Gray MD Primary Care Provide r Encounter Details Date Type Department Care Team ([facility] st Contact Info) Description 01/12/2023 Abstract [facility] MEDICINE [address] [place] [address] Ramsey Gray MD [address] [place] [address] Social History Tobacco Use Types Packs/Day Years [...] on filedocumented in this encounter Care Teams Farm Field Manager Relationship Specialty Start Date End Date Ramsey Gray MD [address] [place] [address] PCP - General Internal Medicine 06/25/14 documented as of this encounter
--- OUTSIDE RECORDS SUMMARY | 2025-05-09 10:37 | XMS_ITS | Encounter Summary ---
Author Organization [employer] Address 75 [facility] 7t [place] [address] Care Team Providers Care Invoice Control Clerk Name Role Phone Ramsey Gray MD Primary Care Provide r Reason for Visit * Reason Comments Med Refill Encounter Details Date Type Department Care Team (Late st Contact Info) Description 02/23/2024 Refill [facility] MEDICINE 230 [place], [place] [phone] Ramsey Gray MD 230 [place], [place] [phone] Social History Tobacco Use Types Packs/Day Years [...] documented as of this encounter Care Teams Invoice Control Clerk Relationship Specialty Start Date End Date Ramsey Gray MD [address] [place] [address] PCP - General Internal Medicine 06/25/14 documented as of this encounter
--- OUTSIDE RECORDS SUMMARY | 2025-05-09 10:37 | XMS_ITS | Encounter Summary ---
Author Organization [employer] Address 75 [facility] 7t [place] [address] Care Team Providers Care Bouffant Curtain Machine Tender Name Role Phone Ramsey Gray MD Primary Care Provide r Reason for Visit * Reason Comments Med Refill Encounter Details Date Type Department Care Team (Late st Contact Info) Description 01/19/2024 Refill [facility] MEDICINE 230 [place], [place] [phone] Luciana Elder MD [address] [place] [address] Social History Tobacco Use Types Packs/Day Years [...] documented as of this encounter Care Teams Bouffant Curtain Machine Tender Relationship Specialty Start Date End Date Ramsey Gray MD [address] [place] [address] PCP - General Internal Medicine 06/25/14 documented as of this encounter
--- OUTSIDE RECORDS SUMMARY | 2025-05-09 10:37 | XMS_ITS | Encounter Summary ---
Author Organization [employer] Address [address] [facility] 7t [place] [address] Care Team Providers Care Flame Hardening Machine Operator Name Role Phone Ramsey Gray MD Primary Care Provide r Reason for Visit * Reason Comments Med Refill Encounter Details Date Type Department Care Team (Late st Contact Info) Description 01/20/2024 Refill [facility] MEDICINE [address] [place], [place] [phone] Luciana Elder MD 230 [place] [address] Social History Tobacco Use Types Packs/Day Years [...] documented as of this encounter Care Teams Flame Hardening Machine Operator Relationship Specialty Start Date End Date Ramsey Gray MD [address] [place] [address] PCP - General Internal Medicine 06/25/14 documented as of this encounter
[2025-05-09 11:33] LABS: Hemoglobin A1C 252.4431 umol/L; Total Hemoglobin (HGBA1C) 4521.7696 umol/L
[2025-05-09 11:53] LABS: Alanine Aminotransferase 45 U/L (0-40); Albumin Level 4.4 g/dL (3.5-5.0); Alkaline Phosphatase 128 U/L (39-117); Anion Gap 13 (12-20); Aspartate Amino Transferase 58 U/L (5-37); Blood Urea Nitrogen 24 mg/dL (9-16); Calcium 9.6 mg/dL (8.4-10.2); Carbon Dioxide 26 mmol/L (22-29); Chloride 106 mmol/L (96-108); Cholesterol 115 mg/dL (<200); Estimated Glomerular Filt Rate 46; HDL Cholesterol 30 mg/dL (>40); Potassium 4.9 mmol/L (3.3-5.1); Sodium 140 mmol/L (135-145); Total Protein 8.0 g/dL (6.5-8.0); Triglycerides 130 mg/dL (<150)
== END 2025-05-09 09:44 | disposition home or self-care (01) ==
LOC: HO.HHCL 09:43
PROVIDERS: PCP Internal Medicine; Referring Provider Physician Assistant; Visit Provider Internal Medicine Hypertension Specialist
DX: Z00.00 Encounter for general adult medical examination without abnormal findings (principal); Z12.5 Encounter for screening for malignant neoplasm of prostate; E11.21 Type 2 diabetes mellitus with diabetic nephropathy; E78.5 Hyperlipidemia, unspecified; R79.89 Other specified abnormal findings of blood chemistry; I10 Essential (primary) hypertension
CPT/HCPCS: 36415; 80053; 80061; 83036; 84153

== ENCOUNTER 2025-05-23 10:23 | Outpatient (AMB) | payer MEDICAID, SELFPAY ==
--- NOTE | 2025-05-23 10:29 | HO.NEPHOV_ITS ---
Vital Signs 05/23/25 10:30 Height 5 ft 5 in Weight 159 lb BMI 26.5 BP 86/54 L Blood Pressure Location Rt brachial Position Sitting Pulse 75 Pulse Source Pulse Oximeter Pulse Oximetry (%) 96 Oxygen Delivery Method Room Air Intake Visit Reasons: 5wk f/u w/labs-Conf Cloth Edge Singer Required: Yes Cloth Edge Singer Name: Marita [phone] Accompanied by: Self / Same As Patient Allergies Penicillins (PENICILLINS) Allergy (Intermediate, Verified 05/23/25 10:32) RASH penicillin V Allergy (Unknown, Verified 05/23/25 10:32) Rash morphine Adverse Reaction (Unknown, Verified 05/23/25 10:32) Unknown Medication List - Last Reconciled 05/23/25 by Bandar Ribeiro MD albuterol sulfate 90 mcg/actuation 2 puffs inhalation Q4-6H PRN aspirin (Adult Low Dose Aspirin) 81 mg PO DAILY atorvastatin 10 mg PO DAILY blood sugar diagnostic (FreeStyle Lite Strips) As directed three times daily empagliflozin (Jardiance) 10 mg PO DAILY lancets (TRUEplus Lancets) As directed sertraline 50 mg PO QAM tirzepatide (Mounjaro) 12.5 mg (0.5 mL) subcut QWEEK umeclidinium-vilanterol 62.5-25 mcg/actuation (Anoro Ellipta) 1 ea PO DAILY HPI Comments Details: The patient is a 60-year-old male presenting with decreased kidney function. The kidney function was noted to be at 48%, which is below the expected range of 70-80% for his age. The patient has a long-standing history of diabetes mellitus, which is a contributing factor to the renal impairment. The patient denies any history of hypertension, which is often associated with renal issues. He reports adherence to his medication regimen, which includes albuterol inhaler, aspirin, Jardiance, lisinopril, and sertraline. The patient maintains adequate hydration and denies any recent surgeries or urinary difficulties. He has no family history of kidney problems and does not smoke or consume alcohol currently. The patient's blood pressure was recorded at 98/62 mmHg, which is lower than normal, but he denies any symptoms of dizziness or lightheadedness. His diabetes management shows an A1c of 7.7, with a goal to reduce it below 7. 9/ BP remains low [facility] Medical History (Updated 03/22/25 @ 12:50 by Cari Ferguson PA-C) Obesity due to excess calories Carpal tunnel syndrome Kidney stones Depression Type 2 diabetes mellitus with hyperglycemia, with long-term current use of insulin Essential hypertension Hyperlipidemia LDL goal <100 Surgical History Hx of colonoscopy Family History Mother Diabetes Arthritis Stroke Father Unknown family medical history Social History Household Members: None Alcohol intake: never Patient Tobacco Use Status: Former Tobacco user Physical Exam Vital Signs: Last Vital Signs Pulse 75 05/23/25 10:30 BP 86/54 L 05/23/25 10:30 Pulse Ox 96 05/23/25 10:30 Oxygen Delivery Method Room Air 05/23/25 10:30 BMI result Body Mass Index 26.5 Const General: comfortable Nutritional Appearance: well nourished Orientation/consciousness: patient oriented x3 HEENT Head: No normal to inspection Mouth: moist mucous membranes Neck Neck: Yes supple and Yes no JVD Resp Auscultation: clear to auscultation bilaterally and no rales Cardio Jugular venous distension: no JVD Palpation: no palpable S3 and no palpable S4 Heart sounds: no rubs GI Palpation (GI): Soft to palpation and nontender Percussion: No Fluid wave present General: Yes no CVA tenderness Back/Spine/Pelvis Back: no CVA tenderness Skin General skin exam: no rashes or lesions noted Neuro General: patient oriented x3 Extrem General: Yes no pedal edema and No clubbing Results Reviewed Nephrology Results: Sodium, (135-145) 140 mmol/L 05/09/25 Potassium, (3.3-5.1) 4.9 mmol/L 05/09/25 Chloride, (96-108) 106 mmol/L 05/09/25 Carbon Dioxide, (22-29) 26 mmol/L 05/09/25 BUN, (9-16) 24 mg/dL H 05/09/25 Creatinine, (0.5-1.4) 1.54 mg/dL H 05/09/25 Calcium, (8.4-10.2) 9.6 mg/dL 05/09/25 Urine Protein, (Neg-Trace) Negative mg/dL 04/26/25 Urine Creatinine 94.36 mg/dL 04/26/25 Renal US 05/08/25 Assessment & Plan Assessment & Plan (1) Type 2 diabetes with nephropathy: Code(s): E11.21 - Type 2 diabetes mellitus with diabetic nephropathy Category: Medical (2) CKD stage 3a, GFR 45-59 ml/min: Code(s): N18.31 - Chronic kidney disease, stage 3a Category: Medical Plan 60-year-old man with stage III A CKD in the setting of longstanding diabetes mellitus. He probably has underlying diabetic kidney disease. Obstructive uropathy should be ruled out. Recent urine studies were unremarkable therefore glomerular nephritis or interstitial disease seem unlikely. He has no significant proteinuria. He is able to tolerate low-dose of lisinopril. Blood pressure rather low but he is asymptomatic. Recommendations Discussed the importance of tight control of blood sugar and blood pressure to slow the portion of renal disease. Recent A1c was 7.7%. For now I would continue low-dose JAVIER inhibitor for cardiorenal protection. Encouraged him to increase p.o. fluid intake. Avoid hypotension. If the systolic blood pressure drops less than 90 mm Hg I would discontinue the lisinopril. Continue to avoid nephrotoxic agents including NSAIDs. All his questions were answered. Return to the office in the next few weeks after baseline workup is completed. 05/23/25 BERTA superimposed on CKD in a setting of DM USG- No obstruction BP is low leading ot hypoperfusion High urine SG of > 1.030 suggestive of concentrated urine frmo volume depletion NO proteinuria STOP LIsinopril 5 mg QD Increase PO fluid intake Avoid hypotension and nephrotoxins Recheck renal panel in few weeks USG- complex renal cyst report Has been referred to Urology on 05/09/25 . Orders: Orders Basic Metabolic Panel 2 Months N18.31 - Chronic kidney disease, stage 3a Medications: Discontinued lisinopril Discontinued Reason: Doctor's Order 5 mg PO DAILY 90 tabs 1RF Coding Level of Care Code Est Pt Level 4 (88451) Diagnoses Type 2 diabetes with nephropathy E11.21 CKD stage 3a, GFR 45-59 ml/min N18.31
[2025-05-23 10:30] VITALS: BP 86/54; PULSE 75; O2SAT 96; BMI 26.5
--- OUTSIDE RECORDS SUMMARY | 2025-05-23 12:21 | XMS_ITS | Encounter Summary ---
Author Organization [employer] Address [address] [facility] 7t [place] [address] Care Team Providers Care Clinical Business Analyst Name Role Phone Ramsey Gray MD Primary Care Provide r Encounter Details Date Type Department Care Team (Late Contact Info) Description 11/24/2022 Orders Only [facility] CHC MED & PEDS [address] [place], [place] [phone] Patricia Adamson LPN Social History Tobacco Use [...] Care Team (Late st Contact Info) Description 08/15/2025 11:15 AM EST Office Visit [facility] MEDICINE 230 [place], [place] [phone] Ramsey Gray MD [address] [place], [place] [phone] documented as of this encounter Visit Diagnoses Not on filedocumented in this encounter Care Teams Clinical Business Analyst Relationship Specialty Start Date End Date Ramsey Gray MD [address] [place] [address] PCP - General Internal Medicine 06/25/14 documented as of this encounter
--- OUTSIDE RECORDS SUMMARY | 2025-05-23 12:21 | XMS_ITS | Encounter Summary ---
Author Organization [employer] Address 75 [facility] 7t [place] [address] Care Team Providers Care Heavy Equipment Supervisor Name Role Phone Ramsey Gray MD Primary Care Provide r Reason for Visit * Reason Comments Med Refill Encounter Details Date Type Department Care Team (Late st Contact Info) Description 01/20/2024 Refill [facility] MEDICINE 230 [place], [place] [phone] Luciana Elder MD [address] [place] [address] Social History Tobacco Use Types Packs/Day Years [...] Description 08/15/2025 11:15 AM EST Office Visit [facility] MEDICINE [address] [place] [address] Ramsey Gray MD [address] [place] [address] documented as of this encounter Visit Diagnoses Not on filedocumented in this encounter Additional Health Concerns Assessment Noted Time PHQ-9 Depression Total Score: 0 01/05/20 24 11:09 AM EDT documented as of this encounter Care Teams Heavy Equipment Supervisor Relationship Specialty Start Date End Date Ramsey Gray MD [address] [place] [phone] PCP - General Internal Medicine 06/25/14 documented as of this encounter
--- OUTSIDE RECORDS SUMMARY | 2025-05-23 12:21 | XMS_ITS | Encounter Summary ---
Author Organization [employer] Address [address] [facility] 7t [place] [address] Care Team Providers Care Manager Of Change Name Role Phone Ramsey Gray MD Primary Care Provide r Reason for Visit * Reason Comments Med Refill Encounter Details Date Type Department Care Team (Late st Contact Info) Description 01/19/2024 Refill [facility] MEDICINE 230 [place], [place] [phone] Luciana Elder MD [address] [place] [address] Social History Tobacco Use Types Packs/Day Years [...] Description 08/15/2025 11:15 AM EST Office Visit [facility] [address] [place] [address] Ramsey Gray MD [address] [place] [address] documented as of this encounter Visit Diagnoses Not on filedocumented in this encounter Additional Health Concerns Assessment Noted Time PHQ-9 Depression Total Score: 0 01/05/20 24 11:09 AM EDT documented as of this encounter Care Teams Manager Of Change Relationship Specialty Start Date End Date Ramsey Gray MD [address] [place] [address] PCP - General Internal Medicine 06/25/14 documented as of this encounter
--- OUTSIDE RECORDS SUMMARY | 2025-05-23 12:21 | XMS_ITS | Encounter Summary ---
Author Organization [employer] Address [address] [facility] 7t [place] [address] Care Team Providers Care Director Agency & Strategic Partnerships Name Role Phone Ramsey Gray MD Primary Care Provide r Encounter Details Date Type Department Care Team (Latest Contact Info) Description 06/07/2022 Abstract [facility] CONVERSIONS Dental, Provider, DDS Social History [...] Description 08/15/2025 11:15 AM EST Office Visit [facility] MEDICINE [address] [place] [address] Ramsey Gray MD [address] [place] [address] documented as of this encounter Visit Diagnoses Not on filedocumented in this encounter Care Teams Director Agency & Strategic Partnerships Relationship Specialty Start Date End Date Ramsey Gray MD [address] [place], [place] [phone] PCP - General Internal Medicine 06/25/14 documented as of this encounter
--- OUTSIDE RECORDS SUMMARY | 2025-05-23 12:21 | XMS_ITS | Encounter Summary ---
Author Organization [employer] Address 75 [facility] 7t [place] [address] Care Team Providers Care Intake Counselor Name Role Phone Ramsey Gray MD Primary Care Provide r Reason for Visit * Reason Comments Med Refill Encounter Details Date Type Department Care Team (Late st Contact Info) Description 02/23/2024 Refill [facility] MEDICINE 230 [place], [place] [phone] Ramsey Gray MD [address] [place], [place] [phone] Social History Tobacco Use Types Packs/Day Years [...] Description 08/15/2025 11:15 AM EST Office Visit [facility] MEDICINE [address] [place] [address] Ramsey Gray MD [address] [place] [address] documented as of this encounter Visit Diagnoses Not on filedocumented in this encounter Additional Health Concerns Assessment Noted Time PHQ-9 Depression Total Score: 0 01/05/20 24 11:09 AM EDT documented as of this encounter Care Teams Intake Counselor Relationship Specialty Start Date End Date Ramsey Gray MD [address] [place] [address] PCP - General Internal Medicine 06/25/14 documented as of this encounter
--- OUTSIDE RECORDS SUMMARY | 2025-05-23 12:21 | XMS_ITS | Encounter Summary ---
Author Organization [employer] Address 75 [facility] 7t [place] [address] Care Team Providers Care Radiology Resident Name Role Phone Ramsey Gray MD Primary Care Provide r Encounter Details Date Type Department Care Team (Late Contact Info) Description 01/12/[address] [facility] MEDICINE [address] [place], [place] [phone] Ramsey Gray MD [address] [place], [place] [phone] Social History Tobacco Use Types Packs/Day Years [...] Department Care Team (Late Contact Info) Description 08/15/2025 11:15 AM EST Office Visit [facility] MEDICINE [address] [place] [address] [phone] Ramsey Gray MD 230 [place], [place] [phone] documented as of this encounter Procedures Procedure Name Priority Date/Time Associated Diagnosis Comments COLONOSCOPY Routine 04/30/2015 documented in this encounter Results * Colonoscopy (04/30/2015) Colonoscopy Normal Normal 04/30/2015 Estelle Malone - 04/30/2015 11:58 AM EDT Recommended 10 year follow up us Historical Provider [employer] MAINTENANCE Edited Result - Final documented in this encounter Visit Diagnoses Not on filedocumented in this encounter Care Teams Radiology Resident Relationship Specialty Start Date End Date Ramsey Gray MD [address] [place] [address] PCP - General Internal Medicine 06/25/14 documented as of this encounter
--- OUTSIDE RECORDS SUMMARY | 2025-05-23 12:21 | XMS_ITS | Encounter Summary ---
Author Organization [employer] Address 75 [facility] 7t [place] [address] Care Team Providers Care Cut Out Operator Name Role Phone Ramsey Gray MD Primary Care Provide r Encounter Details Date Type Department Care Team (Late st Contact Info) Description 09/08/2022 Orders Only [facility] CHC MED & PEDS [address] [place] [address] Patricia Adamson LPN Social History Tobacco Use [...] Description 08/15/2025 11:15 AM EST Office Visit [facility] MEDICINE 230 [place] [address] Ramsey Gray MD 230 [place] [address] documented as of this encounter Visit Diagnoses Not on filedocumented in this encounter Care Teams Cut Out Operator Relationship Specialty Start Date End Date Ramsey Gray MD [address] [place] [address] PCP - General Internal Medicine 06/25/14 documented as of this encounter
--- OUTSIDE RECORDS SUMMARY | 2025-05-23 12:21 | XMS_ITS | Encounter Summary ---
Author Organization [employer] Address 75 [facility] 7t [place] [address] Care Team Providers Care Field Artillery Radar Operator Name Role Phone Ramsey Gray MD Primary Care Provide r Encounter Details Date Type Department Care Team (Latest Contact Info) Description 11/13/2020 Abstract [facility] CONVERSIONS Dental, Provider, DDS Social History [...] Description 08/15/2025 11:15 AM EST Office Visit [facility] MEDICINE 230 [place] [address] Ramsey Gray MD 230 [place] [address] documented as of this encounter Visit Diagnoses Not on filedocumented in this encounter Care Teams Field Artillery Radar Operator Relationship Specialty Start Date End Date Ramsey Gray MD 230 [place], [place] [phone] PCP - General Internal Medicine 06/25/14 documented as of this encounter
--- OUTSIDE RECORDS SUMMARY | 2025-05-23 12:21 | XMS_ITS | Encounter Summary ---
Author Organization [employer] Address [address] [facility] [address]t [place] [address] Care Team Providers Care Data Analysis Intern Name Role Phone Ramsey Gray MD Primary Care Provide r Reason for Visit * Reason Comments Med Refill Encounter Details Date Type Department Care Team (Late st Contact Info) Description 02/23/2024 Refill [facility] [address] [place], [place] [phone] Ramsey Gray MD [address] [place], [place] [phone] Social History Tobacco Use Types Packs/Day Years [...] Description 08/15/2025 11:15 AM EST Office Visit [facility] [address] [place] [phone] Ramsey Gray MD [address] [place] [address] documented as of this encounter Visit Diagnoses Not on filedocumented in this encounter Additional Health Concerns Assessment Noted Time PHQ-9 Depression Total Score: 0 01/05/20 24 11:09 AM EDT documented as of this encounter Care Teams Data Analysis Intern Relationship Specialty Start Date End Date Ramsey Gray MD [address] [place] [address] PCP - General Internal Medicine 06/25/14 documented as of this encounter
--- OUTSIDE RECORDS SUMMARY | 2025-05-23 12:21 | XMS_ITS | Clinical Summary ---
Author Organization [employer] Address [address] [place] [address] 7t [place] [address] Care Team Providers Care Pairing Machine Operator Name Role Phone Ramsey Gray MD Primary Care Provide r Allergies Active Allergy Reactions Criticality Noted Date Comments Penicillin G 12/07/2022 Penicillins Unknown 08/20/2014 Medications Anoro Ellipta 62.5-25 MCG/ACT aerosol powder INHALE 1 PUFF EVERY DAY AT THE SAME TIME 09/13/19 23 Active Lantus SoloStar 100 UNIT/ML pen INJECT 28 UNITS SUBCUTANEOUSLY AT BEDTIME 09/14/19 23 Active Continuous Blood Gluc Airport Ramp Attendant (FreeStyle Lola 2 [place]) deviceIndication s:Type 2 diabetes mellitus without complication, with long-term current use of insulin ([facility]) Use daily 1 each 01/28/20 23 Active Continuous Glucose Sensor (FreeStyle Lola 2 Sensor) miscIndications: Type 2 diabetes mellitus without complication, with long-term current use of insulin ([facility]) Use daily 4 each 11 02/27/20 24 Active Lancet Devices (Lancing Device) misc Use to check blood sugar up to 3 times daily 1 each 02/27/20 24 Active insulin pen needle (Easy Touch Pen [place]) 31G X 8 mm misc USE 1 [...] DIRECTED 100 each 03/05/20 Active Continuous Glucose Airport Ramp Attendant (FreeStyle Lola 3 [place]) device 1 each Once per day. Use as directed for CGM 1 each 03/14/20 Active Continuous Glucose Sensor (FreeStyle Lola 3 Plus Sensor) misc 1 each every 15 days. Apply 1 every 15 days as directed for CGM 2 each 03/14/20 Active metFORMIN XR (Glucophage-XR) 500 MG 24 hr tabletIndication s:Type 2 diabetes mellitus without complication, without long-term current use of insulin ([facility]) Take 1 tablet (500 mg) by mouth [...] 8:29 AM EDT): Pt previously seen at [facility] with c/o right flank pain, CT of his abdomen showed a 2 mm partially obstructing calculus. Seen by [facility] December 24 2015 Increase fluid [...] Encounters Date Type Department Care Team Description 05/20/2025 Telephone [facility] [address] [place] [address] Ramsey Grya MD August05/09/2025 9:15 AM EDT Office Visit [facility] [address] [place] [address] Ramsey Gray MD Type 2 diabetes mellitus with stage 3a chronic kidney disease, with long-term current use of insulin (CMS/HCC) (Primary Dx); Primary hypertension; Mixed hyperlipidemia; Stage 3a chronic kidney disease (CMS/HCC); Other emphysema (CMS/HCC); Preventative health care; Colon cancer screening; Renal lesion 05/09/2025 Orders Only GENERIC EXTERNAL DATA DEPARTMENT Provider, Generic External Data 05/09/2025 Travel 05/08/2025 Orders Only [facility] External Provider, [facility] 05/02/2025 Patient Outreach [facility] [address] [place] [address] Ramsey Gray MD Pre-visit Planning (SDOH was already completed) 04/29/2025 Orders Only GENERIC EXTERNAL DATA DEPARTMENT Provider, Generic External Data 04/26/2025 Orders Only GENERIC EXTERNAL DATA DEPARTMENT Provider, Generic External Data 03/19/2025 Orders Only GENERIC EXTERNAL DATA DEPARTMENT Provider, Generic External Data 03/18/2025 Orders Only GENERIC EXTERNAL DATA DEPARTMENT Provider, Generic External Data 03/12/2025 Telephone [facility] [address] [place] [address] Ramsey Gray MD Prior Authorization 03/05/2025 Refill [facility] [address] [place] [address] Ramsey Gray MD 02/27/2025 Refill [facility] [address] [place] [address] Ramsey Gray MD 02/26/2025 Refill [facility] [address] [place], [place] [phone] Ramsey Gray MD Primary hypertension from Last 3 Months Immunizations Immunization Administration [...] 05/09/2025 9:29 AM EDT Plan of Treatment Upcoming Encounters Date Type Department Care Team (Late st Contact Info) Description 08/15/2025 11:15 AM EST Office Visit [facility] [address] [place] [address] Ramsey Gray MD [address] [place], [place] [phone] Health Maintenance Due Date Last Done Comments [...] history exists Diabetes: Hemoglobin A1C 08/08/2025 025, 05/09/2025, 03/19/2025, Additional history exists Alcohol/Substance Use Screening 10/18/2025 [...] Procedure Name Priority Date/Time Associated Diagnosis Comments HEMOGLOBIN A1C Routine 05/09/2025 9:55 AM EDT PSA, SCREEN Routine 05/09/2025 9:55 AM EDT Preventative health care POCT GLYCATED HEMOGLOBIN, TOTAL Routine 05/09/2025 9:36 AM EDT Type 2 diabetes mellitus with stage 3a chronic kidney disease, with long-term current use of insulin ([facility]) POCT GLUCOSE Routine 05/09/2025 9:33 AM EDT Type 2 diabetes mellitus with stage 3a chronic kidney disease, with long-term current use of insulin (CMS/HCC) US RENAL COMPLETE Routine 05/08/2025 9:0 0 [...] Recently Relevant to Health Maintenance Results * PSA, Screen (05/09/2025 9:55 AM EDT) PSA, Total 0.18 <0.05 - 4.0 ng/mL [facility] Comment:PSA methodology: Abb jayde Alinity i ChemiluminescentMicroparticle Immunoassay (CMIA) Blood Venous blood specimen / Unknown 05/09/2025 9:55 AM EDT 05/09/2025 11:10 AM EDT us Ramsey Cline MD LAB BLOOD ORDERABLES Final Result Performing Organization Address City/[facility] Co de Phone Number [facility] [address] [place] [phone] * (ABNORMAL) Hemoglobin A1c (05/09/2025 9:55 AM EDT) Only the most recent of2 resultswithin the time period is included. Hemoglobin A1c 7.3(H) <6.0 % [facility] Comment:Hemoglobin A1C Refer ence Range Adults: 4.8 - 6.0 % Non diabetic: < 6.0 % Goal: < 7.0 %Additional Action Suggested: > 8.0 %Note: Hemoglobin A1c results are invalid for patients with abnormal amounts of HbF. Blood transfusions may impact the HbA1c concentration in the patient sample. Estimated Average Glucose 163 mg/dL [facility] Comment:eAG = Estimated ave rage glucose which is %A1C expressed asaverage glucose, using the formula of the K8A-BzkeavzPazdlmg Glucose study (ADAG), Diabetes Care, Vol.31,#8,Aug. 2007 05/09/2025 9:55 AM EDT 05/09/2025 11:10 AM EDT us Generic External Data Provider LAB BLOOD ORDERAB LES Final Result [facility] [address] [place] [phone] * (ABNORMAL) POCT Hgb A1c (05/09/2025 9:36 AM EDT) Hemoglobin A1C 7.7(A) 4.0 - 5.7 % QC Media Lot # [id number] Lot# Expiration Date [id number] Blood 05/09/2025 9:36 AM EDT Ramsey Cline MD POINT OF CARE TEST EN TER/EDIT ORDERABLES Final Result * (ABNORMAL) POCT Glucose (05/09/2025 9:33 AM EDT) Glucose Blood, POC 247(A) 60 - 200 mg/dL QC Media Lot # [id number] Lot# Expiration Date [id number] Blood Capillary blood specimen / Unknown 05/09/2025 9:33 AM EDT Ramsey Cline MD POINT OF CARE TEST EN TER/EDIT ORDERABLES Final Result * US Renal Complete (05/08/2025 9:00 AM EDT) Anatomical Region Laterality Modality Kidney Ultrasound 05/08/2025 9:00 AM EDT Narrative 05/08/2025 9:27 AM EDT [address] [address] Ultrasound Report Signed Patient: Armand Warren MR#: [id number] : 1965 Acct:[id number] Age/Sex: 60 / M ADM Date: 05/08/25 Loc: HO. Attending Dr: Bandar Ribeiro MD Ordering Physician: Bandar Ribeiro MD Date of Service: 05/08/25 Procedure(s): US renal BI Accession Number(s): [id number] cc: Bandar Ribeiro MD; Ramsey Turner MD [...] 05/08/25 09 DD/ 09 TD/TT: 05/08/25 0907 Consulting Utility Forester: Procedure Note Donotuseinterpreter, Image - 05/08/[address] [address] Ultrasound Report Signed Patient: Sebas Warren#: [id number] : 1965Acct:[id number] Age/Sex: 60 / MADM Date: 05/08/25 Loc: HO.US Attending Dr: Bandar Ribeiro MD Ordering Physician: Bandar Ribeiro MD Date of Service: 05/08/25 Procedure(s): US renal BI Accession Number(s): [id number] cc: Bandar Ribeiro MD; Ramsey Turner MD [...] MDin OV> 05/08/25922 DD/ 9 TD/TT: 05/08/25906 Consulting Utility Forester: [facility] External Provider IMG US PROCEDURES Final Result * (ABNORMAL) Glucose, Whole Blood (04/29/2025 7:50 AM EDT) Only the most recent of2 resultswithin the time period is included. Glucose, Whole Blood 249(H) 60 - 115 mg/dL [facility] Comment:METER #: [id number] Testing performed in the Endocrinology Department [address] , [address], [facility]. 04/29/2025 7:50 AM EDT 04/29/2025 7:54 AM EDT us Generic External Data Provider LAB BLOOD ORDERAB LES Final Result Performing Organization Address [facility] Co de Phone Number [facility] [address] [place] [phone] * Urine Protein, Total, Random without Creatinine (04/26/2025 6:42 AM EDT) Protein, Total, Random Urine <7 <12 mg/dL [facility] 04/26/2025 6:42 AM EDT 04/26/2025 7:06 AM EDT Generic External Data Provider LAB URINE ORDERAB LES Final Result Performing Organization Address [facility] Co de Phone Number [facility] [address] [place] [phone] * Creatinine, Random Urine (04/26/2025 6:42 AM EDT) Creatinine, Urine 94.36 mg/dL [facility] 04/26/2025 6:42 AM EDT 04/26/2025 7:06 AM EDT Generic External Data Provider LAB URINE ORDERAB LES Final Result Performing Organization Address [facility] Co de Phone Number [facility] [address] [place] [phone] * (ABNORMAL) Urinalysis Complete (04/26/2025 6:42 AM EDT) Color Urine Yellow [facility] Appearance Urine Clear [facility] PH 5.0 5.0 - 9.0 [facility] Glucose Urine UA >=1000(A) Negative mg/dL [facility] Urine Blood Negative Negative [facility] Specific [place] - Urine >=1.030(H) 1.005 - 1.025 [facility] Urine Protein Negative Neg-Trace mg/dL [facility] Urine Ketones Negative Negative mg/dL [facility] Nitrite Urine Negative Negative [facility] Leukocyte Esterase Urine Negative Negative [facility] RBC Urine 0-2 0 - 2 /HPF [facility] Urine WBC 0-5 0 - 5 /HPF [facility] Urine Squamous Epithelial Cell 0-2 0 - 2 /HPF [facility] Urine Bacteria None Seen None Seen [facility] Hyaline Casts, Urine 0-2 0 - 2 /LPF [facility] 04/26/2025 6:42 AM EDT 04/26/2025 7:06 AM EDT us Generic External Data Provider LAB URINE ORDERAB LES Final Result [facility] [address] [place] [phone] * (ABNORMAL) Basic Metabolic Panel (04/26/2025 6:40 AM EDT) Only the most recent of2 resultswithin the time period is included. Pathologist [facility] Sodium 141 135 - 145 mmol/L [facility] Potassium 4.5 3.3 - 5.1 mmol/L [facility] Chloride 108 96 - 108 mmol/L [facility] Carbon Dioxide 24 22 - 29 mmol/L [facility] Anion Gap 14 12 - 20 [facility] Urea Nitrogen (BUN) 25(H) 9 - 16 mg/dL [facility] Creatinine, Serum 1.38 0.5 - 1.4 mg/dL [facility] Estimated Glomerular Filt Rate 53 [facility] Comment:Chronic Kidney Disea se: Estimated GFR < 60 mL/min/1.57p6Vafnak Kidney Disease: Estimated GFR < 15 mL/min/1.73m2 Glucose 139(H) 60 - 115 mg/dL [facility] Calcium 9.6 8.4 - 10.2 mg/dL [facility] 04/26/2025 6:40 AM EDT 04/26/2025 6:40 AM EDT Generic External Data Provider LAB BLOOD ORDERAB LES Final Result Performing Organization Address [facility] Co de Phone Number [facility] [address] [place] [phone] * B Type Natriuretic Peptide (BNP) (03/19/2025 6:49 AM EDT) Pathologist [facility] B Type Natriuretic Peptide 11 <100 pg/mL [facility] 03/19/2025 6:49 AM EDT 03/19/2025 6:49 AM EDT P[employer] External Data Provider LAB BLOOD ORDERAB LES Final Result Performing Organization Address [facility] de Phone Number [facility] [address] [place] [phone] * (ABNORMAL) Hepatic Function Panel (03/19/2025 6:49 AM EDT) Bilirubin, Total 0.9 0.0 - 1.0 mg/dL [facility] Bilirubin, Direct 0.3 0.0 - 0.5 mg/dL [facility] Aspartate Amino Transferase 32 5 - 37 U/L [facility] Alanine Aminotransferase 44(H) 0 - 40 U/L [facility] Total Protein 7.5 6.5 - 8.0 g/dL [facility] Albumin Level 4.2 3.5 - 5.0 g/dL [facility] Alkaline Phosphatase 119(H) 39 - 117 U/L [facility] 03/19/2025 6:49 AM EDT 03/19/2025 6:49 AM EDT us Generic External Data Provider LAB BLOOD ORDERAB LES Final Result Performing Organization Address [facility]/ZIP Co de Phone Number [facility] [address] [place] [phone] * (ABNORMAL) Lipid Panel, Standard (10/19/2024 8:15 AM EST) Triglycerides 56 <150 mg/dL [facility] Comment:Desirable Triglyceri de: less than 150 mg/dLBorderline High Triglyceride 150-199 mg/dLHigh Triglyceride: 200-499 mg/dLVery High Triglyceride: greater than or equal to 5OO mg/dL Cholesterol 114 <200 mg/dL [facility] Comment:Desirable Cholestero l: less than 200 mg/dLBorderline High Cholesterol: 200-239 mg/dLHigh Cholesterol: greater than 239 mg/dL LDL Cholesterol Calculated 65 <100 mg/dL [facility] Comment:Desirable LDL: less than 100 mg/dLNear Optimal/Above Optimal LDL: 110- 129 mg/dLBorderline High LDL: 130-159 mg/dLHigh LDL: 160-189 mg/dLVery High LDL: greater than or equal to 190 mg/dL HDL Cholesterol 38(L) >40 mg/dL [facility] Comment:Desirable HDL: great er than 40 mg/dL Note: This HDL assay may give artificially low results in patients with liver disease. Blood Venous blood specimen / Unknown 10/19/2024 8:15 AM EST 10/19/2024 11:02 AM EST us Ramsey Cline MD LAB BLOOD ORDERABLES Final Result Performing Organization Address City/[facility]/ZIP Co de Phone Number [facility] [address] [place] [phone] * Hepatitis C Antibody with Reflex to HCV, RNA, Quantitative, Real-Time PCR (02/01/2023 8:12 AM EDT) Pathologist [facility] Hepatitis C Antibody NON-REACT KELLI NON-REACT KELLI [employer] [place] [employer] Index 0.25 <1.00 [employer] [place] Comment: HCV antibody was non-reactive. There is no laboratory evidence of HCV infection. In most cases, no further action is required. However, if recent HCV exposure is suspected, a test for HCV RNA (test code 53160) is suggested. For additional information please refer to http://RacerTimes.Zimbra/faq/PHQ26f7 (This link is being provided for informational/ educational purposes only.) Blood Venous blood specimen / Unknown 02/01/2023 8:12 AM EDT 02/01/2023 8:13 AM EDT Narrative [facility] - 02/01/2023 11:34 PM EDT FASTING:YES FASTING: YES us Ramsey Cline MD LAB BLOOD ORDERABLES Final Result [facility] [address], [place] [phone] [employer] [place] [employer] [address] [place] [phone] * HIV-1/2 Antigen and Antibodies, Fourth Generation, with Reflexes (02/01/2023 8:12 AM EDT) [facility] HIV Antigen/Antibody, 4th Generation NON-REAC TIVE NON-REAC TIVE [employer] [place] [employer] Comment: HIV-1 antigen and HIV-1/HIV-2 antibodies were [...] purpose. For additional information please refer to http://RacerTimes.Zimbra/faq/ZQA422 (This link is being provided for informational/ educational purposes only.) The performance of this assay has not been clinically validated in patients less than 2 years old. Blood Venous blood specimen / Unknown 02/01/2023 8:12 AM EDT 02/01/2023 8:13 AM EDT Yordy MARY - 02/01/2023 11:34 PM EDT FASTING:YES FASTING: YES Ramsey Cline MD LAB BLOOD ORDERABLES Final Result [facility] [address], [place] [address] [employer] [facility] [address] [place] [phone] * Colonoscopy (04/30/2015) Colonoscopy Normal Normal 04/30/2015 Estelle Malone - 04/30/2015 11:58 AM EDT Recommended 10 year follow up Historical Provider HEALTH MAINTENANCE Edited Result - Final from Last 3 Months or Most Recently Relevant to Health Maintenance Insurance [facility] C3 Care Teams Pairing Machine Operator Relationship Specialty Start Date End Date Ramsey Gray MD [address] [place] [phone] PCP - General Internal Medicine 06/25/14
--- OUTSIDE RECORDS SUMMARY | 2025-05-23 12:21 | XMS_ITS | Encounter Summary ---
Author Organization [employer] Address [address] [facility] [address]t [place] [address] Care Team Providers Care Principal Database Developer Name Role Phone Ramsey Gray MD Primary Care Provide r Reason for Visit * Reason Onset Date Comments August recall 05/20/2025 Encounter Details Date Type Department Care Team ([facility] st Contact Info) Description 05/20/2025 Telephone [facility] [address] [place] [address] Ramsey Gray MD [address] [place] [address] August recall Social History Tobacco Use Types Packs/Day Years [...] encounter Miscellaneous Notes * Telephone Encounter - Solange Cottrell MA - 05/20/2025 3:25 PM EDT Telephone call to patient to schedule the following recall: Visit type: Office visit Appointment notes: DM Patient agree to appointment on 08/15/25 at 11:15 PM with Ilir. documented in this encounter Plan of Treatment Upcoming Encounters Date Type Department Care Team (Late st Contact Info) Description 08/15/2025 11:15 AM EST Office Visit [facility] [address] [place] [address] Ramsey Gray MD [address] [place] [address] documented as of this encounter Visit Diagnoses Not on filedocumented in this encounter Additional Health Concerns Assessment Noted Time PHQ-9 Depression Total Score: 1 10/18/19 9:22 AM EST documented as of this encounter Care Teams Principal Database Developer Relationship Specialty Start Date End Date Ramsey Gray MD [address] [place] [phone] PCP - General Internal Medicine 06/25/14 documented as of this encounter
== END 2025-05-23 10:48 | disposition home or self-care (01) ==
LOC: HO.HKA 10:23
PROVIDERS: PCP Internal Medicine; Visit Provider Internal Medicine Hypertension Specialist
DX: E11.21 Type 2 diabetes mellitus with diabetic nephropathy (principal); N18.31 Chronic kidney disease, stage 3a
CPT/HCPCS: 99214

== ENCOUNTER → 2025-05-23 10:23 | Outpatient (BNVA) | payer MEDICAID, SELFPAY | PROVIDERS: PCP Internal Medicine; Visit Provider Internal Medicine Hypertension Specialist | DX: N18.31 Chronic kidney disease, stage 3a (principal); E11.65 Type 2 diabetes mellitus with hyperglycemia; E11.21 Type 2 diabetes mellitus with diabetic nephropathy; I10 Essential (primary) hypertension; Z79.4 Long term (current) use of insulin | CPT/HCPCS: 99212 ==

== ENCOUNTER 2025-07-23 06:25 | Outpatient (REF) | payer MEDICAID, SELFPAY ==
[2025-07-23 07:51] LABS: Anion Gap 13 (12-20); Blood Urea Nitrogen 22 mg/dL (9-16); Calcium 9.6 mg/dL (8.4-10.2); Carbon Dioxide 26 mmol/L (22-29); Chloride 107 mmol/L (96-108); Estimated Glomerular Filt Rate 50; Potassium 4.7 mmol/L (3.3-5.1); Sodium 141 mmol/L (135-145)
== END 2025-07-23 06:26 | disposition home or self-care (01) ==
LOC: HO.LAB 06:25
PROVIDERS: PCP Internal Medicine; Visit Provider Internal Medicine Hypertension Specialist
DX: N18.31 Chronic kidney disease, stage 3a (principal)
CPT/HCPCS: 36415; 80048

== ENCOUNTER 2025-07-25 09:47 | Outpatient (AMB) | payer MEDICAID, SELFPAY ==
--- NOTE | 2025-07-25 09:51 | HO.NEPHOV_ITS ---
Vital Signs 07/25/25 09:53 Height 5 ft 5 in Weight 162 lb 6 oz BMI 27.0 BP 120/70 Blood Pressure Location Rt brachial Position Sitting Pulse 76 Pulse Source Pulse Oximeter Pulse Oximetry (%) 97 Oxygen Delivery Method Room Air Intake Visit Reasons: 2mon f/u w/labs Feller Machine Operator Required: Yes Feller Machine Operator Language: Beauty Culturist Apprentice Services: Feller Machine Operator Present Feller Machine Operator Name: Rodo [id number] Information Interpreted: clinical only Accompanied by: Self / Same As Patient Allergies Penicillins (PENICILLINS) Allergy (Intermediate, Verified 07/25/25 09:53) RASH penicillin V Allergy (Unknown, Verified 07/25/25 09:53) Rash morphine Adverse Reaction (Unknown, Verified 07/25/25 09:53) Unknown Medication List - Last Reconciled 07/25/25 by Bandar Ribeiro MD albuterol sulfate 90 mcg/actuation 2 puffs inhalation Q4-6H PRN aspirin (Adult Low Dose Aspirin) 81 mg PO DAILY atorvastatin 10 mg PO DAILY blood sugar diagnostic (FreeStyle Lite Strips) As directed three times daily empagliflozin (Jardiance) 10 mg PO DAILY lancets (TRUEplus Lancets) As directed sertraline 50 mg PO QAM tirzepatide (Mounjaro) 12.5 mg (0.5 mL) subcut QWEEK umeclidinium-vilanterol 62.5-25 mcg/actuation (Anoro Ellipta) 1 ea PO DAILY HPI Comments Details: The patient is a 60-year-old male presenting with decreased kidney function. The kidney function was noted to be at 48%, which is below the expected range of 70-80% for his age. The patient has a long-standing history of diabetes mellitus, which is a contributing factor to the renal impairment. The patient denies any history of hypertension, which is often associated with renal issues. He reports adherence to his medication regimen, which includes albuterol inhaler, aspirin, Jardiance, lisinopril, and sertraline. The patient maintains adequate hydration and denies any recent surgeries or urinary difficulties. He has no family history of kidney problems and does not smoke or consume alcohol currently. The patient's blood pressure was recorded at 98/62 mmHg, which is lower than normal, but he denies any symptoms of dizziness or lightheadedness. His diabetes management shows an A1c of 7.7, with a goal to reduce it below 7. ;05/23/25 ;BP remains low 07/25/25 The patient is a 60 year old individual presenting for a follow-up visit for chronic kidney disease. The patient has a history of chronic kidney disease secondary to diabetes mellitus and is currently taking Jardiance. Lisinopril was discontinued after the last visit due to low blood pressure, which has since improved. The patient reports no trouble urinating but notes that the urine is sometimes white and contains bubbles, which may suggest proteinuria. The patient has a known complex renal cyst that was identified on a previous ultrasound. Regarding diabetes management, the patient expresses difficulty using a new glucose monitoring device, which shows high readings of 200-300 mg/dL, in contrast to lower readings from a previous finger-prick device. [facility] Medical History (Updated 07/25/25 @ 10:05 by Bandar Ribeiro MD) Obesity due to excess calories Carpal tunnel syndrome Kidney stones Depression Type 2 diabetes mellitus with hyperglycemia, with long-term current use of insulin Essential hypertension Hyperlipidemia LDL goal <100 Surgical History Hx of colonoscopy Family History Mother Diabetes Arthritis Stroke Father Unknown family medical history Social History Household Members: None Alcohol intake: never Patient Tobacco Use Status: Former Tobacco user Physical Exam Vital Signs: Last Vital Signs Pulse 76 07/25/25 09:53 BP 120/70 07/25/25 09:53 Pulse Ox 97 07/25/25 09:53 Oxygen Delivery Method Room Air 07/25/25 09:53 BMI result Body Mass Index 27.0 Comfortable Neck supple no JVD. Lungs entry equal no rales. Heart S1-S2 heard no gallop or rub. Abdomen soft nontender. Neuro alert awake oriented. No asterixis. Extremities no edema. Results Reviewed Nephrology Results: Sodium, (135-145) 141 mmol/L 07/23/25 Potassium, (3.3-5.1) 4.7 mmol/L 07/23/25 Chloride, (96-108) 107 mmol/L 07/23/25 Carbon Dioxide, (22-29) 26 mmol/L 07/23/25 BUN, (9-16) 22 mg/dL H 07/23/25 Creatinine, (0.5-1.4) 1.43 mg/dL H 07/23/25 Calcium, (8.4-10.2) 9.6 mg/dL 07/23/25 Urine Protein, (Neg-Trace) Negative mg/dL 04/26/25 Urine Creatinine 94.36 mg/dL 04/26/25 Renal US 05/08/25 Assessment & Plan Assessment & Plan (1) Type 2 diabetes with nephropathy: Code(s): E11.21 - Type 2 diabetes mellitus with diabetic nephropathy Category: Medical (2) CKD stage 3a, GFR 45-59 ml/min: Code(s): N18.31 - Chronic kidney disease, stage 3a Category: Medical Plan 60-year-old man with stage III A CKD in the setting of longstanding diabetes mellitus. He probably has underlying diabetic kidney disease. Obstructive uropathy ruled out. Recent urine studies were unremarkable therefore glomerular nephritis or interstitial disease seem unlikely. BERTA due to hypoperfusion Renal fx improved after stopping Lisinopril He has no significant proteinuria. Blood pressure is better controlled after stopping Lisinopril Discussed the importance of tight control of blood sugar and blood pressure to slow the portion of renal disease. Recent A1c was 7.7%. Encouraged him to increase p.o. fluid intake. Avoid hypotension. If the systolic blood pressure drops less than 90 mm Hg I would discontinue the lisinopril. Continue to avoid nephrotoxic agents including NSAIDs. All his questions were answered. USG- complex renal cyst report referred to Urology . Orders: Orders Basic Metabolic Panel 3 Months N18.31 - Chronic kidney disease, stage 3a Referrals Urology Referral N28.1 - Cyst of kidney, acquired Coding Level of Care Code Est Pt Level 4 (94976) Diagnoses Type 2 diabetes with nephropathy E11.21 CKD stage 3a, GFR 45-59 ml/min N18.31
[2025-07-25 09:53] VITALS: BP 120/70; PULSE 76; O2SAT 97; BMI 27.0
== END 2025-07-25 10:11 | disposition home or self-care (01) ==
LOC: HO.HKA 09:48
PROVIDERS: PCP Internal Medicine; Visit Provider Internal Medicine Hypertension Specialist
DX: E11.21 Type 2 diabetes mellitus with diabetic nephropathy (principal); N18.31 Chronic kidney disease, stage 3a
CPT/HCPCS: 99214

== ENCOUNTER → 2025-07-25 09:47 | Outpatient (BNVA) | payer MEDICAID, SELFPAY | PROVIDERS: PCP Internal Medicine; Visit Provider Internal Medicine Hypertension Specialist | DX: E11.21 Type 2 diabetes mellitus with diabetic nephropathy (principal); N18.31 Chronic kidney disease, stage 3a | CPT/HCPCS: 99212 ==

== ENCOUNTER 2025-07-29 07:35 | Outpatient (AMB) | payer MEDICAID, SELFPAY ==
--- OUTSIDE RECORDS SUMMARY | 2025-07-29 07:38 | XMS_ITS | Encounter Summary ---
Author Organization [employer] Address [address] [facility] 7t [place] [address] Care Team Providers Care Schedule Planning Manager Name Role Phone Ramsey Gray MD Primary Care Provide r Reason for Visit * Reason Comments Med Refill Encounter Details Date Type Department Care Team (Late st Contact Info) Description 02/23/2024 Refill [facility] MEDICINE [address] [place], [place] [phone] Ramsey Gray MD [address] [place], [place] [phone] Social History Tobacco Use Types Packs/Day Years [...] Description 08/15/2025 11:15 AM EST Office Visit [facility] MEDICINE [address] [place] [address] Ramsey Gray MD [address] [place] [address] documented as of this encounter Visit Diagnoses Not on filedocumented in this encounter Additional Health Concerns Assessment Noted Time PHQ-9 Depression Total Score: 0 01/05/20 24 11:09 AM EDT documented as of this encounter Care Teams Schedule Planning Manager Relationship Specialty Start Date End Date Ramsey Gray MD [address] [place] [address] PCP - General Internal Medicine 06/25/14 documented as of this encounter
--- OUTSIDE RECORDS SUMMARY | 2025-07-29 07:38 | XMS_ITS | Encounter Summary ---
Author Organization [employer] Address [address] [facility] 7t [place] [address] Care Team Providers Care Tar Worker Name Role Phone Ramsey Gray MD Primary Care Provide r Encounter Details Date Type Department Care Team (Late Contact Info) Description 11/24/2022 Orders Only [facility] MED & PEDS [address] [place], [place] [phone] Patricia Adamson LPN Social History Tobacco Use [...] Description 08/15/2025 11:15 AM EST Office Visit [facility] MEDICINE [address] [place], [place] [phone] Ramsey Gray MD [address] [place], [place] [phone] documented as of this encounter Visit Diagnoses Not on filedocumented in this encounter Care Teams Tar Worker Relationship Specialty Start Date End Date Ramsey Gray MD [address] [place] [phone] PCP - General Internal Medicine 06/25/14 documented as of this encounter
--- OUTSIDE RECORDS SUMMARY | 2025-07-29 07:38 | XMS_ITS | Encounter Summary ---
Author Organization [employer] Address [address] [facility] [address] [place] [address] Care Team Providers Care Loft Worker Pile Driving Name Role Phone Ramsey Gray MD Primary Care Provide r Reason for Visit * Reason Comments Med Refill Encounter Details Date Type Department Care Team (Late st Contact Info) Description 01/20/2024 Refill [facility] MEDICINE [address] [place], [place] [phone] Luciana Elder MD [address] [place] [address] Social History Tobacco Use Types Packs/Day Years [...] Description 08/15/2025 11:15 AM EST Office Visit [facility] MEDICINE [address] [place] [phone] Ramsey Gray MD [address] [place] [phone] documented as of this encounter Visit Diagnoses Not on filedocumented in this encounter Additional Health Concerns Assessment Noted Time PHQ-9 Depression Total Score: 0 01/05/20 24 11:09 AM EDT documented as of this encounter Care Teams Loft Worker Pile Driving Relationship Specialty Start Date End Date Ramsey Gray MD [address] [place] [phone] PCP - General Internal Medicine 06/25/14 documented as of this encounter
--- OUTSIDE RECORDS SUMMARY | 2025-07-29 07:38 | XMS_ITS | Encounter Summary ---
Author Organization [employer] Address [address] [facility] 7t [place] [address] Care Team Providers Care Water Inspector Name Role Phone Ramsey Gray MD Primary Care Provide r Encounter Details Date Type Department Care Team (Late st Contact Info) Description 09/08/2022 Orders Only [facility] MED & PEDS [address] [place] [address] Patricia Adamson LPN Social History Tobacco Use [...] Description 08/15/2025 11:15 AM EST Office Visit [facility] MEDICINE [address] [place] [address] Ramsey Gray MD [address] [place] [address] documented as of this encounter Visit Diagnoses Not on filedocumented in this encounter Care Teams Water Inspector Relationship Specialty Start Date End Date Ramsey Gray MD [address] [place] [address] PCP - General Internal Medicine 06/25/14 documented as of this encounter
--- OUTSIDE RECORDS SUMMARY | 2025-07-29 07:38 | XMS_ITS | Encounter Summary ---
Author Organization [employer] Address [address] [facility] 7t [place] [address] Care Team Providers Care Low Altitude Air Defense Officer Name Role Phone Ramsey Gray MD Primary Care Provide r Encounter Details Date Type Department Care Team (Late Contact Info) Description 01/12/[address] [facility] MEDICINE [address] [place], [place] [phone] Ramsey Gray MD [address] [place], [place] [phone] Social History Tobacco Use Types Packs/Day Years [...] 08/15/2025 11:15 AM EST Office Visit [facility] MEDICINE [address] [place] [phone] Ramsey Gray MD [address] [place], [place] [phone] documented as of this encounter Procedures Procedure Name Priority Date/Time Associated Diagnosis Comments COLONOSCOPY Routine 04/30/2015 documented in this encounter Results * Colonoscopy (04/30/2015) Colonoscopy Normal Normal 04/30/2015 Estelle Malone - 04/30/2015 11:58 AM EDT Recommended 10 year follow up us Historical Provider [employer] MAINTENANCE Edited Result - Final documented in this encounter Visit Diagnoses Not on filedocumented in this encounter Care Teams Low Altitude Air Defense Officer Relationship Specialty Start Date End Date Ramsey Gray MD [address] [place] [phone] PCP - General Internal Medicine 06/25/14 documented as of this encounter
--- OUTSIDE RECORDS SUMMARY | 2025-07-29 07:38 | XMS_ITS | Encounter Summary ---
Author Organization [employer] Address [address] [facility] 7t [place] [address] Care Team Providers Care Java User Interface Developer Name Role Phone Ramsey Gray MD Primary Care Provide r Reason for Visit * Reason Comments Med Refill Encounter Details Date Type Department Care Team (Late st Contact Info) Description 02/23/2024 Refill [facility] MEDICINE [address] [place], [place] [phone] Ramsey Gray MD [address] [place], [place] [phone] Social History Tobacco Use Types Packs/Day Years [...] Description 08/15/2025 11:15 AM EST Office Visit [facility] MEDICINE [address] [place] [address] Ramsey Gray MD [address] [place] [address] documented as of this encounter Visit Diagnoses Not on filedocumented in this encounter Additional Health Concerns Assessment Noted Time PHQ-9 Depression Total Score: 0 01/05/20 24 11:09 AM EDT documented as of this encounter Care Teams Java User Interface Developer Relationship Specialty Start Date End Date Ramsey Gray MD [address] [place] [address] PCP - General Internal Medicine 06/25/14 documented as of this encounter
--- OUTSIDE RECORDS SUMMARY | 2025-07-29 07:38 | XMS_ITS | Encounter Summary ---
Author Organization [employer] Address [address] [facility] 7t [place] [address] Care Team Providers Care Ophthalmology Technician Name Role Phone Ramsey Gray MD Primary Care Provide r Reason for Visit * Reason Comments Med Refill Encounter Details Date Type Department Care Team (Late st Contact Info) Description 01/19/2024 Refill [facility] MEDICINE [address] [place], [place] [phone] Luciana Elder MD [address] [place] [address] Social History Tobacco Use Types Packs/Day Years [...] Description 08/15/2025 11:15 AM EST Office Visit [facility] MEDICINE [address] [place] [phone] Ramsey Gray MD [address] [place] [phone] documented as of this encounter Visit Diagnoses Not on filedocumented in this encounter Additional Health Concerns Assessment Noted Time PHQ-9 Depression Total Score: 0 01/05/20 24 11:09 AM EDT documented as of this encounter Care Teams Ophthalmology Technician Relationship Specialty Start Date End Date Ramsey Gray MD [address] [place] [address] PCP - General Internal Medicine 06/25/14 documented as of this encounter
--- OUTSIDE RECORDS SUMMARY | 2025-07-29 07:38 | XMS_ITS | Clinical Summary ---
Author Organization [employer] Address [address] [place] [address] 7[address] [place] [address] Care Team Providers Care Siebel Developer Name Role Phone Ramsey Gray MD Primary Care Provide r Allergies Active Allergy Reactions Criticality Noted Date Comments Penicillin G 12/07/2022 Penicillins Unknown 08/20/2014 Medications Anoro Ellipta 62.5-25 MCG/ACT aerosol powder INHALE 1 PUFF EVERY DAY AT THE SAME TIME 023 Active Lantus SoloStar 100 UNIT/ML pen INJECT 28 UNITS SUBCUTANEOUSLY AT BEDTIME 023 Active Continuous Blood Gluc Chemist Steroids (FreeStyle Lola 2 [place]) deviceIndicatio ns:Type 2 diabetes mellitus without complication, with long-term current use of insulin (HCC) Use daily 1 each 023 Active Continuous Glucose Sensor (FreeStyle Lola 2 Sensor) miscIndications :Type 2 diabetes mellitus without complication, with long-term current use of insulin (HCC) Use daily 4 each 11 024 Active Lancet Devices (Lancing Device) misc Use to check blood sugar up to 3 times daily 1 each 024 Active insulin pen needle (Easy Touch Pen Quemado) 31G X 8 mm misc USE 1 DAILY 100 each 3 024 Active Aspirin Low Dose 81 MG EC tablet TAKE 1 TABLET BY MOUTH EVERY MORNING 90 tablet 3 025 Active lisinopril 5 MG tabletIndicatio ns:Primary hypertension TAKE 1 TABLET BY MOUTH EVERY MORNING 90 tablet 1 025 Active glucose blood (FreeStyle Precision Jean Paul Test) test strip TEST BLOOD SUGAR EVERY 8 HOURS DIRECTED 100 strip 11 025 Active TRUEplus Lancets 33G [facility] TEST BLOOD SUGAR THREE TIMES DAILY DIRECTED 100 each Active Continuous Glucose Chemist Steroids (FreeStyle Lola 3 [place]) device 1 each Once per day. Use as directed for CGM 1 each Active Continuous Glucose Sensor (FreeStyle Lola 3 Plus Sensor) misc 1 each every 15 days. Apply 1 every 15 days as directed for CGM 2 each Active meloxicam (Mobic) 15 MG tabletIndicatio ns:Right foot pain TAKE 1 TABLET BY MOUTH ONCE DAILY 30 tablet Active sertraline (Zoloft) 50 MG tablet TAKE 1 TABLET BY MOUTH EVERY MORNING 30 tablet Active atorvastatin (Lipitor) 10 MG tablet TAKE 1 TABLET BY MOUTH EVERY MORNING 90 tablet 1 Active atorvastatin (Lipitor) 10 MG tablet TAKE 1 TABLET BY MOUTH EVERY MORNING 90 tablet 1 025 2024 Discontinued Active Problems Problem Noted Date Diagnosed Date Stage 3a chronic kidney disease (CMS/HCC) 2024 Assessment & Plan (05/09/2025 8:49 AM EDT): [...] 8:29 AM EDT): Pt previously seen at [facility] with c/o right flank pain, CT of his abdomen showed a 2 mm partially obstructing calculus. Seen by [facility] December 24 2015 Increase fluid [...] Encounters Date Type Department Care Team Description 07/23/2025 Orders Only GENERIC EXTERNAL DATA DEPARTMENT Provider, Generic External Data 07/23/2025 Refill [facility] [address] [facility] [place] [address] Ramsey Gray MD 05/31/2025 Refill [facility] [address] [facility] [facility] [place] [address] Ramsey Gray MD Right foot pain 05/20/2025 Telephone [facility] [address] [facility] [place] [address] Ramsey Gray MD August05/09/2025 9:15 AM EDT Office Visit [facility] [address] [place] [address] Ramsey Gray MD Type 2 diabetes mellitus with stage 3a chronic kidney disease, with long-term current use of insulin ([facility]) (Primary Dx); Primary hypertension; Mixed hyperlipidemia; Stage 3a chronic kidney disease (CMS/HCC); Other emphysema (CMS/HCC); Preventative health care; Colon cancer screening; Renal lesion 05/09/2025 Orders Only GENERIC EXTERNAL DATA DEPARTMENT Provider, Generic External Data 05/09/2025 Travel 05/08/2025 Orders Only [facility] External Provider, [facility] 05/02/2025 Patient Outreach [facility] [address] [place] [address] Ramsey Gray MD Pre-visit Planning (SDOH was already completed) 04/29/2025 Orders Only GENERIC EXTERNAL DATA DEPARTMENT Provider, Generic External Data from Last 3 Months Immunizations Immunization Administration [...] Description 08/15/2025 11:15 AM EST Office Visit [facility] [address] [place] [address] Ramsey Gray MD [address] [place] [address] Health Maintenance Due Date Last Done Comments CT Colonography 1965 Dental Oral Exam 1965 Dental X-Ray: Bitewings 1965 Dental X-Ray: Full Mouth 1965 FIT DNA/Cologuard 1965 FIT 1965 FOBT 1965 Sigmoidoscopy 1965 Disability Screening 1965 Diabetes: Foot Exam 1975 Eye Exam 1975 RSV Patients and Patients Aged 60 years or older (1 - Risk 50-74 years 1-dose series) 2015 Zoster Vaccines (1 of 2) 2015 Dental Prophylaxis 04/13/2023 10/13/2022 Colonoscopy 04/30/2025 04/30/2015 Colorectal Cancer Screening 04/30/2025 COVID-19 Vaccine ( season) 2025 06/07/2024, 12/19/2020, 11/21/2020 Influenza Vaccine (#1) 2025 , 08/08/2018, 06/09/2017, [...] Completed 02/01/2023 Hepatitis C Screening Completed 02/01/2023 Pneumococcal Vaccine: 50+ Years Completed 10/18/2024, 07/15/2004 [...] on patient's age to complete this topic Goals Goal Patient Goal Type Associated Problems Recent Progress Patient-Stated? Author Help patients manage their type 2 diabetes Care Plan Help patients manage their type 2 diabetes Radha Mancuso Weekly blood pressure task Care Plan Weekly blood pressure task Radha Mancuso Help patients manage their type 2 diabetes Care Plan Help patients manage their type 2 diabetes Radha Mancuso Patient has chronic kidney disease Care Plan Patient has chronic kidney disease No Radha Neff Procedures Procedure Name Priority Date/Time Associated Diagnosis Comments BASIC METABOLIC PANEL Routine 07/23/2025 6:34 AM EST HEMOGLOBIN A1C Routine 05/09/2025 9:55 AM EDT PSA, SCREEN Routine 05/09/2025 9:55 AM EDT Preventative health care POCT GLYCATED HEMOGLOBIN, TOTAL Routine 05/09/2025 9:36 AM EDT Type 2 diabetes mellitus with stage 3a chronic kidney disease, with long-term current use of insulin ([facility]) POCT GLUCOSE Routine 05/09/2025 9:33 AM EDT Type 2 diabetes mellitus with stage 3a chronic kidney disease, with long-term current use of insulin ([facility]) US RENAL COMPLETE Routine 05/08/2025 9:0 0 AM EDT GLUCOSE, WHOLE BLOOD Routine 04/29/2025 7:50 AM EDT LIPID PANEL, STANDARD Routine 10/19/2024 [...] Relevant to Health Maintenance Results * (ABNORMAL) Basic Metabolic Panel (07/23/2025 6:34 AM EST) Sodium 141 135 - 145 mmol/L [facility] Potassium 4.7 3.3 - 5.1 mmol/L [facility] Chloride 107 96 - 108 mmol/L [facility] Carbon Dioxide 26 22 - 29 mmol/L [facility] Anion Gap 13 12 - 20 [facility] Urea Nitrogen (BUN) 22(H) 9 - 16 mg/dL [facility] Creatinine, Serum 1.43(H) 0.5 - 1.4 mg/dL [facility] Estimated Glomerular Filt Rate 50 [facility] Comment:Chronic Kidney Disea se: Estimated GFR < 60 mL/min/[id number] Kidney Disease: Estimated GFR < 15 mL/min/1.73m2 Glucose 158(H) 60 - 115 mg/dL [facility] Calcium 9.6 8.4 - 10.2 mg/dL [facility] 07/23/2025 6:34 AM EST 07/23/2025 6:34 AM EST us Generic External Data Provider LAB BLOOD ORDERAB LES Final Result Performing Organization Address [facility]/ZIP Co de Phone Number [facility] [address] [place] [phone] * PSA, Screen (05/09/2025 9:55 AM EDT) PSA, Total 0.18 <0.05 - 4.0 ng/mL [facility] Comment:PSA methodology: Jennyfer Mendez i ChemiluminescentMicroparticle Immunoassay (CMIA) Blood Venous blood specimen / Unknown 05/09/2025 9:55 AM EDT 05/09/2025 11:10 AM EDT us Ramsey Cline MD LAB BLOOD ORDERABLES Final Result Performing Organization Address City/[facility]/ZIP Co de Phone Number [facility] [address] [place] [phone] * (ABNORMAL) Hemoglobin A1c (05/09/2025 9:55 AM EDT) Hemoglobin A1c 7.3(H) <6.0 % [facility] Comment:Hemoglobin A1C Refer ence Range Adults: 4.8 - 6.0 % Non diabetic: < 6.0 % Goal: < 7.0 %Additional Action Suggested: > 8.0 %Note: Hemoglobin A1c results are invalid for patients with abnormal amounts of HbF. Blood transfusions may impact the HbA1c concentration in the patient sample. Estimated Average Glucose 163 mg/dL [facility] Comment:eAG = Estimated ave rage glucose which is %A1C expressed asaverage glucose, using the formula of the W5T-InpdtyoSvudcxj Glucose study (ADAG), Diabetes Care, Vol.31,#8,Apr. 2007 05/09/2025 9:55 AM EDT 05/09/2025 11:10 AM EDT Generic External Data Provider LAB BLOOD ORDERAB LES Final Result [facility] [address] [place] [address] [phone] * (ABNORMAL) POCT Hgb A1c (05/09/2025 [...] Media Lot # [id number] Lot# Expiration Date [id number] Blood Capillary blood specimen / Unknown 05/09/2025 9:33 AM EDT Ramsey Cline MD POINT OF CARE TEST EN TER/EDIT ORDERABLES Final Result * US Renal Complete (05/08/2025 9:00 AM EDT) Anatomical Region Laterality Modality Kidney Ultrasound 05/08/2025 9:00 AM EDT Narrative 05/08/2025 9:27 AM EDT [address] [address] Ultrasound Report Signed Patient: Armand Warren MR#: [id number] : 1965 Acct:[id number] Age/Sex: 60 / M ADM Date: 05/08/25 Loc: HO.US Attending Dr: Bandar Ribeiro MD Ordering Physician: Bandar Ribeiro MD Date of Service: 05/08/25 Procedure(s): US renal BI Accession Number(s): [id number] cc: Bandar Ribeiro MD; Ramsey Turner MD [...] OV> 05/08/25922 DD/ 09 TD/TT: 05/08/25 0907 Auto Emissions Technician: Procedure Note Donotuseinterpreter, Image - 05/08/[address] [address] Ultrasound Report Signed Patient: Armand WarrenMR#: [id number] : 1965Acct:[id number] Age/Sex: 60 / MADM Date: 05/08/25 Loc: HO.US Attending Dr: Bandar Ribeiro MD Ordering Physician: Bandar Ribeiro MD Date of Service: 05/08/25 Procedure(s): US renal BI Accession Number(s): [id number] cc: Bandar Ribeiro MD; Ramsey Turner MD [...] OV> 05/08/25922 DD/ 09 TD/TT: 05/08/25 0907 Auto Emissions Technician: [facility] External Provider IMG US PROCEDURES Final Result * (ABNORMAL) Glucose, Whole Blood (04/29/2025 7:50 AM EDT) Glucose, Whole Blood 249(H) 60 - 115 mg/dL [facility] Comment:METER #: [id number] Testing performed in the Endocrinology Department [address] , [address], [facility]. 04/29/2025 7:50 AM EDT 04/29/2025 7:54 AM EDT us Generic External Data Provider LAB BLOOD ORDERAB LES Final Result [facility] [address] [place] [phone] * (ABNORMAL) Lipid Panel, Standard (10/19/2024 8:15 AM EST) Triglycerides 56 <150 mg/dL [facility] Comment:Desirable Triglyceri de: less than 150 mg/dLBorderline High Triglyceride 150-199 mg/dLHigh Triglyceride: 200-499 mg/dLVery High Triglyceride: greater than or equal to 5OO mg/dL Cholesterol 114 <200 mg/dL [facility] Comment:Desirable Cholestero l: less than 200 mg/dLBorderline High Cholesterol: 200-239 mg/dLHigh Cholesterol: greater than 239 mg/dL LDL Cholesterol Calculated 65 <100 mg/dL [facility] Comment:Desirable LDL: less than 100 mg/dLNear Optimal/Above Optimal LDL: 110- 129 mg/dLBorderline High LDL: 130-159 mg/dLHigh LDL: 160-189 mg/dLVery High LDL: greater than or equal to 190 mg/dL HDL Cholesterol 38(L) >40 mg/dL [facility] Comment:Desirable HDL: great er than 40 mg/dL Note: This HDL assay may give artificially low results in patients with liver disease. Blood Venous blood specimen / Unknown 10/19/2024 8:15 AM EST 10/19/2024 11:02 AM EST us Ramsey Cline MD LAB BLOOD ORDERABLES Final Result [facility] [address] [place] [phone] * Hepatitis C Antibody with Reflex to HCV, RNA, Quantitative, Real-Time PCR (02/01/2023 8:12 AM EDT) Hepatitis C Antibody NON-REACT KELLI NON-REACT KELLI [employer] [place] Authentic Response Index 0.25 <1.00 [employer] [place] Authentic Response Comment: HCV antibody was non-reactive. There is no laboratory evidence of HCV infection. In most cases, no further action is required. However, if recent HCV exposure is suspected, a test for HCV RNA (test code 58971) is suggested. For additional information please refer to http://education.[employer]/faq/LUJ86y2 (This link is being provided for informational/ educational purposes only.) Blood Venous blood specimen / Unknown 02/01/2023 8:12 AM EDT 02/01/2023 8:13 AM EDT Narrative [facility] - 02/01/2023 11:34 PM EDT FASTING:YES FASTING: YES us Ramsey Cline MD LAB BLOOD ORDERABLES Final Result Performing Organization Address City/[facility]/ZIP Co de Phone Number [facility] [address], [place] [phone] [employer] [place] [employer] [address] [place] [phone] * HIV-1/2 Antigen and Antibodies, Fourth Generation, with Reflexes (02/01/2023 8:12 AM EDT) HIV Antigen/Antibody, 4th Generation NON-REAC TIVE NON-REAC TIVE [employer] [place] Authentic Response Comment: HIV-1 antigen and HIV-1/HIV-2 antibodies were [...] purpose. For additional information please refer to http://education.[employer]/faq/KNF719 (This link is being provided for informational/ educational purposes only.) The performance of this assay has not been clinically validated in patients less than 2 years old. Blood Venous blood specimen / Unknown 02/01/2023 8:12 AM EDT 02/01/2023 8:13 AM EDT Narrative [facility] - 02/01/2023 11:34 PM EDT FASTING:YES FASTING: YES Ramsey Cline MD LAB BLOOD ORDERABLES Final Result [facility] [address], [place] [phone] [employer] [facility] [address] [place] [phone] * Colonoscopy (04/30/2015) Colonoscopy Normal Normal 04/30/2015 Estelle Malone - 04/30/2015 11:58 AM EDT Recommended 10 year follow up Historical Provider HEALTH MAINTENANCE Edited Result - Final from Last 3 Months or Most Recently Relevant to Health Maintenance Additional Health Concerns Active Problems Noted Date Diagnosed Date Help patients manage their type 2 diabetes 07/24 Weekly blood pressure task 07/24/2025 Help patients manage their type 2 diabetes 07/24 Patient has chronic kidney disease 07/24/2025 [facility] Care Teams Siebel Developer Relationship Specialty Start Date End Date Ramsey Gray MD [address] [place] [phone] PCP - General Internal Medicine 06/25/14
--- OUTSIDE RECORDS SUMMARY | 2025-07-29 07:38 | XMS_ITS | Encounter Summary ---
Author Organization [employer] Address [address] [facility] 7t [place] [address] Care Team Providers Care Forepart Laster Name Role Phone Ramsey Gray MD Primary Care Provide r Encounter Details Date Type Department Care Team (Latest Contact Info) Description 11/13/2020 Abstract [facility] CONVERSIONS Dental, Provider, DDS Social [...] Description 08/15/2025 11:15 AM EST Office Visit [facility] [address] [place] [address] Ramsey Gray MD [address] [place] [address] documented as of this encounter Visit Diagnoses Not on filedocumented in this encounter Care Teams Forepart Laster Relationship Specialty Start Date End Date Ramsey Gray MD [address] [place], [place] [phone] PCP - General Internal Medicine 06/25/14 documented as of this encounter
--- OUTSIDE RECORDS SUMMARY | 2025-07-29 07:38 | XMS_ITS | Encounter Summary ---
Author Organization [employer] Address [address] [facility] 7t [place] [address] Care Team Providers Care Speech Coach Name Role Phone Ramsey Gray MD Primary Care Provide r Encounter Details Date Type Department Care Team (Latest Contact Info) Description 06/07/2022 Abstract [facility] CONVERSIONS Dental, Provider, DDS Social History Tobacco [...] Description 08/15/2025 11:15 AM EST Office Visit [facility] [address] [place] [address] Ramsey Gray MD [address] [place] [address] documented as of this encounter Visit Diagnoses Not on filedocumented in this encounter Care Teams Speech Coach Relationship Specialty Start Date End Date Ramsey Gray MD [address] [place], [place] [phone] PCP - General Internal Medicine 06/25/14 documented as of this encounter
[2025-07-29 07:51] VITALS: BP 112/60; PULSE 74; O2SAT 100; BMI 26.9
--- NOTE | 2025-07-29 07:51 | A.OFFVIS_ITS ---
Vital Signs 07/29/25 07:51 Height 5 ft 5 in Weight 161 lb 9.581 oz BMI 26.9 BP 112/60 Blood Pressure Location Lt brachial Position Sitting Pulse 74 Pulse Source Pulse Oximeter Pulse Oximetry (%) 100 Oxygen Delivery Method Room Air Intake Visit Reasons: T2DM Intake Note: Patient present today for Type 2 Diabetes Mellitus Last Diabetic eye exam: Last exam was in 2023 and has appt for next exam on 2025 Last Podiatry Visit: Doesn't have one Random Glucose: 25 mg/dl HgA1C: 7.3% 05/09/25 Pharmacy Operations Coordinator Required: Yes Pharmacy Operations Coordinator Language: Carton Lettering Machine Operator Services: Pharmacy Operations Coordinator Present Pharmacy Operations Coordinator Name: Trisha [id number] Information Interpreted: non-clinical & clinical Accompanied by: Self / Same As Patient Allergies Penicillins (PENICILLINS) Allergy (Intermediate, Verified 07/29/25 08:01) RASH penicillin V Allergy (Unknown, Verified 07/29/25 08:01) Rash morphine Adverse Reaction (Unknown, Verified 07/29/25 08:01) Unknown Medication List - Last Reconciled 07/29/25 by Cari Ferguson PA-C albuterol sulfate 90 mcg/actuation 2 puffs inhalation Q4-6H PRN aspirin (Adult Low Dose Aspirin) 81 mg PO DAILY atorvastatin 10 mg PO DAILY blood sugar diagnostic (FreeStyle Lite Strips) As directed three times daily empagliflozin (Jardiance) 10 mg PO DAILY lancets (TRUEplus Lancets) As directed sertraline 50 mg PO QAM tirzepatide (Mounjaro) 12.5 mg (0.5 mL) subcut QWEEK umeclidinium-vilanterol 62.5-25 mcg/actuation (Anoro Ellipta) 1 ea PO DAILY HPI HPI T2DM: Details: Patient is a 60-year-old male with a significant past medical history hypertension, hyperlipidemia, type 2 diabetes, COPD and chronic kidney disease Presenting today for a diabetic follow-up. Pharmacy Operations Coordinator: Maddison Randle: his A1c was 7.3. He is currently on Jardiance 10 mg daily and Mounjaro 12.5 mg weekly. He has been wearing a sensor and states that there is a lot of inaccurate as he is with a sensor in the fingerstick. He also has a high variability of 45%. His sensor states that he is hyperglycemic 56% of the time and in range 44% of the time was 0% hypoglycemia. His diet he states it is ?not that bad . He had a sleep of crackers today for breakfast with two eggs. He does report a diet that is high in carbs - He states he has been off of insulin for about a year. -he has been intolerant of Trulicity due to diarrhea. Ozempic caused similar symptoms with diarrhea. Bs- checks 1 x a day - 104-158 Nephro: He does have CKD dating back to 2020. Does not use NSAIDs. Has a history of kidney stones but states that he only had this once years ago. Does not follow with Nephrology. he is on an JAVIER-inhibitor and statin. CV: His blood pressure today in the office is 112/60. He is compliant with Lipitor 10 mg. Last LDL was 65 PFSH Medical History (Updated 07/25/25 @ 10:05 by Bandar Ribeiro MD) Obesity due to excess calories Carpal tunnel syndrome Kidney stones Depression Type 2 diabetes mellitus with hyperglycemia, with long-term current use of insulin Essential hypertension Hyperlipidemia LDL goal <100 Surgical History Hx of colonoscopy Family History Mother Diabetes Arthritis Stroke Father Unknown family medical history Social History Household Members: None Alcohol intake: never Patient Tobacco Use Status: Former Tobacco user Physical Exam Vital Signs: Last Vital Signs Pulse 74 07/29/25 07:51 BP 112/60 07/29/25 07:51 Pulse Ox 100 07/29/25 07:51 Oxygen Delivery Method Room Air 07/29/25 07:51 BMI result Body Mass Index 26.9 Const Orientation/consciousness: patient oriented x3 HEENT Ears: hearing grossly normal bilaterally Neck Thyroid: Thyroid normal Lymphatic: no lymphadenopathy noted Resp Auscultation: clear to auscultation bilaterally Cardio Rate: regular rate Rhythm: regular rhythm Heart sounds: S1 normal heart sound present and S2 normal heart sound present Skin General skin exam: no rashes or lesions noted Neuro General: patient oriented x3, gait normal and no focal motor deficits Results Reviewed Results Reviewed: Laboratory Last Values Glucose (Clinic) 253 mg/dL (60-115) H 07/29/25 08:03 Laboratory Tests 05/09/25 07/23/25 07/29/25 09:55 06:34 08:03 Creatinine 1.43 H Estimated GFR 50 Glucose (Clinic) 253 H Random Glucose 158 H Hemoglobin A1c % 7.3 H Triglycerides 130 Cholesterol 115 LDL Cholesterol, Calc 59 HDL Cholesterol 30 L Assessment & Plan Assessment & Plan (1) Type 2 diabetes with nephropathy: Code(s): E11.21 - Type 2 diabetes mellitus with diabetic nephropathy Category: Medical Plan: continue jardiance 10 mg daily increase mounjaro to 15 mg weekly We discussed diet changes We reviewed his CGM and how to use it. He was not very familiar with the reader. I did refer him to diabetic education as he does think he would also benefit from this. (2) Essential hypertension: Code(s): I10 - Essential (primary) hypertension Category: Medical Plan: Blood pressure normal since coming off of lisinopril (3) Elevated LFTs: Code(s): R79.89 - Other specified abnormal findings of blood chemistry Category: Medical Plan: liver u/s was ordered Referral to GI was placed discussed importance of diet and bs control Orders: Referrals Diabetes Education Referral E11.21 - Type 2 diabetes mellitus with diabetic nephropathy Medications: New blood-glucose sensor (FreeStyle Lola 3 Plus Sensor device) Use daily As directed to monitor glucose 6 ea 3RF E08.29 - Diabetes mellitus due to underlying condition with other diabetic kidney complication, R80.8 - Other proteinuria, Z79.4 - retirement (current) use of insulin tirzepatide (Mounjaro) 15 mg (0.5 mL) subcut QWEEK 2 mL 6RF Refilled empagliflozin (Jardiance) 10 mg PO DAILY 90 tabs 1RF Discontinued tirzepatide (Mounjaro) Discontinued Reason: Duplicate 12.5 mg (0.5 mL) subcut QWEEK 2 mL 5RF Coding Level of Care Code Est Pt Level 4 (68855) Diagnoses Type 2 diabetes with nephropathy E11.21 Essential hypertension I10 Elevated LFTs R79.89
[2025-07-29 08:07] LABS: Glucose, Whole Blood 253 mg/dL (60-115)
== END 2025-07-29 08:37 | disposition home or self-care (01) ==
LOC: HO.ENCR 07:36
PROVIDERS: PCP Internal Medicine; Visit Provider Physician Assistant
DX: E11.21 Type 2 diabetes mellitus with diabetic nephropathy (principal); I10 Essential (primary) hypertension; R79.89 Other specified abnormal findings of blood chemistry

== ENCOUNTER → 2025-07-29 07:35 | Outpatient (BNVA) | payer MEDICAID, SELFPAY | PROVIDERS: PCP Internal Medicine; Visit Provider Physician Assistant | DX: E11.21 Type 2 diabetes mellitus with diabetic nephropathy (principal); E11.29 Type 2 diabetes mellitus with other diabetic kidney complication; I10 Essential (primary) hypertension; E78.5 Hyperlipidemia, unspecified; R79.89 Other specified abnormal findings of blood chemistry; R80.8 Other proteinuria; Z79.4 Long term (current) use of insulin | CPT/HCPCS: 82947; 99212 ==

== ENCOUNTER 2025-08-05 07:42 | Outpatient (AMB) | payer MEDICAID, SELFPAY ==
--- OUTSIDE RECORDS SUMMARY | 2025-08-05 07:46 | XMS_ITS | Encounter Summary ---
Author Organization [employer] Address [address] [facility] 7t [place] [address] Care Team Providers Care Diplomatic Officer Name Role Phone Ramsey Gray MD Primary Care Provide r Encounter Details Date Type Department Care Team (Latest Contact Info) Description 11/13/[address] [facility] CONVERSIONS Dental, Provider, DDS Social History [...] 11:15 AM EST Office Visit [facility] [address] [place] [address] Ramsey Gray MD [address] [place] [address] documented as of this encounter Visit Diagnoses Not on filedocumented in this encounter Care Teams Diplomatic Officer Relationship Specialty Start Date End Date Ramsey Gray MD [address] [place], [place] [phone] PCP - General Internal Medicine 06/25/14 documented as of this encounter
--- OUTSIDE RECORDS SUMMARY | 2025-08-05 07:46 | XMS_ITS | Encounter Summary ---
Author Organization [employer] Address 75 [facility] 7t [place] [address] Care Team Providers Care Pet Feeder Name Role Phone Ramsey Gray MD Primary Care Provide r Reason for Visit * Reason Comments Med Refill Encounter Details Date Type Department Care Team (Late st Contact Info) Description 02/23/2024 Refill [facility] [address] [place], [place] [phone] Ramsey Gray MD [address] [place], [place] [phone] Social History Tobacco Use Types Packs/Day Years [...] 11:15 AM EST Office Visit [facility] MED[facility] 230 [place] [address] Ramsey Gray MD [address] [place] [address] documented as of this encounter Visit Diagnoses Not on filedocumented in this encounter Additional Health Concerns Assessment Noted Time PHQ-9 Depression Total Score: 0 01/05/20 24 11:09 AM EDT documented as of this encounter Care Teams Pet Feeder Relationship Specialty Start Date End Date Ramsey Gray MD [address] [place] [address] PCP - General Internal Medicine 06/25/14 documented as of this encounter
--- OUTSIDE RECORDS SUMMARY | 2025-08-05 07:46 | XMS_ITS | Encounter Summary ---
Author Organization [employer] Address 75 [facility] 7t [place] [address] Care Team Providers Care Place Change Roof Bolter Name Role Phone Ramsey Gray MD Primary Care Provide r Reason for Visit * Reason Comments Med Refill Encounter Details Date Type Department Care Team (Late st Contact Info) Description 01/20/[address] [facility] MEDICINE 230 [place], [place] [phone] Luciana Elder MD 230 [place] [address] Social History Tobacco Use Types Packs/Day Years [...] Visit [facility] MEDICINE [address] [place] [phone] Ramsey Gray MD [address] [place] [phone] documented as of this encounter Visit Diagnoses Not on filedocumented in this encounter Additional Health Concerns Assessment Noted Time PHQ-9 Depression Total Score: 0 01/05/20 24 11:09 AM EDT documented as of this encounter Care Teams Place Change Roof Bolter Relationship Specialty Start Date End Date Ramsey Gray MD [address] [place] [address] PCP - General Internal Medicine 06/25/14 documented as of this encounter
--- OUTSIDE RECORDS SUMMARY | 2025-08-05 07:46 | XMS_ITS | Encounter Summary ---
Author Organization [employer] Address 75 [facility] 7t [place] [address] Care Team Providers Care Electric Welder Helper Name Role Phone Ramsey Gray MD Primary Care Provide r Reason for Visit * Reason Comments Med Refill Encounter Details Date Type Department Care Team (Late st Contact Info) Description 01/19/2024 Refill [facility] MEDICINE 230 [place], [place] [phone] Luciana Elder MD 230 [place] [address] Social History Tobacco Use Types Packs/Day Years [...] Description 08/15/2025 11:15 AM EST Office Visit [facility] MEDICINE [address] [place] [phone] Ramsey Gray MD [address] [place] [phone] documented as of this encounter Visit Diagnoses Not on filedocumented in this encounter Additional Health Concerns Assessment Noted Time PHQ-9 Depression Total Score: 0 01/05/20 24 11:09 AM EDT documented as of this encounter Care Teams Electric Welder Helper Relationship Specialty Start Date End Date Ramsey Gray MD [address] [place] [phone] PCP - General Internal Medicine 06/25/14 documented as of this encounter
--- OUTSIDE RECORDS SUMMARY | 2025-08-05 07:46 | XMS_ITS | Clinical Summary ---
Author Organization [employer] Address [address] [place] [address] 7t [place] [address] Care Team Providers Care Wedding Designer Name Role Phone Ramsey Gray MD Primary Care Provide r Allergies Active Allergy Reactions Criticality Noted Date Comments Penicillin G 12/07/2022 Penicillins Unknown 08/20/2014 Medications Anoro Ellipta 62.5-25 MCG/ACT aerosol powder INHALE 1 PUFF EVERY DAY AT THE SAME TIME 023 Active Lantus SoloStar 100 UNIT/ML pen INJECT 28 UNITS SUBCUTANEOUSLY AT BEDTIME 023 Active Continuous Blood Gluc Head Golf Professional (FreeStyle Lola 2 De Queen) deviceIndicatio ns:Type 2 diabetes mellitus without complication, [...] Active insulin pen needle (Easy Touch Pen [place]) 31G X 8 mm misc USE 1 [...] strip 11 025 Active TRUEplus Lancets 33G [facility] TEST BLOOD SUGAR THREE TIMES DAILY DIRECTED 100 each Active Continuous Glucose Head Golf Professional (FreeStyle Lola 3 De Queen) device 1 each Once per day. Use [...] 8:29 AM EDT): [place] [facility] [place] flank pain, CT of his abdomen showed a 2 mm partially obstructing calculus. Seen by [facility] December 24 2015 Increase fluid [...] Encounters Date Type Department Care Team Description 07/29/2025 Orders Only GENERIC EXTERNAL DATA DEPARTMENT Provider, Generic External Data 07/23/2025 Orders Only GENERIC EXTERNAL DATA DEPARTMENT Provider, Generic External Data 07/23/2025 Refill [facility] MEDICINE 230 [place] [address] Ramsey Gray MD 05/31/2025 Refill [facility]INE [address] [place] [address] Ramsey Gray MD Right foot pain 05/20/2025 Telephone [facility] [place] [address] Ramsey Gray MD August05/09/2025 9:15 AM EDT Office Visit [facility] [address] [facility] [place] [address] Ramsey Gray MD Type 2 diabetes mellitus with stage 3a chronic kidney disease, with long-term current use of insulin (CMS/HCC) (Primary Dx); Primary hypertension; Mixed hyperlipidemia; Stage 3a chronic kidney disease (CMS/HCC); Other emphysema (CMS/HCC); Preventative health care; Colon cancer screening; Renal lesion 05/09/2025 Orders Only GENERIC EXTERNAL DATA DEPARTMENT Provider, Generic External Data 05/09/2025 Travel 05/08/2025 Orders Only [facility] External Provider, [facility] from Last 3 Months Immunizations Immunization Administration [...] Description 08/15/2025 11:15 AM EST Office Visit [facility] 230 [place] [address] Ramsey Gray MD 230 [place] [address] Health Maintenance Due Date Last Done Comments [...] task Care Plan Weekly blood pressure task No Radha Neff Help patients manage their type 2 diabetes Care Plan Help patients manage their type 2 diabetes No Radha Neff Patient has chronic kidney disease Care Plan Patient has chronic kidney disease No Radha Neff Procedures Procedure Name Priority Date/Time Associated Diagnosis Comments GLUCOSE, WHOLE BLOOD Routine 07/29/2025 8:03 AM EST BASIC METABOLIC PANEL Routine 07/23/2025 6:34 AM EST HEMOGLOBIN A1C Routine 05/09/2025 9:55 AM EDT PSA, SCREEN Routine 05/09/2025 9:55 AM EDT Preventative health care POCT GLYCATED HEMOGLOBIN, TOTAL Routine 05/09/2025 9:36 AM EDT Type 2 diabetes mellitus with stage 3a chronic kidney disease, with long-term current use of insulin ([facility]) POCT GLUCOSE Routine 05/09/2025 9:33 AM EDT Type 2 diabetes mellitus with stage 3a chronic kidney disease, with long-term current use of insulin (CMS/HCC) US RENAL COMPLETE Routine 05/08/2025 9:0 0 AM EDT LIPID PANEL, STANDARD Routine 10/19/2024 [...] Maintenance Results * (ABNORMAL) Glucose, Whole Blood (07/29/2025 8:03 AM EST) Pathologist [facility] Glucose, Whole Blood 253(H) 60 - 115 mg/dL [facility] Comment:METER #: [id number] Testing performed in the Endocrinology Department [address] , [address], [facility]. 07/29/2025 8:03 AM EST 07/29/2025 8:07 AM EST us Generic External Data Provider LAB BLOOD ORDERAB LES Final Result [facility] [address] [place] [phone] * (ABNORMAL) Basic Metabolic Panel (07/23/2025 6:34 AM EST) [facility] Sodium 141 135 - 145 mmol/L [facility] Potassium 4.7 3.3 - 5.1 mmol/L [facility] Chloride 107 96 - 108 mmol/L [facility] Carbon Dioxide 26 22 - 29 mmol/L [facility] Anion Gap 13 12 - 20 [facility] Urea Nitrogen (BUN) 22(H) 9 - 16 mg/dL [facility] Creatinine, Serum 1.43(H) 0.5 - 1.4 mg/dL [facility] Estimated Glomerular Filt Rate 50 [facility] Comment:Chronic Kidney Disea se: Estimated GFR < 60 mL/min/1.10s5Qiabvg Kidney Disease: Estimated GFR < 15 mL/min/1.73m2 Glucose 158(H) 60 - 115 mg/dL [facility] Calcium 9.6 8.4 - 10.2 mg/dL [facility] 07/23/2025 6:34 AM EST 07/23/2025 6:34 AM EST us Generic External Data Provider LAB BLOOD ORDERAB LES Final Result Performing Organization Address City/[facility]/ZIP Co de Phone Number [facility] [address] [place] [phone] * PSA, Screen (05/09/2025 9:55 AM EDT) PSA, Total 0.18 <0.05 - 4.0 ng/mL [facility] Comment:PSA methodology: Jennyfer Mendez i ChemiluminescentMicroparticle Immunoassay (CMIA) Blood Venous blood specimen / Unknown 05/09/2025 9:55 AM EDT 05/09/2025 11:10 AM EDT us Ramsey Cline MD LAB BLOOD ORDERABLES Final Result [facility] [address] [place] [phone] * (ABNORMAL) Hemoglobin A1c (05/09/2025 9:55 AM EDT) Hemoglobin A1c 7.3(H) <6.0 % [facility] Comment:Hemoglobin A1C Refer ence Range Adults: 4.8 - 6.0 % Non diabetic: < 6.0 % Goal: < 7.0 %Additional Action Suggested: > 8.0 %Note: Hemoglobin A1c results are invalid for patients with abnormal amounts of HbF. Blood transfusions may impact the HbA1c concentration in the patient sample. Estimated Average Glucose 163 mg/dL [facility] Comment:eAG = Estimated ave rage glucose which is %A1C expressed asaverage glucose, using the formula of the V6I-ZsscikrQuoqngm Glucose study (ADAG), Diabetes Care, Vol.31,#8,Apr. 2007 05/09/2025 9:55 AM EDT 05/09/2025 11:10 AM EDT us Generic External Data Provider LAB BLOOD ORDERAB LES Final Result [facility] [address] [place] [phone] * (ABNORMAL) POCT Hgb A1c (05/09/2025 9:36 AM EDT) Hemoglobin A1C 7.7(A) 4.0 - 5.7 % QC Media Lot # [id number] Lot# Expiration Date ,[id number] Blood 05/09/2025 9:36 AM EDT Ramsey Cline MD POINT OF CARE TEST EN TER/EDIT ORDERABLES Final Result * (ABNORMAL) POCT Glucose (05/09/2025 9:33 AM EDT) Glucose Blood, POC 247(A) 60 - 200 mg/dL QC Media Lot # [id number] Lot# Expiration Date [id number] Blood Capillary blood specimen / Unknown 05/09/2025 9:33 AM EDT Ramsey Cline MD POINT OF CARE TEST EN TER/EDIT ORDERABLES Final Result * US Renal Complete (05/08/2025 9:00 AM EDT) Anatomical Region Laterality Modality Kidney Ultrasound 05/08/2025 9:00 AM EDT Narrative 05/08/2025 9:27 AM EDT [place] [phone] Ultrasound Report Signed Patient: Armand Warren MR#: [id number] : 1965 Acct:[id number] Age/Sex: 60 / M ADM Date: 05/08/25 Loc: .US Attending Dr: Bandar Ribeiro MD Ordering Physician: Bandar Ribeiro MD Date of Service: 05/08/25 Procedure(s): US renal BI Accession Number(s): [id number] cc: Bandar Ribeiro MD; Ramsey Turner MD [...] Blair Lemus MD in OV> 05/08/25922 DD/ 9 TD/TT: 05/08/25906 Counter Top Assembler: Procedure Note Donotuseinterpreter, Image - 05/08/2025 [place] [phone] Ultrasound Report Signed Patient: Armand WarrenMR#: [id number] : 1965Acct:[id number] Age/Sex: 60 / MADM Date: 05/08/25 Loc: HO.US Attending Dr: Bandar Ribeiro MD Ordering Physician: Bandar Ribeiro MD Date of Service: 05/08/25 Procedure(s): US renal BI Accession Number(s): [id number] cc: Bandar Ribeiro MD; Ramsey Turner MD [...] Lemus MDin OV> 05/08/25922 DD/ 9 TD/TT: 05/08/25 09 Counter Top Assembler: [facility] External Provider IMG US PROCEDURES Final Result * (ABNORMAL) Lipid Panel, Standard (10/19/2024 8:15 AM EST) Triglycerides 56 <150 mg/dL [facility] Comment:Desirable Triglyceri de: less than 150 mg/dLBorderline High Triglyceride 150-199 mg/dLHigh Triglyceride: 200-499 mg/dLVery High Triglyceride: greater than or equal to 5OO mg/dL Cholesterol 114 <200 mg/dL [facility] Comment:Desirable Cholestero l: less than 200 mg/dLBorderline High Cholesterol: 200-239 mg/dLHigh Cholesterol: greater than 239 mg/dL LDL Cholesterol Calculated 65 <100 mg/dL [facility] Comment:Desirable LDL: less than 100 mg/dLNear Optimal/Above Optimal LDL: 110- 129 mg/dLBorderline High LDL: 130-159 mg/dLHigh LDL: 160-189 mg/dLVery High LDL: greater than or equal to 190 mg/dL HDL Cholesterol 38(L) >40 mg/dL [facility] Comment:Desirable HDL: great er than 40 mg/dL Note: This HDL assay may give artificially low results in patients with liver disease. Blood Venous blood specimen / Unknown 10/19/2024 8:15 AM EST 10/19/2024 11:02 AM EST Ramsey Cline MD LAB BLOOD ORDERABLES Final Result [facility] [address] [place] [phone] * Hepatitis C Antibody with Reflex to HCV, RNA, Quantitative, Real-Time PCR (02/01/2023 8:12 AM EDT) Hepatitis C Antibody NON-REACT KELLI NON-REACT KELLI [employer] [place] [employer] Index 0.25 <1.00 [employer] [place] [employer] Comment: HCV antibody was non-reactive. There is no laboratory evidence of HCV infection. In most cases, no further action is required. However, if recent HCV exposure is suspected, a test for HCV RNA (test code 12963) is suggested. For additional information please refer to http://EquityMetrix.Mipagar/faq/FGE04m8 (This link is being provided for informational/ educational purposes only.) Blood Venous blood specimen / Unknown 02/01/2023 8:12 AM EDT 02/01/2023 8:13 AM EDT Narrative [facility] - 02/01/2023 11:34 PM EDT FASTING:YES FASTING: YES Ramsey Cline MD LAB BLOOD ORDERABLES Final Result [facility] [address] [place] [address] [employer] [place] [employer] [address] [place] [phone] * HIV-1/2 Antigen and Antibodies, Fourth Generation, with Reflexes (02/01/2023 8:12 AM EDT) HIV Antigen/Antibody, 4th Generation NON-REAC TIVE NON-REAC TIVE [employer] [place] [employer] Comment: HIV-1 antigen and HIV-1/HIV-2 antibodies were [...] purpose. For additional information please refer to http://education.Uni-Pixel.Harvest Exchange/faq/NJI181 (This link is being provided for informational/ educational purposes only.) The performance of this assay has not been clinically validated in patients less than 2 years old. Blood Venous blood specimen / Unknown 02/01/2023 8:12 AM EDT 02/01/2023 8:13 AM EDT Narrative [facility] - 02/01/2023 11:34 PM EDT FASTING:YES FASTING: YES Ramsey Cline MD LAB BLOOD ORDERABLES Final Result [facility] [address] [place] [address] [facility] [address] [place] [phone] * Colonoscopy (04/30/2015) Colonoscopy Normal Normal 04/30/2015 Yordy Alvarado Estelle - 04/30/2015 11:58 AM EDT Recommended 10 [...] Patient has chronic kidney disease 07/24/2025 Insurance [employer] C3 Care Teams Wedding Designer Relationship Specialty Start Date End Date Ramsey Gray MD [address] [place] [phone] PCP - General Internal Medicine 06/25/14
--- OUTSIDE RECORDS SUMMARY | 2025-08-05 07:46 | XMS_ITS | Encounter Summary ---
Author Organization [employer] Address 75 [facility] 7t [place] [address] Care Team Providers Care Finishing Department Supervisor Name Role Phone Ramsey Gray MD Primary Care Provide r Encounter Details Date Type Department Care Team (Late Contact Info) Description 01/12/2023 Abstract [facility] MEDICINE [address] [place], [place] [phone] Ramsey Gray MD [address] [place], [place] [phone] Social History Tobacco Use Types Packs/Day Years [...] Description 08/15/2025 11:15 AM EST Office Visit [facility] MED[facility]INE [address] [place] [phone] Ramsey Gray MD 230 [place], [place] [phone] documented as of this encounter Procedures Procedure Name Priority Date/Time Associated Diagnosis Comments COLONOSCOPY Routine 04/30/2015 documented in this encounter Results * Colonoscopy (04/30/2015) Colonoscopy Normal Normal 04/30/2015 Estelle Malone - 04/30/2015 11:58 AM EDT Recommended 10 year follow up us Historical Provider [employer] MAINTENANCE Edited Result - Final documented in this encounter Visit Diagnoses Not on filedocumented in this encounter Care Teams Finishing Department Supervisor Relationship Specialty Start Date End Date Ramsey Gray MD [address] [place] [phone] PCP - General Internal Medicine 06/25/14 documented as of this encounter
--- OUTSIDE RECORDS SUMMARY | 2025-08-05 07:46 | XMS_ITS | Encounter Summary ---
Author Organization [employer] Address 75 [facility] 7t [place] [address] Care Team Providers Care Adventure Guide Name Role Phone Ramsey Gray MD Primary Care Provide r Reason for Visit * Reason Comments Med Refill Encounter Details Date Type Department Care Team (Late st Contact Info) Description 02/23/2024 Refill [facility] MEDICINE [address] [place], [place] [phone] Ramsey Gray MD [address] [place], [place] [phone] Social History Tobacco Use Types Packs/Day Years [...] Description 08/15/2025 11:15 AM EST Office Visit [facility] MEDICINE [address] [place] [address] Ramsey Gray MD 230 [place] [address] documented as of this encounter Visit Diagnoses Not on filedocumented in this encounter Additional Health Concerns Assessment Noted Time PHQ-9 Depression Total Score: 0 01/05/20 24 11:09 AM EDT documented as of this encounter Care Teams Adventure Guide Relationship Specialty Start Date End Date Ramsey Gray MD [address] [place] [address] PCP - General Internal Medicine 06/25/14 documented as of this encounter
--- OUTSIDE RECORDS SUMMARY | 2025-08-05 07:46 | XMS_ITS | Encounter Summary ---
Author Organization [employer] Address 75 [facility] 7t [place] [address] Care Team Providers Care Travel Consultant Name Role Phone Ramsey Gray MD Primary Care Provide r Encounter Details Date Type Department Care Team (Latest Contact Info) Description 06/07/2022 Abstract [facility] Dental, Provider, DDS Social History Tobacco [...] Description 08/15/2025 11:15 AM EST Office Visit [facility] MEDICINE [address] [place] [address] Ramsey Gray MD [address] [place] [address] documented as of this encounter Visit Diagnoses Not on filedocumented in this encounter Care Teams Travel Consultant Relationship Specialty Start Date End Date Ramsey Gray MD 230 [place], [place] [phone] PCP - General Internal Medicine 06/25/14 documented as of this encounter
--- OUTSIDE RECORDS SUMMARY | 2025-08-05 07:46 | XMS_ITS | Encounter Summary ---
Author Organization [employer] Address 75 [facility] 7t [place] [address] Care Team Providers Care Boil Off Worker Name Role Phone Ramsey Gray MD Primary Care Provide r Encounter Details Date Type Department Care Team (Late st Contact Info) Description 09/08/2022 Orders Only [facility] [address] [place] [address] Patricia Adamson LPN Social History Tobacco Use [...] 11:15 AM EST Office Visit [facility] MEDICINE [address] [place] [address] Ramsey Gray MD [address] [place] [address] documented as of this encounter Visit Diagnoses Not on filedocumented in this encounter Care Teams Boil Off Worker Relationship Specialty Start Date End Date Ramsey Gray MD [address] [place] [phone] PCP - General Internal Medicine 06/25/14 documented as of this encounter
--- OUTSIDE RECORDS SUMMARY | 2025-08-05 07:46 | XMS_ITS | Encounter Summary ---
Author Organization [employer] Address 75 [facility] 7t [place] [address] Care Team Providers Care Punch Hand Name Role Phone Ramsey Gray MD Primary Care Provide r Encounter Details Date Type Department Care Team (Late Contact Info) Description 11/24/2022 Orders Only [facility] MED & PEDS [address] [place], [place] [phone] Patricia Adamson LPN Social History Tobacco Use [...] Description 08/15/2025 11:15 AM EST Office Visit [facility] MEDICINE 230 [place], [place] [phone] Ramsey Gray MD 230 [place], [place] [phone] documented as of this encounter Visit Diagnoses Not on filedocumented in this encounter Care Teams Punch Hand Relationship Specialty Start Date End Date Ramsey Gray MD [address] [place] [phone] PCP - General Internal Medicine 06/25/14 documented as of this encounter
--- NOTE | 2025-08-05 08:00 | MHC.AMDMED ---
Intake Intake Visit Reasons: 60 mins Associate Manager Affiliate Marketing Required: Yes Associate Manager Affiliate Marketing Language: Display And Banner Designer Name: Samuel [id number] Accompanied by: Self / Same As Patient Allergies Penicillins (PENICILLINS) Allergy (Intermediate, Verified 07/29/25 08:) RASH penicillin V Allergy (Unknown, Verified 07/29/25 08:) Rash morphine Adverse Reaction (Unknown, Verified 07/29/25 08:) Unknown HPI Comprehensive Diabetes Asmnt Most Recent Diabetes Results: Microalb/Creat Ratio TNP 10/19/24 Cholesterol, (<200) 115 mg/dL 05/09/25 HDL Cholesterol, (>40) 30 mg/dL L 05/09/25 Triglycerides, (<150) 130 mg/dL 05/09/25 Creatinine, (0.5-1.4) 1.43 mg/dL H 07/23/25 BUN, (9-16) 22 mg/dL H 07/23/25 Sodium, (135-145) 141 mmol/L 07/23/25 Potassium, (3.3-5.1) 4.7 mmol/L 07/23/25 Chloride, (96-108) 107 mmol/L 07/23/25 Carbon Dioxide, (22-29) 26 mmol/L 07/23/25 Calcium, (8.4-10.2) 9.6 mg/dL 07/23/25 AST, (5-37) 58 U/L H 05/09/25 ALT, (0-40) 45 U/L H 05/09/25 Total Protein, (6.5-8.0) 8.0 g/dL 05/09/25 Albumin, (3.5-5.0) 4.4 g/dL 05/09/25 [facility] Medical History (Updated 07/25/25 @ 10:05 by Bandar Ribeiro MD) Obesity due to excess calories Carpal tunnel syndrome Kidney stones Depression Type 2 diabetes mellitus with hyperglycemia, with long-term current use of insulin Essential hypertension Hyperlipidemia LDL goal <100 Surgical History Hx of colonoscopy Family History Mother Diabetes Arthritis Stroke Father Unknown family medical history Social History Household Members: None Alcohol intake: never Patient Tobacco Use Status: Former Tobacco user Assessment & Plan Assessment & Plan (1) Type 2 diabetes with nephropathy: Code(s): E11.21 - Type 2 diabetes mellitus with diabetic nephropathy Plan: Learning objectives: The patient was provided with verbal and written education on the following topics as outlined below. The patient met all learning objectives and was able to verbalize understanding and provide teach back of education topics discussed . The patient was provided with the opportunity to ask questions and all questions were answered. Patient Assessment Assess patient education level/literacy/barriers, last A1c in May 2025 7.3% Patient questions/concerns, patient asked about discrepancy between fingersticks and CGM, patient also interested in interpretation of different reports on Lola 3 reader instructed patient below: CGM Can: Give Pt minute by minute reading of glucose levels Displays glucose trend arrows that represents the direction glucose levels are fluctuating Give insight on decisions about how to dose insulin CGM cannot: Improve glucose control on its own Completely eliminate the need for all finger sticks Make dosing decision for you Discussed lag time between finger stick and sensor data.? Instructed patient the importance of having blood glucometer for backup testing if needed Reviewed delay of CGM from fingersticks Reminded Pt that if symptoms do not match sensor still needs to check fingersticks. Patient reports he has been unable to slat pickler Mounjaro 15 mg weekly, message sent to provider to send new prescription for Mounjaro to [facility] instead of [facility] pharmacy What is Diabetes? Pathophysiology How the body produces and uses insulin Identify type of DM Risk factors Signs of Diabetes Brief overview of Diabetes Management Monitoring blood sugar Following a meal plan Regular exercise Maintaining a healthy weight Taking medication as needed Members of the care team (PCP, RN, MA, RD, CDE, class a regional truck driver) Blood glucose monitoring When/how often to test Target blood sugar ranges Introduction to Nutrition Importance of healthy diet in managing DM Diet is personalized to individual preference Review patient?s regular diet/food preferences Who prepares meals/does food shopping/ Dining out?/ Barriers? How diet effects glucose Eating 3 balanced meals a day with small, healthy snacks between meals Review food groups Carbohydrates: What is a carbohydrate/Which food/food groups are considered carbohydrates Effect of carbohydrates on blood glucose Portion sizes Reading food labels Basic carb counting (if applicable per nursing assessment) Plate method Meal planning Recommendations: Follow plate method, consistent carbs and read nutritional labels. Smart Goal: Patient will work to keep meals between 45-60 g of carbohydrate Educational Materials: The patient was provided with the following written educational materials: Planning Healthy Meals, target Goals Handout Patient Response to instructions: Comprehension of Instructions: Fair Readiness to make changes: Contemplation How confident they feel about making changes: Fair Portions of this note were created using voice recognition software, please excuse any words or phrases that may have been misinterpreted. Medications: Refilled tirzepatide (Mounjaro) 15 mg (0.5 mL) subcut QWEEK 2 mL 6RF Coding Level of Care Code Est Pt Level 1 (32406) Diagnoses Type 2 diabetes with nephropathy E11.21
== END 2025-08-05 09:01 | disposition home or self-care (01) ==
LOC: HO.ENCR 07:43
PROVIDERS: PCP Internal Medicine; Visit Provider Registered Nurse Diabetes Educator
DX: E11.21 Type 2 diabetes mellitus with diabetic nephropathy (principal)

== ENCOUNTER → 2025-08-05 07:42 | Outpatient (BNVA) | payer MEDICAID, SELFPAY | PROVIDERS: PCP Internal Medicine; Visit Provider Registered Nurse Diabetes Educator | DX: E11.21 Type 2 diabetes mellitus with diabetic nephropathy (principal); Z79.4 Long term (current) use of insulin; Z71.3 Dietary counseling and surveillance | CPT/HCPCS: 99211 ==